=== PATIENT | female | born 1980 | race Caucasian/White ===

== ENCOUNTER 2016-07-20 14:32 | Emergency (ER) | payer MEDICAID ==
--- NOTE | 2016-07-20 14:44 | ER Document Report ---
ED Medical Screen (RME) - General Stated Complaint: TOE NAIL PAIN Notes: 35 yo female c/o right great toe pain, redness and swelling x 3 days. Pt was seen by PCM yesterday, given IM Rocephin and started on Keflex. Has pending referral for podiatry but toe is too painful to weight. TRAVEL OUTSIDE OF THE [place] IN LAST 30 DAYS: No - Related Data Allergies/Adverse Reactions: promethazine HCl [From Phenergan] Adverse Reaction (Unknown, Verified 04/27/16 08:04) Past Medical History - Past Medical History Cardiac Medical History: Reports: Hx Hypertension GI Medical History: Reports: Hx Gastroesophageal Reflux Disease Skin Medical History: Reports Hx MRSA Psychiatric Medical History: Reports: Hx Anxiety, Hx Depression - anxiety Past Surgical History: Reports: Hx Gynecologic Surgery - - Immunizations Hx Diphtheria, Pertussis, Tetanus Vaccination: Yes Physical Exam - Vital signs Vitals: Temp Pulse Resp BP Pulse Ox 97.4 F 88 14 114/74 98 07/20/16 14:36 07/20/16 14:36 07/20/16 14:36 07/20/16 14:36 07/20/16 14:36 Course - Vital Signs Vital signs: Temp Pulse Resp BP Pulse Ox 97.4 F 88 14 114/74 98 07/20/16 14:36 07/20/16 14:36 07/20/16 14:36 07/20/16 14:36 07/20/16 14:36
--- NOTE | 2016-07-20 16:03 | ER Document Report ---
HPI - HPI Patient complains to provider of: toe pain Pain Level: 5 Context: Patient is a 35-year-old female who has a history of ingrown toenails who presents with left ingrown toenail today. States she has had pain and swelling for the past 2 days and followed up with her PCP yesterday who gave her Rocephin IM and sent her home on Keflex. Patient is taking Motrin without much relief in her pain. Minimal drainage but nothing that looks cloudy. Patient has previously had paronychias drained here previously - REPRODUCTIVE Reproductive: DENIES: : - DERM Skin Color: [place] Past Medical History - Social History Smoking Status: Former Smoker Chew tobacco use (# tins/day): No Frequency of alcohol use: None Drug Abuse: None Family History: DM, Malignancy Patient has suicidal ideation: No Patient has homicidal ideation: No - Past Medical History Cardiac Medical History: Reports: Hx Hypertension Renal/ Medical History: Denies: Hx Peritoneal Dialysis GI Medical History: Reports: Hx Gastroesophageal Reflux Disease Skin Medical History: Reports Hx MRSA Psychiatric Medical History: Reports: Hx Anxiety, Hx Depression - anxiety Past Surgical History: Reports: Hx Gynecologic Surgery - - Immunizations Hx Diphtheria, Pertussis, Tetanus Vaccination: Yes Vertical Provider Document - CONSTITUTIONAL Agree With Documented VS: Yes Exam Limitations: No Limitations General Appearance: WD/WN, Mild Distress - INFECTION CONTROL TRAVEL OUTSIDE OF THE [place] IN LAST 30 DAYS: No - RESPIRATORY O2 Sat by Pulse Oximetry: 98 - CARDIOVASCULAR Pulses: Normal: Dorsalis pedis - MUSCULOSKELETAL/EXTREMETIES Musculoskeletal/Extremeties: MAEW, FROM, Tender - right big toe with mild swelling - NEURO Level of Consciousness: Awake, Alert, Appropriate Motor/Sensory: No Motor Deficit, No Sensory Deficit - DERM Integumentary: Warm, Dry, No Rash Notes: right toe with evidence of inflammation around right big toe nail but without evidence of paronychia. no evident ingrown toe nail to remove at bedside today Course - Re-evaluation Re-evalutation: 07/20/16 16:10 patient is a 35 year female presents with right big toe pain from ingrown toenail. No evidence of joint effusion or gallop. Patient currently taking antibiotics but pain is not well managed with [id number] medications. Will discharge patient home with by mouth medications and can follow-up with podiatry this week. - Vital Signs Vital signs: Temp Pulse Resp BP Pulse Ox 97.4 F 88 14 114/74 98 07/20/16 14:36 07/20/16 14:36 07/20/16 14:36 07/20/16 14:36 07/20/16 14:36 Discharge - Discharge Clinical Impression: Ingrowing nail Condition: Good Disposition: HOME, SELF-CARE Instructions: Ingrown Nail ([facility]), Epsom Salt Soaks ([facility]) Additional Instructions: Please continue to take your antibiotics as prescribed. Follow-up with podiatry later this week. Prescriptions: Oxycodone HCl/Acetaminophen [Percocet 5-325 mg Tablet] 1 - 2 tab PO Q6HP PRN # 15 tablet PRN Reason: Referrals: PODIATRY [Provider Group] - Follow up as needed
[2016-07-20] MEDS ORDERED: KETOROLAC TROMETHAMINE 60 MG/2 ML SDV IM ONE (16:13)
[2016-07-20 16:54] VITALS: BP 117/75
== END 2016-07-20 16:56 | disposition home or self-care (01) ==
LOC: ER 14:32
DX: L60.0 Ingrowing nail (principal); M79.675 Pain in left toe(s); Z87.891 Personal history of nicotine dependence
CPT/HCPCS: 96372; 99283; J1885

== ENCOUNTER 2016-09-13 07:28 | Day surgery (SDC) | payer MEDICAID ==
[~2016-09-13 07:28] MED LIST: BUPIVACAINE HCL 0.5 % INJ/PF 30 ML SDV ONE; CEFAZOLIN 1 GM/D5W RTU 1 GM/50 ML RTUPB IV PRN; FENTANYL CITRATE INJ/PF 100 MCG/2 ML AMPUL ONE; LIDOCAINE 0.5% INJ-PF (5 MG/ML) 50 ML SDV ONE; LIDOCAINE 1% INJ-PF (10 MG/ML) 30 ML SDV ONE; MIDAZOLAM 2 MG/2 ML INJ ONE; PROPOFOL INJ 200 MG/20 ML VIAL IV ONE; RINGERS SOLUTION,LACTATED 1,000 ML IV PRN
[2016-09-13] MEDS ORDERED: POVIDONE-IODINE 10% OINTMENT 28.4 GM ONE (08:27)
[2016-09-13] MEDS ORDERED: MIDAZOLAM 2 MG/2 ML INJ ONE (09:07)
[2016-09-13] MEDS ORDERED: LIDOCAINE 2% INJ (20 MG/ML) 20 ML MDV ONE (09:14)
--- NOTE | 2016-09-13 13:14 | [facility] OPERATIVE REPORT E ---
[facility] Operative Report NAME: MELCHOR CHERRY AGE: 36Y DATE OF SURGERY: 09/13/2016 ROOM: PREOPERATIVE DIAGNOSIS: ONYCHOINCURVATUS HALLUX BILATERAL. POSTOPERATIVE DIAGNOSIS: ONYCHOINCURVATUS HALLUX BILATERAL. OPERATION: Partial nail avulsion medial and lateral borders, hallux bilateral. Partial matrixectomy medial and lateral matrix corners, hallux bilateral. SURGEON: JESE CORNELIUS D.P.M. INTRAOPERATIVE FINDINGS: Intraoperative findings indicated deeply incurvated medial and lateral nail borders into the nail grooves which has been causing tremendous friction into the nail grooves and a great deal of pain, especially when the patient is in closed in shoes. This condition also has led to infections in the past, but today on the day of surgery, there were no signs of infection. PROCEDURE: With the patient lying in the dorsal recumbent position, both feet were prepped and draped in the usual standard sterile orthopedic manner after the local anesthesia was administered which was a 50/50 mixture of 2% Xylocaine and 0.5% Marcaine. The type of anesthesia utilized, was a regional block around the surgical field. After the anesthetic effect was accomplished, attention was directed first to the right hallux. Medial and lateral borders were removed in total. The nail grooves were cleaned from any debris. After that, a digital tourniquet was applied at the base of the right hallux to control hemostasis. Next, a 1 cm in length oblique incision was placed at the junction of the medial and lateral corners of the eponychium over the proximal medial and lateral corners of the nail grooves. The incision was taken all the way down to bone. The skin flaps were created and the corners of the matrix were visualized. At this point, the corners of the matrix were sharply excised. After that, the bone was curetted to remove any remnants of matrix that might have been left behind and finally, electrodesiccation was performed to assure total destruction of any cells of matrix which may give regeneration of nail tissue. At this point, the areas were evaluated. The correction was extremely satisfactory. The surgical sites were irrigated with copious amounts of sterile saline solution. The spaces created after the excision of the corners of the matrix were packed with Gelfoam. The skin flaps were repositioned and anchored down with 4-0 nylon using continuous interlocked stitch. At this point, Betadine compression dressing was applied around the right hallux. The digital tourniquet was removed. The circulation to the right hallux returned to normal immediately as the normal digital color and temperature became apparent. Next, attention was directed to the left hallux and exactly the same procedures were performed. This patient tolerated the procedures well and left the operating room with stable vital signs and in good condition. The patient was taken to the recovery room alert, conscious and oriented. There are no permanent disabilities anticipated at this time. DICTATING PHYSICIAN: JESE CORNELIUS D.P.M. [id number] PHY#: [id number] ID: [id number] JOB#: [id number] ACCT: [id number] cc:JESE CORNELIUS D.P.M. >
== END 2016-09-13 11:05 | disposition home or self-care (01) ==
LOC: SC 07:28
PROVIDERS: ATTEND Podiatrist Foot & Ankle Surgery
PROC: 0HTRXZZ Resection of Toe Nail, External Approach (ICD-10-PCS; principal; 2016-09-13 08:45)
DX: L60.3 Nail dystrophy (principal); J30.2 Other seasonal allergic rhinitis; Z88.8 Allergy status to other drugs, medicaments and biological substances; Z79.899 Other long term (current) drug therapy
CPT/HCPCS: 11750 ×2; 88304 ×2; J2250; J3490 ×2; J0690; J3010; J2704; 400

== ENCOUNTER 2016-10-04 13:34 | Emergency (ER) | payer MEDICAID ==
[2016-10-04 14:17] VITALS: BP 131/92
--- NOTE | 2016-10-04 14:50 | ER Document Report ---
ED Extremity Problem, Lower - General Chief Complaint: Foot Pain Stated Complaint: TOE PAIN Time Seen by Provider: 10/04/16 14:35 Mode of Arrival: Ambulatory Information source: Patient Notes: 36-year-old female presents to ED for pain in her left great toe. She states she had a" removed on 09/13/2016 sutures removed on Friday and today when she washed her toes the pain increased. She states the pain is throbbing and sharp. TRAVEL OUTSIDE OF THE [place] IN LAST 30 DAYS: No - HPI Patient complains to provider of: Pain, Other - Left great toe Location: Great Toe - ( Occurred: Other - 09/13/2016 she had a ingrown toenail removed sutures removed on Friday she took a shower today and the pain started worse Where: Home Onset/Duration: Intermittent Quality of pain: Sharp, Throbbing Severity: Moderate Pain Level: 4 Context: Other - Surgery Recent injury: No Associated symptoms: Painful ambulation Exacerbated by: Movement, Walking Relieved by: Nothing - Related Data Allergies/Adverse Reactions: promethazine HCl [From Phenergan] Adverse Reaction (Unknown, Verified 07/20/16 14:43) Past Medical History - General Information source: Patient - Social History Smoking Status: Current Every Day Smoker Cigarette use (# per day): Yes - vapor cigarettes Chew tobacco use (# tins/day): No Frequency of alcohol use: None Drug Abuse: None 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 Family History: DM, Malignancy Patient has suicidal ideation: No Patient has homicidal ideation: No - Past Medical History Cardiac Medical History: Reports: None Pulmonary Medical History: Reports: None EENT Medical History: Reports: None Neurological Medical History: Reports: None Endocrine Medical History: Reports: None Renal/ Medical History: Reports: None Malignancy Medical History: Reports: None GI Medical History: Reports: Hx Gastroesophageal Reflux Disease Musculoskeltal Medical History: Reports None Skin Medical History: Reports Hx MRSA Psychiatric Medical History: Reports: Hx Anxiety, Hx Depression - anxiety Traumatic Medical History: Reports: None Infectious Medical History: Reports: None Past Surgical History: Reports: Hx Gynecologic Surgery - , Other - Ingrown toenail surgery on 09/13/2016 - Immunizations Hx Diphtheria, Pertussis, Tetanus Vaccination: Yes Review of Systems - Review of Systems Constitutional: No symptoms reported EENT: No symptoms reported Cardiovascular: No symptoms reported Respiratory: No symptoms reported Gastrointestinal: No symptoms reported Genitourinary: No symptoms reported Female Genitourinary: No symptoms reported Musculoskeletal: No symptoms reported Skin: Other - Healing incisions to left great toe no redness or swelling Hematologic/Lymphatic: No symptoms reported Neurological/Psychological: No symptoms reported Physical Exam - Vital signs Vitals: Pulse Resp BP Pulse Ox 109 H 18 131/92 H 99 10/04/16 14:16 10/04/16 14:16 10/04/16 14:16 10/04/16 14:16 Interpretation: Normal - General General appearance: Appears well, Alert - HEENT Head: Normocephalic, Atraumatic Eyes: Normal Pupils: PERRL - Respiratory Respiratory status: No respiratory distress Chest status: Nontender Breath sounds: Normal Chest palpation: Normal - Cardiovascular Rhythm: Regular Heart sounds: Normal auscultation Murmur: No - Abdominal Inspection: Normal Distension: No distension Bowel sounds: Normal Tenderness: Nontender Organomegaly: No organomegaly - Back Back: Normal, Nontender - Extremities General upper extremity: Normal inspection, Nontender, Normal color, Normal ROM , Normal temperature General lower extremity: Normal inspection, Nontender, Normal color, Normal ROM , Normal temperature, Normal weight bearing. No: Antoine's sign - Neurological Neuro grossly intact: Yes Cognition: Normal Orientation: AAOx4 John Coma Scale Eye Opening: Spontaneous John Coma Scale Verbal: Oriented [place] Coma Scale Motor: Obeys Commands John Coma Scale Total: 15 Speech: Normal Motor strength normal: LUE, RUE, LLE, RLE Sensory: Normal - Psychological Associated symptoms: Normal affect, Normal mood - Skin Skin Temperature: Warm Skin Moisture: Dry Skin Color: Normal Location of irregularity: Extremities - Healing incisions to the left great toe no redness or swelling no signs of infection Course - Re-evaluation Re-evalutation: 10/04/16 14:55 Dressing removed and Band-Aid applied there is no redness swelling or edema to the toe. Dr. Keila Cornelius was consult and patient discharged home. Patient to follow-up with Dr. Cornelius on Friday. - Vital Signs Vital signs: Temp Pulse Resp BP Pulse Ox 98.3 F 109 H 18 131/92 H 99 10/04/16 14:17 10/04/16 14:16 10/04/16 14:16 10/04/16 14:16 10/04/16 14:16 Discharge - Discharge Clinical Impression: painful left great toe Condition: Stable Disposition: HOME, SELF-CARE Additional Instructions: He was seen today for pain in your left great toe were you had a toe nail removed on 09/13/2016. He states stitches were removed on Friday. There is no signs of infection no swelling no redness. Continue to soak your foot and the vinegar water as instructed by Dr. Keila Cornelius's nurse. Continue to take your ibuprofen 800s as Dr. Cornelius prescribed I spoke with Dr. Cornelius she states this is appropriate care. If you would feel more comfortable she said she could also soak your foot in Epsom salt and warm water Epsom Salt Soaks Soak the wound area in a container of warm epsom salt water. If you can't get the wound area into a bucket or boucher, use a folded towel soaked in the epsom salt solution and apply to the area. Use clean hot tap water (about the temperature of a very warm bath), mixing in about one (1) teaspoon for every pint of water. Two gallon --> 16 teaspoons Epsom Salts One gallon --> 8 teaspoons Epsom Salts Two quarts --> 4 teaspoons Epsom Salts One quart --> 2 teaspoons Epsom Salts Soak the wound for about 20 minutes while gently moving it around in the water. Repeat this four (4) times a day. FOLLOW-UP CARE: If you have been referred to a physician for follow-up care, call the physician s office for an appointment as you were instructed or within the next two days. If you experience worsening or a significant change in your symptoms, notify the physician immediately or return to the Emergency Department at any time for re-evaluation. Forms: Elevated Blood Pressure, Smoking Cessation Education, Return to Work Referrals: KEILA CORNELIUS DPM [ACTIVE STAFF] - Follow up as needed
== END 2016-10-04 14:50 | disposition home or self-care (01) ==
LOC: ER 13:34
DX: M79.675 Pain in left toe(s) (principal); Z98.890 Other specified postprocedural states; Z86.14 Personal history of Methicillin resistant Staphylococcus aureus infection
CPT/HCPCS: 99283

== ENCOUNTER 2016-10-24 16:06 | Emergency (ER) | payer MEDICAID ==
--- NOTE | 2016-10-24 17:49 | ER Document Report ---
HPI - HPI Pain Level: 3 Context: Patient is a 36-year-old female who presents today for right lower jaw/tooth pain that began today. States that she has a history of dental abscesses and has had all of her right lower molars removed. Pt states that she has contacted several Dental offices in the area and they are unable to get her in until early November. Patient is just concerned as she does not want to have another dental abscess. Patient states that she has been taking Keflex 250 mg 4 times a day for an infection to her toe that is being treated by another provider. She also has an anti-inflammatory medication as prescribed to her for discomfort. Denies any fever, ear pain, nasal congestion, nasal discharge, sore throat, sinus pain, cough, shortness breath, chest pain, palpitations, abdominal pain, N/V/D/C, dysuria, or rash. - ROS Notes: REVIEW OF SYSTEMS: CONSTITUTIONAL : Denies fever, chills, or sweats. Denies recent illness. EENT: as above. CARDIOVASCULAR: Denies chest pain. Denies palpitations or racing or irregular heart beat. Denies ankle edema. RESPIRATORY: Denies cough, cold, or chest congestion. Denies shortness of breath, difficulty breathing, or wheezing. GASTROINTESTINAL: Denies abdominal pain or distention. Denies nausea, vomiting , or diarrhea. Denies blood in vomitus, stools, or per rectum. Denies black, tarry stools. Denies constipation. GENITOURINARY: Denies difficulty urinating, painful urination, burning, frequency, blood in urine, or discharge. MUSCULOSKELETAL: Denies back or neck pain or stiffness. Denies joint pain or swelling. SKIN: Denies rash, lesions or sores. LYMPHATIC: Denies swollen, enlarged glands. ALL OTHER SYSTEMS REVIEWED AND NEGATIVE. Dictation was performed using [employer] voice recognition software - CARDIOVASCULAR Cardiovascular: DENIES: Chest pain - REPRODUCTIVE Reproductive: DENIES: : - DERM Skin Color: Normal Past Medical History - Social History Smoking Status: Current Every Day Smoker Smoking Education Provided: Yes - 2mins Family History: DM, Malignancy Patient has suicidal ideation: No Patient has homicidal ideation: No - Past Medical History Cardiac Medical History: Denies: Hx Heart Attack, Hx Hypertension - HIGH ANXIETY ISSUES Pulmonary Medical History: Denies: Hx Asthma Neurological Medical History: Denies: Hx Cerebrovascular Accident, Hx Seizures Renal/ Medical History: Denies: Hx Peritoneal Dialysis GI Medical History: Reports: Hx Gastroesophageal Reflux Disease. Denies: Hx Hepatitis, Hx Hiatal Hernia, Hx Ulcer Skin Medical History: Reports Hx MRSA Psychiatric Medical History: Reports: Hx Anxiety, Hx Depression - anxiety Infectious Medical History: Denies: Hx Hepatitis Past Surgical History: Reports: Hx Gynecologic Surgery - , Other - Ingrown toenail surgery on 09/13/2016. Denies: Hx Mastectomy, Hx Open Heart Surgery, Hx Pacemaker - Immunizations Hx Diphtheria, Pertussis, Tetanus Vaccination: Yes Vertical Provider Document - CONSTITUTIONAL Notes: PHYSICAL EXAMINATION: GENERAL: Well-appearing, well-nourished and in no acute distress. HEAD: Atraumatic, normocephalic. EYES: Pupils equal round and reactive to light, extraocular movements intact, sclera anicteric, conjunctiva are normal. Mouth: + 0.2-0.25cm ulceration with surrounding erythema to the rt inside cheek next to where the #32 tooth would be. + tenderness to palpation of the ulceration (tenderness elicited corresponds to the pain described). She has no molars to the rt lower jaw. ENT: EAC clear b/l. TM's intact b/l without erythema, fluid, or perforation. Nares patent and without discharge. oropharynx clear without exudates. No tonsilar hypertrophy or erythema. Moist mucous membranes. No sinus tenderness. NECK: Normal range of motion, supple without lymphadenopathy LUNGS: Breath sounds clear to auscultation bilaterally and equal. No wheezes rales or rhonchi. HEART: Regular rate and rhythm without murmurs, rubs, gallops. PSYCH: Normal mood, normal affect. SKIN: Warm, Dry, normal turgor, no rashes or lesions noted. - INFECTION CONTROL TRAVEL OUTSIDE OF THE [place] IN LAST 30 DAYS: No - RESPIRATORY O2 Sat by Pulse Oximetry: 96 Course - Re-evaluation Re-evalutation: 10/24/16 17:56 36-year-old female who presents with a suspected single aphthous ulceration to the inside right cheek based on H&P. Vitals are stable, PE otherwise unremarkable. No other signs of bacterial infection or abscess at this time. The development of fever worsening symptoms she is to return to the ED. Otherwise establish with a PCM for follow-up in 2-3 days. Patient in agreement with plan. 10/24/16 18:03 Patient is also taking Keflex 4 times a day that helps reassure that we are not dealing with a bacterial infection at this time. Continue medication as prescribed by other provider. - Vital Signs Vital signs: Temp Pulse Resp BP Pulse Ox 98.3 F 69 16 113/73 96 10/24/16 16:37 10/24/16 16:37 10/24/16 16:37 10/24/16 16:37 10/24/16 16:37 Discharge - Discharge Clinical Impression: Aphthae, oral Condition: Stable Disposition: HOME, SELF-CARE Additional Instructions: Apthous ulcer: Saltwater gargles Peroxide rinse Anbesol or Orajel as needed [place] & floss twice daily Monitor for any worsening pain, swelling, purulent discharge, or development of fever. If noticing any worsening symptoms go to the ED for follow-up. Otherwise establish with a PCM for recheck in 2-3 days.
[2016-10-24 18:10] VITALS: BP 110/78
== END 2016-10-24 18:14 | disposition home or self-care (01) ==
LOC: ER 16:06
DX: K12.0 Recurrent oral aphthae (principal); R68.84 Jaw pain; K08.9 Disorder of teeth and supporting structures, unspecified; F17.200 Nicotine dependence, unspecified, uncomplicated; Z86.14 Personal history of Methicillin resistant Staphylococcus aureus infection
CPT/HCPCS: 99282

== ENCOUNTER 2017-02-28 13:00 | Emergency (ER) | payer MEDICAID ==
[2017-02-28 13:15] VITALS: BP 124/77
[2017-02-28] MEDS ORDERED: OXYCODONE-ACETAMINOPHEN 5-325 MG TABLET PO ONE (13:36)
--- NOTE | 2017-02-28 13:37 | ER Document Report ---
HPI - HPI Patient complains to provider of: Right foot injury Onset: This afternoon Onset/Duration: Sudden Quality of pain: Sharp Pain Level: 4 Context: Patient states she was stepping down and rolled her foot today. Patient was wearing a slide flip-flop type shoe. Patient complains of pain with any weightbearing. Associated Symptoms: Other - Right foot injury Exacerbated by: Standing, Movement, Walking Relieved by: Denies Similar symptoms previously: No Recently seen / treated by doctor: No - ROS ROS below otherwise negative: Yes Systems Reviewed and Negative: Yes All other systems reviewed and negative - NEURO Neurology: DENIES: Weakness - GASTROINTESTINAL Gastrointestinal: DENIES: Nausea - REPRODUCTIVE Reproductive: DENIES: : - MUSCULOSKELETAL Musculoskeletal: REPORTS: Extremity pain, Swelling - DERM Skin Color: Ecchymosis Skin Problems: None Past Medical History - General Information source: Patient - Social History Smoking Status: Current Every Day Smoker - Vapor smoking 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 Denies: Hx Hepatitis, Hx Hiatal Hernia, Hx Ulcer Skin Medical History: Reports Hx MRSA Psychiatric Medical History: Reports: Hx Anxiety, Hx Depression - anxiety Infectious Medical History: Denies: Hx Hepatitis Surgical Hx: Negative Past Surgical History: Reports: Hx Gynecologic Surgery - , Other - Ingrown toenail surgery on 09/13/2016. Denies: Hx Mastectomy, Hx Open Heart Surgery, Hx Pacemaker - Immunizations Hx Diphtheria, Pertussis, Tetanus Vaccination: Yes Vertical Provider Document - CONSTITUTIONAL Agree With Documented VS: Yes Exam Limitations: No Limitations General Appearance: WD/WN, No Apparent Distress - INFECTION CONTROL TRAVEL OUTSIDE OF THE [place] IN LAST 30 DAYS: No - HEENT HEENT: Atraumatic, Normocephalic - NECK Neck: Normal Inspection - RESPIRATORY Respiratory: No Respiratory Distress O2 Sat by Pulse Oximetry: 100 - CARDIOVASCULAR Pulses: Normal: Dorsalis pedis - MUSCULOSKELETAL/EXTREMETIES Musculoskeletal/Extremeties: MAEW, Tender - Left foot tenderness to left great toe, left first and second metatarsal with overlying ecchymosis and swelling., Edema, Eccymosis - NEURO Level of Consciousness: Awake, Alert, Appropriate Motor/Sensory: No Motor Deficit - DERM Integumentary: Warm, Dry, No Rash Course - Re-evaluation Re-evalutation: 02/28/17 14:17 Patient refused postop shoe - Vital Signs Vital signs: Temp Pulse Resp BP Pulse Ox 98.5 F 92 20 124/77 100 02/28/17 13:13 02/28/17 13:13 02/28/17 13:13 02/28/17 13:13 02/28/17 13:13 - Diagnostic Test Radiology reviewed: Pending, Image reviewed Discharge - Discharge Clinical Impression: Sprain of foot Qualifiers: Encounter type: initial encounter Laterality: right Qualified Code(s): S93.601A - Unspecified sprain of right foot, initial encounter Condition: Stable Disposition: HOME, SELF-CARE Instructions: Use of Crutches ([facility]), Ice Packs ([facility]), Oral Narcotic Medication ([facility]), Post-Op Shoe ([facility]), Sprain ([facility]) Additional Instructions: Return immediately for any new or worsening symptoms Followup with your primary care provider, call tomorrow to make a followup appointment Weightbearing as tolerated Follow-up with orthopedic doctor for any continued pain or problems Prescriptions: Oxycodone HCl/Acetaminophen [Percocet 5-325 mg Tablet] 1 tab PO ASDIR PRN #10 tablet PRN Reason: Forms: Return to Work Referrals: [facility] ([facility]) [Provider Group] - Follow up as needed
--- NOTE | 2017-02-28 14:26 | RADIOLOGY REPORT (SQ) ---
EXAM DESCRIPTION: FOOT RIGHT COMPLETE COMPLETED DATE/TIME: 02/28/2017 1:54 pm REASON FOR STUDY: fall, r 1st MT pain COMPARISON: None. NUMBER OF VIEWS: Three views. TECHNIQUE: AP, lateral and oblique radiographic images acquired of the right foot. LIMITATIONS: None. FINDINGS: MINERALIZATION: Normal. BONES: No acute fracture or dislocation. No worrisome bone lesions. JOINTS: No effusions. SOFT TISSUES: No soft tissue swelling. No foreign body. OTHER: No other significant finding. IMPRESSION: NEGATIVE STUDY OF THE RIGHT FOOT. NO RADIOGRAPHIC EVIDENCE OF ACUTE INJURY. TECHNICAL DOCUMENTATION: JOB ID: [id number] [employer]- All Rights Reserved
== END 2017-02-28 14:25 | disposition home or self-care (01) ==
LOC: ER 13:00
DX: S93.601A Unspecified sprain of right foot, initial encounter (principal); M79.671 Pain in right foot; X50.1XXA Overexertion from prolonged static or awkward postures, initial encounter; F17.200 Nicotine dependence, unspecified, uncomplicated
CPT/HCPCS: 99283

== ENCOUNTER 2017-05-11 22:08 | Emergency (ER) | payer MEDICAID ==
[2017-05-11] MEDS ORDERED: KETOROLAC TROMETHAMINE 60 MG/2 ML SDV IM ONE (22:56)
--- NOTE | 2017-05-11 23:16 | ER Document Report ---
ED General - General Chief Complaint: Pelvic Pain Stated Complaint: ABDOMINAL PAIN Time Seen by Provider: 05/11/17 22:50 Notes: Patient is a 36-year-old female presents with complaint of severe pain over left lower quadrant abdomen. Says it comes and goes. She denies any dysuria. No history of kidney stones. No blood in her urine. No abnormal vaginal discharge. She has had some irregular periods since coming off control 3 months ago. Her and her are trying to get . She says she is currently on her period. She denies any fevers. No vomiting. No diarrhea. She does have history of ovarian cysts and says she has had the same pain once before and it feels similar. TRAVEL OUTSIDE OF THE [place] IN LAST 30 DAYS: No - Related Data Allergies/Adverse Reactions: promethazine HCl [From Phenergan] Adverse Reaction (Unknown, Verified 05/11/17 22:24) Past Medical History - Social History Smoking Status: Unknown if Ever Smoked Frequency of alcohol use: None Drug Abuse: None Family History: DM, Malignancy - Past Medical History Cardiac Medical History: Denies: Hx Heart Attack, Hx Hypertension - HIGH ANXIETY ISSUES Pulmonary Medical History: Denies: Hx Asthma Neurological Medical History: Denies: Hx Cerebrovascular Accident, Hx Seizures Renal/ Medical History: Denies: Hx Peritoneal Dialysis GI Medical History: Reports: Hx Gastroesophageal Reflux Disease. Denies: Hx Hepatitis, Hx Hiatal Hernia, Hx Ulcer Skin Medical History: Reports Hx MRSA Psychiatric Medical History: Reports: Hx Anxiety, Hx Depression - anxiety Infectious Medical History: Denies: Hx Hepatitis Past Surgical History: Reports: Hx Gynecologic Surgery - , Other - Ingrown toenail surgery on 09/13/2016. Denies: Hx Mastectomy, Hx Open Heart Surgery, Hx Pacemaker - Immunizations Hx Diphtheria, Pertussis, Tetanus Vaccination: Yes Review of Systems - Review of Systems Notes: My Normal Review Basic REVIEW OF SYSTEMS: CONSTITUTIONAL : Denies fever, chills, or sweats. Denies recent illness. RESPIRATORY: Denies cough, cold, or chest congestion. Denies shortness of breath, difficulty breathing, or wheezing. GASTROINTESTINAL: Left lower quadrant abdominal pain. Denies nausea, vomiting, or diarrhea. GENITOURINARY: Denies difficulty urinating, painful urination, burning, frequency, or blood in urine. FEMALE GENITOURINARY: Currently on menstrual period. MUSCULOSKELETAL: Denies neck or back pain or joint pain or swelling. SKIN: Denies rash or skin lesions. NEUROLOGICAL: Denies altered mental status or loss of consciousness. Denies headache. Denies weakness or paralysis or loss of use of either side. Denies problems with gait or speech. Denies sensory or motor loss. ALL OTHER SYSTEMS REVIEWED AND NEGATIVE. Physical Exam - Vital signs Vitals: Temp Pulse Resp BP Pulse Ox 98.8 F 90 20 100/85 99 05/11/17 22:23 05/11/17 22:23 05/11/17 22:23 05/11/17 22:23 05/11/17 22:23 - Notes Notes: General Appearance: Well nourished, alert, cooperative, no acute distress, mild obvious discomfort. Vitals: reviewed, See vital signs table. Eyes: PERRL, EOMI, Conjuctiva clear Mouth: No decreasd moisture Lungs: No wheezing, No rales, No rhonci, No accessory muscle use, good air exchange bilaterally. Heart: Normal rate, Regular rythm, No murmur, no rub Abdomen: Normal BS, soft, No rigidity, no reproducible abdominal tenderness palpation, No guarding, no rebound, Pelvic: Normal external genitalia. No red blood in vaginal vault. Small amount of graded darker blood in the fold. No abnormal discharge. Extremities: strength 5/5 in all extremities, good pulses in all extremities, no swelling or tenderness in the extremities, no edema. Skin: warm, dry, appropriate color, no rash Neuro: speech clear, oriented x 3, normal affect, responds appropriately to questions. Course - Re-evaluation Re-evalutation: 05/12/17 04:25 Patient's ultrasound shows no evidence of cyst or torsion. Pelvic exam is non- concerning. This was mild discharge. The wet prep is suggestive of bacterial vaginosis. She will be placed on Flagyl. Encouraged her follow-up closely with her park guide. I will place on Toradol for pain. Encouraged her return to ER immediately if she has fevers, vomiting, worsening pain, or she feels unwell. She agrees with plan and will be discharged home. Dictation of this chart was performed using voice recognition software; therefore, there may be some unintended grammatical errors. 05/12/17 04:26 - Vital Signs Vital signs: Temp Pulse Resp BP Pulse Ox 98.0 F 68 16 115/70 98 05/12/17 02:51 05/12/17 02:51 05/12/17 02:51 05/12/17 02:51 05/12/17 02:51 - Laboratory Laboratory results interpreted by me: 05/11/17 23:25 Urine Blood MODERATE H Urine Urobilinogen 2.0 H Discharge - Discharge Clinical Impression: Pelvic pain, Bacterial vaginosis Condition: Good Disposition: HOME, SELF-CARE Additional Instructions: Vaginitis Your exam shows that you have vaginitis, a vaginal infection. The infection can be caused by a many different organisms, including Gardnerella. The usual symptoms are vaginal irritation and discharge. The treatment is usually antibiotics such as Flagyl. Laboratory tests can determine which germ is responsible. Use the medication as prescribed. Because this infection can be transmitted sexually, your sexual partner may need to be checked and treated also. If your physician has not discussed this with you, please check before resuming sexual relations. If a culture shows gonorrhea or chlamydia, the infection must be reported to the health department. Call the doctor if you develop pelvic pain, fever, or problems with urination, or if you don't improve as expected. Your ultrasound did not show any ovarian cyst. I suspect your pain is a combination of bacterial vaginosis as well as the irregular menstrual periods in relation to coming off the control. Please follow-up with her park guide this week for reevaluation. Please return to the ER immediately if you have worsening pain, fevers, vomiting, heavy bleeding, or feel unwell. Prescriptions: Ketorolac Tromethamine [Toradol 10 mg Tablet] 10 mg PO Q6HP PRN #12 tablet PRN Reason: Metronidazole [Flagyl 500 mg Tablet] 500 mg PO BID #14 tablet Forms: Return to Work
[2017-05-11 23:43] LABS: APPEARANCE,URINE CLEAR; BILIRUBIN,URINE NEGATIVE (NEGATIVE); GLUCOSE, URINE NEGATIVE (NEGATIVE); KETONES,URINE NEGATIVE (NEGATIVE); LEUKOCYTE ESTERASE,URINE NEGATIVE (NEGATIVE); NITRITE,URINE NEGATIVE (NEGATIVE); PROTEIN,URINE NEGATIVE (NEGATIVE)
--- NOTE | 2017-05-12 01:02 | RADIOLOGY REPORT (SQ) ---
EXAM DESCRIPTION: U/S NON OB PEL TV W/DOPPLER CLINICAL HISTORY: 36 years, Female, left sided pelvic pain COMPARISON: 01/05/2016 TECHNIQUE: Real-time sonographic images of the pelvis obtained with transvaginal imaging. LIMITATIONS: None. FINDINGS: The uterus measures 7.8 x 2.8 x 5.1 cm. Endometrial thickness of 0.9 cm. No myometrial abnormalities. No free pelvic fluid. The cervix measures 3.8 cm in length. The right ovary measures 3.0 x 3.2 x 2.2 cm. The left ovary measures 2.3 x 1.7 x 1.9 cm. No abnormalities identified. Limited color and spectral Doppler imaging demonstrates flow within the ovaries bilaterally. IMPRESSION: 1. No sonographic abnormality of the pelvis identified. 2011 [employer]- All Rights Reserved
[2017-05-12 02:52] VITALS: BP 115/70
== END 2017-05-12 02:53 | disposition home or self-care (01) ==
LOC: ER 22:08
DX: N76.0 Acute vaginitis (principal); B96.89 Other specified bacterial agents as the cause of diseases classified elsewhere; R10.2 Pelvic and perineal pain; R10.32 Left lower quadrant pain
CPT/HCPCS: 99284; 96372; 87210; 81025; 81001; 87491; 87591; 76830; 93976; J1885

== ENCOUNTER 2017-12-09 08:44 | Emergency (ER) | payer MEDICAID ==
--- NOTE | 2017-12-09 09:41 | ER Document Report ---
ED GI/ <BECKA GREY - Last Filed: 12/09/17 13:34> - General Mode of Arrival: Ambulatory Information source: Patient TRAVEL OUTSIDE OF THE [place] IN LAST 30 DAYS: No <WILY CRUZ - Last Filed: 12/09/17 14:09> - General Chief Complaint: Nausea/Vomiting Stated Complaint: FEVER Time Seen by Provider: 12/09/17 09:25 Notes: 37-year-old female who presents to the emergency department today with complaints of nausea, vomiting, diarrhea, and associated body aches since yesterday morning. Patient states she went to bed two nights ago and felt fine without any symptoms. (WILY CRUZ) - Related Data Allergies/Adverse Reactions: promethazine HCl [From Phenergan] Adverse Reaction (Unknown, Verified 12/09/17 08:46) Past Medical History - General Information source: Patient - Social History Smoking Status: Current Every Day Smoker Cigarette use (# per day): Yes - e-cig Occupation: [employer] Family History: DM, Malignancy GI Medical History: Reports: Hx Gastroesophageal Reflux Disease Skin Medical History: Reports Hx MRSA Psychiatric Medical History: Reports: Hx Anxiety, Hx Depression Past Surgical History: Reports: Hx Gynecologic Surgery - , Other - Ingrown toenail surgery on 09/13/2016 - Immunizations Hx Diphtheria, Pertussis, Tetanus Vaccination: Yes <WILY CRUZ - Last Filed: 12/09/17 14:09> Review of Systems - Review of Systems Constitutional: No symptoms reported EENT: No symptoms reported Cardiovascular: No symptoms reported Respiratory: No symptoms reported Gastrointestinal: See HPI, Diarrhea, Nausea, Vomiting Genitourinary: No symptoms reported Female Genitourinary: No symptoms reported Musculoskeletal: See HPI, Muscle pain Skin: No symptoms reported Hematologic/Lymphatic: No symptoms reported Neurological/Psychological: No symptoms reported -: Yes All other systems reviewed and negative <WILY CRUZ - Last Filed: 12/09/17 14:09> Physical Exam <BECKA GREY - Last Filed: 12/09/17 13:34> <WILY CRUZ - Last Filed: 12/09/17 14:09> - Vital signs Vitals: Temp Pulse Resp BP Pulse Ox 97.6 F 79 14 102/66 98 12/09/17 08:47 12/09/17 08:47 12/09/17 08:47 12/09/17 08:47 12/09/17 08:47 - Notes Notes: Physical Exam: General: Alert, appears well. HEENT: Normocephalic. Atraumatic. PERRL. Extraocular movements intact. Oropharynx clear. Dry mucous membranes. Neck: Supple. Non-tender. Respiratory: No respiratory distress. Clear and equal breath sounds bilaterally. Cardiovascular: Regular rate and rhythm. Abdominal: Normal Inspection. Non-tender. No distension. Normal Bowel Sounds. Back: Non-tender. No deformity or step off. Extremities: Moves all four extremities. Upper extremities: Normal inspection. Normal ROM. Lower extremities: Normal inspection. No edema. Normal ROM. Neurological: Normal cognition. AAOx4. Normal speech. Psychological: Normal affect. Normal Mood. Skin: Warm. Dry. Normal color. (WILY CRUZ) Course - Laboratory Result Diagrams: 12/09/17 09:36 12/09/17 09:36 <BECKA GREY - Last Filed: 12/09/17 13:34> - Laboratory Result Diagrams: 12/09/17 09:36 12/09/17 09:36 <WILY CRUZ - Last Filed: 12/09/17 14:09> - Re-evaluation Re-evalutation: 12/09/17 13:35 Patient is feeling better. The urine was not concentrated. White blood cell count was quite low consistent with a viral illness. She is tolerating p.o. fluids at this time. (BECKA GREY) - Vital Signs Vital signs: Temp Pulse Resp BP Pulse Ox 97.8 F 74 14 92/53 L 99 12/09/17 13:47 12/09/17 13:47 12/09/17 08:47 12/09/17 13:47 12/09/17 13:47 - Laboratory Laboratory results interpreted by tn: 12/09/17 12/09/17 09:36 09:36 WBC 2.8 L Plt Count 102 L Potassium 3.5 L Calcium 7.9 L Total Protein 6.0 L Discharge <BECKA GREY - Last Filed: 12/09/17 13:34> <WILY CRUZ - Last Filed: 12/09/17 14:09> - Discharge Clinical Impression: Nausea, vomiting and diarrhea, Generalized body aches, Viral syndrome Condition: Stable Disposition: HOME, SELF-CARE Additional Instructions: Gastroenteritis You most likely have gastroenteritis. This is an irritation of the stomach and intestinal tract. It's usually caused by a virus, but can also be caused by bacteria, toxins that cause food poisoning, or excessive alcohol intake. Symptoms may include fever, painful abdominal cramps, nausea, vomiting , and diarrhea. Start with small amounts (two to six ounces) of clear liquids (soft drinks , herb teas, broth, etc). Try to take fluids frequently even if you are vomiting, to prevent dehydration. When liquids are being consumed successfully , advance to small amounts of bland food (mashed potato, toast) for 6 - 12 hours. Gastroenteritis rarely requires medication. It goes away by itself. Use good handwashing so you don't spread germs. Wash underwear in very hot water. If symptoms are severe, talk to the doctor. Call your physician if blood appears in your vomitus or stool, if vomiting lasts longer than 24 hours, if the abdominal pain worsens or becomes localized to one area, or if you develop high fever. Take the Zofran 1-2 tablets under the tongue every 4-6 hours as needed for nausea. Drink plenty of cool clear liquids. Take Tylenol and ibuprofen for any fever or aches and pains. Rest. Follow-up with a local medical doctor if not improving. RETURN TO THE EMERGENCY ROOM IF ANY NEW OR WORSENING SYMPTOMS. Forms: Return to Work Referrals: DIVYA ELIZALDE MD [Primary Care Provider] - Follow up as needed Scribe Attestation: 12/09/17 11:18 I personally performed the services described in the documentation, reviewed and edited the documentation which was dictated to the scribe in my presence, and it accurately records my words and actions. (BECKA GREY) Scribe Documentation - Scribe Written by Scribe:: Tripp Davidson, 12/09/2017 1409 acting as scribe for :: Namrata <WILY CRUZ - Last Filed: 12/09/17 14:09>
[2017-12-09] MEDS ORDERED: NORMAL SALINE 1000 ML 1,000 ML IV ONE (09:42)
[2017-12-09] MEDS ORDERED: KETOROLAC TROMETHAMINE INJ/PF 30 MG/1 ML SDV IV ONE (09:42)
[2017-12-09] MEDS ORDERED: METOCLOPRAMIDE HCL INJ/PF 10 MG/2 ML SDV IV ONE (09:42)
[2017-12-09 10:12] LABS: ABSOLUTE LYMPHOCYTES (AUTO) 0.7 10^3/uL (0.5-4.7); ABSOLUTE MONOCYTES (AUTO) 0.3 10^3/uL (0.1-1.4); ABSOLUTE NEUT (AUTO) 1.8 10^3/uL (1.7-8.2); BASOPHILS % (AUTO) 0.3 % (0-2); EOSINOPHILS % (AUTO) 1.4 % (0-6); HEMATOCRIT 39.9 % (36.0-47.0); HEMOGLOBIN 13.5 g/dL (12.0-15.5); MEAN CORPUSCULAR HEMOGLOBIN 28.8 pg (27.0-33.4); MEAN CORPUSCULAR HGB CONC 33.9 g/dL (32.0-36.0); MEAN CORPUSCULAR VOLUME 85 fl (80-97); MONOCYTES % (AUTO) 9.6 % (3-13); PLATELET COUNT 102 10^3/uL (150-450); RED CELL DISTRIBUTION WIDTH 13.7 % (11.5-14.0); SEGMENTED NEUTROPHILS % (AUTO) 64.7 % (42-78); TOTAL CELLS COUNTED % (AUTO) 100 %; WHITE BLOOD COUNT 2.8 10^3/uL (4.0-10.5)
[2017-12-09 10:47] LABS: ALANINE AMINOTRANSFERASE 20 U/L (9-52); ALBUMIN 3.5 g/dL (3.5-5.0); ALKALINE PHOSPHATASE 42 U/L (38-126); ANION GAP 10 (5-19); ASPARTATE AMINO TRANSFERASE 17 U/L (14-36); BILIRUBIN,DIRECT 0.2 mg/dL (0.0-0.4); BILIRUBIN,TOTAL 0.7 mg/dL (0.2-1.3); BLOOD UREA NITROGEN 13 mg/dL (7-20); CALCIUM 7.9 mg/dL (8.4-10.2); CARBON DIOXIDE 24 mmol/L (22-30); CHLORIDE 105 mmol/L (98-107); GLUCOSE 100 mg/dL (75-110); POTASSIUM 3.5 mmol/L (3.6-5.0); SODIUM 138.5 mmol/L (137-145)
[2017-12-09] MEDS ORDERED: DEXTROSE 5%-LACTATED RINGERS 1,000 ML IV ONE (10:52)
[2017-12-09 11:28] LABS: APPEARANCE,URINE CLEAR; BILIRUBIN,URINE NEGATIVE (NEGATIVE); COLOR,URINE STRAW; GLUCOSE, URINE NEGATIVE (NEGATIVE); KETONES,URINE NEGATIVE (NEGATIVE); LEUKOCYTE ESTERASE,URINE NEGATIVE (NEGATIVE); NITRITE,URINE NEGATIVE (NEGATIVE); PROTEIN,URINE NEGATIVE (NEGATIVE); URINE SPECIFIC GRAVITY 1.009; UROBILINOGEN,URINE NEGATIVE mg/dL (<2.0)
[2017-12-09] MEDS ORDERED: ONDANSETRON ODT 4 MG TAB (6 TAB/ER DISP) PO PRN (13:33)
[2017-12-09 13:52] VITALS: BP 92/53
== END 2017-12-09 13:52 | disposition home or self-care (01) ==
LOC: ER 08:44
DX: R11.2 Nausea with vomiting, unspecified (principal); R19.7 Diarrhea, unspecified; B34.9 Viral infection, unspecified; M79.1 Myalgia; F17.200 Nicotine dependence, unspecified, uncomplicated; Z86.14 Personal history of Methicillin resistant Staphylococcus aureus infection
CPT/HCPCS: 99283; 96361; 96374; 36415; 85025; 81025; 80053; 81001; J1885; J2765; J7030

== ENCOUNTER 2018-02-25 11:09 | Emergency (ER) | payer MEDICAID ==
--- NOTE | 2018-02-25 11:54 | ER Document Report ---
ED Medical Screen (RME) - General TRAVEL OUTSIDE OF THE [place] 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 Presents today since this morning coughing up blood, chest wall pain. Requesting detox program. ( GADIEL CARTER) - Related Data Allergies/Adverse Reactions: promethazine HCl [From Phenergan] Adverse Reaction (Unknown, Verified 02/25/18 11:09) Past Medical History - Social History Chew tobacco use (# tins/day): No Frequency of alcohol use: None Drug Abuse: Prescription drugs - Past Medical History Cardiac Medical History: Denies: Hx Heart Attack, Hx Hypertension - HIGH ANXIETY ISSUES Pulmonary Medical History: Denies: Hx Asthma Neurological Medical History: Denies: Hx Cerebrovascular Accident, Hx Seizures Renal/ Medical History: Denies: Hx Peritoneal Dialysis GI Medical History: Reports: Hx Gastroesophageal Reflux Disease. Denies: Hx Hepatitis, Hx Hiatal Hernia, Hx Ulcer Skin Medical History: Reports Hx MRSA Psychiatric Medical History: Reports: Hx Anxiety, Hx Depression Infectious Medical History: Denies: Hx Hepatitis Past Surgical History: Reports: Hx Gynecologic Surgery - , Other - Ingrown toenail surgery on 09/13/2016. Denies: Hx Mastectomy, Hx Open Heart Surgery, Hx Pacemaker - Immunizations Hx Diphtheria, Pertussis, Tetanus Vaccination: Yes <GADIEL CARTER - Last Filed: 02/25/18 11:48> - Vital signs Vitals: Temp Pulse Resp BP Pulse Ox 98.7 F 87 16 113/74 99 02/25/18 11:13 02/25/18 11:13 02/25/18 11:13 02/25/18 11:13 02/25/18 11:13 Course - Laboratory Result Diagrams: 02/25/18 12:05 02/25/18 12:05 <SHERMAN MORTON - Last Filed: 02/25/18 12:53> - Vital Signs Vital signs: Temp Pulse Resp BP Pulse Ox 98.7 F 87 16 113/74 99 02/25/18 11:13 02/25/18 11:13 02/25/18 11:13 02/25/18 11:13 02/25/18 11:13 - Laboratory Laboratory results interpreted by me: 02/25/18 02/25/18 02/25/18 12:05 12:05 12:05 WBC 3.9 L Plt Count 142 L Glucose 116 H Urine Ascorbic Acid 40 H Doctor's Discharge <GADIEL CARTER - Last Filed: 02/25/18 11:48> <SHERMAN MORTON - Last Filed: 02/25/18 12:53> - Discharge Referrals: DIVYA ELIZALDE MD [ACTIVE STAFF] - Follow up as needed
[2018-02-25 12:26] LABS: ABSOLUTE EOSINOPHILS # (AUTO) 0.1 10^3/uL (0.0-0.6); ABSOLUTE LYMPHOCYTES (AUTO) 1.1 10^3/uL (0.5-4.7); ABSOLUTE MONOCYTES (AUTO) 0.5 10^3/uL (0.1-1.4); ABSOLUTE NEUT (AUTO) 2.3 10^3/uL (1.7-8.2); BASOPHILS % (AUTO) 0.6 % (0-2); EOSINOPHILS % (AUTO) 1.5 % (0-6); HEMOGLOBIN 14.1 g/dL (12.0-15.5); LYMPHOCYTES % (AUTO) 28.2 % (13-45); MEAN CORPUSCULAR HGB CONC 34.3 g/dL (32.0-36.0); MEAN CORPUSCULAR VOLUME 85 fl (80-97); MONOCYTES % (AUTO) 11.6 % (3-13); PLATELET COUNT 142 10^3/uL (150-450); RED BLOOD COUNT 4.84 10^6/uL (3.72-5.28); RED CELL DISTRIBUTION WIDTH 13.5 % (11.5-14.0); SEGMENTED NEUTROPHILS % (AUTO) 58.1 % (42-78); TOTAL CELLS COUNTED % (AUTO) 100 %; WHITE BLOOD COUNT 3.9 10^3/uL (4.0-10.5)
[2018-02-25 12:27] LABS: APPEARANCE,URINE SLIGHTLY-CLOUDY; BILIRUBIN,URINE NEGATIVE (NEGATIVE); COLOR,URINE YELLOW; GLUCOSE, URINE NEGATIVE (NEGATIVE); KETONES,URINE NEGATIVE (NEGATIVE); LEUKOCYTE ESTERASE,URINE NEGATIVE (NEGATIVE); NITRITE,URINE NEGATIVE (NEGATIVE); PROTEIN,URINE NEGATIVE (NEGATIVE); URINE SPECIFIC GRAVITY 1.013; UROBILINOGEN,URINE NEGATIVE mg/dL (<2.0)
[2018-02-25 12:28] LABS: INTERNATIONAL RATION (INR) 0.94
--- NOTE | 2018-02-25 12:30 | RADIOLOGY REPORT (SQ) ---
EXAM DESCRIPTION: CHEST 2 VIEWS COMPLETED DATE/TIME: 02/25/2018 12:21 pm REASON FOR STUDY: Hemoptysis COMPARISON: Two-view chest 04/21/2015 EXAM PARAMETERS: NUMBER OF VIEWS: two views TECHNIQUE: Digital Frontal and Lateral radiographic views of the chest acquired. RADIATION DOSE: NA LIMITATIONS: none FINDINGS: LUNGS AND PLEURA: Patchy minimal right upper lobe airspace disease over the lung apex. Th is could represent pneumonia or pulmonary hemorrhage. Remainder of the lungs are well inflated and clear. No pleural effusions. No pneumothorax. MEDIASTINUM AND HILAR STRUCTURES: No masses or contour abnormalities. HEART AND VASCULAR STRUCTURES: Heart normal size. No evidence for failure. BONES: No acute findings. HARDWARE: None in the chest. OTHER: No other significant finding. IMPRESSION: Patchy minimal airspace disease right lung apex, could represent pneumonia or pulmonary hemorrhage TECHNICAL DOCUMENTATION: JOB ID: [id number] [employer]- All Rights Reserved Reading location - IP/workstation name: [email or web address]
[2018-02-25 12:38] LABS: ALANINE AMINOTRANSFERASE 29 U/L (9-52); ALBUMIN 4.1 g/dL (3.5-5.0); ALKALINE PHOSPHATASE 50 U/L (38-126); ANION GAP 8 (5-19); ASPARTATE AMINO TRANSFERASE 27 U/L (14-36); BILIRUBIN,DIRECT 0.4 mg/dL (0.0-0.4); BILIRUBIN,TOTAL 1.1 mg/dL (0.2-1.3); BLOOD UREA NITROGEN 10 mg/dL (7-20); CALCIUM 8.9 mg/dL (8.4-10.2); CARBON DIOXIDE 28 mmol/L (22-30); CHLORIDE 102 mmol/L (98-107); GLUCOSE 116 mg/dL (75-110); SODIUM 137.6 mmol/L (137-145); TOTAL PROTEIN 6.6 g/dL (6.3-8.2)
--- NOTE | 2018-02-25 13:16 | ER Document Report ---
ED General - General Chief Complaint: Chest Wall Pain Stated Complaint: CHEST PAIN Time Seen by Provider: 02/25/18 11:46 Mode of Arrival: Ambulatory Information source: Patient Notes: Patient is a 37-year-old female who presents to the emergency department chief complaint of chest pain and coughing up blood. Patient reports that yesterday she took a tablet of morphine to help her to take when she reportedly passed out , struck her head and landed on the ground. Patient reports that her perform CPR on her and revived her. Patient states that she then decided to stay home as she was awake and did not seek treatment. Patient woke up this morning with chest pain and reports that she was coughing up dark red blood. Patient also reports after she woke up from the syncopal episode she had multiple episodes of vomiting. TRAVEL OUTSIDE OF THE [place] IN LAST 30 DAYS: No - Related Data Allergies/Adverse Reactions: promethazine HCl [From Phenergan] Adverse Reaction (Unknown, Verified 02/25/18 11:09) Past Medical History - General Information source: Patient - Social History Smoking Status: Never Smoker Chew tobacco use (# tins/day): No Frequency of alcohol use: None Drug Abuse: Prescription drugs Family History: DM, Malignancy Patient has suicidal ideation: No Patient has homicidal ideation: No - Past Medical History Cardiac Medical History: Denies: Hx Heart Attack, Hx Hypertension - HIGH ANXIETY ISSUES Pulmonary Medical History: Denies: Hx Asthma Neurological Medical History: Denies: Hx Cerebrovascular Accident, Hx Seizures Renal/ Medical History: Denies: Hx Peritoneal Dialysis GI Medical History: Reports: Hx Gastroesophageal Reflux Disease. Denies: Hx Hepatitis, Hx Hiatal Hernia, Hx Ulcer Skin Medical History: Reports Hx MRSA Psychiatric Medical History: Reports: Hx Anxiety, Hx Depression Infectious Medical History: Denies: Hx Hepatitis Past Surgical History: Reports: Hx Gynecologic Surgery - , Other - Ingrown toenail surgery on 09/13/2016. Denies: Hx Mastectomy, Hx Open Heart Surgery, Hx Pacemaker - Immunizations Hx Diphtheria, Pertussis, Tetanus Vaccination: Yes Review of Systems - Review of Systems Cardiovascular: Chest pain, Other - Hemoptysis -: Yes All other systems reviewed and negative Physical Exam - Vital signs Vitals: Temp Pulse Resp BP Pulse Ox 98.7 F 87 16 113/74 99 02/25/18 11:13 02/25/18 11:13 02/25/18 11:13 02/25/18 11:13 02/25/18 11:13 - Notes Notes: PHYSICAL EXAMINATION: GENERAL: Well-appearing, well-nourished and in no acute distress. HEAD: Atraumatic, normocephalic. EYES: Pupils equal round and reactive to light, extraocular movements intact, conjunctiva are normal. ENT: Nares patent, oropharynx clear without exudates. Moist mucous membranes. NECK: Normal range of motion, supple without lymphadenopathy LUNGS: Breath sounds clear to auscultation bilaterally and equal. No wheezes rales or rhonchi. HEART: Regular rate and rhythm without murmurs ABDOMEN: Soft, nontender, nondistended abdomen. No guarding, no rebound. No masses appreciated. Female : No CVA tenderness Musculoskeletal: Normal range of motion, no pitting or edema. No cyanosis. NEUROLOGICAL: Cranial nerves grossly intact. Normal speech, normal gait. Normal sensory, motor exams PSYCH: Normal mood, normal affect. SKIN: Warm, Dry, normal turgor, no rashes or lesions noted. Course - Re-evaluation Re-evalutation: CBC is within normal limits. Head CT is negative for any acute findings. Chest x-ray was done and showed abnormalities therefore a CTA was ordered. The CTA reveals "patchy groundglass opacity from airspace disease at both lung apices and in the superior segments of the right and left lower lobes. This could represent multifocal pneumonia, aspiration should be considered. Pulmonary hemorrhage is possible. This appearance would be unusual for pulmonary edema. No pleural effusions or pneumothorax. Airways are widely patent." I discussed these findings with Dr. Rdz. Recommendation is to have repeat chest x-ray done in 48 hours unless patient becomes symptomatic prior to that. Patient's vital signs are stable, she is without hypoxia or tachypnea. Blood pressure is normal. Patient does not have fever. Patient is breathing well, lung sounds are clear and equal bilaterally and she has no respiratory distress noted. She has had no episodes of hemoptysis during her stay in the emergency department. Patient will be discharged home with information about rehab/ detox. Patient verbalizes understanding of plan of care and agrees to return to the emergency department should her symptoms worsen. Will return in 48 hours for a repeat chest x-ray. - Vital Signs Vital signs: Temp Pulse Resp BP Pulse Ox 98.4 F 72 18 101/66 98 02/25/18 15:04 02/25/18 15:04 02/25/18 15:04 02/25/18 15:04 02/25/18 15:04 - Laboratory Result Diagrams: 02/25/18 12:05 02/25/18 12:05 Laboratory results interpreted by me: 02/25/18 02/25/18 02/25/18 12:05 12:05 12:05 WBC 3.9 L Plt Count 142 L Glucose 116 H Urine Ascorbic Acid 40 H Discharge - Discharge Clinical Impression: Cough with hemoptysis Chest pain Qualifiers: Chest pain type: unspecified Qualified Code(s): R07.9 - Chest pain, unspecified Condition: Stable Disposition: HOME, SELF-CARE Additional Instructions: There are some abnormal findings on both your chest x-ray and CAT scan. This is likely due to the minor trauma you experienced while having chest compressions performed on you. This could also be from possibly aspirating when you passed out. Given that you do not have shortness of breath, your vital signs are normal and your laboratory studies are okay. I will be sending you home at this time. Please return to the emergency department immediately if you develop worsening symptoms such as persistent cough with blood, shortness of breath, fever or any other symptom that is concerning to you. I would like you to have a repeat chest x-ray done in approximately 48 hours. This will allow us to differentiate between if the findings on your imaging today are resolving or progressing. Prescriptions: Naloxone HCl [Narcan] 4 mg NS PRN PRN #1 spray PRN Reason: For Overdose Symptoms Forms: Return to Work Referrals: DIVYA ELIZALDE MD [ACTIVE STAFF] - Follow up as needed
[2018-02-25 13:58] LABS: URINE AMPHETAMINES SCREEN NEGATIVE; URINE BARBITURATES SCREEN NEGATIVE; URINE BENZODIAZEPINES SCREEN NEGATIVE; URINE COCAINE SCREEN NEGATIVE; URINE MARIJUANA (THC) SCREEN NEGATIVE; URINE METHADONE SCREEN NEGATIVE; URINE PHENCYCLIDINE SCREEN NEGATIVE
--- NOTE | 2018-02-25 14:23 | RADIOLOGY REPORT (SQ) ---
EXAM DESCRIPTION: CTA CHEST COMPLETED DATE/TIME: 02/25/2018 2:05 pm REASON FOR STUDY: eval for pulmonary hemorhage, cpr yesterday COMPARISON: Chest film 02/25/2018 TECHNIQUE: CT scan of the chest performed using helical scanning technique with dynamic intravenous contrast injection. Images reviewed with lung, soft tissue and bone windows. Reconstructed coronal and sagittal MPR images reviewed. Additional 3 dimensional post-processing performed to develop Maximal Intensity Projection images (AR P). All images stored on PACS. All CT scanners at this facility use dose modulation, iterative reconstruction, and/or weight based d osing when appropriate to reduce radiation dose to as low as reasonably achievable (ALARA). [facility]: Dose Right [facility]: CareDose [facility]: Dose Right [facility]: Teradose 4D [facility]: Playlore CONTRAST TYPE AND DOSE: contrast/concentration: Isovue 350.00 mg/ml; Total Contrast Delivered: 63.0 ml; Total Saline Delivered: 90.0 ml Contrast bolus optimized for the pulmonary arteries. Not diagnostic for the aorta. RENAL FUNCTION: GFR > 60. RADIATION DOSE: CT Rad equipment meets quality standard of care and radiation dose reduction techniq ues were employed. CTDIvol: 19.8 - 29.8 mGy. DLP: 1092 mGy-cm. . LIMITATIONS: None. FINDINGS: LUNGS AND PLEURA: There is patchy ground-glass opacity from airspace disease at both lung apices and in the superior segments of the right and left lower lobes. This could represent multifoc al pneumonia, aspiration should be considered. Pulmonary hemorrhage is possible. This appearance wo uld be unusual for pulmonary edema. No pleural effusions or pneumothorax. Airways are widely patent. AORTA AND GREAT VESSELS: No aneurysm. Contrast bolus not optimized for the aorta. HEART: No pericardial effusion. No significant coronary artery calcifications. PULMONARY ARTERIES: No emboli visualized in the main pulmonary arteries or the segmental branches. HILAR AND MEDIASTINAL STRUCTURES: No identified masses or abnormal nodes. HARDWARE: None in the chest. UPPER ABDOMEN: Splenomegaly THYROID AND OTHER SOFT TISSUES: No masses. No adenopathy. BONES: No acute or significant finding. 3D MIPS: Confirm above findings. OTHER: No other significant finding. IMPRESSION: Patchy airspace disease in the bilateral lung apices and superior segments lower lobes. This could represent aspiration pneumonia. Pulmonary hemorrhage is possible. This would be unusual for pulmonary edema. No rib or sternal fractures. COMMENT: Quality ID # [id number]: Final reports with documentation of one or more dose reduction techniques (e.g., Automated exposure control, adjustment of the mA and/or kV according to patient size, use of iterative reconstruction technique) TECHNICAL DOCUMENTATION: JOB ID: [id number] [employer]- All Rights Reserved Reading location - IP/workstation name: [email or web address] [id number]
--- NOTE | 2018-02-25 14:24 | RADIOLOGY REPORT (SQ) ---
EXAM DESCRIPTION: CT HEAD WITHOUT COMPLETED DATE/TIME: 02/25/2018 2:05 pm REASON FOR STUDY: fall, vomiting COMPARISON: None. TECHNIQUE: Axial images acquired through the brain without intravenous contrast. Images reviewed wi th bone, brain and subdural windows. Additional sagittal and coronal reconstructions were generated. Images stored on PACS. All CT scanners at this facility use dose modulation, iterative reconstruction, and/or weight based d osing when appropriate to reduce radiation dose to as low as reasonably achievable (ALARA). [facility]: Dose Right [facility]: CareDose [facility]: Dose Right [facility]: Teradose 4D [facility]: Xcovery RADIATION DOSE: CT Rad equipment meets quality standard of care and radiation dose reduction techniq ues were employed. CTDIvol: 53.2 mGy. DLP: 991 mGy-cm. mGy. LIMITATIONS: None. FINDINGS: VENTRICLES: Normal size and contour. CEREBRUM: No masses. No hemorrhage. No midline shift. No evidence for acute infarction. Normal gra y/white matter differentiation. No areas of low density in the white matter. CEREBELLUM: No masses. No hemorrhage. No alteration of density. No evidence for acute infarction. EXTRAAXIAL SPACES: No fluid collections. No masses. ORBITS AND GLOBE: No intra- or extraconal masses. Normal contour of globe without masses. CALVARIUM: No fracture. PARANASAL SINUSES: No fluid or mucosal thickening. SOFT TISSUES: No mass or hematoma. OTHER: No other significant finding. IMPRESSION: NORMAL BRAIN CT WITHOUT CONTRAST. EVIDENCE OF ACUTE STROKE: NO. COMMENT: Quality ID # [id number]: Final reports with documentation of one or more dose reduction techniques (e.g., Automated exposure control, adjustment of the mA and/or kV according to patient size, use of iterative reconstruction technique) TECHNICAL DOCUMENTATION: JOB ID: [id number] [employer]- All Rights Reserved Reading location - IP/workstation name: [email or web address]
[2018-02-25 15:06] VITALS: BP 101/66
--- NOTE | 2018-02-26 08:50 | EKG REPORT ---
SEVERITY:- NORMAL ECG - SINUS RHYTHM : Confirmed by: Brittnee Renae 26-Feb-2018 08:50:00
== END 2018-02-25 15:06 | disposition home or self-care (01) ==
LOC: ER 11:09
DX: R07.89 Other chest pain (principal); R04.2 Hemoptysis; F19.10 Other psychoactive substance abuse, uncomplicated
CPT/HCPCS: 36415; 70450; 71046; 71275; 80053; 80307; 81001; 81025; 85025; 85610; 93005; 93010; 99285

== ENCOUNTER 2018-02-27 12:16 | Emergency (ER) | payer MEDICAID ==
[2018-02-27 12:35] VITALS: BP 110/66
--- NOTE | 2018-02-27 13:51 | ER Document Report ---
HPI - HPI Patient complains to provider of: cough return visit Onset: Other - 2 days Onset/Duration: Intermittent Quality of pain: Achy Severity: Mild Pain Level: 2 Associated Symptoms: Productive cough, Rhinnorhea, Sinus pain/drainage, Shortness of breath. denies: Fever Exacerbated by: Coughing Relieved by: Denies Similar symptoms previously: Yes Recently seen / treated by doctor: Yes - ROS ROS below otherwise negative: Yes - CONSTITUTIONAL Constitutional: DENIES: Fever, Chills - EENT EENT: REPORTS: Nasal Drainage-Purulent, Congestion - NEURO Neurology: DENIES: Headache, Weakness, Vision blurred, Dizzinesss / Vertigo - CARDIOVASCULAR Cardiovascular: DENIES: Chest pain - RESPIRATORY Respiratory: REPORTS: Trouble Breathing, Coughing - GASTROINTESTINAL Gastrointestinal: DENIES: Abdominal Pain, Nausea, Patient vomiting, Diarrhea, Constipation, Black / Bloody Stools - URINARY Urinary: DENIES: Dysuria, Urgency, Frequency - REPRODUCTIVE Reproductive: DENIES: :, Postmenopausal, Abnormal bleeding / discharge - MUSCULOSKELETAL Musculoskeletal: DENIES: Extremity pain, Back Pain, Neck Pain, Swelling - DERM Skin Color: Normal Skin Problems: None Past Medical History - General Information source: Patient - Social History Smoking Status: Never Smoker Cigarette use (# per day): No Chew tobacco use (# tins/day): No Smoking Education Provided: No Frequency of alcohol use: None Drug Abuse: None Lives with: Family Family History: DM, Malignancy Patient has suicidal ideation: No Patient has homicidal ideation: No - Past Medical History Cardiac Medical History: Reports: None Pulmonary Medical History: Reports: Hx Pneumonia EENT Medical History: Reports: None Neurological Medical History: Reports: None Endocrine Medical History: Reports: None Renal/ Medical History: Reports: None Malignancy Medical History: Reports: None GI Medical History: Reports: Hx Gastroesophageal Reflux Disease Musculoskeletal Medical History: Reports None Skin Medical History: Reports Hx MRSA Psychiatric Medical History: Reports: Hx Anxiety, Hx Depression Traumatic Medical History: Reports: None Past Surgical History: Reports: Hx Gynecologic Surgery - , Other - Ingrown toenail surgery on 09/13/2016 - Immunizations Immunizations up to date: Yes Hx Diphtheria, Pertussis, Tetanus Vaccination: Yes Vertical Provider Document - CONSTITUTIONAL Agree With Documented VS: Yes Exam Limitations: No Limitations General Appearance: WD/WN, No Apparent Distress - INFECTION CONTROL TRAVEL OUTSIDE OF THE [place] IN LAST 30 DAYS: No - HEENT HEENT: Atraumatic, Normocephalic, PERRLA Notes: Clear nasal drainage with swelling nasal mucosa - NECK Neck: Normal Inspection - RESPIRATORY Respiratory: Breath Sounds Normal, No Respiratory Distress, Chest Non-Tender - CARDIOVASCULAR Cardiovascular: Regular Rate, Regular Rhythm - GI/ABDOMEN Gastrointestinal: Abdomen Soft, Abdominal Guarding, No Organomegaly, Normal Bowel Sounds - BACK Back: Normal Inspection - MUSCULOSKELETAL/EXTREMETIES Musculoskeletal/Extremeties: MAEW, FROM, Non-Tender - NEURO Level of Consciousness: Awake, Alert, Appropriate Motor/Sensory: No Motor Deficit, No Sensory Deficit, No Pronator Drift - DERM Integumentary: Warm, Dry, No Rash Course - Re-evaluation Re-evalutation: 02/27/18 17:31 X-ray was discussed with patient before discharge. The x-ray did show continued upper right lobe airway disease. Patient was started on azithromycin and instructed to follow-up with her primary doctor. Patient was in no acute distress during her visit. Patient was given her first dose of azithromycin in the emergency room. - Vital Signs Vital signs: Temp Pulse Resp BP Pulse Ox 97.7 F 77 18 110/66 99 02/27/18 12:33 02/27/18 12:33 02/27/18 12:33 02/27/18 12:33 02/27/18 12:33 - Diagnostic Test Radiology reviewed: Image reviewed, Reports reviewed Discharge - Discharge Clinical Impression: Right upper lobe pneumonia Qualifiers: Pneumonia type: due to unspecified organism Qualified Code(s): J18.1 - Lobar pneumonia, unspecified organism Condition: Stable Disposition: HOME, SELF-CARE Additional Instructions: PNEUMONIA: Your examination indicates that you have pneumonia. This is an infection of the lung tissue, usually caused by bacteria or a virus. Symptoms include cough, fever, shaking chills, chest pain, shortness of breath, and coughing up bloody sputum. Treatment for bacterial pneumonia includes rest, antibiotics for 10 to 14 days, increasing your clear liquid intake, a cool mist humidifier at your bedside, and fever medication. Often, a repeat chest X-ray is performed in a few weeks--even if you feel better--to ascertain whether the infection has completely resolved and no underlying lung problem is present. You should call the physician if you develop persistent vomiting, high fever that does not respond to fever medication, increasing shortness of breath , confusion, or lethargy. Also, failure to improve within two to three days is an indication for re-examination. AZITHROMYCIN: Azithromycin (Zithromax) is a broad spectrum antibiotic in the same class as erythromycin. It can treat a variety of bacterial infections, but is most frequently used for respiratory infections. Azithromycin is extremely long-lasting. It accumulates in body tissues and continues to kill bacteria for many days. In order to improve absorption, Azithromycin should be taken at least one hour before or two hours after a meal. It does not have the same strong tendency to upset the stomach as erythromycin and is usually very well tolerated. Patients who have had a rash or other true allergic reactions to erythromycin should not take this medication. Call if you develop gastrointestinal distress, severe diarrhea, rash, hives, itching, or shortness of breath. USE OF ACETAMINOPHEN (Tylenol): Acetaminophen may be taken for pain relief or fever control. It's much safer than aspirin, offering a wider range of "safe" dosages. It is safe during . Some brand names are Tylenol, Panadol, Datril, Anacin 3, Tempra, and Liquiprin. Acetaminophen can be repeated every four hours. The following are maximum recommended dosages: WEIGHT Dose Drops Elixir Chewable( 80mg) (LBS.) drprs=droppers tsp=teaspoon 6 40 mg 0.4 ml (1/2) 6-11 80 mg 0.8 ml (full) tsp 1 tab 12-16 120 mg 1 1/2 drprs 3/4 tsp 1 1/2 tabs 17-23 160 mg 2 drprs 1 tsp 2 tabs 24-30 240 mg 3 drprs 1 1/2 tsp 3 tabs 30-35 320 mg 2 tsp 4 tabs 36-41 360 mg 2 1/4 tsp 4 1/2 tabs 42-47 400 mg 2 1/2 tsp 5 tabs 48-53 480 mg 3 tsp 6 tabs 54-59 520 mg 3 1/4 tsp 6 1/2 tabs 60-64 560 mg 3 1/2 tsp 7 tabs 65-70 600 mg 3 3/4 tsp 7 1/2 tabs 71-76 640 mg 4 tsp 8 tabs 77-82 720 mg 4 1/2 tsp 9 tabs 83-88 800 mg 5 tsp 10 tabs >89 pounds or adults 650 mg to 900 mg Acetaminophen can be repeated every four hours. Maximum dose not to exceed 4000 mg a day. These maximum recommended dosages are slightly higher than the dosages written on the product container, but these dosages are very safe and below the toxic dosage for acetaminophen. FOLLOW-UP CARE: If you have been referred to a physician for follow-up care, call the physician s office for an appointment as you were instructed or within the next two days. If you experience worsening or a significant change in your symptoms, notify the physician immediately or return to the Emergency Department at any time for re-evaluation. Prescriptions: Azithromycin 250 mg PO DAILY #4 tablet Forms: Return to Work Referrals: CIERA CASILLAS DO [Primary Care Provider] - Follow up in 3-5 days
--- NOTE | 2018-02-27 14:22 | RADIOLOGY REPORT (SQ) ---
EXAM DESCRIPTION: CHEST 2 VIEWS COMPLETED DATE/TIME: 02/27/2018 2:13 pm REASON FOR STUDY: repeat due to uncertain last chest xray COMPARISON: Two-view chest 02/25/2018 EXAM PARAMETERS: NUMBER OF VIEWS: two views TECHNIQUE: Digital Frontal and Lateral radiographic views of the chest acquired. RADIATION DOSE: NA LIMITATIONS: none FINDINGS: LUNGS AND PLEURA: Persistent minimal infiltrate right upper lobe, less prominent than on 1 . Lungs are otherwise well inflated and clear. No pleural effusion. No pneumothorax. MEDIASTINUM AND HILAR STRUCTURES: No masses or contour abnormalities. HEART AND VASCULAR STRUCTURES: Heart normal size. No evidence for failure. BONES: No acute findings. HARDWARE: None in the chest. OTHER: No other significant finding. IMPRESSION: Persistent minimal right upper lobe airspace disease TECHNICAL DOCUMENTATION: JOB ID: [id number] [employer]- All Rights Reserved Reading location - IP/workstation name: [email or web address]
[2018-02-27] MEDS ORDERED: AZITHROMYCIN 250 MG TABLET PO ONE (14:40)
== END 2018-02-27 14:56 | disposition home or self-care (01) ==
LOC: ER 12:16
DX: J18.1 Lobar pneumonia, unspecified organism (principal); R05 Cough; J34.89 Other specified disorders of nose and nasal sinuses; R06.02 Shortness of breath
CPT/HCPCS: 99284; 71046; Q0144

== ENCOUNTER 2018-04-20 13:55 | Emergency (ER) | payer OTHER, MEDICAID ==
[2018-04-20] MEDS ORDERED: NAPROXEN 250 MG TABLET PO ONE (15:13)
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
[2018-04-20] MEDS ORDERED: PSEUDOEPHEDRINE HCL 30 MG TABLET PO ONE (15:22)
[2018-04-20] MEDS ORDERED: GUAIFENESIN 600 MG TABLET.SA PO ONE (15:22)
[2018-04-20] MEDS ORDERED: LORATADINE 10 MG TABLET PO ONE (15:22)
--- NOTE | 2018-04-20 15:48 | RADIOLOGY REPORT (SQ) ---
EXAM DESCRIPTION: T SPINE AP/LAT COMPLETED DATE/TIME: 04/20/2018 3:38 pm REASON FOR STUDY: upper back pain COMPARISON: CT chest 02/25/2018 NUMBER OF VIEWS: Two views. TECHNIQUE: AP and lateral radiographic images acquired of the thoracic spine. LIMITATIONS: None. FINDINGS: MINERALIZATION: Normal. ALIGNMENT: Normal. No scoliosis. VERTEBRAE: No fracture or bone lesion. Maintained height, normal segmentation. DISCS: No significant loss of height or significant narrowing. No large osteophytes. HARDWARE: None in the spine. MEDIASTINUM AND SOFT TISSUES: Normal heart size and aortic contour. No soft tissue abnormality. VISUALIZED LUNG BAUM: Clear. OTHER: No other significant finding. IMPRESSION: NO SIGNIFICANT RADIOGRAPHIC FINDING IN THE THORACIC SPINE. TECHNICAL DOCUMENTATION: JOB ID: [id number] [employer]- All Rights Reserved Reading location - IP/workstation name: [email or web address]
[2018-04-20 16:38] VITALS: BP 106/80
== END 2018-04-20 16:38 | disposition home or self-care (01) ==
LOC: ER 13:55
DX: M54.89 Other dorsalgia (principal); M54.5 Low back pain; M54.2 Cervicalgia; M25.511 Pain in right shoulder; V40.6XXA Car passenger injured in collision with pedestrian or animal in traffic accident, initial encounter; J06.9 Acute upper respiratory infection, unspecified; R05 Cough; J34.89 Other specified disorders of nose and nasal sinuses; J02.9 Acute pharyngitis, unspecified; F17.290 Nicotine dependence, other tobacco product, uncomplicated
CPT/HCPCS: 72070; 99284

== ENCOUNTER 2018-05-29 04:02 | Emergency (ER) | payer MEDICAID, OTHER ==
[2018-05-29] MEDS ORDERED: LIDOCAINE 4% TRANSPARENT DRESSING 5 GM KIT TP ONE (04:33)
[2018-05-29] MEDS ORDERED: LIDOCAINE 2%/EPINEPHRINE INJ 20 ML VIAL INJ ONE (04:34)
[2018-05-29] MEDS ORDERED: KETOROLAC TROMETHAMINE 60 MG/2 ML SDV IM ONE (04:37)
[2018-05-29] MEDS ORDERED: ONDANSETRON 4 MG TAB.RAPDIS PO ONE (04:37)
--- NOTE | 2018-05-29 04:37 | ER Document Report ---
ED General <REYEZ,BRIAN - Last Filed: 05/29/18 06:55> - General TRAVEL OUTSIDE OF THE [place] IN LAST 30 DAYS: No <CRISTHIAN BURTON - Last Filed: 05/29/18 07:17> - General Chief Complaint: Abscess Stated Complaint: ABSCESS Time Seen by Provider: 05/29/18 04:20 Notes: Patient is a 37-year-old female who presents to the emergency department with a chief complaint of a swollen face, nausea, and pain to her face. She states that she woke up yesterday with her symptoms. She denies any dental pain or any pimple in the area. Yesterday afternoon she saw her primary care provider who drained the abscess on her face. She states that there was a large amount of drainage from the abscess. She has also placed warm compresses to the area, per her primary care's advice and had more drainage out of her abscess. She woke up this morning and her face swelling was worse. She was started on doxycycline by her primary care doctor. She is also complaining of an ingrown toenail of her right third toe. Her ingrown toenail hurts enough to where she is unable to wear shoes. She does not smoke cigarettes, but uses vapor. She is currently on Suboxone. (CRISTHIAN BURTON) - Related Data Allergies/Adverse Reactions: promethazine HCl [From Phenergan] Adverse Reaction (Unknown, Verified 02/25/18 11:09) Past Medical History - General Information source: Patient - Social History Smoking Status: Current Every Day Smoker Chew tobacco use (# tins/day): No Frequency of alcohol use: None Drug Abuse: None Family History: DM, Malignancy Patient has suicidal ideation: No Patient has homicidal ideation: No - Past Medical History Cardiac Medical History: Denies: Hx Heart Attack, Hx Hypertension - She has high anxiety Pulmonary Medical History: Reports: Hx Pneumonia Denies: Hx Asthma Neurological Medical History: Denies: Hx Cerebrovascular Accident, Hx Seizures Renal/ Medical History: Denies: Hx Peritoneal Dialysis GI Medical History: Reports: Hx Gastroesophageal Reflux Disease. Denies: Hx Hepatitis, Hx Hiatal Hernia, Hx Ulcer Musculoskeletal Medical History: Reports Hx Musculoskeletal Trauma Skin Medical History: Reports Hx MRSA Psychiatric Medical History: Reports: Hx Anxiety, Hx Depression Traumatic Medical History: Reports: Hx Fractures Infectious Medical History: Denies: Hx Hepatitis Past Surgical History: Reports: Hx Gynecologic Surgery - , Other - Ingrown toenail surgery on 09/13/2016. Denies: Hx Mastectomy, Hx Open Heart Surgery, Hx Pacemaker - Immunizations Immunizations up to date: Yes Hx Diphtheria, Pertussis, Tetanus Vaccination: Yes <CRISTHIAN BURTON - Last Filed: 05/29/18 07:17> Review of Systems <CRISTHIAN BURTON - Last Filed: 05/29/18 07:17> - Review of Systems Notes: REVIEW OF SYSTEMS: CONSTITUTIONAL : Denies recent illness. Denies recent unintentional weight loss. Denies fever, chills, or sweats. HEENT: See HPI CARDIOVASCULAR: Denies chest pain. RESPIRATORY: Denies shortness of breath, cough, congestion, difficulty breathing, or wheezing. GASTROINTESTINAL: Denies nausea, vomiting, and diarrhea. Denies abdominal pain. Denies constipation. GENITOURINARY: Denies difficulty urinating, burning, blood in urine, urgency or frequency. MUSCULOSKELETAL: Denies neck and back pain. Denies joint pain or swelling. SKIN: See HPI HEMATOLOGIC : Denies easy bruising or bleeding. LYMPHATIC: Denies swollen, painful, enlarged glands. NEUROLOGICAL: Denies no numbness or tingling denies weakness. Denies headache. Denies altered mental status. Denies alteration in speech. PSYCHIATRIC: Denies stress, anxiety, alteration in sleep patterns, or depression. All other systems reviewed and negative. (CRISTHIAN BURTON) Physical Exam <CRISTHIAN BURTON - Last Filed: 05/29/18 07:17> - Vital signs Vitals: Temp Pulse Resp BP Pulse Ox 98.4 F 94 26 H 120/75 100 05/29/18 04:06 05/29/18 04:06 05/29/18 04:06 05/29/18 04:06 05/29/18 04:06 - Notes Notes: PHYSICAL EXAMINATION: GENERAL: Appears well, healthy, well-nourished, no acute distress. HEAD: Normocephalic, atraumatic. EYES: PERRL, conjunctiva normal, all extraocular movements intact, sclera nonicteric ENT: Moist mucous membranes. NECK: Supple, no noticeable swelling, redness, rash. Normal range of motion. LUNGS: Equal breath sounds bilaterally and clear to auscultation. No wheezes rales or rhonchi. CARDIOVASCULAR: S1-S2, regular rate, regular rhythm. Radial pulses 2+, normal. ABDOMEN: Normoactive bowel sounds. Soft, nontender, no guarding, no rebound tenderness, and no masses palpated. EXTREMITIES: Normal strength and range of motion, no pitting or edema. No c yanosis. NEUROLOGICAL: Moves all extremities upon command. Strength 5/5 in all extremities. PSYCH: Normal mood, normal affect. SKIN: Warm, dry. Erythema, edema, and tenderness to left mandible area. Erythema, and edema to right third toe on the lateral aspects of her nail. (CRISTHIAN BURTON) Course <CARLI REYEZ - Last Filed: 05/29/18 06:55> <CRISTHIAN BURTON - Last Filed: 05/29/18 07:17> - Re-evaluation Re-evalutation: 05/29/18 05:47 I did evaluate the patient as well. Patient has obvious swelling to the left side of her face. She has approximately 3-4 cm area of induration. She has a small puncture wound from where her primary care doctor did a needle aspiration of the previous abscess. Currently patient has recurrence of the swelling. I did clean her face chlorhexidine and attempted needle another needle aspiration to the same area that she was aspirated before. We got back a small amount of purulent drainage. Patient does have some induration that goes just below the mandible. She denies any difficulty breathing or swallowing. I have ordered a CT scan which she is undergoing now. I did call and speak with Dr. Tran, ENT physician at [facility]. He request to call back with the results of the CT scan and then we will discuss follow-up. He request switching her to Augmentin. I will give her a dose of Unasyn here as well as a dose of Decadron. Dr. Tran does recommend Decadron followed by prednisone. Patient undergoing CT scan now. 05/29/18 06:55 I did review the results of CT scan with Dr. Tran. CT scan shows just appears to be facial cellulitis. She has some swelling and inflamed soft tissue but no residual abscess. He recommends changing the patient Augmentin. He recommends giving patient dose of Decadron and then placing her on prednisone 20 mg for 3 days. Says that the patient follow-up with counselor ENT on Friday. I explained the plan to the patient. She is agreeable to it. I informed her that if she has increasing swelling, fevers, any difficulty breathing or swallowing that she should return to ER immediately. Patient also had ingrown toenail on the middle toe of her right foot. I did removed lateral edge of the toenail which relieved the swelling and pain she had in her toe. Patient encouraged to return to ER if she has any redness or swelling to the toe. Patient agrees with plan and will be discharged home. Dictation of this chart was performed using voice recognition software; therefore, there may be some unintended grammatical errors. (CARLI REYEZ) 05/29/18 04:[address] Reyez evaluate the patient due to the abscess being on her face. He will perform an I&D of the abscess on her face. She will be given Zofran for nausea Toradol for pain control. 06:55 Dr. Reyez was in contact with Dr. Tran ENT from [facility]. He has taken the recommendations from Dr. Tran started patient on Augmentin and prednisone. Dr. Reyez also performed the nail fold on her right third toe. Dr. Reyez give the patient discharge information, the patient verbalized understanding, and she is stable for discharge. (CRISTHIAN BURTON) - Vital Signs Vital signs: Temp Pulse Resp BP Pulse Ox 97.8 F 70 18 101/61 100 05/29/18 07:02 05/29/18 07:02 05/29/18 07:02 05/29/18 07:02 05/29/18 07:02 Procedures - Nail Trephanation/Removal Left Foot 3rd digit Betadine prep applied: No - chlorohexidine Method of Drainage: Other - Lateral edge of toe nail was removed Sterile Dressing Applied: Yes <CARLI REYEZ - Last Filed: 05/29/18 06:55> Discharge <CARLI REYEZ - Last Filed: 05/29/18 06:55> <CRISTHIAN BURTON - Last Filed: 05/29/18 07:17> - Discharge Clinical Impression: Abscess of face, Ingrown nail of third toe of right foot Condition: Stable Disposition: HOME, SELF-CARE Additional Instructions: Please stop the doxycycline and start taking the Augmentin. Please start taking the Prednisone tomorrow. Please call Dr. Davis's office this morning and ask for a follow up appointment for Friday. Please change the dressing ee. Please return to the ER immediately if you develop fevers, difficulty breathing, difficulty swallowing, or significant increase in swelling. Please keep your toe covered for the next 5 days. Please return to the ER if you develop redness or swelling to the toe. Prescriptions: Amox Tr/Potassium Clavulanate [Augmentin 875-125 Tablet] 1 tab PO BID 7 Days #14 tablet Prednisone [Deltasone 20 mg Tablet] 1 tab PO DAILY 3 Days #3 tablet Referrals: MESERET DAVIS DO [ASSOCIATE] - 06/01/18
[2018-05-29] MEDS ORDERED: AMPICILLIN SOD/SULBACTAM 3 GM VIAL IV ONE (05:43)
[2018-05-29] MEDS ORDERED: NORMAL SALINE 500 ML IV ONE (05:44)
[2018-05-29] MEDS ORDERED: DEXAMETHASONE SOD PHOS INJ 10 MG/1 ML VIAL IM ONE (05:50)
--- NOTE | 2018-05-29 06:16 | RADIOLOGY REPORT (SQ) ---
CLINICAL HISTORY: facial swelling post I D of facial abscess COMPARISON: None. TECHNIQUE: CT MAXILLOFACIAL WITHOUT THEN WITH IV CONTRAST on 05/29/2018 5:43 AM [facility] This exam was performed according to our departmental dose-optimization program, which includes automated exposure control, adjustment of the mA and/or kV according to patient size and/or use of iterative reconstruction technique. FINDINGS: There is no acute fracture. The paranasal sinuses are clear. Orbits and globes are unremarkable. Mastoid air cells are clear. Temporomandibular joints are intact. There is extensive soft tissue swelling involving the left infraorbital soft tissues superficial to the mandible. There is no focal abscess. There is no subcutaneous air. IMPRESSION: Left facial cellulitis.
[2018-05-29] MEDS ORDERED: LIDOCAINE 2% INJ (20 MG/ML) 20 ML MDV INJ ONE (06:32)
[2018-05-29] MEDS ORDERED: LIDOCAINE 2% INJ (20 MG/ML) 20 ML MDV ONE (06:33)
[2018-05-29 07:03] VITALS: BP 101/61
== END 2018-05-29 07:42 | disposition home or self-care (01) ==
LOC: ER 04:02
DX: L02.01 Cutaneous abscess of face (principal); L60.0 Ingrowing nail; R11.0 Nausea; R51 Headache; F17.290 Nicotine dependence, other tobacco product, uncomplicated; Z98.890 Other specified postprocedural states; Z79.899 Other long term (current) drug therapy; Z86.14 Personal history of Methicillin resistant Staphylococcus aureus infection
CPT/HCPCS: 11750; 99283; 96372; 96375; 96365; 70488; J3490 ×3; J1885; S0119; J0295; J7040; J1100

== ENCOUNTER 2018-11-11 10:33 | Emergency (ER) | payer MEDICAID ==
[2018-11-11 10:41] VITALS: BP 148/95
[2018-11-11] MEDS ORDERED: IBUPROFEN 800 MG TABLET PO ONE (11:47)
--- NOTE | 2018-11-11 11:51 | ER Document Report ---
HPI - HPI Patient complains to provider of: Wrist pain Time Seen by Provider: 11/11/18 11:29 Onset/Duration: Persistent Quality of pain: Sharp Pain Level: 4 Context: Patient presents complaining of bilateral wrist pain, right worse than left for the past 3 months. Patient is in the process of being evaluated by the hand surgeon. Patient does report having nerve conduction tests performed although has not received the results. Patient complains of numbness and pain to the right wrist. Patient denies any new injury. Patient denies any fever. Patient has been wearing a splint to help with her pain symptoms. Associated Symptoms: Other - Right wrist pain. denies: Fever Exacerbated by: Movement Relieved by: Denies Similar symptoms previously: Yes Recently seen / treated by doctor: No - ROS ROS below otherwise negative: Yes Systems Reviewed and Negative: Yes All other systems reviewed and negative - CONSTITUTIONAL Constitutional: DENIES: Fever, Chills - NEURO Neurology: DENIES: Weakness - REPRODUCTIVE Reproductive: DENIES: : - MUSCULOSKELETAL Musculoskeletal: REPORTS: Extremity pain. 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 Family History: DM, Malignancy Pulmonary Medical History: Reports: Hx Pneumonia Denies: Hx Asthma Renal/ Medical History: Denies: Hx Peritoneal Dialysis GI Medical History: Reports: Hx Gastroesophageal Reflux Disease Musculoskeletal Medical History: Reports Hx Musculoskeletal Trauma Skin Medical History: Reports Hx MRSA Psychiatric Medical History: Reports: Hx Anxiety, Hx Depression Traumatic Medical History: Reports: Hx Fractures Infectious Medical History: Denies: Hx Hepatitis Past Surgical History: Reports: Hx Gynecologic Surgery - , Other - Ingrown toenail surgery on 09/13/2016 - Immunizations Immunizations up to date: Yes Hx Diphtheria, Pertussis, Tetanus Vaccination: Yes Vertical Provider Document - CONSTITUTIONAL Agree With Documented VS: Yes Exam Limitations: No Limitations General Appearance: WD/WN, No Apparent Distress - INFECTION CONTROL TRAVEL OUTSIDE OF THE [place] IN LAST 30 DAYS: No - HEENT HEENT: Atraumatic, Normocephalic - NECK Neck: Normal Inspection, Supple - RESPIRATORY Respiratory: Breath Sounds Normal, No Respiratory Distress - CARDIOVASCULAR Cardiovascular: Regular Rate, Regular Rhythm Pulses: Normal: Radial - BACK Back: Normal Inspection - MUSCULOSKELETAL/EXTREMETIES Musculoskeletal/Extremeties: MAEW, Tender - Patient with right wrist tenderness over distal radius, positive Phalen and Tinel sign. No erythema or edema, no calor to joint., No Edema. negative: Eccymosis - NEURO Level of Consciousness: Awake, Alert, Appropriate Motor/Sensory: No Motor Deficit - DERM Integumentary: Warm, Dry, No Rash Course - Re-evaluation Re-evalutation: 11/11/18 11:48 Patient with symptoms worrisome for tendinitis in the setting of carpal tunnel syndrome. Patient without any findings worrisome for septic arthritis at this time. Will place patient in a thumb spica splint and encourage outpatient follow-up with her hand surgeon as planned. Patient is taking Suboxone, anti- inflammatory medications will be added for pain relief at this time. - Vital Signs Vital signs: Temp Pulse Resp BP Pulse Ox 97.9 F 81 20 148/95 H 100 11/11/18 10:40 11/11/18 10:40 11/11/18 10:40 11/11/18 10:40 11/11/18 10:40 Procedures - Immobilization Right Wrist Pre-Proc Neuro Vasc Exam: Normal Immobilizer type: Thumb spica Performed by: PCT Post-Proc Neuro Vasc Exam: Normal Alignment checked and good: Yes Discharge - Discharge Clinical Impression: Tendonitis Carpal tunnel syndrome Qualifiers: Laterality: right Qualified Code(s): G56.01 - Carpal tunnel syndrome, right upper limb Condition: Stable Disposition: HOME, SELF-CARE Instructions: Anti-Inflammatory Medication ([facility]), Carpal Tunnel Syndrome ([facility]), Temporary Splint ([facility]), Tendonitis ([facility]) Additional Instructions: Return immediately for any new or worsening symptoms Followup with your primary care provider, call tomorrow to make a followup appointment Follow-up with orthopedics as planned Wear thumb spica splint for the next 4 to 5 days and then remove. Prescriptions: Naproxen [Naprosyn 250 Nmg Tablet] 1 tab PO BID #14 tablet Forms: Return to Work Referrals: [facility] [Provider Group] - Follow up in 3-5 days
== END 2018-11-11 12:15 | disposition home or self-care (01) ==
LOC: ER 10:33
PROC: 2W3CX1Z Immobilization of Right Lower Arm using Splint (ICD-10-PCS; principal; 2018-11-11)
DX: G56.01 Carpal tunnel syndrome, right upper limb (principal); M77.9 Enthesopathy, unspecified; M25.531 Pain in right wrist; M25.532 Pain in left wrist; R20.0 Anesthesia of skin; F17.200 Nicotine dependence, unspecified, uncomplicated
CPT/HCPCS: 99283; 29125; J3490

== ENCOUNTER 2019-09-13 22:06 | Outpatient (CLI) | payer MEDICAID ==
[2019-09-13 22:50] LABS: APPEARANCE,URINE CLEAR; BILIRUBIN,URINE NEGATIVE (NEGATIVE); COLOR,URINE YELLOW; GLUCOSE, URINE NEGATIVE (NEGATIVE); KETONES,URINE NEGATIVE (NEGATIVE); LEUKOCYTE ESTERASE,URINE NEGATIVE (NEGATIVE); NITRITE,URINE NEGATIVE (NEGATIVE); PROTEIN,URINE NEGATIVE (NEGATIVE); URINE SPECIFIC GRAVITY 1.009; UROBILINOGEN,URINE NEGATIVE mg/dL (<2.0)
[2019-09-13 23:12] LABS: URINE AMPHETAMINES SCREEN NEGATIVE; URINE BARBITURATES SCREEN NEGATIVE; URINE BENZODIAZEPINES SCREEN NEGATIVE; URINE COCAINE SCREEN NEGATIVE; URINE MARIJUANA (THC) SCREEN NEGATIVE; URINE METHADONE SCREEN NEGATIVE; URINE PHENCYCLIDINE SCREEN NEGATIVE
[2019-09-13] MEDS ORDERED: HYDROXYZINE PAMOATE 50 MG CAPSULE ONE (23:20)
--- NOTE | 2019-09-13 23:50 | Non Stress Test Report ---
Non Stress Test Datetime Report Generated by CPN: 09/13/2019 23:50 DEMOGRAPHIC EGA NST: 40.0 INDICATION Indication for Study (NST) Other: labor check VITAL SIGNS Temperature - NST: 98.7 Pulse - NST: 83 RESP - NST: 17 NBPSYS NST: 128 NBPDIA NST: 79 MONITORING Monitor Explained: Monitor Explained; Test Explained; Patient Verbalized Understanding Time on Monitor: 09/13/2019 22:50 Time off Monitor: 09/13/2019 23:16 NST Duration: 26 NST INTERVENTIONS NST Interventions: PO Hydration; Reposition Patient Physician Notified NST: Dr Zachery BABY A: [id number] BABY A Movement : Present Contraction Frequency : irreg FHR Baseline : 120 Accelerations : 15X15 Decelerations : None Variability : Moderate 6-25bpm NST Review: Meets Criteria for Reactive NST NST Review and Verified By : Maldonado Wilburn RN NST Results: Reactive NST REPORT Report Trigger: Send Report
[2019-09-13] MEDS ORDERED: HYDROXYZINE PAMOATE 50 MG CAPSULE PO ONE (23:59)
== END 2019-09-13 23:42 | disposition home or self-care (01) ==
LOC: LC 22:06
PROVIDERS: ATTEND Obstetrics & Gynecology
DX: O47.1 False labor at or after 37 completed weeks of gestation (principal); Z3A.40 40 weeks gestation of pregnancy
CPT/HCPCS: 81005; 80307; 59025; J3490

== ENCOUNTER 2019-09-16 10:46 | Inpatient (IN) | payer MEDICAID ==
[2019-09-16] MEDS ORDERED: OXYTOCIN/NORMAL SALINE 20 UNIT/1,000 ML RTUINJ ONE (11:34)
[2019-09-16] MEDS ORDERED: MISOPROSTOL 0.2 MG TABLET ONE ×2 (11:34→19:15)
[2019-09-16] MEDS ORDERED: LIDOCAINE 1% INJ-PF (10 MG/ML) 30 ML SDV ONE (11:34)
[2019-09-16] MEDS ORDERED: OXYTOCIN 10 UNIT/ML VIAL ONE ×2 (11:34→19:15)
[2019-09-16] MEDS ORDERED: RINGERS SOLUTION,LACTATED 1,000 ML IV PRN (12:24)
[2019-09-16] MEDS ORDERED: OXYTOCIN/NORMAL SALINE 20 UNIT/1,000 ML RTUINJ IV PRN (12:25)
[2019-09-16 12:53] LABS: URINE AMPHETAMINES SCREEN NEGATIVE; URINE BARBITURATES SCREEN NEGATIVE; URINE BENZODIAZEPINES SCREEN NEGATIVE; URINE COCAINE SCREEN NEGATIVE; URINE MARIJUANA (THC) SCREEN NEGATIVE; URINE METHADONE SCREEN NEGATIVE; URINE PHENCYCLIDINE SCREEN NEGATIVE
[2019-09-16 13:13] LABS: HEMOGLOBIN 12.6 g/dL (12.0-15.5); MEAN CORPUSCULAR HEMOGLOBIN 29.4 pg (27.0-33.4); MEAN CORPUSCULAR HGB CONC 35.1 g/dL (32.0-36.0); MEAN CORPUSCULAR VOLUME 84 fl (80-97); PLATELET COUNT 134 10^3/uL (150-450); RED BLOOD COUNT 4.29 10^6/uL (3.72-5.28); RED CELL DISTRIBUTION WIDTH 14.7 % (11.5-14.0); WHITE BLOOD COUNT 5.2 10^3/uL (4.0-10.5)
[2019-09-16] MEDS ORDERED: ONDANSETRON HCL INJ/PF 4 MG/2 ML SDV IV ONE (13:34)
[2019-09-16] MEDS ORDERED: ONDANSETRON HCL INJ/PF 4 MG/2 ML SDV ONE (13:35)
--- NOTE | 2019-09-16 14:23 | Admission Physical ---
Datetime Report Generated by CPN: 09/16/2019 14:23 CURRENT ADMISSION Hx Assessment: The History has been Reviewed and is Current Chief Complaint: Scheduled Induction of Labor Indication for Induction: Post Dates; Other Indication for Induction- Other: advanced maternal age Admit Impression : Term, Intrauterine ; Induction of Labor Admit Plan: Admit to Unit; Initiate Labor Induction Protocol ALLERGIES Medication Allergies: Yes Medication Allergies: promethazine HCl (11/11/2018) Latex: No Latex Allergies OBSTETRICAL HISTORY EDC: 09/13/2019 00:00 : 4 Para: 2 IAB: 1 Livin Gestational Diabetes: No Rh Sensitization: No Incompetent Cervix: No JOSE: No Infertility: Yes ART Treatment: No Uterine Anomaly: No IUGR: No Hx Previous C/S: No Macrosomia: No Hx Loss/Stillborn: No PIH: No Hx : No Placenta Previa/Abruption: No Depression/PP Depression: No PTL/PROM: No Post Hemorrhage: No Current Procedures: Ultrasound; NST SEE RECORDS Alcohol: No Marijuana : Yes Cocaine: No Other Illicit Drugs: No Cigarettes: Never Smoker. 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 Heart Disease: No Hosp/Surgery: Yes Autoimmune Disorder: No Anesthetic Complications: No Kidney Disease: No Abnormal Pap Smear: Yes Neuro/Epilepsy: No Psychiatric Disorders: No Other Medical Diseases: No Hepatitis/Liver Disease: No Significant Family History: No Varicosities/Phlebitis: No Trauma/Violence : No Thyroid Dysfunction: No Medical History Comments: cryo surgery on cervix INFECTIOUS HISTORY Gonorrhea: No Genital Herpes: No Chlamydia: Yes Tuberculosis: No Syphilis: No Hepatitis: No HIV/AIDS Exposure: No Rash or Viral Illness: No HPV: No PHYSICAL EXAM General: Normal Heart: Normal Lungs: Normal Extremities: Normal Physical Exam Comments: pelvis proven to 7lbs 9oz Vital Signs: Reviewed VAGINAL EXAM Contraction Comments: 2-4 MEMBRANES Membranes: Intact FETUS A EGA: 40.3 Monitoring: External US Decelerations: None FHR Category: Category I Presentation: Vertex Admit Comment: 39yo at 40w3d into L_D this am for IOL secondary to AMA. Pt is O pos, GBS neg, RI. complicated by suboxone use. Plan was to start pitocin on admission which was started and now at 6mu/min. Continue pitocin at this time, plan on AROM and epidural prn. Dr. Lr is the OB quality control checker and aware of admission and pt. status. PLANS FOR LABOR AND DELIVERY Labor and Delivery: None Pain Management: Epidural Feeding Preference: Breast Benefit of Breast Feed Discussed: Yes Circumcision: Yes INFORMED CONSENT Assignment: Suhas Lr MD Signature: with User ID: [email or web address] : with User ID: [email or web address]
[2019-09-16] MEDS ORDERED: MORPHINE SULFATE 10 MG/ML INJ ONE (17:42)
[2019-09-16] MEDS ORDERED: PROMETHAZINE HCL INJ 25 MG/1 ML VIAL ONE (17:42)
[2019-09-16] MEDS ORDERED: MORPHINE SULFATE 10 MG/ML INJ IV ONE (18:15)
[2019-09-16] MEDS ORDERED: EPHEDRINE SULFATE INJ 50 MG/1 ML AMPULE ONE (19:13)
[2019-09-16] MEDS ORDERED: FENTANYL/BUPIVACAINE/NS/PF 300 MCG/150 ML RTUINJ EPI ONE (19:14)
[2019-09-16] MEDS ORDERED: BUPIVACAINE HCL 0.25 % INJ/PF (2.5 MG/1 ML) 30 ML VIAL ONE (19:14)
[2019-09-17] MEDS ORDERED: OXYTOCIN/NORMAL SALINE 20 UNIT/1,000 ML RTUINJ IV PRN (00:36)
[2019-09-17] MEDS ORDERED: GLYCERIN/WITCH HAZEL LEAF 1 EACH MED..WIPE TP PRN (00:36)
[2019-09-17] MEDS ORDERED: BENZOCAINE/MENTHOL AEROSOL SPRAY 56 ML TOP PRN (00:36)
[2019-09-17] MEDS ORDERED: ZOLPIDEM TARTRATE 5 MG TABLET PO PRN (00:36)
[2019-09-17] MEDS ORDERED: MAGNESIUM HYDROXIDE SUSP 30 ML UDCUP PO PRN (00:36)
[2019-09-17] MEDS ORDERED: NA PHOS,M-B/NA PHOS,DI-BA (ADULT) 133 ML ENEMA PR PRN (00:36)
[2019-09-17] MEDS ORDERED: DIBUCAINE 1% OINTMENT 28 GM TP PRN (00:36)
[2019-09-17] MEDS ORDERED: ACETAMINOPHEN 650 MG SUPP.RECT PR PRN (00:36)
[2019-09-17] MEDS ORDERED: PSEUDOEPHEDRINE HCL 30 MG TABLET PO PRN (00:36)
[2019-09-17] MEDS ORDERED: DIPHENHYDRAMINE HCL 25 MG CAPSULE PO PRN (00:36)
[2019-09-17] MEDS ORDERED: PROMETHAZINE HCL 25 MG SUPP.RECT PR PRN (00:36)
[2019-09-17] MEDS ORDERED: PROMETHAZINE HCL INJ 25 MG/1 ML VIAL IV PRN (00:36)
[2019-09-17] MEDS ORDERED: MEASLES,MUMPS&RUBELLA VACC/PF 0.5 ML VIAL SUBCUT PRN (00:36)
[2019-09-17] MEDS ORDERED: DIPH/PERTUSS(ACELL)/TETANUS VAC/PF 0.5 ML SYR (>=10YO) IM PRN (00:36)
[2019-09-17] MEDS ORDERED: PROMETHAZINE HCL 25 MG TABLET PO PRN (00:36)
--- NOTE | 2019-09-17 00:49 | Warning Signs in Babies ---
VOD Warning Signs Datetime Report Generated by [facility]: 09/17/2019 00:49 VOD#608 -Warning Signs in Babies: Needs to be viewed. (09/13/2019 22:09:Pinky Lott RN)
[2019-09-17] MEDS ORDERED: ACETAMINOPHEN 325 MG TABLET ONE (01:23)
[2019-09-17] MEDS ORDERED: ACETAMINOPHEN WITH CODEINE #3 TABLET ONE (01:23)
[2019-09-17] MEDS: ACETAMINOPHEN WITH CODEINE #3 TABLET PO PRN ×4 (01:25→21:11)
--- NOTE | 2019-09-17 01:45 | Delivery Summary ---
Del Sum A-C Datetime Report Generated by CPN: 09/17/2019 01:45 DELIVERY PERSONNEL DELIVERY PERSONNEL: [id number] Delivery Doctor:: Suhas Lr MD Labor and Delivery Nurse:: Pinky Lott RNtrial management associate Nurse:: Melba Lion RN Nursery Nurse:: Chhaya Fuentes RN [facility] Teacher/VENUE MANAGER: Barbara Maryam, LICENSED SALES ASSISTANT [facility] Teacher/VENUE MANAGER: Becki Gilliland, ST MATERNAL INFORMATION Delivery Anesthesia: Epidural Medications After Delivery: Pitocin Bolus-Please Comment Meds After Delivery Comment: Pitocin 20 units/1000 ml NSS Delivery QBL: 50 Maternal Complications: None LABOR SUMMARY EDC: 09/13/2019 00:00 No. Babies in Womb: 1 Attempted: No Labor Anesthesia: Epidural LABOR INFORMATION Reason for Induction: Other Reason for Induction- Other: AMA subutex Onset of Labor: 09/16/2019 19:44 Complete Dilatation: 09/17/2019 12:18 Oxytocin: Induction Group B Beta Strep: neg Antibiotics # of Doses: 0 Steroids Given: None Reason Steroids Not Administered: Not Applicable MEMBRANES Membranes Rupture Method: Spontaneous Rupture of Membranes: 09/16/2019 23:51 Length of Rupture (hr): 0.58 Amniotic Fluid Color: Clear Amniotic Fluid Amount: Moderate Amniotic Fluid Odor: Normal STAGES OF LABOR Stage 1 hr: 16 Stage 1 min: 34 Stage 2 hr: -11 Stage 2 min: -52 Stage 3 hr: 0 Stage 3 min: 3 Total Time in Labor hr: 4 Total Time in Labor min: 45 VAGINAL DELIVERY Episiotomy: None Laceration #1: None Laceration Extension #1: N/A Laceration Repair: Not Applicable Sponge Count Correct: N/A CSECTION DELIVERY Primary Indication: N/A Secondary Indication: N/A CSection Incidence: N/A Labor: N/A Elective: N/A CSection Incision: N/A BABY A INFORMATION Infant Delivery Date/Time: 09/17/2019 00:26 Method of Delivery: Vaginal Nurse Controlled Delivery: No Born in Route : No : N/A Forceps: N/A Vacuum Extraction: N/A Shoulder Dystocia : No PRESENTATION/POSITION BABY A Presentation: Cephalic Cephalic Presentation: Vertex Vertex Position: Right Occipital Anterior Breech Presentation: N/A PLACENTA INFORMATION BABY A Placenta Delivery Time : 09/17/2019 00:29 Placenta Method of Delivery: Spontaneous Placenta Status: Delivered SCORES BABY A Heart Rate 1 min: >100 bpm Resp Effort 1 min: Slow, Irregular Reflex Irritability 1 min: Cough or Sneeze or Pulls Away Muscle Tone 1 min: Active Motion Color 1 min: Body [place], Extremities Blue SCORE 1 MIN: 8 Heart Rate 5 min: >100 bpm Resp Effort 5 min: Good Cry Reflex Irritability 5 min: Cough or Sneeze or Pulls Away Muscle Tone 5 min: Active Motion Color 5 min: Body [place], Extremities Blue SCORE 5 MIN: 9 INFANT INFORMATION BABY A Gestational Age at Delivery: 40.4 Gestational Status: Full Term- 39- 40.6 Weeks Infant Outcome : Liveborn Infant Condition : Stable Infant Sex: Male IDENTIFICATION BABY A Infant Verification Date/Time: 09/17/2019 00:47 ID Band Number: [id number] Mother's Name Verified: Yes Infant RN Verifying Infant: Vinicio Lott RN Additional Verifying Personnel: Gloria Del Cid RN WEIGHT/LENGTH BABY A Infant Birthweight (gm): 3125 Infant Weight (lb): 6 Infant Weight (oz): 14 Infant Length (in): 20.00 Length (cm): 50.80 CORD INFORMATION BABY A No. Cord Vessels: 3 Nuchal Cord : Around Neck x1, Loose Cord Blood Taken: Yes-For Eval (Mom's Blood Type - or O+) Infant Suction: None ASSESSMENT BABY A Complications: None Physical Findings at Delivery: Within Normal Limits Skin to Skin: Yes Skin to Skin Time (min): 60 Transferred To: Remains with Mother BABY B INFORMATION : N/A SIGNATURES Signature: with User ID: [email or web address]
[2019-09-17] MEDS: IBUPROFEN 800 MG TABLET PO SCH ×3 (05:34→21:11)
[2019-09-17] MEDS: FAMOTIDINE 20 MG TABLET PO SCH ×2 (10:37→21:12)
[2019-09-17] MEDS: FERROUS SULFATE 325 MG TABLET PO SCH ×2 (10:37→17:49)
[2019-09-17] MEDS: PRENATAL VITAMIN W DHA CAPSULE PO SCH (10:37)
[2019-09-17] MEDS: SENNOSIDES/DOCUSATE 8.6-50 MG 1 EACH TABLET PO SCH (10:37)
[2019-09-17] MEDS: DOCUSATE SODIUM 100 MG CAPSULE PO SCH ×2 (10:37→17:49)
[2019-09-17] MEDS ORDERED: BUPRENORPHINE HCL 2 MG SUBLINGUAL TABLET SL SCH (11:00)
[2019-09-17] MEDS: PANTOPRAZOLE SODIUM 20 MG TABLET.DR PO SCH (11:27)
[2019-09-17] MEDS ORDERED: FLUTICASONE NASAL SPRAY 50 MCG/SPRY 120 SPRAY/16 GM NASL SCH ×2 (14:00→22:00)
[2019-09-17] MEDS: FLUTICASONE NASAL SPRAY 50 MCG/SPRY 120 SPRAY/16 GM NASL SCH (21:13)
[2019-09-18] MEDS: ACETAMINOPHEN WITH CODEINE #3 TABLET PO PRN ×4 (05:08→19:07)
[2019-09-18] MEDS: PANTOPRAZOLE SODIUM 20 MG TABLET.DR PO SCH (05:08)
[2019-09-18] MEDS: IBUPROFEN 800 MG TABLET PO SCH ×3 (05:08→21:55)
[2019-09-18 06:21] LABS: HEMATOCRIT 36.1 % (36.0-47.0); HEMOGLOBIN 12.8 g/dL (12.0-15.5); MEAN CORPUSCULAR HEMOGLOBIN 29.7 pg (27.0-33.4); MEAN CORPUSCULAR HGB CONC 35.3 g/dL (32.0-36.0); MEAN CORPUSCULAR VOLUME 84 fl (80-97); PLATELET COUNT 119 10^3/uL (150-450); RED BLOOD COUNT 4.29 10^6/uL (3.72-5.28); RED CELL DISTRIBUTION WIDTH 14.5 % (11.5-14.0); WHITE BLOOD COUNT 7.4 10^3/uL (4.0-10.5)
[2019-09-18] MEDS: DOCUSATE SODIUM 100 MG CAPSULE PO SCH ×2 (09:10→18:51)
[2019-09-18] MEDS: SENNOSIDES/DOCUSATE 8.6-50 MG 1 EACH TABLET PO SCH (09:10)
[2019-09-18] MEDS: FERROUS SULFATE 325 MG TABLET PO SCH ×2 (09:10→18:51)
[2019-09-18] MEDS: PRENATAL VITAMIN W DHA CAPSULE PO SCH (09:10)
[2019-09-18] MEDS: FAMOTIDINE 20 MG TABLET PO SCH ×2 (09:16→21:55)
--- NOTE | 2019-09-18 11:23 | PDOC PROGRESS REPORT ---
Subjective-OB Progress Note for:: 09/18/19 Subjective: reports moderate blood flow. complaining of pain on sides of lower abdomen consistent with 3rd baby and subutex use. denies needs Physical Exam (OB) Vital Signs: Temp Pulse Resp BP Pulse Ox 97.7 F 72 16 110/69 99 09/18/19 08:00 09/18/19 08:00 09/18/19 08:00 09/18/19 08:00 09/18/19 08:00 Intake & Output 09/17/19 09/18/19 09/19/19 06:59 06:59 06:59 Weight 79.3 kg - Lochia Lochia Amount: Moderate 25-50 ml Lochia Color: Rubra/Red - Abdomen Description: Soft Hernia Present: No Fundal Description: Firm, Midline Fundal Height: 1/u - 2/u - Abdominal Distension: No distension Tenderness: Nontender - Extremities Lower extremities: Antoine's sign - neg Calf: Normal, Nontender Objective-Diagnostic Laboratory: 09/18/19 06:13 09/18/19 06:13 WBC 7.4 RBC 4.29 Hgb 12.8 Hct 36.1 MCV 84 MCH 29.7 MCHC 35.3 RDW 14.5 H Plt Count 119 L Assessment and Plan(PN) - Assessment and Plan (1) Advanced maternal age (AMA) in Is this a current diagnosis for this admission?: Yes (2) Normal vaginal delivery Is this a current diagnosis for this admission?: Yes (3) Substance abuse/dependence Is this a current diagnosis for this admission?: Yes - Time Spent with Patient Time with patient: Less than 15 minutes Medications reviewed and adjusted accordingly: Yes - Disposition Anticipated Discharge: Home Within: within 24 hours
[2019-09-18] MEDS: FLUTICASONE NASAL SPRAY 50 MCG/SPRY 120 SPRAY/16 GM NASL SCH (21:55)
[2019-09-19] MEDS: ACETAMINOPHEN WITH CODEINE #3 TABLET PO PRN ×3 (01:44→12:13)
[2019-09-19] MEDS: IBUPROFEN 800 MG TABLET PO SCH ×2 (05:12→13:15)
[2019-09-19] MEDS: PANTOPRAZOLE SODIUM 20 MG TABLET.DR PO SCH (05:12)
[2019-09-19 07:57] VITALS: BP 120/72
[2019-09-19] MEDS: SENNOSIDES/DOCUSATE 8.6-50 MG 1 EACH TABLET PO SCH (10:14)
[2019-09-19] MEDS: DOCUSATE SODIUM 100 MG CAPSULE PO SCH (10:14)
[2019-09-19] MEDS: PRENATAL VITAMIN W DHA CAPSULE PO SCH (10:14)
[2019-09-19] MEDS: FERROUS SULFATE 325 MG TABLET PO SCH (10:14)
[2019-09-19] MEDS: FAMOTIDINE 20 MG TABLET PO SCH (10:15)
--- NOTE | 2019-09-19 10:38 | PDOC DISCHARGE SUMMARY ---
Impression - Admit/DC Date/PCP Admission Date/Primary Care Provider: 09/16/19 10:46 SYBIL ARREOLA MD Discharge Date: 09/19/19 - Discharge Diagnosis (1) Advanced maternal age (AMA) in Is this a current diagnosis for this admission?: Yes (2) Normal vaginal delivery Is this a current diagnosis for this admission?: Yes (3) Substance abuse/dependence Is this a current diagnosis for this admission?: Yes - Additional Information Discharge Diet: Regular Discharge Activity: Balance Activity w/Rest, Pelvic Rest Referrals: SYBIL ARREOLA MD [Primary Care Provider] - Prescriptions: Fluticasone Propionate [Flonase Nasal Harris 50 Mcg/Harris 16 gm] 1 spray NASL QHS #1 spray.pump Ibuprofen [Motrin 800 mg Tablet] 800 mg PO Q8HP PRN #60 tablet PRN Reason: Acetaminophen with Codeine [Tylenol #3 Tablet] 1 each PO Q4HP PRN #10 tablet PRN Reason: Home Medications: Buprenorphine HCl [Subutex 2 mg Sl Tablet] 4 tab PO DAILY 09/13/19 Esomeprazole Magnesium [Nexium] 1 packet PO DAILY 09/16/19 Pnv No.95/Ferrous Fum/Folic AC [ Caplet] 1 cap PO DAILY 09/16/19 Acetaminophen with Codeine [Tylenol #3 Tablet] 1 each PO Q4HP PRN #10 tablet 09/19/19 Fluticasone Propionate [Flonase Nasal Harris 50 Mcg/Harris 16 gm] 1 spray NASL QHS #1 spray.pump 09/19/19 Ibuprofen [Motrin 800 mg Tablet] 800 mg PO Q8HP PRN #60 tablet 09/19/19 Results Laboratory Results: WBC 7.4 10^3/uL (4.0-10.5) 09/18/19 06:13 RBC 4.29 10^6/uL (3.72-5.28) 09/18/19 06:13 Hgb 12.8 g/dL (12.0-15.5) 09/18/19 06:13 Hct 36.1 % (36.0-47.0) 09/18/19 06:13 MCV 84 fl (80-97) 09/18/19 06:13 MCH 29.7 pg (27.0-33.4) 09/18/19 06:13 MCHC 35.3 g/dL (32.0-36.0) 09/18/19 06:13 RDW 14.5 % (11.5-14.0) H 09/18/19 06:13 Plt Count 119 10^3/uL (150-450) L 09/18/19 06:13 Urine Opiates Screen NEGATIVE 09/16/19 11:42 Urine Methadone Screen NEGATIVE 09/16/19 11:42 Ur Barbiturates Screen NEGATIVE 09/16/19 11:42 Ur Phencyclidine Scrn NEGATIVE 09/16/19 11:42 Ur Amphetamines Screen NEGATIVE 09/16/19 11:42 U Benzodiazepines Scrn NEGATIVE 09/16/19 11:42 Urine Cocaine Screen NEGATIVE 09/16/19 11:42 U Marijuana (THC) Screen NEGATIVE 09/16/19 11:42 RPR NONREACTIVE (NONREACTIVE) 09/16/19 12:59 Blood Type O POSITIVE 09/16/19 12:59 Antibody Screen NEGATIVE 09/16/19 12:59 Plan Plan of Treatment: follow up in 4 weeks at [facility] for post check
== END 2019-09-19 17:30 | disposition home or self-care (01) | DRG 806 ==
LOC: LR 10:46 → 2N 09-17 02:38
PROVIDERS: ADMIT Obstetrics & Gynecology Gynecology; ATTEND Obstetrics & Gynecology Gynecology
PROC: 10E0XZZ Delivery of Products of Conception, External Approach (ICD-10-PCS; principal; 2019-09-17)
DX: O48.0 Post-term pregnancy (principal); O99.324 Drug use complicating childbirth; Z37.0 Single live birth; O69.81X0 Labor and delivery complicated by cord around neck, without compression, not applicable or unspecified; F19.90 Other psychoactive substance use, unspecified, uncomplicated; Z3A.40 40 weeks gestation of pregnancy
CPT/HCPCS: 1967; 36415; 80307; 85027; 86592; 86850; 86900; 86901; 94760; J2270; J2405; J2550; J2590; J3010; J3490

== ENCOUNTER 2019-09-21 13:26 | Emergency (ER) | payer MEDICAID ==
--- NOTE | 2019-09-21 13:39 | ER Document Report ---
ED Medical Screen (RME) - General Chief Complaint: Abdominal Cramping Stated Complaint: ABDOMINAL PAIN/CRAMPING Time Seen by Provider: 09/21/19 13:29 Primary Care Provider: SYBIL ARREOLA MD [Primary Care Provider] - Follow up as needed Mode of Arrival: Wheelchair Information source: Patient Notes: 39-year-old female 5 days was post with vaginal . . Presents today with complaints of severe abdominal and low back pain. Patient reports she has not felt well since she delivered. Reports increased pain started yesterday. She also reports some yellow vaginal discharge. Denies fever. Reports she vomited 1 time from the pain. Patient is tearful. Patient reports she is on Subutex. Will be discharged tonight. I have greeted and performed a rapid initial assessment of this patient. A comprehensive ED assessment and evaluation of the patient, analysis of test results and completion of the medical decision making process will be conducted by additional ED providers. TRAVEL OUTSIDE OF THE [place] IN LAST 30 DAYS: No - Related Data Allergies/Adverse Reactions: promethazine HCl [From Phenergan] Adverse Reaction (Unknown, Verified 09/21/19 13:39) Past Medical History - Past Medical History Cardiac Medical History: Denies: Hx Heart Attack, Hx Hypertension - She has high anxiety Pulmonary Medical History: Reports: Hx Pneumonia Denies: Hx Asthma Neurological Medical History: Denies: Hx Cerebrovascular Accident, Hx Seizures Renal/ Medical History: Denies: Hx Peritoneal Dialysis GI Medical History: Reports: Hx Gastroesophageal Reflux Disease. Denies: Hx Hepatitis, Hx Hiatal Hernia, Hx Ulcer Musculoskeltal Medical History: Reports Hx Musculoskeletal Trauma Skin Medical History: Reports Hx MRSA Psychiatric Medical History: Reports: Hx Anxiety, Hx Depression Traumatic Medical History: Reports: Hx Fractures Infectious Medical History: Denies: Hx Hepatitis Past Surgical History: Reports: Hx Gynecologic Surgery - , Other - Ingrown toenail surgery on 09/13/2016. Denies: Hx Mastectomy, Hx Open Heart Surgery, Hx Pacemaker - Immunizations Immunizations up to date: Yes Hx Diphtheria, Pertussis, Tetanus Vaccination: Yes Doctor's Discharge - Discharge Referrals: SYBIL ARREOLA MD [Primary Care Provider] - Follow up as needed
[2019-09-21 14:27] LABS: HEMATOCRIT 37.1 % (36.0-47.0); HEMOGLOBIN 12.8 g/dL (12.0-15.5); MEAN CORPUSCULAR HEMOGLOBIN 29.5 pg (27.0-33.4); MEAN CORPUSCULAR HGB CONC 34.4 g/dL (32.0-36.0); MEAN CORPUSCULAR VOLUME 86 fl (80-97); PLATELET COUNT 122 10^3/uL (150-450); RED BLOOD COUNT 4.32 10^6/uL (3.72-5.28); RED CELL DISTRIBUTION WIDTH 15.1 % (11.5-14.0); WHITE BLOOD COUNT 8.8 10^3/uL (4.0-10.5)
[2019-09-21] MEDS ORDERED: NORMAL SALINE 1000 ML 1,000 ML IV ONE ×2 (14:37→17:22)
[2019-09-21 14:52] LABS: ABSOLUTE LYMPHOCYTES# (MANUAL) 0.3 10^3/uL (0.5-4.7); ABSOLUTE MONOCYTES # (MANUAL) 0.3 10^3/uL (0.1-1.4); BASOPHILS % (MANUAL) 0 % (0-2); EOSINOPHILS % (MANUAL) 0 % (0-6); LYMPHOCYTES % (MANUAL) 3 % (13-45); METAMYELOCYTES % (MANUAL) 1 % (0-1); MONOCYTES % (MANUAL) 3 % (3-13); SEGMENTED NEUTROPHILS % (MAN) 79 % (42-78); TOTAL CELLS COUNTED 100
[2019-09-21 14:54] LABS: ANISOCYTOSIS SLIGHT; BAND NEUTROPHILS % (MANUAL) 14 % (3-5); PLATELET COMMENT DECREASED; TOXIC GRANULATION 1+; TOXIC VACUOLATION PRESENT
[2019-09-21] MEDS ORDERED: ONDANSETRON HCL INJ/PF 4 MG/2 ML SDV IV ONE (14:58)
[2019-09-21 15:03] LABS: AMORPHOUS SEDIMENT,URINE TRACE /HPF; APPEARANCE,URINE CLOUDY; BILIRUBIN,URINE SMALL (NEGATIVE); GLUCOSE, URINE NEGATIVE (NEGATIVE); KETONES,URINE NEGATIVE (NEGATIVE); PROTEIN,URINE 100 mg/dL (NEGATIVE); URINE SPECIFIC GRAVITY 1.032
[2019-09-21 15:04] LABS: COLOR,URINE DARK YELLOW
[2019-09-21 15:06] LABS: ALBUMIN 2.6 g/dL (3.5-5.0); ALKALINE PHOSPHATASE 107 U/L (38-126); ANION GAP 12 (5-19); ASPARTATE AMINO TRANSFERASE 45 U/L (14-36); BILIRUBIN,DIRECT 0.1 mg/dL (0.0-0.4); BILIRUBIN,TOTAL 0.6 mg/dL (0.2-1.3); BLOOD UREA NITROGEN 26 mg/dL (7-20); CALCIUM 7.8 mg/dL (8.4-10.2); CARBON DIOXIDE 18 mmol/L (22-30); CHLORIDE 102 mmol/L (98-107); GLUCOSE 99 mg/dL (75-110); POTASSIUM 3.4 mmol/L (3.6-5.0); TOTAL PROTEIN 5.2 g/dL (6.3-8.2)
--- NOTE | 2019-09-21 15:08 | ER Document Report ---
ED General - General Chief Complaint: Post Problem Stated Complaint: ABDOMINAL PAIN/CRAMPING Time Seen by Provider: 09/21/19 13:29 Primary Care Provider: SYBIL ARREOLA MD [ACTIVE STAFF] - Follow up as needed Mode of Arrival: Wheelchair TRAVEL OUTSIDE OF THE [place] IN LAST 30 DAYS: No - HPI Notes: Chief complaint: Pelvic pain HPI: 39-year-old female 5 days was post with vaginal . . Presents today with complaints of severe abdominal and low back pain. Patient reports she has not felt well since she delivered. Reports increased pain started yesterday. She also reports some yellow vaginal discharge. Denies fever. Reports she vomited 1 time from the pain. Patient is tearful. Patient reports she is on Subutex. She spoke with [facility] and was advised to come to the emergency department. Past medical history is remarkable for substance abuse and past history of treatment for cervical dysplasia. - Related Data Allergies/Adverse Reactions: promethazine HCl [From Phenergan] Adverse Reaction (Unknown, Verified 09/21/19 13:39) Home Medications: subutex Past Medical History - General Information source: Patient - Social History Smoking Status: Former Smoker Family History: DM, Malignancy Patient has suicidal ideation: No Patient has homicidal ideation: No - Past Medical History Cardiac Medical History: Denies: Hx Heart Attack, Hx Hypertension - She has high anxiety Pulmonary Medical History: Reports: Hx Pneumonia Denies: Hx Asthma Neurological Medical History: Denies: Hx Cerebrovascular Accident, Hx Seizures Renal/ Medical History: Denies: Hx Peritoneal Dialysis GI Medical History: Reports: Hx Gastroesophageal Reflux Disease. Denies: Hx Hepatitis, Hx Hiatal Hernia, Hx Ulcer Musculoskeletal Medical History: Reports Hx Musculoskeletal Trauma Skin Medical History: Reports Hx MRSA Psychiatric Medical History: Reports: Hx Anxiety, Hx Depression Traumatic Medical History: Reports: Hx Fractures Infectious Medical History: Denies: Hx Hepatitis Past Surgical History: Reports: Hx Gynecologic Surgery - , Other - Ingrown toenail surgery on 09/13/2016. Denies: Hx Mastectomy, Hx Open Heart Surgery, Hx Pacemaker - Immunizations Immunizations up to date: Yes Hx Diphtheria, Pertussis, Tetanus Vaccination: Yes Review of Systems - Review of Systems Notes: Constitutional: Negative for fever. HENT: Negative for sore throat. Eyes: Negative for visual changes. Cardiovascular: Negative for chest pain. Respiratory: Negative for shortness of breath. Gastrointestinal: As per HPI. Genitourinary: Negative for dysuria. Musculoskeletal: Negative for back pain. Skin: Negative for rash. Neurological: Negative for headaches, weakness or numbness. 10 point ROS negative except as marked above and in HPI. Physical Exam - Vital signs Vitals: Temp 98.4 F 09/21/19 13:31 - Notes Notes: GENERAL: Middle-aged female appearing moderately uncomfortable and tearful. Does not appear toxic. SKIN: Good turgor no rashes. HEAD: Normocephalic atraumatic. EYES: Bilateral lid ptosis. PERRLA. EOMI. Conjunctivae and sclerae clear. EARS: CANALS AND TMS CLEAR. NOSE: CLEAR. MOUTH: Moist mucosa. Good dentition. No stridor or edema. No drooling. NECK: Supple. No masses or thyromegaly. No adenopathy. Carotids 2+ without bruits. No JVD. BACK: Symmetrical without tenderness. CHEST: Respirations unlabored. Breath sounds clear and symmetrical. HEART: Regular rhythm. No murmur gallop or rub. ABDOMEN: Tender bilateral lower abdomen. Soft without masses, organomegaly or rebound. Bowel sounds normally active. No bruits. PELVIC: Normal external genitalia and hair distribution. Normal lochia. Diffu se tenderness over uterus. No masses. EXTREMITIES: No edema. No calf tenderness. Cap refill less than 1.5 seconds. Dorsalis pedis and posterior tibial pulses 3+ and symmetrical. NEUROLOGICAL: GCS 15. Alert and oriented x3. Mildly slurred speech. Cranial nerves II through XII intact. Sensorimotor and cerebellar normal. Normal tone. PSYCHIATRIC: Anxious and tearful. Course - Re-evaluation Re-evalutation: 09/21/19 17:33 We did a pelvic ultrasound for this lady and she has no evidence of retained products of conception. She has some tenderness over the uterus suggestive of possible early endometritis although she is afebrile here and does not have any significant elevation of her white count or any significant discharge on pelvic exam. She does have a slight left shift. She is also tachycardic and blood pressure is low but she is not been eating and drinking since she was discharged and she is breast-feeding. Urine drug screen is positive for opiates and we note this lady is taking Suboxone. Findings are discussed with on-call [facility], Dr. Bingham. We agree that we will hydrate this lady with 2 L of saline and give her some Toradol. Plan will be to send her home on some oral Toradol and some oral doxycycline for outpatient follow-up with [facility]. 09/21/19 18:34 Pulse rate is now 100 and blood pressure is 110/60. Patient feels much better after Toradol and wants to go home. - Vital Signs Vital signs: Temp Pulse Resp BP Pulse Ox 98.4 F 26 H 107/78 96 09/21/19 13:31 09/21/19 18:01 09/21/19 18:00 09/21/19 18:01 - Laboratory Result Diagrams: 09/21/19 14:13 09/21/19 14:13 Laboratory results interpreted by me: 09/21/19 09/21/19 09/21/19 14:13 14:13 14:35 RDW 15.1 H Plt Count 122 L Seg Neuts % (Manual) 79 H Band Neutrophils % 14 H Lymphocytes % (Manual) 3 L Abs Neuts (Manual) 8.3 H Abs Lymphs (Manual) 0.3 L Sodium 131.5 L Potassium 3.4 L Carbon Dioxide 18 L BUN 26 H Est GFR (MDRD) Non-Af 57 L Calcium 7.8 L AST 45 H ALT 37 H Total Protein 5.2 L Albumin 2.6 L Urine Protein 100 H Urine Blood SMALL H Urine Bilirubin SMALL H Urine Urobilinogen 4.0 H Leukocyte Esterase Rfl SMALL H Urine Ascorbic Acid 20 H Discharge - Discharge Clinical Impression: pelvic pain, Dehydration Condition: Stable Disposition: HOME, SELF-CARE Additional Instructions: Increase oral fluids. Take prescribed medications. Return here as needed for new or worsening symptoms. Follow-up with [facility] as previously scheduled. Prescriptions: Ketorolac Tromethamine [Toradol 10 mg Tablet] 10 mg PO Q6HP PRN 10 Days #20 tablet PRN Reason: Doxycycline Monohydrate 100 mg PO BID #20 capsule Referrals: SYBIL ARREOLA MD [ACTIVE STAFF] - Follow up as needed
[2019-09-21 15:28] LABS: RBCS (WET MOUNT) FEW RBCS SEEN; T.VAGINALIS (WET MOUNT) NO TRICHOMONAS SEEN; WBCS (WET MOUNT) 1+ WBCS SEEN; YEAST (WET MOUNT) NO YEAST SEEN
[2019-09-21 15:46] LABS: URINE AMPHETAMINES SCREEN NEGATIVE; URINE BARBITURATES SCREEN NEGATIVE; URINE BENZODIAZEPINES SCREEN NEGATIVE; URINE COCAINE SCREEN NEGATIVE; URINE MARIJUANA (THC) SCREEN NEGATIVE; URINE METHADONE SCREEN NEGATIVE; URINE PHENCYCLIDINE SCREEN NEGATIVE
[2019-09-21 16:54] LABS: CHLAM PCR NOT DETECTED (NOT DETECT)
--- NOTE | 2019-09-21 17:21 | RADIOLOGY REPORT (SQ) ---
EXAM DESCRIPTION: U/S NON-OB PELVIS W/O DOP IMAGES COMPLETED DATE/TIME: 09/21/2019 5:12 pm REASON FOR STUDY: Post- pelvic pain vaginal delivery 5 days ago, pelvic pain COMPARISON: 05/12/2017 pelvic ultrasound TECHNIQUE: Dynamic and static grayscale images acquired of the pelvis via transabdominal approach an d recorded on PACS. Additional selected color Doppler and spectral images recorded. LIMITATIONS: None. FINDINGS: UTERUS: Contour normal. No mass. Uterus is 17 x 12 x 10 cm size ENDOMETRIAL STRIPE: No focal or generalized thickening. No masses. No findings worrisome for retaine d products of conception. CERVIX: Closed, 3 cm in length. No nabothian cysts. RIGHT OVARY AND DOPPLER: Normal size, 4.4 x 3.4 x 3.9 cm. No worrisome masses. Normal arterial vascul ar flow without evidence for torsion. LEFT OVARY AND DOPPLER: Normal size, 4.2 x 4 x 4.5 cm. No worrisome masses. Normal arterial vascular flow without evidence for torsion. FREE FLUID: None noted. OTHER: No other significant finding. IMPRESSION: APPROPRIATE SIZE UTERUS. NO GROSS ULTRASOUND EVIDENCE OF RETAINED PRODUCTS O F CONCEPTION. NO FREE PELVIC FLUID. NO ULTRASOUND EVIDENCE OF OVARIAN TORSION TECHNICAL DOCUMENTATION: JOB ID: [id number] 2010 [employer]- All Rights Reserved Rev-10/10 Reading location - IP/workstation name: [id number]
[2019-09-21] MEDS ORDERED: KETOROLAC TROMETHAMINE INJ/PF 30 MG/1 ML SDV IV ONE (17:33)
[2019-09-21 18:48] VITALS: BP 103/75
[2019-09-22 10:59] LABS: PATH REVIEW PATHOLOGIST REVIEWED
== END 2019-09-21 18:49 | disposition home or self-care (01) ==
LOC: ER 13:26
DX: O90.89 Other complications of the puerperium, not elsewhere classified (principal); R10.2 Pelvic and perineal pain; N89.8 Other specified noninflammatory disorders of vagina; M54.5 Low back pain; R11.10 Vomiting, unspecified; H02.403 Unspecified ptosis of bilateral eyelids; R47.81 Slurred speech; R00.0 Tachycardia, unspecified; O99.285 Endocrine, nutritional and metabolic diseases complicating the puerperium; E86.0 Dehydration; Z79.891 Long term (current) use of opiate analgesic; Z79.899 Other long term (current) drug therapy; Z87.891 Personal history of nicotine dependence
CPT/HCPCS: 99284; 96361; 96374; 96375; 36415; 87040; 87070; 87205; 87210; 85025; 87077; 80053; 81001; 80307; 87491; 87591; 76856; J1885; J2405; J7030

== ENCOUNTER 2019-09-27 13:06 | Inpatient (IN) | payer MEDICAID ==
[2019-09-27] MEDS ORDERED: ACETAMINOPHEN 325 MG TABLET PO ONE (13:31)
[2019-09-27] MEDS ORDERED: NORMAL SALINE IV ONE (13:31)
[2019-09-27] MEDS ORDERED: PIPERACILLIN/TAZOBACTAM 4.5 GM VIAL IV ONE (13:31)
--- NOTE | 2019-09-27 13:33 | ER Document Report ---
ED Medical Screen (RME) - General Chief Complaint: Flank Pain Stated Complaint: FLANK PAIN Time Seen by Provider: 09/27/19 13:26 Primary Care Provider: CIERA CASILLAS DO [Primary Care Provider] - Follow up as needed Mode of Arrival: Wheelchair Information source: Patient Notes: 39-year-old female presented to ED for complaint of abdominal pain flank pain and back pain since September 16 when she delivered her child. She states she was in the hospital until September 23 she did insist that the doctor come and see her again before going home because of the pain. She states she has been on doxycycline since the child's and the pain has not getting any better. She states the pain is severe at this time. She does have an elevated temperature and elevated pulse of a low O2 sat and is in a lot of pain to her abdomen back and flanks. I have ordered a sepsis work-up. I have greeted and performed a rapid initial assessment of this patient. A comprehensive ED assessment and evaluation of the patient, analysis of test results and completion of medical decision making process will be conducted by an additional ED providers. TRAVEL OUTSIDE OF THE [place] IN LAST 30 DAYS: No - Related Data Allergies/Adverse Reactions: promethazine HCl [From Phenergan] Adverse Reaction (Unknown, Verified 09/21/19 13:39) Past Medical History - Past Medical History Cardiac Medical History: Denies: Hx Heart Attack, Hx Hypertension - She has high anxiety Pulmonary Medical History: Reports: Hx Pneumonia Denies: Hx Asthma Neurological Medical History: Denies: Hx Cerebrovascular Accident, Hx Seizures Renal/ Medical History: Denies: Hx Peritoneal Dialysis GI Medical History: Reports: Hx Gastroesophageal Reflux Disease. Denies: Hx Hepatitis, Hx Hiatal Hernia, Hx Ulcer Musculoskeltal Medical History: Reports Hx Musculoskeletal Trauma Skin Medical History: Reports Hx MRSA Psychiatric Medical History: Reports: Hx Anxiety, Hx Depression Traumatic Medical History: Reports: Hx Fractures Infectious Medical History: Denies: Hx Hepatitis Past Surgical History: Reports: Hx Gynecologic Surgery - , Other - Ingrown toenail surgery on 09/13/2016. Denies: Hx Mastectomy, Hx Open Heart Surgery, Hx Pacemaker - Immunizations Immunizations up to date: Yes Hx Diphtheria, Pertussis, Tetanus Vaccination: Yes Physical Exam - Vital signs Vitals: Temp Pulse Resp BP Pulse Ox 100.4 F 132 H 22 H 150/73 H 90 L 09/27/19 13:12 09/27/19 13:12 09/27/19 13:12 09/27/19 13:12 09/27/19 13:12 Course - Vital Signs Vital signs: Temp Pulse Resp BP Pulse Ox 100.4 F 132 H 22 H 150/73 H 90 L 09/27/19 13:12 09/27/19 13:12 09/27/19 13:12 09/27/19 13:12 09/27/19 13:12 Doctor's Discharge - Discharge Referrals: CIERA CASILLAS DO [Primary Care Provider] - Follow up as needed
[2019-09-27 14:11] LABS: VENOUS BLOOD BASE EXCESS -0.2 mmol/L; VENOUS BLOOD HCO3 23.7 mmol/L (20-32); VENOUS BLOOD PH 7.43 (7.30-7.42)
--- NOTE | 2019-09-27 14:13 | RADIOLOGY REPORT (SQ) ---
EXAM DESCRIPTION: CHEST 2 VIEWS IMAGES COMPLETED DATE/TIME: 09/27/2019 2:05 pm REASON FOR STUDY: Sepsis protocol COMPARISON: None. EXAM PARAMETERS: NUMBER OF VIEWS: Two views. TECHNIQUE: PA and lateral views of the chest were obtained. RADIATION DOSE: NA LIMITATIONS: None. FINDINGS: LUNGS AND PLEURA: Opacities in the left lower lobe that blunt the left costophrenic sulcus . MEDIASTINUM AND HILAR STRUCTURES: No mediastinal or hilar contour abnormality. HEART AND VASCULAR STRUCTURES: The cardiac silhouette and pulmonary vasculature are within normal contreras its. BONES: No acute findings. HARDWARE: None in the chest. OTHER: No other finding. IMPRESSION: Asymmetric opacities in the left lower lobe that blunt the left costophrenic sulcus. Cl inical correlation to exclude a left lower lobe pneumonia is recommended. TECHNICAL DOCUMENTATION: JOB ID: [id number] 2010 [employer]- All Rights Reserved Reading location - IP/workstation name: [email or web address]
[2019-09-27 14:17] LABS: INTERNATIONAL RATION (INR) 3.99; PROTHROMBIN TIME 39.9 SEC (11.4-15.4)
[2019-09-27 14:18] LABS: HEMATOCRIT 39.6 % (36.0-47.0); HEMOGLOBIN 13.4 g/dL (12.0-15.5); MEAN CORPUSCULAR HEMOGLOBIN 28.3 pg (27.0-33.4); MEAN CORPUSCULAR HGB CONC 33.9 g/dL (32.0-36.0); MEAN CORPUSCULAR VOLUME 84 fl (80-97); RED BLOOD COUNT 4.74 10^6/uL (3.72-5.28); RED CELL DISTRIBUTION WIDTH 15.6 % (11.5-14.0); WHITE BLOOD COUNT 18.4 10^3/uL (4.0-10.5)
[2019-09-27 14:33] LABS: ALBUMIN 2.2 g/dL (3.5-5.0); ALKALINE PHOSPHATASE 239 U/L (38-126); ANION GAP 11 (5-19); ASPARTATE AMINO TRANSFERASE 37 U/L (14-36); BILIRUBIN,DIRECT 0.7 mg/dL (0.0-0.4); BILIRUBIN,TOTAL 0.9 mg/dL (0.2-1.3); BLOOD UREA NITROGEN 42 mg/dL (7-20); CALCIUM 7.8 mg/dL (8.4-10.2); CARBON DIOXIDE 24 mmol/L (22-30); CHLORIDE 98 mmol/L (98-107); GLUCOSE 131 mg/dL (75-110); POTASSIUM 3.1 mmol/L (3.6-5.0); TOTAL PROTEIN 4.9 g/dL (6.3-8.2)
[2019-09-27] MEDS ORDERED: RINGERS SOLUTION,LACTATED 1,000 ML IV ONE (14:37)
[2019-09-27 14:43] LABS: ABSOLUTE LYMPHOCYTES# (MANUAL) 0.9 10^3/uL (0.5-4.7); ABSOLUTE MONOCYTES # (MANUAL) 1.1 10^3/uL (0.1-1.4); BASOPHILS % (MANUAL) 0 % (0-2); EOSINOPHILS % (MANUAL) 0 % (0-6); LYMPHOCYTES % (MANUAL) 4 % (13-45); MONOCYTES % (MANUAL) 6 % (3-13); SEGMENTED NEUTROPHILS % (MAN) 89 % (42-78); TOTAL CELLS COUNTED 100
[2019-09-27 14:45] LABS: ANISOCYTOSIS SLIGHT; POIKILOCYTOSIS SLIGHT; TOXIC GRANULATION 1+
[2019-09-27] MEDS ORDERED: NORMAL SALINE 250 ML IV PRN (14:45)
[2019-09-27 14:46] LABS: OVALOCYTES SLIGHT; PLATELET CLUMPS PRESENT; PLATELET COMMENT ADEQUATE; PLATELET COUNT 249 10^3/uL (150-450)
[2019-09-27] MEDS ORDERED: MORPHINE SULFATE 10 MG/ML INJ IV ONE (14:46)
--- NOTE | 2019-09-27 14:54 | ER Document Report ---
Entered by WILY CRUZ SCRIBE 09/27/19 1436 Acting as scribe for:BECKA GREY MD ED GI/ - General Chief Complaint: Flank Pain Stated Complaint: FLANK PAIN Time Seen by Provider: 09/27/19 13:26 Mode of Arrival: Wheelchair Information source: Patient Notes: This 39 year old female patient presents to the emergency department today with complaints of low back pain. Patient was induced on 09/16, having a vaginal delivery at 12:26 AM, she was discharged on 09/18. Patient was seen here in this emergency department on 09/20 for back pain and she was diagnosed with pelvic pain and dehydration. She was discharged home on Toradol and doxycycline. Patient describes the location of her back pain today as "in the middle, lower, sides, shooting up the front, shooting up the back". Patient reports that the swelling of her legs and ankles has been going on for about 1 week and she has told her providers about this. The patient is on Subutex for opioid dependency. She reports that her opioid problem started with pain medication she received for dental surgery and foot surgery. She states that low back pain has never been part of her problem and this back pain is new. TRAVEL OUTSIDE OF THE [place] IN LAST 30 DAYS: No - Related Data Allergies/Adverse Reactions: promethazine HCl [From Phenergan] Adverse Reaction (Unknown, Verified 09/21/19 13:39) Home Medications: subutex, tylenol, claritin Past Medical History - General Information source: Patient - Social History Smoking Status: Former Smoker Cigarette use (# per day): No Chew tobacco use (# tins/day): No Frequency of alcohol use: None Drug Abuse: None Lives with: Family Family History: Reviewed & Not Pertinent, DM, Malignancy Patient has homicidal ideation: No Pulmonary Medical History: Reports: Hx Pneumonia GI Medical History: Reports: Hx Gastroesophageal Reflux Disease Musculoskeletal Medical History: Reports Hx Musculoskeletal Trauma Skin Medical History: Reports Hx MRSA Psychiatric Medical History: Reports: Hx Anxiety, Hx Depression Traumatic Medical History: Reports: Hx Fractures Past Surgical History: Reports: Hx Gynecologic Surgery - , Other - Ingrown toenail surgery on 09/13/2016 - Immunizations Immunizations up to date: Yes Hx Diphtheria, Pertussis, Tetanus Vaccination: Yes Review of Systems - Review of Systems Constitutional: See HPI, Fever EENT: No symptoms reported Cardiovascular: No symptoms reported Respiratory: No symptoms reported Gastrointestinal: See HPI, Vomiting - x1 Genitourinary: No symptoms reported Female Genitourinary: See HPI, Other - Delivered via induction on 09/16 Musculoskeletal: See HPI, Back pain Skin: No symptoms reported Hematologic/Lymphatic: No symptoms reported Neurological/Psychological: No symptoms reported -: Yes All other systems reviewed and negative Physical Exam - Vital signs Vitals: Temp Pulse Resp BP Pulse Ox 100.4 F 132 H 22 H 150/73 H 90 L 09/27/19 13:12 09/27/19 13:12 09/27/19 13:12 09/27/19 13:12 09/27/19 13:12 - Notes Notes: Physical Exam: General: Alert, appears very uncomfortable. HEENT: Normocephalic. Atraumatic. PERRL. Extraocular movements intact. Oropharynx clear. Neck: Supple. Non-tender. Respiratory: No respiratory distress. Clear and equal breath sounds bilaterally. Pulse ox is 98% on 2 L nasal cannula. Cardiovascular: Regular tachycardia. No murmurs heard. Abdominal: Abdomen is distended to a size consistent with a full-term . There is some bulging at the umbilicus. There is a fluid wave consistent with ascites. The abdomen is most tender over the uterus. Bowel sounds decreased. Back: Exquisitely tender to palpate the lumbar sacral back region in the muscles and over the spinous processes. Extremities: Moves all four extremities. Upper extremities: Normal inspection. Normal ROM. Lower extremities: There is 1-2+ pitting edema to the lower extremities. Normal ROM. No palpation tenderness. Neurological: Normal cognition. AAOx4. Normal speech. Psychological: Normal affect. Normal Mood. Skin: Warm. Dry. Normal color. Course - Re-evaluation Re-evalutation: 09/27/19 16:13 The patient's INR was 3.99, this was difficult to explain so 1 hour later I repeated it and it had gone up to 4.77 I have been discussing the patient with Dr. Madrigal from the OB department, he is going to call Dr. Vargas you ever heard anybody filling her coags out like that faith to further discuss the clotting abnormality. - Vital Signs Vital signs: Temp Pulse Resp BP Pulse Ox 98.0 F 86 16 119/73 94 09/27/19 17:49 09/27/19 18:20 09/27/19 19:01 09/27/19 19:00 09/27/19 19:01 - Laboratory Result Diagrams: 09/27/19 13:40 09/27/19 13:40 Laboratory results interpreted by me: 09/27/19 09/27/19 09/27/19 13:40 13:40 13:40 WBC 18.4 H RDW 15.6 H Seg Neuts % (Manual) 89 H Lymphocytes % (Manual) 4 L Abs Neuts (Manual) 16.4 H PT 39.9 H APTT Fibrinogen VBG pH Sodium 132.5 L Potassium 3.1 L BUN 42 H Glucose 131 H Calcium 7.8 L Direct Bilirubin 0.7 H AST 37 H Alkaline Phosphatase 239 H Total Protein 4.9 L Albumin 2.2 L Urine Protein Urine Urobilinogen Urine Ascorbic Acid 09/27/19 09/27/19 09/27/19 13:40 13:40 14:53 WBC RDW Seg Neuts % (Manual) Lymphocytes % (Manual) Abs Neuts (Manual) PT 46.1 H APTT Fibrinogen 576 H VBG pH 7.43 H Sodium Potassium BUN Glucose Calcium Direct Bilirubin AST Alkaline Phosphatase Total Protein Albumin Urine Protein Urine Urobilinogen Urine Ascorbic Acid 09/27/19 09/27/19 14:53 15:52 WBC RDW Seg Neuts % (Manual) Lymphocytes % (Manual) Abs Neuts (Manual) PT APTT 89.3 H Fibrinogen VBG pH Sodium Potassium BUN Glucose Calcium Direct Bilirubin AST Alkaline Phosphatase Total Protein Albumin Urine Protein 30 H Urine Urobilinogen 2.0 H Urine Ascorbic Acid 40 H - Diagnostic Test Radiology reviewed: Image reviewed, Reports reviewed - CT scan chest abdomen pelvis shows atelectasis in the bases of both lungs. There is moderate ascites and probable small bowel ileus. There is splenic enlargement that was seen on a chest CT about 2 years ago. Critical Care Note - Critical Care Note Total time excluding time spent on procedures (mins): 55 Discharge - Discharge Clinical Impression: septic endometritis, Leukocytosis, Ascites, Clotting disorder, Splenomegaly, Low back pain, Dehydration Condition: Good Disposition: ADMITTED INPATIENT Admitting Provider: [facility] Unit Admitted: Telemetry I personally performed the services described in the documentation, reviewed and edited the documentation which was dictated to the scribe in my presence, and it accurately records my words and actions.
[2019-09-27 15:48] LABS: INTERNATIONAL RATION (INR) 4.77; PROTHROMBIN TIME 46.1 SEC (11.4-15.4)
[2019-09-27 16:11] LABS: APPEARANCE,URINE CLEAR; BILIRUBIN,URINE NEGATIVE (NEGATIVE); GLUCOSE, URINE NEGATIVE (NEGATIVE); KETONES,URINE NEGATIVE (NEGATIVE); PROTEIN,URINE 30 mg/dL (NEGATIVE); URINE SPECIFIC GRAVITY 1.026
[2019-09-27 16:12] LABS: COLOR,URINE YELLOW
--- NOTE | 2019-09-27 17:00 | RADIOLOGY REPORT (SQ) ---
EXAM DESCRIPTION: CTA CHEST IMAGES COMPLETED DATE/TIME: 09/27/2019 4:46 pm REASON FOR STUDY: sepsis, abdominal swelling, hypoxia COMPARISON: 02/25/2018. TECHNIQUE: CT scan of the chest performed using helical scanning technique with dynamic intravenous contrast injection. Images reviewed with lung, soft tissue and bone windows. Reconstructed coronal and sagittal MPR images reviewed. Additional 3 dimensional post-processing performed to develop Maximal Intensity Projection images (OR P). All images stored on PACS. All CT scanners at this facility use dose modulation, iterative reconstruction, and/or weight based d osing when appropriate to reduce radiation dose to as low as reasonably achievable (ALARA). [facility]: Dose Right [facility]: CareDose [facility]: Dose Right [facility]: Teradose 4D [facility]: FreeAgent CONTRAST TYPE AND DOSE: 83 mL Omnipaque 350- low osmolar. Contrast bolus adequate for pulmonary arteries and aorta. RENAL FUNCTION: BUN 42 creatinine 1.01. RADIATION DOSE: CT Rad equipment meets quality standard of care and radiation dose reduction techniq ues were employed. CTDIvol: 13.2 - 23.5 mGy. DLP: 3049 mGy-cm. . LIMITATIONS: Motion artifact. FINDINGS: LUNGS AND PLEURA: Low lung volumes. Scattered linear parenchymal densities in the lower l obes. Mild interstitial prominence. No pleural effusion. AORTA AND GREAT VESSELS: No aneurysm. No dissection. HEART: No pericardial effusion. No significant coronary artery calcifications. PULMONARY ARTERIES: No emboli visualized in the main pulmonary arteries or the segmental branches. HILAR AND MEDIASTINAL STRUCTURES: No identified masses or abnormal nodes. HARDWARE: None in the chest. UPPER ABDOMEN: See separate report of the CT of the abdomen. THYROID AND OTHER SOFT TISSUES: No masses. No adenopathy. BONES: No acute or significant finding. 3D MIPS: Confirm above findings. OTHER: No other significant finding. IMPRESSION: 1. NORMAL CTA OF THE CHEST. NO PULMONARY EMBOLI. 2. LOW LUNG VOLUMES. PROBABLE BASILAR ATELECTASIS. CANNOT EXCLUDE EARLY PNEUMONIA. COMMENT: Quality ID # [id number]: Final reports with documentation of one or more dose reduction techniques (e.g., Automated exposure control, adjustment of the mA and/or kV according to patient size, use of iterative reconstruction technique) TECHNICAL DOCUMENTATION: JOB ID: [id number] 2010 [employer]- All Rights Reserved Reading location - IP/workstation name: [email or web address]
--- NOTE | 2019-09-27 17:13 | RADIOLOGY REPORT (SQ) ---
EXAM DESCRIPTION: CT ABD/PELVIS WITH IV ONLY IMAGES COMPLETED DATE/TIME: 09/27/2019 4:46 pm REASON FOR STUDY: abd swelling, sepsis COMPARISON: None. TECHNIQUE: CT scan of the abdomen and pelvis performed using helical scanning technique with dynamic intravenous contrast injection. No oral contrast. Images reviewed with lung, soft tissue, and bone windows. Reconstructed coronal and sagittal MPR images reviewed. Delayed images for evaluation of the urinary system also acquired. All images stored on PACS. All CT scanners at this facility use dose modulation, iterative reconstruction, and/or weight based d osing when appropriate to reduce radiation dose to as low as reasonably achievable (ALARA). [facility]: Dose Right [facility]: CareDose [facility]: Dose Right [facility]: Teradose 4D [facility]: [employer] CONTRAST TYPE AND DOSE: contrast/concentration: Isovue 350.00 mg/ml; Total Contrast Delivered: 83.0 ml; Total Saline Delivered: 51.7 ml RENAL FUNCTION: GFR > 60. RADIATION DOSE: . LIMITATIONS: None. FINDINGS: LOWER CHEST: See separate report of the CT of the chest. LIVER: Normal size. No masses. No dilated ducts. SPLEEN: 15.5 cm. No focal lesions. PANCREAS: No masses. No significant calcifications. No adjacent inflammation or peripancreatic fluid collections. Pancreatic duct not dilated. GALLBLADDER: No identified stones by CT criteria. No inflammatory changes to suggest cholecystitis. ADRENAL GLANDS: No significant masses or asymmetry. RIGHT KIDNEY AND URETER: No solid masses. No significant calcifications. No hydronephrosis or hyd roureter. LEFT KIDNEY AND URETER: No solid masses. No significant calcifications. No hydronephrosis or hydr oureter. AORTA AND VESSELS: No aneurysm. No dissection. Renal arteries, SMA, celiac without stenosis. RETROPERITONEUM: No retroperitoneal adenopathy, hemorrhage or masses. BOWEL AND PERITONEAL CAVITY: Moderate ascites. Gas fluid levels within loops of small bowel diameter upper limits of normal. Abundant gas and fecal material in nondilated colon. APPENDIX: Not visualized. PELVIS: No mass. No free fluid. Bateman catheter in the urinary bladder. ABDOMINAL WALL: No masses. No hernias. BONES: Nothing acute. OTHER: No other significant finding. IMPRESSION: 1. Splenomegaly. Moderate ascites. 2. Ileus versus partial small bowel obstruction. TECHNICAL DOCUMENTATION: JOB ID: [id number] Quality ID # [id number]: Final reports with documentation of one or more dose reduction techniques (e.g., Au tomated exposure control, adjustment of the mA and/or kV according to patient size, use of iterative reconstruction technique) 2010 [employer]- All Rights Reserved Reading location - IP/workstation name: [email or web address]
[2019-09-27 17:25] LABS: URINE AMPHETAMINES SCREEN NEGATIVE; URINE BARBITURATES SCREEN NEGATIVE; URINE BENZODIAZEPINES SCREEN NEGATIVE; URINE COCAINE SCREEN NEGATIVE; URINE MARIJUANA (THC) SCREEN NEGATIVE; URINE METHADONE SCREEN NEGATIVE; URINE PHENCYCLIDINE SCREEN NEGATIVE
[2019-09-27] MEDS ORDERED: VANCOMYCIN HCL INJ 1000 MG VIAL IV ONE (17:58)
--- NOTE | 2019-09-27 18:27 | PDOC H&P ---
History of Present Illness Admission Date/PCP: ESTER MARRERO PA-C Patient complains of: Back Pain. History of Present Illness: MELCHOR PARTIDA is a 39 year old female She presents about a week out from delivery and is febrile with elevated WBC. A culture last week showed pos GroupA strep. She was given doxy orally. Today findings include splenomegally, sepsis, ileus and elevated INR. Past Medical History Obstetrical History: none - She is postpatum about a week from a vaginal deliveruy Cardiac Medical History: Denies: Myocardial Infarction, Hypertension - She has high anxiety Pulmonary Medical History: Reports: Pneumonia Denies: Asthma Neurological Medical History: Denies: Seizures GI Medical History: Reports: Gastroesophageal Reflux Disease Denies: Hepatitis, Hiatal Hernia Psychiatric Medical History: Reports: Depression Past Surgical History Past Surgical History: Reports: Other - Ingrown toenail surgery on 09/13/2016 Denies: Amputation, Mastectomy, Pacemaker Social History Lives with: Family Smoking Status: Former Smoker Electronic Cigarette use?: No Family History Family History: Reviewed & Not Pertinent, DM, Malignancy Parental Family History Reviewed: Yes Children Family History Reviewed: Yes Sibling(s) Family History Reviewed.: Yes Medication/Allergy Home Medications: Buprenorphine HCl [Subutex 2 mg Sl Tablet] 4 tab PO DAILY 09/13/19 Esomeprazole Magnesium [Nexium] 1 packet PO DAILY 09/16/19 Pnv No.95/Ferrous Fum/Folic AC [ Caplet] 1 cap PO DAILY 09/16/19 Acetaminophen with Codeine [Tylenol #3 Tablet] 1 each PO Q4HP PRN #10 tablet 09/19/19 Fluticasone Propionate [Flonase Nasal [place] 50 Mcg/[place] 16 gm] 1 spray NASL QHS #1 spray.pump 09/19/19 Ibuprofen [Motrin 800 mg Tablet] 800 mg PO Q8HP PRN #60 tablet 09/19/19 Doxycycline Monohydrate 100 mg PO BID #20 capsule 09/21/19 Ketorolac Tromethamine [Toradol 10 mg Tablet] 10 mg PO Q6HP PRN 10 Days #20 tablet 09/21/19 Allergies/Adverse Reactions: promethazine HCl [From Phenergan] Adverse Reaction (Unknown, Verified 09/21/19 13:39) Physical Exam - Physical Exam Vital Signs: Temp Pulse Resp BP Pulse Ox 98.0 F 87 20 122/80 95 09/27/19 17:49 09/27/19 17:50 09/27/19 18:01 09/27/19 18:00 09/27/19 18:01 Intake & Output 09/26/19 09/27/19 09/28/19 06:59 06:59 06:59 Intake Total 3411 Balance 3411 Weight 73.5 kg General appearance: PRESENT: mild distress Head exam: PRESENT: atraumatic, normocephalic Eye exam: PRESENT: conjunctiva pink, EOMI, PERRLA. ABSENT: scleral icterus Ear exam: PRESENT: normal external ear exam Mouth exam: PRESENT: dry mucosa Neck exam: PRESENT: full ROM. ABSENT: carotid bruit, JVD, lymphadenopathy, thyromegaly Respiratory exam: PRESENT: unlabored Cardiovascular exam: PRESENT: RRR. ABSENT: diastolic murmur, rubs, systolic murmur Pulses: PRESENT: normal dorsalis pedis pul, +2 pedal pulses bilateral Vascular exam: PRESENT: normal capillary refill GI/Abdominal exam: PRESENT: ascites, hypoactive bowel sounds Rectal exam: PRESENT: deferred Gentrourinary exam: PRESENT: indwelling catheter Extremities exam: PRESENT: full ROM. ABSENT: calf tenderness, clubbing, pedal edema Musculoskeletal exam: PRESENT: other - back pain Neurological exam: PRESENT: alert, awake, oriented to person, oriented to place, oriented to time, oriented to situation, CN II-XII grossly intact. ABSENT: motor sensory deficit Skin exam: PRESENT: dry, intact, warm. ABSENT: cyanosis, rash Result Laboratory Results: 09/27/19 13:40 09/27/19 13:40 09/27/19 09/27/19 09/27/19 13:40 13:40 13:40 WBC 18.4 H RBC 4.74 Hgb 13.4 Hct 39.6 MCV 84 MCH 28.3 MCHC 33.9 RDW 15.6 H Plt Count 249 Seg Neutrophils % Not Reportable VBG pH 7.43 H VBG pCO2 37.0 VBG HCO3 23.7 VBG Base Excess -0.2 Sodium 132.5 L Potassium 3.1 L Chloride 98 Carbon Dioxide 24 Anion Gap 11 BUN 42 H Creatinine 1.01 Est GFR ( Amer) > 60 Glucose 131 H Lactic Acid Calcium 7.8 L Total Bilirubin 0.9 AST 37 H Alkaline Phosphatase 239 H Total Protein 4.9 L Albumin 2.2 L Urine Color Urine Appearance Urine pH Ur Specific [place] Urine Protein Urine Glucose (UA) Urine Ketones Urine Blood Urine RBC (Auto) Blood Type Antibody Screen 09/27/19 09/27/19 09/27/19 13:40 14:53 15:52 WBC RBC Hgb Hct MCV MCH MCHC RDW Plt Count Seg Neutrophils % VBG pH VBG pCO2 VBG HCO3 VBG Base Excess Sodium Potassium Chloride Carbon Dioxide Anion Gap BUN Creatinine Est GFR ( Amer) Glucose Lactic Acid 1.4 Calcium Total Bilirubin AST Alkaline Phosphatase Total Protein Albumin Urine Color YELLOW Urine Appearance CLEAR Urine pH 6.0 Ur Specific [place] 1.026 Urine Protein 30 H Urine Glucose (UA) NEGATIVE Urine Ketones NEGATIVE Urine Blood NEGATIVE Urine RBC (Auto) 18 Blood Type O POSITIVE Antibody Screen NEGATIVE 09/27/19 09/27/19 16:48 17:41 WBC RBC Hgb Hct MCV MCH MCHC RDW Plt Count Seg Neutrophils % VBG pH VBG pCO2 VBG HCO3 VBG Base Excess Sodium Potassium Chloride Carbon Dioxide Anion Gap BUN Creatinine Est GFR ( Amer) Glucose Lactic Acid Cancelled 0.8 Calcium Total Bilirubin AST Alkaline Phosphatase Total Protein Albumin Urine Color Urine Appearance Urine pH Ur Specific [place] Urine Protein Urine Glucose (UA) Urine Ketones Urine Blood Urine RBC (Auto) Blood Type Antibody Screen Impressions: Chest X-Ray 09/27/19 13:31 IMPRESSION: Asymmetric opacities in the left lower lobe that blunt the left costophrenic sulcus. Clinical correlation to exclude a left lower lobe pneumonia is recommended. Chest/Abdomen CTA 09/27/19 16:11 IMPRESSION: 1. NORMAL CTA OF THE CHEST. NO PULMONARY EMBOLI. 2. LOW LUNG VOLUMES. PROBABLE BASILAR ATELECTASIS. CANNOT EXCLUDE EARLY PNEUMONIA. Abdomen/Pelvis CT 09/27/19 16:16 IMPRESSION: 1. Splenomegaly. Moderate ascites. 2. Ileus versus partial small bowel obstruction. Assessment & Plan - Diagnosis (1) Sepsis after obstetrical procedure Is this a current diagnosis for this admission?: Yes Plan: Plan is admission for IV fluids and antibiotics. - Plan Summary Plan Summary: Plan Iv fluids, and antibiotics. Daily INR. Will consult Dr Gamble as well. Consider transfer if not improving.
[2019-09-27] MEDS ORDERED: ACETAMINOPHEN 325 MG TABLET PO PRN (18:28)
[2019-09-27] MEDS ORDERED: PIPERACILLIN/TAZOBACTAM 3.375 GM VIAL IV SCH (18:45)
[2019-09-27] MEDS: RINGERS SOLUTION,LACTATED 1,000 ML IV PRN (18:50)
--- NOTE | 2019-09-27 19:09 | EKG REPORT ---
SEVERITY:- ABNORMAL ECG - SINUS TACHYCARDIA PROBABLE LEFT ATRIAL ABNORMALITY BORDERLINE LEFT AXIS DEVIATION BORDERLINE T ABNORMALITIES, INFERIOR LEADS POOR R WAVE PROGRESSION V1-4, CONSIDER POOR LEAD PLACEMENT. : Confirmed by: Pilo Kohli MD 27-Sep-2019 19:08:53
[2019-09-27] MEDS: MORPHINE SULFATE 10 MG/ML INJ IV PRN (21:07)
[2019-09-27] MEDS: PIPERACILLIN SODIUM/TAZOBACTAM 3.375 GM in NORMAL SALINE 100 ML IV SCH (21:09)
[2019-09-27] MEDS ORDERED: VANCOMYCIN HCL INJ 500 MG VIAL IV SCH (22:00)
[2019-09-28] MEDS: MORPHINE SULFATE 10 MG/ML INJ IV PRN ×4 (03:13→22:05)
[2019-09-28] MEDS: PIPERACILLIN SODIUM/TAZOBACTAM 3.375 GM in NORMAL SALINE 100 ML IV SCH ×4 (03:15→20:18)
[2019-09-28] MEDS: VANCOMYCIN HCL 1,000 MG in DEXTROSE 5%-WATER 250 ML IV SCH ×2 (05:15→17:43)
[2019-09-28 07:42] LABS: INTERNATIONAL RATION (INR) 3.26
[2019-09-28 08:13] LABS: HEMATOCRIT 33.2 % (36.0-47.0); MEAN CORPUSCULAR HEMOGLOBIN 28.3 pg (27.0-33.4); MEAN CORPUSCULAR HGB CONC 33.9 g/dL (32.0-36.0); MEAN CORPUSCULAR VOLUME 84 fl (80-97); PLATELET COUNT 273 10^3/uL (150-450); RED BLOOD COUNT 3.98 10^6/uL (3.72-5.28); RED CELL DISTRIBUTION WIDTH 15.7 % (11.5-14.0); WHITE BLOOD COUNT 13.5 10^3/uL (4.0-10.5)
[2019-09-28 08:21] LABS: HEMOGLOBIN 11.3 g/dL (12.0-15.5)
[2019-09-28 08:41] LABS: ABSOLUTE LYMPHOCYTES# (MANUAL) 0.7 10^3/uL (0.5-4.7); ABSOLUTE MONOCYTES # (MANUAL) 0.4 10^3/uL (0.1-1.4); BAND NEUTROPHILS % (MANUAL) 2 % (3-5); BASOPHILS % (MANUAL) 0 % (0-2); EOSINOPHILS % (MANUAL) 0 % (0-6); LYMPHOCYTES % (MANUAL) 5 % (13-45); MONOCYTES % (MANUAL) 3 % (3-13); SEGMENTED NEUTROPHILS % (MAN) 90 % (42-78); TOTAL CELLS COUNTED 100
[2019-09-28 08:45] LABS: TOXIC GRANULATION SLIGHT
[2019-09-28 08:49] LABS: ANISOCYTOSIS SLIGHT
[2019-09-28 08:50] LABS: OVALOCYTES SLIGHT; PLATELET COMMENT ADEQUATE
[2019-09-28] MEDS: BUPRENORPHINE HCL 2 MG SUBLINGUAL TABLET SL SCH (09:05)
[2019-09-28] MEDS: RINGERS SOLUTION,LACTATED 1,000 ML IV PRN ×2 (09:13→20:20)
--- NOTE | 2019-09-28 10:48 | PDOC CONSULTATION ---
Consultation Consult Date: 09/27/19 Attending physician:: NIEVES BANSAL Provider Consulted: RAMSEY PADILLA Consult reason:: Elevated INR, concern coagulapathy History of Present Illness Admission Date/PCP: 09/27/19 18:35 ESTER MARRERO PA-C Patient complains of: Abd pain, distention History of Present Illness: MELCHOR PARTIDA is a 39 year old female w/ h/o of recent uncomplicated vaginal delivery now w/ abd pain starting a few days after and worsening, upon presentation to ED, wt ct elev, INR around 4, plt nml, other LFT abnormalties noted. Pt started on broad spec atbx w/ concern of sepsis, bcx/ucx pending. Give 1 unit FFP w/ INR dec to 3 range, no active bleeding but per notes is distended and no bm x several days. Also h/o IVDA, lost to ob f/u during w/ presentation only at time of delivery. Past Medical History Cardiac Medical History: Denies: Myocardial Infarction, Hypertension - She has high anxiety Pulmonary Medical History: Reports: Pneumonia Denies: Asthma Neurological Medical History: Denies: Seizures GI Medical History: Reports: Gastroesophageal Reflux Disease Denies: Hepatitis, Hiatal Hernia Psychiatric Medical History: Reports: Depression Hematology: Denies: Anemia, Sickle Cell Disease Past Surgical History Past Surgical History: Reports: Other - Ingrown toenail surgery on 09/13/2016 Denies: Amputation, Mastectomy, Pacemaker Social History Lives with: Family Smoking Status: Former Smoker Electronic Cigarette use?: Yes Hx Recreational Drug Use: Yes Drugs: Marijuana Hx Prescription Drug Abuse: Yes - Advance Directive Resuscitation Status: Full Code Family History Family History: Reviewed & Not Pertinent, DM, Malignancy Parental Family History Reviewed: Yes Children Family History Reviewed: Yes Sibling(s) Family History Reviewed.: Yes Medication/Allergy Home Medications: Fluticasone Propionate [Flonase Nasal [place] 50 Mcg/[place] 16 gm] 1 spray NASL QHS #1 spray.pump 09/19/19 Doxycycline Monohydrate 100 mg PO BID #20 capsule 09/21/19 Acetaminophen [Tylenol] 325 mg PO DAILYP PRN 09/27/19 Buprenorphine HCl 12 mg SL DAILY 09/27/19 Esomeprazole Magnesium 40 mg PO DAILY 09/27/19 Allergies/Adverse Reactions: promethazine HCl [From Phenergan] Adverse Reaction (Unknown, Verified 09/21/19 13:39) Physical Exam Vital Signs: Temp Pulse Resp BP Pulse Ox 99.4 F 93 16 126/66 H 96 09/28/19 07:32 09/28/19 07:32 09/28/19 07:32 09/28/19 07:32 09/28/19 07:32 Intake & Output 09/27/19 09/28/19 09/29/19 06:59 06:59 06:59 Intake Total 4203 1000 Output Total 2000 Balance 2203 1000 Weight 73.5 kg Results Laboratory Results: 09/28/19 07:20 09/27/19 13:40 09/27/19 09/27/19 09/27/19 13:40 13:40 13:40 WBC 18.4 H RBC 4.74 Hgb 13.4 Hct 39.6 MCV 84 MCH 28.3 MCHC 33.9 RDW 15.6 H Plt Count 249 Seg Neutrophils % Not Reportable VBG pH 7.43 H VBG pCO2 37.0 VBG HCO3 23.7 VBG Base Excess -0.2 Sodium 132.5 L Potassium 3.1 L Chloride 98 Carbon Dioxide 24 Anion Gap 11 BUN 42 H Creatinine 1.01 Est GFR ( Amer) > 60 Glucose 131 H Lactic Acid Calcium 7.8 L Total Bilirubin 0.9 AST 37 H Alkaline Phosphatase 239 H Total Protein 4.9 L Albumin 2.2 L Urine Color Urine Appearance Urine pH Ur Specific [place] Urine Protein Urine Glucose (UA) Urine Ketones Urine Blood Urine RBC (Auto) Blood Type Antibody Screen 09/27/19 09/27/19 09/27/19 13:40 14:53 15:52 WBC RBC Hgb Hct MCV MCH MCHC RDW Plt Count Seg Neutrophils % VBG pH VBG pCO2 VBG HCO3 VBG Base Excess Sodium Potassium Chloride Carbon Dioxide Anion Gap BUN Creatinine Est GFR ( Amer) Glucose Lactic Acid 1.4 Calcium Total Bilirubin AST Alkaline Phosphatase Total Protein Albumin Urine Color YELLOW Urine Appearance CLEAR Urine pH 6.0 Ur Specific [place] 1.026 Urine Protein 30 H Urine Glucose (UA) NEGATIVE Urine Ketones NEGATIVE Urine Blood NEGATIVE Urine RBC (Auto) 18 Blood Type O POSITIVE Antibody Screen NEGATIVE 09/27/19 09/27/19 09/27/19 16:48 17:41 21:14 WBC RBC Hgb Hct MCV MCH MCHC RDW Plt Count Seg Neutrophils % VBG pH VBG pCO2 VBG HCO3 VBG Base Excess Sodium Potassium Chloride Carbon Dioxide Anion Gap BUN Creatinine Est GFR ( Amer) Glucose Lactic Acid Cancelled 0.8 0.8 Calcium Total Bilirubin AST Alkaline Phosphatase Total Protein Albumin Urine Color Urine Appearance Urine pH Ur Specific [place] Urine Protein Urine Glucose (UA) Urine Ketones Urine Blood Urine RBC (Auto) Blood Type Antibody Screen 09/28/19 07:20 WBC 13.5 H RBC 3.98 Hgb 11.3 L D Hct 33.2 L MCV 84 MCH 28.3 MCHC 33.9 RDW 15.7 H Plt Count 273 Seg Neutrophils % Not Reportable VBG pH VBG pCO2 VBG HCO3 VBG Base Excess Sodium Potassium Chloride Carbon Dioxide Anion Gap BUN Creatinine Est GFR ( Amer) Glucose Lactic Acid Calcium Total Bilirubin AST Alkaline Phosphatase Total Protein Albumin Urine Color Urine Appearance Urine pH Ur Specific [place] Urine Protein Urine Glucose (UA) Urine Ketones Urine Blood Urine RBC (Auto) Blood Type Antibody Screen Impressions: Chest X-Ray 09/27/19 13:31 IMPRESSION: Asymmetric opacities in the left lower lobe that blunt the left costophrenic sulcus. Clinical correlation to exclude a left lower lobe pneumonia is recommended. Chest/Abdomen CTA 09/27/19 16:11 IMPRESSION: 1. NORMAL CTA OF THE CHEST. NO PULMONARY EMBOLI. 2. LOW LUNG VOLUMES. PROBABLE BASILAR ATELECTASIS. CANNOT EXCLUDE EARLY PNEUMONIA. Abdomen/Pelvis CT 09/27/19 16:16 IMPRESSION: 1. Splenomegaly. Moderate ascites. 2. Ileus versus partial small bowel obstruction. Status: Image reviewed by me Assessment & Plan - Diagnosis (1) Coagulation defect during period Is this a current diagnosis for this admission?: Yes Plan: INR elev most likely DIC vs liver dysfxn related. 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 IF pt needs surgical intervention will need FFP, likely may need up to 4 units to correct INR to <1.5 needed for most surgeries. Doubt that INR elevation due to inherited clotting defect at INR was normal in 2018. Will follow by chart. - Time Time Spent: 30 to 50 Minutes
[2019-09-28 11:05] LABS: ALBUMIN 1.8 g/dL (3.5-5.0); ALKALINE PHOSPHATASE 167 U/L (38-126); ANION GAP 5 (5-19); ASPARTATE AMINO TRANSFERASE 30 U/L (14-36); BILIRUBIN,DIRECT 0.5 mg/dL (0.0-0.4); BILIRUBIN,TOTAL 0.8 mg/dL (0.2-1.3); BLOOD UREA NITROGEN 24 mg/dL (7-20); CALCIUM 7.5 mg/dL (8.4-10.2); CARBON DIOXIDE 29 mmol/L (22-30); CHLORIDE 101 mmol/L (98-107); GLUCOSE 103 mg/dL (75-110); POTASSIUM 3.2 mmol/L (3.6-5.0); TOTAL PROTEIN 4.3 g/dL (6.3-8.2)
[2019-09-28] MEDS ORDERED: PHYTONADIONE 5 MG TABLET PO SCH (11:45)
--- NOTE | 2019-09-28 12:09 | PDOC PROGRESS REPORT ---
Subjective Progress Note for:: 09/28/19 Subjective:: patient continuing to c/o abdominal pain. states she has not had a BM since prior to her vaginal delivery on 09/17/19. Not passing gas. no vomiting, but nausea Reason For Visit: SEPSIS Physical Exam - Physical Exam Vital Signs: Temp Pulse Resp BP Pulse Ox 99.4 F 93 16 126/66 H 96 09/28/19 07:32 09/28/19 07:32 09/28/19 07:32 09/28/19 07:32 09/28/19 07:32 Intake & Output 09/27/19 09/28/19 09/29/19 06:59 06:59 06:59 Intake Total 4203 1100 Output Total 2000 Balance 2203 1100 Weight 73.5 kg General appearance: PRESENT: mild distress Head exam: PRESENT: atraumatic GI/Abdominal exam: PRESENT: distended, hypoactive bowel sounds, rigid, tenderness Extremities exam: PRESENT: pedal edema, +1 edema Result Laboratory Results: 09/28/19 07:20 09/28/19 07:20 09/27/19 09/27/19 09/27/19 13:40 13:40 13:40 WBC 18.4 H RBC 4.74 Hgb 13.4 Hct 39.6 MCV 84 MCH 28.3 MCHC 33.9 RDW 15.6 H Plt Count 249 Seg Neutrophils % Not Reportable VBG pH 7.43 H VBG pCO2 37.0 VBG HCO3 23.7 VBG Base Excess -0.2 Sodium 132.5 L Potassium 3.1 L Chloride 98 Carbon Dioxide 24 Anion Gap 11 BUN 42 H Creatinine 1.01 Est GFR ( Amer) > 60 Glucose 131 H Lactic Acid Calcium 7.8 L Total Bilirubin 0.9 AST 37 H Alkaline Phosphatase 239 H Total Protein 4.9 L Albumin 2.2 L Urine Color Urine Appearance Urine pH Ur Specific [place] Urine Protein Urine Glucose (UA) Urine Ketones Urine Blood Urine RBC (Auto) Blood Type Antibody Screen 09/27/19 09/27/19 09/27/19 13:40 14:53 15:52 WBC RBC Hgb Hct MCV MCH MCHC RDW Plt Count Seg Neutrophils % VBG pH VBG pCO2 VBG HCO3 VBG Base Excess Sodium Potassium Chloride Carbon Dioxide Anion Gap BUN Creatinine Est GFR ( Amer) Glucose Lactic Acid 1.4 Calcium Total Bilirubin AST Alkaline Phosphatase Total Protein Albumin Urine Color YELLOW Urine Appearance CLEAR Urine pH 6.0 Ur Specific [place] 1.026 Urine Protein 30 H Urine Glucose (UA) NEGATIVE Urine Ketones NEGATIVE Urine Blood NEGATIVE Urine RBC (Auto) 18 Blood Type O POSITIVE Antibody Screen NEGATIVE 09/27/19 09/27/19 09/27/19 16:48 17:41 21:14 WBC RBC Hgb Hct MCV MCH MCHC RDW Plt Count Seg Neutrophils % VBG pH VBG pCO2 VBG HCO3 VBG Base Excess Sodium Potassium Chloride Carbon Dioxide Anion Gap BUN Creatinine Est GFR ( Amer) Glucose Lactic Acid Cancelled 0.8 0.8 Calcium Total Bilirubin AST Alkaline Phosphatase Total Protein Albumin Urine Color Urine Appearance Urine pH Ur Specific [place] Urine Protein Urine Glucose (UA) Urine Ketones Urine Blood Urine RBC (Auto) Blood Type Antibody Screen 09/28/19 09/28/19 07:20 07:20 WBC 13.5 H RBC 3.98 Hgb 11.3 L D Hct 33.2 L MCV 84 MCH 28.3 MCHC 33.9 RDW 15.7 H Plt Count 273 Seg Neutrophils % Not Reportable VBG pH VBG pCO2 VBG HCO3 VBG Base Excess Sodium 134.9 L Potassium 3.2 L Chloride 101 Carbon Dioxide 29 Anion Gap 5 BUN 24 H Creatinine 0.77 Est GFR ( Amer) > 60 Glucose 103 Lactic Acid Calcium 7.5 L Total Bilirubin 0.8 AST 30 Alkaline Phosphatase 167 H Total Protein 4.3 L Albumin 1.8 L Urine Color Urine Appearance Urine pH Ur Specific [place] Urine Protein Urine Glucose (UA) Urine Ketones Urine Blood Urine RBC (Auto) Blood Type Antibody Screen Impressions: Chest X-Ray 09/27/19 13:31 IMPRESSION: Asymmetric opacities in the left lower lobe that blunt the left costophrenic sulcus. Clinical correlation to exclude a left lower lobe pn eumonia is recommended. Chest/Abdomen CTA 09/27/19 16:11 IMPRESSION: 1. NORMAL CTA OF THE CHEST. NO PULMONARY EMBOLI. 2. LOW LUNG VOLUMES. PROBABLE BASILAR ATELECTASIS. CANNOT EXCLUDE EARLY PNEUMONIA. Abdomen/Pelvis CT 09/27/19 16:16 IMPRESSION: 1. Splenomegaly. Moderate ascites. 2. Ileus versus partial small bowel obstruction. Assessment & Plan - Diagnosis (1) Constipation Qualifiers: Constipation type: unspecified constipation type Qualified Code(s): K59.00 - Constipation, unspecified Is this a current diagnosis for this admission?: Yes (2) Coagulation defect during period Is this a current diagnosis for this admission?: Yes (3) Sepsis after obstetrical procedure Is this a current diagnosis for this admission?: Yes (4) Substance abuse/dependence Is this a current diagnosis for this admission?: Yes - Time Time Spent with patient: 15-24 minutes Medications reviewed and adjusted accordingly: Yes Anticipated discharge: Home Within: within 72 hours - Inpatient Certification Based on my medical assessment, after consideration of the patient's comorbidities, presenting symptoms, or acuity I expect that the services needed warrant INPATIENT care.: Yes I certify that my determination is in accordance with my understanding of Medicare's requirements for reasonable and necessary INPATIENT services [42 CFR 412.3e].: Yes Medical Necessity: Need Close Monitoring Due to Risk of Patient Decompensation, Need for Pain Control, Need for IV Antibiotics - Plan Summary Plan Summary: concern for possible SBO vs Ileus based on exam and CT results, I discussed and consulted with Dr. De Jesus of General Surgery. Discussed also with Dr. Gamble due to the patients INR remaining elevated although it has improved. (Thank you for your help with management). recommends enemas to decompress the bowel and then is planning a paracentesis to for further diagnositic advantages. Have ordered a Hepatisis Panel and a repeat CMP. Will continue ABX for her sepsis and monitor her CBC in the AM with a repeat INR. Dr. De Jesus is ordering FFP to further optimize her for the procedure planned. Feel that this patient most likely has a liver condition that has presented itself coincidentally in her period. Will continue managment and monitor closely
[2019-09-28] MEDS ORDERED: MINERAL OIL ENEMA 133 ML PR ONE (12:30)
[2019-09-28] MEDS ORDERED: GLYCERIN 99.5% (ANHYDROUS) 177 ML PO ONE (12:30)
--- NOTE | 2019-09-28 18:03 | PDOC CONSULTATION ---
Consultation Consult Date: 09/28/19 Provider Consulted: SURGICAL SURGICALIST MD Consult reason:: Abdominal distention and pain History of Present Illness Admission Date/PCP: 09/27/19 18:35 ESTER MARRERO PA-C History of Present Illness: MELCHOR PARTIDA is a 39 year old female who is seen in consultation at the request of Dr. Bingham. The patient is status post vaginal delivery approximately 10 days ago. The patient reports that immediately after delivery her abdomen became swollen and painful. Upon arrival to the emergency department she was found to have leukocytosis, elevated INR, dehydration, and tachycardia. The patient reports that she has not had a bowel movement since before her delivery. She has a remote history of intravenous drug abuse, but has been clean for many months now. Currently she takes Suboxone, as directed. Currently she denies chest pain, shortness of breath, headache, dizziness, melena, hematemesis, hematochezia. She does report fatigue, malaise, abdominal pain, abdominal distention, constipation, nausea, occasional vomiting, fevers, chills. She reports that her pain is worse in her epigastrium and right upper quadrant. The pain radiates throughout her abdomen. She reports it is 10 out of 10. She denies any history of liver dysfunction or other bleeding disorder. Past Medical History Cardiac Medical History: Denies: Myocardial Infarction, Hypertension - She has high anxiety Pulmonary Medical History: Reports: Pneumonia Denies: Asthma Neurological Medical History: Denies: Seizures GI Medical History: Reports: Gastroesophageal Reflux Disease Denies: Hepatitis, Hiatal Hernia Psychiatric Medical History: Reports: Depression Hematology: Denies: Anemia, Sickle Cell Disease Past Surgical History Past Surgical History: Reports: Other - Ingrown toenail surgery on 09/13/2016 Denies: Amputation, Mastectomy, Pacemaker Social History Lives with: Family Smoking Status: Former Smoker Electronic Cigarette use?: Yes Hx Recreational Drug Use: Yes Drugs: Marijuana Hx Prescription Drug Abuse: Yes - Advance Directive Resuscitation Status: Full Code Family History Family History: Reviewed & Not Pertinent, DM, Malignancy Parental Family History Reviewed: Yes Children Family History Reviewed: Yes Sibling(s) Family History Reviewed.: Yes Medication/Allergy Home Medications: Fluticasone Propionate [Flonase Nasal [place] 50 Mcg/[place] 16 gm] 1 spray NASL QHS #1 spray.pump 09/19/19 Doxycycline Monohydrate 100 mg PO BID #20 capsule 09/21/19 Acetaminophen [Tylenol] 325 mg PO DAILYP PRN 09/27/19 Buprenorphine HCl 12 mg SL DAILY 09/27/19 Esomeprazole Magnesium 40 mg PO DAILY 09/27/19 Allergies/Adverse Reactions: promethazine HCl [From Phenergan] Adverse Reaction (Unknown, Verified 09/21/19 13:39) Review of Systems Constitutional: PRESENT: chills, fatigue, fever(s), weakness Eyes: ABSENT: visual disturbances Ears: ABSENT: hearing changes Nose, Mouth, and Throat: ABSENT: sore throat Cardiovascular: ABSENT: chest pain Respiratory: ABSENT: cough Gastrointestinal: PRESENT: abdominal pain, bloating, constipation Musculoskeletal: ABSENT: back pain Integumentary: ABSENT: pruritus, rash Neurological: ABSENT: confusion, convulsions, dizziness Psychiatric: ABSENT: anxiety, depression Endocrine: ABSENT: cold intolerance, heat intolerance Hematologic/Lymphatic: ABSENT: easy bleeding, easy bruising Physical Exam Vital Signs: Temp Pulse Resp BP Pulse Ox 101.5 F H 97 16 128/72 H 94 09/28/19 11:10 09/28/19 11:10 09/28/19 11:10 09/28/19 11:10 09/28/19 11:10 Intake & Output 09/27/19 09/28/19 09/29/19 06:59 06:59 06:59 Intake Total 4203 1100 Output Total 2000 Balance 2203 1100 Weight 73.5 kg General appearance: PRESENT: no acute distress Head exam: PRESENT: atraumatic, normocephalic Eye exam: PRESENT: EOMI, PERRLA. ABSENT: scleral icterus Mouth exam: PRESENT: moist, neck supple Neck exam: ABSENT: meningismus, tenderness, thyromegaly, tracheal deviation, tracheostomy Respiratory exam: PRESENT: unlabored. ABSENT: tachypnea, wheezes Cardiovascular exam: ABSENT: tachycardia GI/Abdominal exam: PRESENT: distended, soft, tenderness - moderate, other - fluid wave present. ABSENT: rebound, rigid Rectal exam: PRESENT: deferred Extremities exam: ABSENT: clubbing Musculoskeletal exam: ABSENT: deformity Neurological exam: PRESENT: alert, awake, oriented to person, oriented to place, oriented to time, oriented to situation Psychiatric exam: ABSENT: agitated, anxious, depressed Focused psych exam: ABSENT: delusional Skin exam: ABSENT: cyanosis, erythema, jaundice Results Laboratory Results: 09/28/19 07:20 09/28/19 07:20 09/27/19 09/27/19 09/27/19 14:53 15:52 16:48 WBC RBC Hgb Hct MCV MCH MCHC RDW Plt Count Seg Neutrophils % Sodium Potassium Chloride Carbon Dioxide Anion Gap BUN Creatinine Est GFR ( Amer) Glucose Lactic Acid Cancelled Calcium Total Bilirubin AST Alkaline Phosphatase Total Protein Albumin Urine Color YELLOW Urine Appearance CLEAR Urine pH 6.0 Ur Specific [place] 1.026 Urine Protein 30 H Urine Glucose (UA) NEGATIVE Urine Ketones NEGATIVE Urine Blood NEGATIVE Urine RBC (Auto) 18 Blood Type O POSITIVE Antibody Screen NEGATIVE 09/27/19 09/27/19 09/28/19 17:41 21:14 07:20 WBC 13.5 H RBC 3.98 Hgb 11.3 L D Hct 33.2 L MCV 84 MCH 28.3 MCHC 33.9 RDW 15.7 H Plt Count 273 Seg Neutrophils % Not Reportable Sodium Potassium Chloride Carbon Dioxide Anion Gap BUN Creatinine Est GFR ( Amer) Glucose Lactic Acid 0.8 0.8 Calcium Total Bilirubin AST Alkaline Phosphatase Total Protein Albumin Urine Color Urine Appearance Urine pH Ur Specific [place] Urine Protein Urine Glucose (UA) Urine Ketones Urine Blood Urine RBC (Auto) Blood Type Antibody Screen 09/28/19 07:20 WBC RBC Hgb Hct MCV MCH MCHC RDW Plt Count Seg Neutrophils % Sodium 134.9 L Potassium 3.2 L Chloride 101 Carbon Dioxide 29 Anion Gap 5 BUN 24 H Creatinine 0.77 Est GFR ( Amer) > 60 Glucose 103 Lactic Acid Calcium 7.5 L Total Bilirubin 0.8 AST 30 Alkaline Phosphatase 167 H Total Protein 4.3 L Albumin 1.8 L Urine Color Urine Appearance Urine pH Ur Specific [place] Urine Protein Urine Glucose (UA) Urine Ketones Urine Blood Urine RBC (Auto) Blood Type Antibody Screen Impressions: Chest X-Ray 09/27/19 13:31 IMPRESSION: Asymmetric opacities in the left lower lobe that blunt the left costophrenic sulcus. Clinical correlation to exclude a left lower lobe pneumonia is recommended. Chest/Abdomen CTA 09/27/19 16:11 IMPRESSION: 1. NORMAL CTA OF THE CHEST. NO PULMONARY EMBOLI. 2. LOW LUNG VOLUMES. PROBABLE BASILAR ATELECTASIS. CANNOT EXCLUDE EARLY PNEUMONIA. Abdomen/Pelvis CT 09/27/19 16:16 IMPRESSION: 1. Splenomegaly. Moderate ascites. 2. Ileus versus partial small bowel obstruction. Assessment & Plan - Diagnosis (1) Abdominal pain Is this a current diagnosis for this admission?: Yes (2) Ascites Is this a current diagnosis for this admission?: Yes (3) Coagulation defect during period Is this a current diagnosis for this admission?: Yes (4) Constipation Qualifiers: Constipation type: unspecified constipation type Qualified Code(s): K59.00 - Constipation, unspecified Is this a current diagnosis for this admission?: Yes - Plan Summary Plan Summary: This is a 39-year-old female with new onset abdominal pain, abdominal distention, new ascites, and constipation. The patient has a coagulopathy, with an INR greater than 4. The patient has no history of known liver disease/dysfunction. She has no history of coagulopathy or clotting disorder. I have reviewed the patient's CT scan (images and report). I see no evidence for mesenteric thrombosis, portal venous thrombosis, hepatic vein thrombosis, IVC thrombosis. She does have free fluid intra-abdominally, without free air. She has no evidence of bowel wall thickening or CT evidence of ischemia. She has no physical exam findings consistent with an acute abdomen. Her elevated INR certainly is suspicious for liver dysfunction. Check hepatitis panel. Plan for FFP transfusion, with subsequent diagnostic paracentesis. The patient also has a large amount of constipation. This may be contributing to her abdominal distention and pain. Will order an enema today, as well as oral cathartics. Will reassess tomorrow with x-rays. Surgery will follow this patient with you. I have personally discussed the case with both Dr. Bingham and Dr. Castillo.
[2019-09-29] MEDS: PIPERACILLIN SODIUM/TAZOBACTAM 3.375 GM in NORMAL SALINE 100 ML IV SCH ×4 (03:01→17:33)
[2019-09-29] MEDS ORDERED: NORMAL SALINE 250 ML IV PRN (05:00)
[2019-09-29] MEDS: VANCOMYCIN HCL 1,000 MG in DEXTROSE 5%-WATER 250 ML IV SCH ×2 (05:31→14:21)
[2019-09-29 06:01] LABS: INTERNATIONAL RATION (INR) 2.16; PROTHROMBIN TIME 24.4 SEC (11.4-15.4)
[2019-09-29 06:02] LABS: HEMATOCRIT 27.7 % (36.0-47.0); HEMOGLOBIN 9.8 g/dL (12.0-15.5); MEAN CORPUSCULAR HEMOGLOBIN 29.2 pg (27.0-33.4); MEAN CORPUSCULAR HGB CONC 35.3 g/dL (32.0-36.0); MEAN CORPUSCULAR VOLUME 83 fl (80-97); PLATELET COUNT 353 10^3/uL (150-450); RED BLOOD COUNT 3.34 10^6/uL (3.72-5.28); RED CELL DISTRIBUTION WIDTH 15.3 % (11.5-14.0); WHITE BLOOD COUNT 11.4 10^3/uL (4.0-10.5)
[2019-09-29 06:19] LABS: VANCOMYCIN,TROUGH 5.5 ug/mL (5.0-20.0)
[2019-09-29 06:28] LABS: ABSOLUTE LYMPHOCYTES# (MANUAL) 0.7 10^3/uL (0.5-4.7); ABSOLUTE MONOCYTES # (MANUAL) 0.7 10^3/uL (0.1-1.4); BAND NEUTROPHILS % (MANUAL) 2 % (3-5); BASOPHILS % (MANUAL) 0 % (0-2); EOSINOPHILS % (MANUAL) 1 % (0-6); LYMPHOCYTES % (MANUAL) 6 % (13-45); MONOCYTES % (MANUAL) 6 % (3-13); SEGMENTED NEUTROPHILS % (MAN) 85 % (42-78); TOTAL CELLS COUNTED 100
[2019-09-29 06:29] LABS: ANISOCYTOSIS SLIGHT; OVALOCYTES SLIGHT; PLATELET COMMENT ADEQUATE; POIKILOCYTOSIS SLIGHT; SCHISTOCYTES SLIGHT; TOXIC GRANULATION 1+; TOXIC VACUOLATION PRESENT
[2019-09-29] MEDS: MORPHINE SULFATE 10 MG/ML INJ IV PRN ×3 (07:26→21:47)
--- NOTE | 2019-09-29 07:37 | PDOC PROGRESS REPORT ---
Subjective Progress Note for:: 09/29/19 Subjective:: 39-year-old female patient with new onset ascites and markedly elevated INR. Today, she reports that her abdominal pain is somewhat improved. She had multiple bowel movements yesterday after enema administration. She continues to request narcotics for pain control. She denies chest pain, shortness of breath, headache, nausea, vomiting. She is requesting food, because she is hungry. She continues to report malaise, abdominal pain, fatigue. Reason For Visit: SEPSIS Physical Exam Vital Signs: Temp Pulse Resp BP Pulse Ox 99.7 F 92 18 123/66 93 09/29/19 05:35 09/29/19 05:35 09/29/19 05:35 09/29/19 05:35 09/29/19 05:23 Intake & Output 09/28/19 09/29/19 09/30/19 06:59 06:59 06:59 Intake Total 4203 3259 Output Total 2000 510 Balance 2203 2749 Weight 73.5 kg 85.1 kg General appearance: PRESENT: cooperative, disheveled Head exam: PRESENT: atraumatic, normocephalic Eye exam: PRESENT: EOMI, PERRLA. ABSENT: scleral icterus Mouth exam: PRESENT: moist, neck supple Neck exam: ABSENT: meningismus, tenderness, thyromegaly, tracheal deviation Respiratory exam: PRESENT: unlabored. ABSENT: tachypnea Cardiovascular exam: ABSENT: tachycardia GI/Abdominal exam: PRESENT: ascites, distended, soft, tenderness - Moderate, other - No sign of peritonitis. ABSENT: rebound, rigid Extremities exam: PRESENT: +1 edema - Bilateral lower extremities. ABSENT: clubbing Musculoskeletal exam: ABSENT: deformity Neurological exam: PRESENT: alert, awake, oriented to person, oriented to place, oriented to time, oriented to situation Psychiatric exam: ABSENT: agitated, anxious Skin exam: ABSENT: cyanosis, erythema, jaundice Results Laboratory Results: 09/29/19 05:16 09/28/19 07:20 09/27/19 09/28/19 09/28/19 14:53 07: 07:20 WBC 13.5 H RBC 3.98 Hgb 11.3 L D Hct 33.2 L MCV 84 MCH 28.3 MCHC 33.9 RDW 15.7 H Plt Count 273 Seg Neutrophils % Not Reportable Sodium 134.9 L Potassium 3.2 L Chloride 101 Carbon Dioxide 29 Anion Gap 5 BUN 24 H Creatinine 0.77 Est GFR ( Amer) > 60 Glucose 103 Calcium 7.5 L Total Bilirubin 0.8 AST 30 Alkaline Phosphatase 167 H Total Protein 4.3 L Albumin 1.8 L Blood Type O POSITIVE Antibody Screen NEGATIVE 09/29/19 05:16 WBC 11.4 H RBC 3.34 L Hgb 9.8 L Hct 27.7 L MCV 83 MCH 29.2 MCHC 35.3 RDW 15.3 H Plt Count 353 Seg Neutrophils % Not Reportable Sodium Potassium Chloride Carbon Dioxide Anion Gap BUN Creatinine Est GFR ( Amer) Glucose Calcium Total Bilirubin AST Alkaline Phosphatase Total Protein Albumin Blood Type Antibody Screen Impressions: Chest X-Ray 09/27/19 13:31 IMPRESSION: Asymmetric opacities in the left lower lobe that blunt the left costophrenic sulcus. Clinical correlation to exclude a left lower lobe pneum onia is recommended. Chest/Abdomen CTA 09/27/19 16:11 IMPRESSION: 1. NORMAL CTA OF THE CHEST. NO PULMONARY EMBOLI. 2. LOW LUNG VOLUMES. PROBABLE BASILAR ATELECTASIS. CANNOT EXCLUDE EARLY PNEUMONIA. Abdomen/Pelvis CT 09/27/19 16:16 IMPRESSION: 1. Splenomegaly. Moderate ascites. 2. Ileus versus partial small bowel obstruction. Assessment & Plan - Diagnosis (1) Abdominal pain Is this a current diagnosis for this admission?: Yes (2) Ascites Is this a current diagnosis for this admission?: Yes (3) Coagulation defect during period Is this a current diagnosis for this admission?: Yes (4) Constipation Qualifiers: Constipation type: unspecified constipation type Qualified Code(s): K59.00 - Constipation, unspecified Is this a current diagnosis for this admission?: Yes - Plan Summary Plan Summary: This is a 39-year-old female with new onset ascites, of unknown etiology. Her hepatitis panel is pending. Plan for paracentesis today after FFP administration. I will send the ascites for culture, cytology, LDH, glucose, protein, and cell count. Hopefully this will provide insight into her symptomatology. The patient does not have signs of an acute abdomen at this time. No surgical intervention is recommended at this time. Surgery will continue to follow.
[2019-09-29 07:38] LABS: HEPATITS B SURFACE ANTIGEN Negative (Negative)
--- NOTE | 2019-09-29 07:41 | Operative Report ---
Nonrecallable Operative Report DATE OF SURGERY: 09/29/19 PREOPERATIVE DIAGNOSIS: New onset ascites POSTOPERATIVE DIAGNOSIS: 1. New onset ascites. 2. Turbid, yellow fluid returned on paracentesis. 900 cc in total OPERATION: Ultrasound-guided paracentesis SURGEON: CHRISTINA BRISENO ANESTHESIA: Local TISSUE REMOVED OR ALTERED: 900 cc of turbid ascites COMPLICATIONS: None apparent ESTIMATED BLOOD LOSS: Minimal PROCEDURE: Drains/implants: None. Procedure in detail: After informed consent was obtained from the patient, she was sat in the semi-upright position in the hospital room. The ultrasound was then used to identify the largest collection of intra-abdominal fluid. This was in the left lower quadrant. The abdomen was prepped and draped in a normal sterile fashion. 1% lidocaine was used to anesthetize the skin. An 11 blade scalpel was used to make a small incision. The paracentesis catheter was then inserted into the abdominal cavity, under the guidance of direct ultrasonic visualization. Turbid ascites was returned in the syringe, and the catheter was slid into the peritoneal cavity. Approximately 900 cc of turbid, yellow-colored fluid was returned in the collection container. It did not have the overt appearance of blood. After all of the ascites could be removed, the catheter was removed under suction. A dressing was placed. The procedure was at this time concluded. All sponge, instrument, and needle counts were correct. Condition: Fair.
[2019-09-29 08:40] LABS: FLUID COLOR AMBER; FLUID SOURCE ASCITES; FLUID TYPE PERITONEAL
[2019-09-29 08:41] LABS: FLUID APPEARANCE HAZY; FLUID VISCOSITY LIQUID
--- NOTE | 2019-09-29 08:51 | RADIOLOGY REPORT (SQ) ---
EXAM DESCRIPTION: KUB/ABDOMEN (SINGLE VIEW) IMAGES COMPLETED DATE/TIME: 09/29/2019 8:32 am REASON FOR STUDY: abdominal pain COMPARISON: 09/27/2019 NUMBER OF VIEWS: One view. TECHNIQUE: Supine radiographic image of the abdomen acquired. LIMITATIONS: None. FINDINGS: BOWEL GAS PATTERN: Nonspecific bowel gas pattern with moderate stool throughout the colon. CALCIFICATIONS: No radiopaque stones overlie kidneys or ureters. SOFT TISSUES: Soft tissue density overlies right lower quadrant midline pelvis, likely haider jorge luis and ascites. HARDWARE: Catheter tubing overlies pelvis. BONES: No acute bony abnormality. OTHER: No other significant finding. IMPRESSION: Nonspecific bowel gas pattern with moderate formed stool throughout the colon. Ill-defined soft tissue density overlies pelvis and right lower quadrant, likely combination of ascit es and uterus. TECHNICAL DOCUMENTATION: JOB ID: [id number] 2010 [employer]- All Rights Reserved Reading location - IP/workstation name: [email or web address]
[2019-09-29 09:11] LABS: HEPATITIS C VIRUS ANTIBODY <0.1 s/co ratio (0.0-0.9)
[2019-09-29] MEDS: BUPRENORPHINE HCL 2 MG SUBLINGUAL TABLET SL SCH ×2 (10:09→10:11)
[2019-09-29] MEDS: DOCUSATE SODIUM 100 MG CAPSULE PO SCH ×2 (10:09→18:00)
--- NOTE | 2019-09-29 10:11 | PDOC PROGRESS REPORT ---
Subjective Progress Note for:: 09/29/19 Subjective:: Paracentesis went well, awaiting study results from that. INR is improved post FFP. Reason For Visit: SEPSIS Physical Exam Vital Signs: Temp Pulse Resp BP Pulse Ox 99.7 F 92 18 123/66 93 09/29/19 05:35 09/29/19 05:35 09/29/19 05:35 09/29/19 05:35 09/29/19 05:23 Intake & Output 09/28/19 09/29/19 09/30/19 06:59 06:59 06:59 Intake Total 4203 3259 250 Output Total 1999 510 Balance 2203 2749 250 Weight 73.5 kg 85.1 kg Results Laboratory Results: 09/29/19 05:16 09/28/19 07:20 09/27/19 09/28/19 09/29/19 14:53 07:20 05:16 WBC 11.4 H RBC 3.34 L Hgb 9.8 L Hct 27.7 L MCV 83 MCH 29.2 MCHC 35.3 RDW 15.3 H Plt Count 353 Seg Neutrophils % Not Reportable Sodium 134.9 L Potassium 3.2 L Chloride 101 Carbon Dioxide 29 Anion Gap 5 BUN 24 H Creatinine 0.77 Est GFR ( Amer) > 60 Glucose 103 Calcium 7.5 L Total Bilirubin 0.8 AST 30 Alkaline Phosphatase 167 H Total Protein 4.3 L Albumin 1.8 L Fluid Type Fluid Source Fluid Color Fluid Appearance Fluid Viscosity Fluid WBC Fluid RBC Blood Type O POSITIVE Antibody Screen NEGATIVE 09/29/19 06:45 WBC RBC Hgb Hct MCV MCH MCHC RDW Plt Count Seg Neutrophils % Sodium Potassium Chloride Carbon Dioxide Anion Gap BUN Creatinine Est GFR ( Amer) Glucose Calcium Total Bilirubin AST Alkaline Phosphatase Total Protein Albumin Fluid Type PERITONEAL Fluid Source ASCITES Fluid Color KENNY Fluid Appearance HAZY Fluid Viscosity LIQUID Fluid WBC 2800 Fluid RBC 5644 Blood Type Antibody Screen Impressions: Chest X-Ray 09/27/19 13:31 IMPRESSION: Asymmetric opacities in the left lower lobe that blunt the left costophrenic sulcus. Clinical correlation to exclude a left lower lobe pneumonia is recommended. Chest/Abdomen CTA 09/27/19 16:11 IMPRESSION: 1. NORMAL CTA OF THE CHEST. NO PULMONARY EMBOLI. 2. LOW LUNG VOLUMES. PROBABLE BASILAR ATELECTASIS. CANNOT EXCLUDE EARLY PNEUMONIA. Abdomen/Pelvis CT 09/27/19 16:16 IMPRESSION: 1. Splenomegaly. Moderate ascites. 2. Ileus versus partial small bowel obstruction. KUB X-Ray 09/29/19 00:00 IMPRESSION: Nonspecific bowel gas pattern with moderate formed stool throughout the colon. Ill-defined soft tissue density overlies pelvis and right lower quadrant, likely combination of ascites and uterus. Assessment & Plan - Diagnosis (1) Coagulation defect during period Is this a current diagnosis for this admission?: Yes Plan: Likely liver dx related vs DIC. Will follow. No further FFP needed unless surgical intervention planned. - Time Time Spent with patient: Less than 15 minutes
--- NOTE | 2019-09-29 13:05 | PDOC PROGRESS REPORT ---
Subjective Progress Note for:: 09/29/19 Subjective:: s/p paracentesis today, pt reports that she is still feeling constipated, states she is SOB due to pain. pain meds are working. Reason For Visit: SEPSIS Physical Exam - Physical Exam Vital Signs: Temp Pulse Resp BP Pulse Ox 99.2 F 82 18 116/65 95 09/29/19 10:53 09/29/19 10:53 09/29/19 10:53 09/29/19 10:53 09/29/19 10:53 Intake & Output 09/28/19 09/29/19 09/30/19 06:59 06:59 06:59 Intake Total 4203 3259 350 Output Total 1999 510 Balance 2203 2749 350 Weight 73.5 kg 85.1 kg General appearance: PRESENT: cooperative, mild distress Head exam: PRESENT: atraumatic, normocephalic Respiratory exam: PRESENT: symmetrical, other - getting an ECHO at this time. unable to asucultate Cardiovascular exam: PRESENT: other - getting an ECHO - unable to auscultate at this time GI/Abdominal exam: PRESENT: ascites, distended, tenderness - throughout Rectal exam: PRESENT: deferred Extremities exam: PRESENT: full ROM. ABSENT: calf tenderness, clubbing, pedal edema Neurological exam: PRESENT: alert - but just got pain meds so falling asleep, awake, oriented to person, oriented to place, oriented to time, oriented to situation, CN II-XII grossly intact. ABSENT: motor sensory deficit Skin exam: PRESENT: dry, intact, warm. ABSENT: cyanosis, rash Result Laboratory Results: 09/29/19 05:16 09/28/19 07:20 09/27/19 09/29/19 09/29/19 14:53 05:16 06:45 WBC 11.4 H RBC 3.34 L Hgb 9.8 L Hct 27.7 L MCV 83 MCH 29.2 MCHC 35.3 RDW 15.3 H Plt Count 353 Seg Neutrophils % Not Reportable Fluid Type PERITONEAL Fluid Source ASCITES Fluid Color KENNY Fluid Appearance HAZY Fluid Viscosity LIQUID Fluid WBC 2800 Fluid RBC 5644 Blood Type O POSITIVE Antibody Screen NEGATIVE 09/27/19 15:52 Catheterized Urine Urine Culture - Final NO GROWTH 2 DAYS Impressions: Chest X-Ray 09/27/19 13:31 IMPRESSION: Asymmetric opacities in the left lower lobe that blunt the left costophrenic sulcus. Clinical correlation to exclude a left lower lobe pneumonia is recommended. Chest/Abdomen CTA 09/27/19 16:11 IMPRESSION: 1. NORMAL CTA OF THE CHEST. NO PULMONARY EMBOLI. 2. LOW LUNG VOLUMES. PROBABLE BASILAR ATELECTASIS. CANNOT EXCLUDE EARLY PNEUMONIA. Abdomen/Pelvis CT 09/27/19 16:16 IMPRESSION: 1. Splenomegaly. Moderate ascites. 2. Ileus versus partial small bowel obstruction. KUB X-Ray 09/29/19 00:00 IMPRESSION: Nonspecific bowel gas pattern with moderate formed stool throughout the colon. Ill-defined soft tissue density overlies pelvis and right lower quadrant, likely combination of ascites and uterus. Status: Imported from PACS Assessment & Plan - Diagnosis (1) Ascites Qualifiers: Ascites type: other type Qualified Code(s): R18.8 - Other ascites Is this a current diagnosis for this admission?: Yes Plan: New onset ascitis on uknown etiology. Hepatitis panel is negative. Asked Internal Medicine to see patient and given opinion - asked to have PPD and repeat HIV (last was done at 28wks ). May also need Infectious disease consult due no readily apparent cause for reported sepsis. Will follow. EBV/mon test negative (2) Coagulation defect during period Is this a current diagnosis for this admission?: Yes Plan: Likely liver dx related vs DIC - however LFTs do not appear to have significant derrangement. No further FFP needed unless surgical intervention planned. (3) Constipation Qualifiers: Constipation type: unspecified constipation type Qualified Code(s): K59.00 - Constipation, unspecified Is this a current diagnosis for this admission?: Yes Plan: improved with enema. Pt still reports that she feels that she needs to have a BM. She has not passed flatus since enema yesterday. (4) Sepsis after obstetrical procedure Is this a current diagnosis for this admission?: Yes Plan: uncomplicated on 09/16 no perineal laceration. Normal appearing placenta. No e/o respiratory complications at this time - no cough and denies sick exposure. Was discussing paitent with Hospitalist after I saw her and noted to hospitalist that since no respiratory sx that covid was not entertained initially - however per Hospitalist that lungs on CXR now may respresent penumonia or atelectasis. Covid in and has on occasion been noted to present a typically however and now with new CXR hospitalist will obtain testing. - Time Time Spent with patient: 15-24 minutes Level of Care: MEDICAL Smoking Cessation Education: 3 to 10 minutes Medications reviewed and adjusted accordingly: Yes Anticipated discharge: Home Within: Other - Inpatient Certification Based on my medical assessment, after consideration of the patient's comorbidities, presenting symptoms, or acuity I expect that the services needed warrant INPATIENT care.: Yes I certify that my determination is in accordance with my understanding of Medicare's requirements for reasonable and necessary INPATIENT services [42 CFR 412.3e].: Yes Medical Necessity: Need Close Monitoring Due to Risk of Patient Decompensation, Need For IV Fluids, Need for Pain Control, Need for IV Antibiotics, Risk of Complication if Not Cared For in Hospital Post Hospital Care: D/C Inside Phone Sales Documentation
--- NOTE | 2019-09-29 13:56 | RADIOLOGY REPORT (SQ) ---
EXAM DESCRIPTION: CHEST SINGLE VIEW IMAGES COMPLETED DATE/TIME: 09/29/2019 1:23 pm REASON FOR STUDY: dyspnea, hypoxia, fever COMPARISON: 09/27/2019 EXAM PARAMETERS: NUMBER OF VIEWS: One view. TECHNIQUE: Single frontal radiographic view of the chest acquired. RADIATION DOSE: NA LIMITATIONS: None. FINDINGS: LUNGS AND PLEURA: Patchy bibasilar opacities with air bronchograms in the left lower lobe. There is obscuration of the left hemidiaphragm. Likely small left pleural effusion. MEDIASTINUM AND HILAR STRUCTURES: No masses. Contour normal. HEART AND VASCULAR STRUCTURES: Heart normal in size. Normal vasculature. BONES: No acute findings. HARDWARE: None in the chest. OTHER: No other significant finding. IMPRESSION: Bilateral lower lobe consolidation compatible with pneumonia. Small left effusion. TECHNICAL DOCUMENTATION: JOB ID: [id number] 2010 [employer] All Rights Reserved Reading location - IP/workstation name: [email or web address]
[2019-09-29] MEDS ORDERED: TUBERCULIN,PURIF.PROT.DERIV. 5 TU/0.1 ML TEST 1 ML VIAL ID ONE (14:00)
[2019-09-29] MEDS ORDERED: ALBUTEROL SULFATE 0.083% NEB 2.5 MG/3 ML AMPUL NEB PRN (14:07)
--- NOTE | 2019-09-29 14:34 | RADIOLOGY REPORT (SQ) ---
EXAM DESCRIPTION: U/S NON-OB PELVIS W/O DOP IMAGES COMPLETED DATE/TIME: 09/29/2019 1:32 pm REASON FOR STUDY: fever, leukocytosis, ?retained products of concept COMPARISON: None. TECHNIQUE: Dynamic and static grayscale images acquired of the pelvis via transabdominal approach an d recorded on PACS. Additional selected color Doppler and spectral images recorded. LIMITATIONS: None. FINDINGS: UTERUS: Enlarged heterogeneous uterus measuring 15.2 x 9.6 x 6.7 cm. ENDOMETRIAL STRIPE: Endometrial stripe is visualized measuring 1.9 cm, previously 1.1 cm. No hyperem ia. No focal thickening. CERVIX: No nabothian cysts. RIGHT OVARY AND DOPPLER: Normal size measuring 4.4 x 3.4 x 3.9 cm. No worrisome masses. Normal arteri al vascular flow without evidence for torsion. LEFT OVARY AND DOPPLER: Normal size measuring 4.2 x 4.0 x 4.5 cm. No worrisome masses. Normal arteria l vascular flow without evidence for torsion. FREE FLUID: Significant complex ascites within the pelvis, similar to prior CT. OTHER: No other significant finding. IMPRESSION: 1. Significant complex ascites within the pelvis, similar to prior CT. 2. Generalized thickening of the endometrial stripe measuring 1.9 cm, previously 1.1 cm. Differenti al includes hemorrhage, endometritis or retained products of conception. No focal thickening or hype remia. Findings conveyed to Amanda Griffin at 1427 hours on 09/29/2019. TECHNICAL DOCUMENTATION: JOB ID: [id number] [employer]- All Rights Reserved Rev-10/10 Reading location - IP/workstation name: [email or web address]
[2019-09-29 15:52] LABS: APPEARANCE,URINE TURBID; BILIRUBIN,URINE NEGATIVE (NEGATIVE); COLOR,URINE AMBER; GLUCOSE, URINE NEGATIVE (NEGATIVE); KETONES,URINE NEGATIVE (NEGATIVE); PROTEIN,URINE 30 mg/dL (NEGATIVE); URINE SPECIFIC GRAVITY 1.032; UROBILINOGEN,URINE NEGATIVE mg/dL (<2.0)
[2019-09-29] MEDS ORDERED: MAG HYDROX/AL HYDROX/SIMETH SUSP 30 ML UDCUP PO ONE (16:02)
[2019-09-29] MEDS ORDERED: LIDOCAINE 2% VISCOUS SOLN 15 ML UDCUP PO ONE (16:02)
[2019-09-29] MEDS ORDERED: MAG HYDROX/AL HYDROX/SIMETH SUSP 30 ML UDCUP PO PRN (16:03)
[2019-09-29] MEDS ORDERED: BISACODYL 10 MG SUPP.RECT PR ONE (16:03)
[2019-09-29] MEDS ORDERED: BISACODYL 10 MG SUPP.RECT PR PRN (16:03)
[2019-09-29] MEDS ORDERED: FUROSEMIDE INJ/PF 20 MG/2 ML SDV IV ONE (16:09)
[2019-09-29] MEDS ORDERED: NORMAL SALINE 1000 ML 1,000 ML IV PRN (16:09)
[2019-09-29] MEDS ORDERED: NICOTINE 14 MG/24 HR PATCH.TD24 TD PRN (17:25)
[2019-09-29] MEDS ORDERED: METOCLOPRAMIDE HCL ORAL SOLN 10 MG/10 ML UDCUP PO ONE (17:30)
--- NOTE | 2019-09-29 17:47 | PDOC CONSULTATION ---
Consultation Consult Date: 09/29/19 Attending physician:: SALVADOR PETERSEN Provider Consulted: AMANDA RIVERA History of Present Illness Admission Date/PCP: 09/27/19 18:35 ESTER MARRERO PA-C Patient complains of: fever, malaise, abdominal pain History of Present Illness: MELCHOR PARTIDA is a 39 year old female who is 12 days full-term vaginal delivery without complications with a past medical history of opiate dependent chronic pain, managed by Dr. Pedraza on Subutex, history of IV drug use (patient admits to 3 occurrences of IVDU greater than a year ago), and GERD who was admitted by the HEAD SAMPLER service on 09/27/2019 after patient presented to the emergency department for the second time with complaint of intractable abdominal, bilateral flank, and back pain. Patient was found to have Sepsis, without identified source, evidenced by leukocytosis (WBCs 18.4), coagulopathy (PT 39.9, INR 3.99), mildly elevated liver enzymes (direct bili 0.7, AST 37, ALT 17, alk phos 239), low-grade temp (100.4), tachycardia (HR 132), tachypnea (RR 30), and hypoxia on room air (90%). CXR showed opacities to the left lower lobe; atelectasis versus pneumonia. Follow-up chest CTA was negative for PE, demonstrated low lung volumes with probable bilateral atelectasis. Abdominal/pelvic CT was notable for splenomegaly with moderate ascites and ileus versus partial small bowel obstruction. The patient was admitted to the floor and empirically placed on IV vancomycin an d Zosyn; since that time WBCs have trended down, however, she continues to have cyclic fevers (T-max 102.7 last 48 hours, 100.3 last 24). Patient did receive vitamin K and 4 units FFP for correction of her PT/INR so that she could undergo paracentesis. Following treatment this morning her INR is 2.16. Surgery was consulted for paracentesis; 900 mL's turbid fluid removed. Ileus/partial bowel obstruction related to constipation managed by bowel regiment and enemas. Patient reports that she did pass stool and gas yesterday following enemas but has had no further flatus. No active emesis. Hematology consulted for review of the patient's elevated INR; likely DIC versus liver dysfunction. However, CT of the abdomen did not reveal clear evidence of liver disease and her LFTs have minimal derangements. Hospitalist service was consulted today to assist with further evaluation of complex/septated ascites in patient with sepsis and unclear source of infection. Past Medical History Cardiac Medical History: Denies: Congestive Heart Failure, Myocardial Infarction, Hyperlipidema, Hypertension Pulmonary Medical History: Reports: Pneumonia Denies: Asthma EENT Medical History: Reports: None Neurological Medical History: Denies: Ischemic CVA, Seizures Endocrine Medical History: Reports: None Renal/ Medical History: Reports: None Malignancy Medical History: Reports: None GI Medical History: Reports: Gastroesophageal Reflux Disease Denies: Hepatitis, Hiatal Hernia Musculoskeltal Medical History: Reports: Arthritis Psychiatric Medical History: Reports: Depression, Substance Abuse Hematology: Denies: Anemia, Sickle Cell Disease Past Surgical History Past Surgical History: Reports: Other - bilateral ankles, multiple oral Denies: Amputation, Mastectomy, Pacemaker Social History Information Source: Patient, [facility] Lives with: Family Smoking Status: Former Smoker Electronic Cigarette use?: Yes Frequency of Alcohol Use: Rare Hx Recreational Drug Use: Yes Drugs: Marijuana Hx Prescription Drug Abuse: Yes - Now on Subtex - Advance Directive Resuscitation Status: Full Code Family History Family History: Reviewed & Not Pertinent, DM, Malignancy - Maternal grandmother w/ Ovarian CA Parental Family History Reviewed: Yes Children Family History Reviewed: Yes Sibling(s) Family History Reviewed.: Yes Medication/Allergy Home Medications: Fluticasone Propionate [Flonase Nasal [place] 50 Mcg/[place] 16 gm] 1 spray NASL QHS #1 spray.pump 09/19/19 Doxycycline Monohydrate 100 mg PO BID #20 capsule 09/21/19 Acetaminophen [Tylenol] 325 mg PO DAILYP PRN 09/27/19 Buprenorphine HCl 12 mg SL DAILY 09/27/19 Esomeprazole Magnesium 40 mg PO DAILY 09/27/19 Allergies/Adverse Reactions: promethazine HCl [From Phenergan] Adverse Reaction (Unknown, Verified 09/21/19 13:39) Review of Systems Constitutional: PRESENT: chills, fatigue, fever(s), headache(s), night sweats, weakness. ABSENT: weight gain, weight loss Eyes: ABSENT: visual disturbances Ears: ABSENT: hearing changes Cardiovascular: PRESENT: chest pain - chest wall pain w/ inspiration/cough, dyspnea on exertion, edema. ABSENT: orthropnea, palpitations Respiratory: PRESENT: cough, dyspnea. ABSENT: hemoptysis, sputum Gastrointestinal: PRESENT: abdominal pain, bloating, constipation, nausea. ABSENT: diarrhea, hematemesis, hematochezia, vomiting Genitourinary: ABSENT: dysuria, hematuria Musculoskeletal: PRESENT: back pain. ABSENT: joint swelling Integumentary: ABSENT: rash, wounds Neurological: ABSENT: abnormal gait, abnormal speech, confusion, dizziness, focal weakness, syncope Psychiatric: ABSENT: anxiety, depression, homidical ideation, suicidal ideation Endocrine: ABSENT: cold intolerance, heat intolerance, polydipsia, polyuria Hematologic/Lymphatic: ABSENT: easy bleeding, easy bruising Physical Exam Vital Signs: Temp Pulse Resp BP Pulse Ox 99.2 F 82 18 116/65 95 09/29/19 10:53 09/29/19 10:53 09/29/19 10:53 09/29/19 10:53 09/29/19 10:53 Intake & Output 09/28/19 09/29/19 09/30/19 06:59 06:59 06:59 Intake Total 4203 3259 600 Output Total 2000 510 Balance 2203 2749 600 Weight 73.5 kg 85.1 kg General appearance: PRESENT: cooperative, mild distress, well-developed, other - Acutely ill appearing Head exam: PRESENT: atraumatic, normocephalic Eye exam: PRESENT: conjunctiva pink, EOMI, PERRLA. ABSENT: scleral icterus Ear exam: PRESENT: normal external ear exam Mouth exam: PRESENT: moist, tongue midline Neck exam: ABSENT: carotid bruit, JVD, lymphadenopathy, thyromegaly Respiratory exam: PRESENT: decreased breath sounds - poor inspiratory effort r/t chest wall and abdominal pain, symmetrical, tachypnea, unlabored, other - supplemental O2 via NC. ABSENT: rales, rhonchi, wheezes Cardiovascular exam: PRESENT: RRR, +S1, +S2. ABSENT: diastolic murmur, rubs, systolic murmur Pulses: PRESENT: normal dorsalis pedis pul Vascular exam: PRESENT: normal capillary refill Breast: PRESENT: Normal GI/Abdominal exam: PRESENT: ascites, distended, soft, tenderness - generalized. ABSENT: guarding, mass, organolmegaly, rebound Rectal exam: PRESENT: deferred Extremities exam: PRESENT: full ROM, +2 edema - pitting edema BLE. ABSENT: calf tenderness, clubbing, pedal edema Neurological exam: PRESENT: alert, awake, oriented to person, oriented to place, oriented to time, oriented to situation, CN II-XII grossly intact, other - Fatigued. ABSENT: motor sensory deficit Psychiatric exam: PRESENT: appropriate affect - appropriately frustrated/tearful, normal mood. ABSENT: homicidal ideation, suicidal ideation Skin exam: PRESENT: dry, intact, warm. ABSENT: cyanosis, rash Results Laboratory Results: 09/29/19 05:16 09/28/19 07:20 09/27/19 09/29/19 09/29/19 14:53 05:16 06:45 WBC 11.4 H RBC 3.34 L Hgb 9.8 L Hct 27.7 L MCV 83 MCH 29.2 MCHC 35.3 RDW 15.3 H Plt Count 353 Seg Neutrophils % Not Reportable Prealbumin Urine Color Urine Appearance Urine pH Ur Specific Staples Urine Protein Urine Glucose (UA) Urine Ketones Urine Blood Urine RBC (Auto) Fluid Type PERITONEAL Fluid Source ASCITES Fluid Color KENNY Fluid Appearance HAZY Fluid Viscosity LIQUID Fluid WBC 2800 Fluid RBC 5644 Blood Type O POSITIVE Antibody Screen NEGATIVE 09/29/19 09/29/19 14:22 15:25 WBC RBC Hgb Hct MCV MCH MCHC RDW Plt Count Seg Neutrophils % Prealbumin 6.2 L Urine Color KENNY Urine Appearance TURBID Urine pH 5.0 Ur Specific Staples 1.032 Urine Protein 30 H Urine Glucose (UA) NEGATIVE Urine Ketones NEGATIVE Urine Blood LARGE H Urine RBC (Auto) >182 Fluid Type Fluid Source Fluid Color Fluid Appearance Fluid Viscosity Fluid WBC Fluid RBC Blood Type Antibody Screen 09/27/19 15:52 Catheterized Urine Urine Culture - Final NO GROWTH 2 DAYS 09/29/19 14:22 NT-Pro-B Natriuret Pep 2330 H Impressions: Chest/Abdomen CTA 09/27/19 16:11 IMPRESSION: 1. NORMAL CTA OF THE CHEST. NO PULMONARY EMBOLI. 2. LOW LUNG VOLUMES. PROBABLE BASILAR ATELECTASIS. CANNOT EXCLUDE EARLY PNEUMONIA. Abdomen/Pelvis CT 09/27/19 16:16 IMPRESSION: 1. Splenomegaly. Moderate ascites. 2. Ileus versus partial small bowel obstruction. Chest X-Ray 09/29/19 00:00 IMPRESSION: Bilateral lower lobe consolidation compatible with pneumonia. Small left effusion. KUB X-Ray 09/29/19 00:00 IMPRESSION: Nonspecific bowel gas pattern with moderate formed stool throughout the colon. Ill-defined soft tissue density overlies pelvis and right lower quadrant, likely combination of ascites and uterus. Pelvis Ultrasound 09/29/19 00:00 IMPRESSION: 1. Significant complex ascites within the pelvis, similar to prior CT. 2. Generalized thickening of the endometrial stripe measuring 1.9 cm, previously 1.1 cm. Differential includes hemorrhage, endometritis or retained products of conception. No focal thickening or hyperemia. Findings conveyed to Amanda Rivera at 1427 hours on 09/29/2019. Assessment and Plan - Diagnosis (1) Sepsis Qualifiers: Sepsis type: sepsis due to unspecified organism Sepsis acute organ dysfunction status: with acute organ dysfunction Severe sepsis acute organ dysfunction type: disseminated intravascular coagulopathy Severe sepsis shock status: without septic shock Qualified Code(s): A41.9 - Sepsis, unspecified organism; R65.20 - Severe sepsis without septic shock; D65 - Disseminated intravascular coagulation [defibrination syndrome] Is this a current diagnosis for this admission?: Yes Plan: Sepsis, without identified source, present on admission and evidenced by leuk ocytosis (WBCs 18.4), coagulopathy (PT 39.9, INR 3.99), mildly elevated liver enzymes (direct bili 0.7, AST 37, ALT 17, alk phos 239), low-grade temp (100.4), tachycardia (HR 132), tachypnea (RR 30), and hypoxia on room air (90%). Blood cultures are negative at 48 hours. Urine cultures negative at 2 days. Urinalysis negative x2 CXR on admission suggestive bibasilar atelectasis; has worsened since that time. However, she denied all respiratory symptoms on presentation and has minimal respiratory symptoms currently. I do not feel entirely confident that pneumonia is the primary source of her sepsis. Pelvic ultrasound showed a 19 mm endometrial strip. Per radiologist can be seen in endometritis versus retained products of conception. Discussed with Dr. Petersen who stated that this was a normal finding at this stage of the period. Peritoneal fluid culture pending HIV, RPR, hepatitis panel negative COVID-19 pending Influenza pending ESB, CMV pending Monospot negative No rashes or wounds on exam. No joint swelling/erythema identified. No nuchal rigidity. Patient was admitted to medical floor on continuous cardiac telemetry. She was empirically placed on IV vancomycin and Zosyn. WBC trending down and fever curve appears to be improving, therefore will not escalate antibiotics today. Consider Infectious Disease consultation. (2) Healthcare associated bacterial pneumonia Is this a current diagnosis for this admission?: Yes Plan: It is unclear if the pneumonia was present on admission but unable to be visualized due to dehydrated status. However, she was admitted to this facility 09/17/19 for delivery of a full-term . She did not receive antibiotics at that time. Therefore, I am concerned that the patient has developed a healthcare associated pneumonia given her recent admission. CXR on admission showed a left lower lobe opacity; likely atelectasis, although could not rule out early pneumonia. Chest CTA showed scattered parenchymal densities to the lower lobes; again atelectasis versus pneumonia. Chest x-ray today (09/29/2019) shows worsening bilateral opacities consistent with pneumonia. Blood cultures negative at 24 hours. Sputum cultures pending. Influenza and COVID-19 pending. Continue supplemental oxygen as needed maintain saturations greater than 89%. Continue antibiotics as above. Start scheduled and as needed nebulizer treatments. Mucinex twice daily. Incentive spirometer and flutter valve to bedside. Ambulate twice daily. (3) Ascites Qualifiers: Ascites type: other type Qualified Code(s): R18.8 - Other ascites Is this a current diagnosis for this admission?: Yes Plan: Unclear etiology at this time. Liver enzymes were mildly elevated on admission but have improved slightly. Abdominal CT is negative for clear evidence of liver disease. However, she is noted to have splenomegaly. Pelvic U/S shows complex, septated, ascites. No history of heart failure. However, proBNP is elevated to 2330. Echocardiogram pending. Albumin low at 1.8. Pre-albumin 6.2. Now s/p paracentesis; 900 ml removed. Initial fluid evaluation unremarkable. LDH, Protein, Albumin, Glucose, Cytology and Cultures pending. Although lower on the differential, CMV is known to cause ascites. PCR is pending. Hepatitis panel negative. We will start normal saline at 75ml/hr. We will provide albumin 25 g followed by IV furosemide with goal of mobilizing fluid. Continue IV furosemide daily for diuresis. Monitor fluid volume status and blood pressures closely. She does have mild hypokalemia; consider addition of spironolactone. Registered dietitian is consulted. Should the patient remain in prolonged n.p.o. status or on clears, may need to consider PPN or TPN as an alternate means of nutrition given her severe hypoalbuminemia. Daily weights. Strict I&O's. (4) Coagulopathy Is this a current diagnosis for this admission?: Yes Plan: Unclear etiology; DIC versus liver dysfunction. PT/INR improved following vitamin K and 4 units FFP. Hematology is consulted. We will continue to monitor daily PT/INR. (5) Hypokalemia Is this a current diagnosis for this admission?: Yes Plan: Secondary to n.p.o. status and IV fluids. She has been advanced to clears but with continued abdominal discomfort and GERD. We will provide K riders today. Follow-up chemistry. (6) Leukocytosis Qualifiers: Leukocytosis type: lymphocytosis Qualified Code(s): D72.820 - Lymphocytosis (symptomatic) Is this a current diagnosis for this admission?: Yes Plan: Secondary to #1 and 2. Cultures and antibiotics as above. Follow-up CBC. (7) Splenomegaly Is this a current diagnosis for this admission?: Yes Plan: Noted on CT. Monospot negative. ESB and CMV pending. Hematology consulted. Evaluation of ascites as above. (8) Constipation Qualifiers: Constipation type: unspecified constipation type Qualified Code(s): K59.00 - Constipation, unspecified Is this a current diagnosis for this admission?: Yes Plan: Slightly improved. Multifactorial secondary to chronic opiate use and recent vaginal delivery. Continue Colace twice daily. Dulcolax daily as needed. Consider additional enemas. Surgery has been consulted secondary to CT imaging suggesting ileus versus partial small bowel; does not have acute abdomen or require surgical intervention at this time. She has been advanced to clear liquid diets. (9) Abdominal pain Qualifiers: Abdominal location: generalized Qualified Code(s): R10.84 - Generalized abdominal pain Is this a current diagnosis for this admission?: Yes Plan: Likely multifactorial secondary to ascites of unclear source, splenomegaly, constipation, ileus/partial small bowel, and recent vaginal delivery. Analgesics as needed. Avoid NSAIDs secondary to elevated PT/INR. (10) Elevated brain natriuretic peptide (BNP) level Is this a current diagnosis for this admission?: Yes Plan: Patient denies history of CHF, CA, CAD, hypertension. proBNP elevated 2330. Echocardiogram pending. On exam found to have profound ascites and +2 peripheral edema. IV fluids and Lasix as above. (11) Hypoalbuminemia Is this a current diagnosis for this admission?: Yes Plan: Albumin 1.8. Pre-albumin 6.2. We will provide IV albumin today while diuresing. Registered dietitian is consulted. If patient remains in prolonged n.p.o./clear liquid status, may need to consider alternate means of nutrition such as TPN or PPN. (12) Nicotine dependence Qualifiers: Nicotine product type: other Substance use status: uncomplicated Qualified Code(s): F17.290 - Nicotine dependence, other tobacco product, uncomplicated Is this a current diagnosis for this admission?: Yes Plan: Patient reports that she utilizes low-dose nicotine, preloaded, vaping devices. Cessation encouraged. NicoDerm patches available. (13) Opiate dependence, continuous Is this a current diagnosis for this admission?: Yes Plan: Continue home dose Subutex. Morphine as needed for breakthrough pain. - Time Time Spent with patient: 35 or more minutes Medications reviewed and adjusted accordingly: Yes Anticipated discharge: Home
[2019-09-29] MEDS: NORMAL SALINE 1000 ML 1,000 ML IV PRN (18:06)
[2019-09-29] MEDS: ALBUMIN HUMAN 12.5 GM/50 ML RTUINJ IV SCH ×3 (18:09→22:55)
[2019-09-29] MEDS: POTASSI CL 20 MEQ/50 ML RIDER 20 MEQ/50 ML RTUPB IV SCH ×2 (18:18→21:47)
[2019-09-29] MEDS: ALBUTEROL SULFATE 0.083% NEB 2.5 MG/3 ML AMPUL NEB SCH (20:05)
[2019-09-29] MEDS: PANTOPRAZOLE SODIUM 40 MG VIAL IV SCH (21:48)
[2019-09-29] MEDS: GUAIFENESIN 600 MG TABLET.SA PO SCH (21:48)
[2019-09-29] MEDS ORDERED: ALBUMIN HUMAN 12.5 GM/50 ML RTUINJ IV SCH (22:00)
--- NOTE | 2019-09-29 22:05 | XCELERA REPORT ---
[address] [address] Transthoracic Echocardiogram Report Name: MELCHOR PARTIDA Age: 39 yrs Gender: Female : 1980 Patient Status: Inpatient Patient Location: [facility]^A Study Date: 09/29/2019 02:33 PM Height: 64 in Weight: 187 lb BSA: 1.9 m2 BP: 4/187 mmHg Reason For Study: dyspnea, edema, 2 weeks , hx IVDI Ordering Physician: JIN RIVERA Performed By: Jose Marr Interpretation Summary LEFT VENTRICLE: LV Systolic function: LVEF is felt to be at low normal limits. Best estimate is approximately LVEF is 50-55%. LV Diastolic Function: Grade II diastolic dysfunction noted. Wall motion : No definite regional wall motion abnormalities are noted. Left ventricular chamber size : is within normal limit. Left ventricular wall thickness : is increased indicative of Mild LVH. RIGHT VENTRICLE: RV systolic function : is felt to be within normal limit. Right Ventricle Size : iMildly dilated. LEFT ATRIUM size : is mildly dilated. RIGHT ATRIUM size : mildly dilated. INTER ATRIAL SEPTUM : No definite atrial septal defect noted however a small PFO could be missed. AORTIC ROOT : seems to be within normal limits. Ascending aorta is not well visualized. INFERIOR VENA CAVA: Normal size with reduced respiratory variation. VALVES: MITRAL VALVE : Leaflets are mildly thickened. Mobility seems to be within normal limits. Mitral Regurgitation : Mild mitral regurgitation is noted. Mitral Stenosis: No mitral stenosis noted. Mitral valve prolapse : none noted. AORTIC VALVE: seems to be trileaflet with mild thickening but adequate excursion. Aortic stenosis : No aortic stenosis noted. Aortic regurgitation : No aortic incompetence noted. TRICUSPID VALVE : mobility and structures within normal limit. Tricuspid stenosis : no tricuspid stenosis noted. Tricuspid regurgitation : mild tricuspid regurgitation noted. Estimated RVSP : Approximately 35 mmHg consistent with mild pulmonary hypertension. PULMONARY VALVE : was not well visualized but no significant abnormalities suspected. Pulmonary stenosis : no pulmonary stenosis noted. Pulmonary regurgitation : mild pulmonary regurgitation noted. MASSES AND THROMBUS : No definite intracardiac thrombus or masses are noted. PERICARDIUM: No pericardial effusion was noted. PLEURA: Probable small left pleural effusion. IMPRESSION : 1. Normal LVEF. 2. Mild LVH noted 3. Grade II [mild] Diastolic Dysfunction noted. 4. Mild mitral, mild tricuspid and mild pulmonary regurgitation noted.. 5. LA is mildly dilated. RA and RV are mildly dilated. 6. Mild pulmonary hypertension noted. 7. Probable small left pleural effusion. MMode/2D Measurements & Calculations RVDd: 3.7 cm LVIDd: 5.0 cm FS: 38.0 % Ao root diam: 3.1 cm IVSd: 0.88 cm LVIDs: 3.1 cm EDV(Teich): 118.2 ml Ao root area: 7.3 cm2 LVPWd: 0.88 cm ESV(Teich): 38.0 ml LA dimension: 4.1 cm EF(Teich): 67.9 % Doppler Measurements & Calculations Ao V2 max: LV V1 max PG: PA V2 max: PI end-d bolivar: 137.4 cm/sec 5.7 mmHg 107.6 cm/sec 119.4 cm/sec Ao max P.5 mmHg LV V1 max: PA max P.4 cm/sec 4.6 mmHg LV dP/dt: 909.0 mmHg/s TR max bolivar: 267.4 cm/sec TR max P.6 mmHg : JIN RIVERA Shyamal
[2019-09-30] MEDS: PIPERACILLIN SODIUM/TAZOBACTAM 3.375 GM in NORMAL SALINE 100 ML IV SCH ×5 (01:41→20:43)
[2019-09-30] MEDS: VANCOMYCIN HCL 1,000 MG in DEXTROSE 5%-WATER 250 ML IV SCH ×3 (01:43→16:09)
[2019-09-30] MEDS: CEFTRIAXONE 2 GM/D5W RTU 2 GM/50 ML RTUPB IV SCH ×2 (01:54→09:20)
[2019-09-30] MEDS: ALBUMIN HUMAN 12.5 GM/50 ML RTUINJ IV SCH ×3 (02:01→12:15)
[2019-09-30] MEDS: ALBUTEROL SULFATE 0.083% NEB 2.5 MG/3 ML AMPUL NEB SCH ×4 (02:05→20:03)
[2019-09-30] MEDS ORDERED: ACETAMINOPHEN 325 MG TABLET PO PRN ×2 (03:00→08:54)
[2019-09-30 06:23] LABS: HEMATOCRIT 28.7 % (36.0-47.0); HEMOGLOBIN 9.9 g/dL (12.0-15.5); MEAN CORPUSCULAR HEMOGLOBIN 28.8 pg (27.0-33.4); MEAN CORPUSCULAR HGB CONC 34.5 g/dL (32.0-36.0); MEAN CORPUSCULAR VOLUME 84 fl (80-97); PLATELET COUNT 426 10^3/uL (150-450); RED BLOOD COUNT 3.43 10^6/uL (3.72-5.28); RED CELL DISTRIBUTION WIDTH 15.1 % (11.5-14.0); WHITE BLOOD COUNT 9.1 10^3/uL (4.0-10.5)
[2019-09-30 06:27] LABS: INTERNATIONAL RATION (INR) 3.44; PROTHROMBIN TIME 35.5 SEC (11.4-15.4)
[2019-09-30 06:53] LABS: ABSOLUTE LYMPHOCYTES# (MANUAL) 0.9 10^3/uL (0.5-4.7); ABSOLUTE MONOCYTES # (MANUAL) 0.9 10^3/uL (0.1-1.4); ANISOCYTOSIS SLIGHT; BAND NEUTROPHILS % (MANUAL) 3 % (3-5); BASOPHILS % (MANUAL) 0 % (0-2); EOSINOPHILS % (MANUAL) 0 % (0-6); LYMPHOCYTES % (MANUAL) 10 % (13-45); MONOCYTES % (MANUAL) 10 % (3-13); PLATELET COMMENT ADEQUATE; SEGMENTED NEUTROPHILS % (MAN) 77 % (42-78); TOTAL CELLS COUNTED 100; TOXIC GRANULATION SLIGHT
[2019-09-30 06:54] LABS: ALBUMIN 2.2 g/dL (3.5-5.0); ALKALINE PHOSPHATASE 119 U/L (38-126); ANION GAP 5 (5-19); ASPARTATE AMINO TRANSFERASE 35 U/L (14-36); BILIRUBIN,DIRECT 0.3 mg/dL (0.0-0.4); BILIRUBIN,TOTAL 0.8 mg/dL (0.2-1.3); BLOOD UREA NITROGEN 16 mg/dL (7-20); CALCIUM 7.3 mg/dL (8.4-10.2); CARBON DIOXIDE 30 mmol/L (22-30); CHLORIDE 100 mmol/L (98-107); GLUCOSE 111 mg/dL (75-110); PHOSPHORUS 4.1 mg/dL (2.5-4.5); POTASSIUM 3.5 mmol/L (3.6-5.0); TOTAL PROTEIN 5.1 g/dL (6.3-8.2)
[2019-09-30] MEDS: DOCUSATE SODIUM 100 MG CAPSULE PO SCH ×2 (09:11→17:25)
[2019-09-30] MEDS: GUAIFENESIN 600 MG TABLET.SA PO SCH ×2 (09:11→21:57)
[2019-09-30] MEDS: PANTOPRAZOLE SODIUM 40 MG VIAL IV SCH ×2 (09:11→21:57)
[2019-09-30] MEDS: LIDOCAINE 5% (700 MG) TRANSDERMAL ADH..PATCH TP SCH (09:20)
[2019-09-30] MEDS: BUPRENORPHINE HCL 2 MG SUBLINGUAL TABLET SL SCH (09:22)
[2019-09-30] MEDS: NORMAL SALINE 1000 ML 1,000 ML IV PRN (09:23)
[2019-09-30] MEDS ORDERED: LACTULOSE SYRUP 20 GM/30 ML UDCUP PO ONE (09:30)
[2019-09-30] MEDS: MORPHINE SULFATE 10 MG/ML INJ IV PRN ×3 (09:34→22:40)
[2019-09-30] MEDS ORDERED: FUROSEMIDE INJ/PF 20 MG/2 ML SDV IV SCH (10:00)
--- NOTE | 2019-09-30 10:23 | PDOC PROGRESS REPORT ---
Subjective Progress Note for:: 09/30/19 Reason For Visit: SEPSIS Physical Exam - Physical Exam Vital Signs: Temp Pulse Resp BP Pulse Ox 98.9 F 79 20 128/69 H 92 09/30/19 03:29 09/30/19 07:00 09/30/19 02:08 09/29/19 23:33 09/30/19 04:52 Intake & Output 09/29/19 09/30/19 10/01/19 06:59 06:59 06:59 Intake Total 3259 3100 1014 Output Total 510 2075 Balance 2749 1025 1014 Weight 85.1 kg 85.2 kg General appearance: PRESENT: no acute distress Result Laboratory Results: 09/30/19 05:21 09/30/19 05:21 09/29/19 09/29/19 09/30/19 14:22 15:25 05:21 WBC 9.1 RBC 3.43 L Hgb 9.9 L Hct 28.7 L MCV 84 MCH 28.8 MCHC 34.5 RDW 15.1 H Plt Count 426 Seg Neutrophils % Not Reportable Sodium Potassium Chloride Carbon Dioxide Anion Gap BUN Creatinine Est GFR ( Amer) Glucose Calcium Phosphorus Magnesium Total Bilirubin AST Alkaline Phosphatase Total Protein Albumin Prealbumin 6.2 L TSH Urine Color KENNY Urine Appearance TURBID Urine pH 5.0 Ur Specific [place] 1.032 Urine Protein 30 H Urine Glucose (UA) NEGATIVE Urine Ketones NEGATIVE Urine Blood LARGE H Urine RBC (Auto) >182 09/30/19 09/30/19 05:21 05:21 WBC RBC Hgb Hct MCV MCH MCHC RDW Plt Count Seg Neutrophils % Sodium 134.8 L Potassium 3.5 L Chloride 100 Carbon Dioxide 30 Anion Gap 5 BUN 16 Creatinine 0.70 Est GFR ( Amer) > 60 Glucose 111 H Calcium 7.3 L Phosphorus 4.1 Magnesium 1.8 Total Bilirubin 0.8 AST 35 Alkaline Phosphatase 119 Total Protein 5.1 L Albumin 2.2 L Prealbumin TSH 3.64 Urine Color Urine Appearance Urine pH Ur Specific [place] Urine Protein Urine Glucose (UA) Urine Ketones Urine Blood Urine RBC (Auto) 09/27/19 15:52 Catheterized Urine Urine Culture - Final NO GROWTH 2 DAYS 09/29/19 14:22 NT-Pro-B Natriuret Pep 2330 H Impressions: Chest/Abdomen CTA 09/27/19 16:11 IMPRESSION: 1. NORMAL CTA OF THE CHEST. NO PULMONARY EMBOLI. 2. LOW LUNG VOLUMES. PROBABLE BASILAR ATELECTASIS. CANNOT EXCLUDE EARLY PNEUMONIA. Abdomen/Pelvis CT 09/27/19 16:16 IMPRESSION: 1. Splenomegaly. Moderate ascites. 2. Ileus versus partial small bowel obstruction. Chest X-Ray 09/29/19 00:00 IMPRESSION: Bilateral lower lobe consolidation compatible with pneumonia. Small left effusion. KUB X-Ray 09/29/19 00:00 IMPRESSION: Nonspecific bowel gas pattern with moderate formed stool throughout the colon. Ill-defined soft tissue density overlies pelvis and right lower quadrant, likely combination of ascites and uterus. Pelvis Ultrasound 09/29/19 00:00 IMPRESSION: 1. Significant complex ascites within the pelvis, similar to prior CT. 2. Generalized thickening of the endometrial stripe measuring 1.9 cm, previously 1.1 cm. Differential includes hemorrhage, endometritis or retained products of conception. No focal thickening or hyperemia. Findings conveyed to Amanda Griffin at 1427 hours on 09/29/2019. Assessment & Plan - Diagnosis (1) Abdominal pain Qualifiers: Abdominal location: generalized Qualified Code(s): R10.84 - Generalized abdominal pain Is this a current diagnosis for this admission?: Yes (2) Ascites Qualifiers: Ascites type: other type Qualified Code(s): R18.8 - Other ascites Is this a current diagnosis for this admission?: Yes (3) Coagulation defect during period Is this a current diagnosis for this admission?: Yes (4) Coagulopathy Is this a current diagnosis for this admission?: Yes (5) Healthcare associated bacterial pneumonia Is this a current diagnosis for this admission?: Yes (6) Hypoalbuminemia Is this a current diagnosis for this admission?: Yes - Time Time Spent with patient: Less than 15 minutes Level of Care: MEDICAL Medications reviewed and adjusted accordingly: No Anticipated discharge: Other - Plan Summary Plan Summary: I have reviewed patients US and CT exams and with consultation with Drs. Acosta and Rohan, we are confident there is no retained products of conception and thickened endometrial stripe is normal and consistent with recent delivery. We also do not feel that there is any ovarian pathology to account for her present illness. We feel her care would best be served by transferring her to medicine service.
--- NOTE | 2019-09-30 10:55 | PDOC PROGRESS REPORT ---
Subjective Progress Note for:: 09/30/19 Subjective:: Patient notes that she was healthy until her period when she developed severe generalized weakness with shortness of breath and abdominal distention. Although she has some abdominal discomfort she does not have excruciating abdominal pain. Her predominant complaint appears to be generalized weakness to the point where she has been unable to ambulate. She has no history of liver disease in the past. No significant alcohol abuse history in the past. No blood transfusions in the past other than her recent FFP transfusions during this admission. She has no cardiac history in the past. No significant past family history. Reason For Visit: SEPSIS Physical Exam Vital Signs: Temp Pulse Resp BP Pulse Ox 98.9 F 79 20 128/69 H 92 09/30/19 03:29 09/30/19 07:00 09/30/19 02:08 09/29/19 23:33 09/30/19 04:52 Intake & Output 09/29/19 09/30/19 10/01/19 06:59 06:59 06:59 Intake Total 3259 3100 1014 Output Total 510 2075 Balance 2749 1025 1014 Weight 85.1 kg 85.2 kg General appearance: PRESENT: cooperative Eye exam: PRESENT: conjunctiva pink Respiratory exam: PRESENT: clear to auscultation [place] Cardiovascular exam: PRESENT: gallop, RRR GI/Abdominal exam: PRESENT: other - Distended but soft with a mild diffuse abdominal tenderness without peritoneal signs. Neurological exam: PRESENT: alert, awake Results Laboratory Results: 09/30/19 05:21 09/30/19 05:21 09/29/19 09/29/19 09/30/19 14:22 15:25 05:21 WBC 9.1 RBC 3.43 L Hgb 9.9 L Hct 28.7 L MCV 84 MCH 28.8 MCHC 34.5 RDW 15.1 H Plt Count 426 Seg Neutrophils % Not Reportable Sodium Potassium Chloride Carbon Dioxide Anion Gap BUN Creatinine Est GFR ( Amer) Glucose Calcium Phosphorus Magnesium Total Bilirubin AST Alkaline Phosphatase Total Protein Albumin Prealbumin 6.2 L TSH Urine Color KENNY Urine Appearance TURBID Urine pH 5.0 Ur Specific [place] 1.032 Urine Protein 30 H Urine Glucose (UA) NEGATIVE Urine Ketones NEGATIVE Urine Blood LARGE H Urine RBC (Auto) >182 09/30/19 09/30/19 05:21 05:21 WBC RBC Hgb Hct MCV MCH MCHC RDW Plt Count Seg Neutrophils % Sodium 134.8 L Potassium 3.5 L Chloride 100 Carbon Dioxide 30 Anion Gap 5 BUN 16 Creatinine 0.70 Est GFR ( Amer) > 60 Glucose 111 H Calcium 7.3 L Phosphorus 4.1 Magnesium 1.8 Total Bilirubin 0.8 AST 35 Alkaline Phosphatase 119 Total Protein 5.1 L Albumin 2.2 L Prealbumin TSH 3.64 Urine Color Urine Appearance Urine pH Ur Specific [place] Urine Protein Urine Glucose (UA) Urine Ketones Urine Blood Urine RBC (Auto) 09/27/19 15:52 Catheterized Urine Urine Culture - Final NO GROWTH 2 DAYS 09/29/19 14:22 NT-Pro-B Natriuret Pep 2330 H Impressions: Chest/Abdomen CTA 09/27/19 16:11 IMPRESSION: 1. NORMAL CTA OF THE CHEST. NO PULMONARY EMBOLI. 2. LOW LUNG VOLUMES. PROBABLE BASILAR ATELECTASIS. CANNOT EXCLUDE EARLY PNEUMONIA. Abdomen/Pelvis CT 09/27/19 16:16 IMPRESSION: 1. Splenomegaly. Moderate ascites. 2. Ileus versus partial small bowel obstruction. Chest X-Ray 09/29/19 00:00 IMPRESSION: Bilateral lower lobe consolidation compatible with pneumonia. Small left effusion. KUB X-Ray 09/29/19 00:00 IMPRESSION: Nonspecific bowel gas pattern with moderate formed stool throughout the colon. Ill-defined soft tissue density overlies pelvis and right lower quadrant, likely combination of ascites and uterus. Pelvis Ultrasound 09/29/19 00:00 IMPRESSION: 1. Significant complex ascites within the pelvis, similar to prior CT. 2. Generalized thickening of the endometrial stripe measuring 1.9 cm, previously 1.1 cm. Differential includes hemorrhage, endometritis or retained products of conception. No focal thickening or hyperemia. Findings conveyed to Amanda Griffin at 1427 hours on 09/29/2019. Assessment & Plan - Diagnosis (1) Ascites Qualifiers: Ascites type: other type Qualified Code(s): R18.8 - Other ascites Is this a current diagnosis for this admission?: Yes Plan: Ascites of unclear etiology. I believe that right heart failure secondary to cardiomyopathy is high on the differential. Highly recommend cardiology evaluation. Agree with further studies to rule out Budd-Chiari. I do not think she has abdominal sepsis.
[2019-09-30] MEDS: METOCLOPRAMIDE HCL INJ/PF 10 MG/2 ML SDV IV SCH ×2 (11:41→17:25)
[2019-09-30] MEDS: POLYETHYLENE GLYCOL 3350 POWDER 17 GM/1 PACKET PO SCH (11:41)
[2019-09-30] MEDS ORDERED: POTASSI CL 20 MEQ/50 ML RIDER 20 MEQ/50 ML RTUPB IV ONE (12:15)
[2019-09-30] MEDS ORDERED: FUROSEMIDE 20 MG TABLET PO SCH (12:15)
--- NOTE | 2019-09-30 12:15 | PDOC PROGRESS REPORT ---
Subjective Progress Note for:: 09/30/19 Subjective:: MELCHOR PARTIDA is a 39 year old female who is 12 days full-term vaginal delivery without complications with a past medical history of opiate dependent chronic pain, history of IV drug use (patient admits to 3 occurrences of IVDU greater than a year ago), on Subutex, and GERD who was admitted by the [facility] service on 09/27/2019 after patient presented to the emergency department for the second time with complaint of intractable abdominal, bilateral flank, and back pain. Hospitalist service was consulted to assist with further evaluation of complex /septated ascites in patient with sepsis and unclear source of infection. Patient was seen on morning rounds. She continues on supplemental oxygen at 2.5 L/min due to tachypnea, shortness of breath, desaturation events. Again had fever overnight; 101.9. At the time of my visit, patient is noted to be in mild distress, with exquisite abdominal discomfort. Patient is found to be writhing in pain, gasping, and gripping the bed rails due to abdominal discomfort, primarily to the bilateral upper quadrants, described as pressure/spasms. "Feel like there is no room left, my belly is so full and tight." She reports mild nausea, without emesis, and anorexia. Last bowel movement >48 hours ago and occurred immediately following enemas. She is uncertain, but does not feel that she has passed a gas. She endorses chest wall discomfort and abdominal discomfort with movement, inspiration, and cough. Otherwise, she denies cardiac typical symptoms, palpitations, orthopnea, and cough. Patient is understandably frustrated and frightened by her continued symptoms. Patient plan of care discussed in detail with nursing. Reason For Visit: SEPSIS Physical Exam Vital Signs: Temp Pulse Resp BP Pulse Ox 98.9 F 79 20 128/69 H 92 09/30/19 03:29 09/30/19 07:00 09/30/19 02:08 09/29/19 23:33 09/30/19 04:52 Intake & Output 09/29/19 09/30/19 10/01/19 06:59 06:59 06:59 Intake Total 3259 3100 1014 Output Total 510 2075 Balance 2749 1025 1014 Weight 85.1 kg 85.2 kg General appearance: PRESENT: cooperative, mild distress, well-developed, well- nourished, other - Acutely ill appearing Head exam: PRESENT: atraumatic, normocephalic Eye exam: PRESENT: conjunctiva pink, EOMI, PERRLA. ABSENT: scleral icterus Ear exam: PRESENT: normal external ear exam Mouth exam: PRESENT: moist, tongue midline Teeth exam: PRESENT: poor dentation Neck exam: ABSENT: carotid bruit, JVD, lymphadenopathy, thyromegaly Respiratory exam: PRESENT: clear to auscultation [place], decreased breath sounds - poor inspiratory effort r/t chest wall and abdominal pain, symmetrical, unl abored, other - supplemental O2 via NC. ABSENT: rales, rhonchi, wheezes Cardiovascular exam: PRESENT: RRR, +S1, +S2. ABSENT: diastolic murmur, rubs, systolic murmur Pulses: PRESENT: normal dorsalis pedis pul Vascular exam: PRESENT: normal capillary refill GI/Abdominal exam: PRESENT: ascites, distended, firm, guarding, hypoactive bowel sounds, tenderness - throughout; worsened to RUQ/LUQ. ABSENT: rebound Rectal exam: PRESENT: deferred Extremities exam: PRESENT: full ROM, +2 edema - pitting edema BLE. ABSENT: calf tenderness, clubbing, pedal edema Neurological exam: PRESENT: alert, awake, oriented to person, oriented to place, oriented to time, oriented to situation, CN II-XII grossly intact. ABSENT: motor sensory deficit Psychiatric exam: PRESENT: anxious, appropriate affect - appropriately frustrated, normal mood. ABSENT: homicidal ideation, suicidal ideation Skin exam: PRESENT: dry, intact, warm. ABSENT: cyanosis, rash Results Laboratory Results: 09/30/19 05:21 09/30/19 05:21 09/29/19 09/29/19 09/30/19 14:22 15:25 05:21 WBC 9.1 RBC 3.43 L Hgb 9.9 L Hct 28.7 L MCV 84 MCH 28.8 MCHC 34.5 RDW 15.1 H Plt Count 426 Seg Neutrophils % Not Reportable Sodium Potassium Chloride Carbon Dioxide Anion Gap BUN Creatinine Est GFR ( Amer) Glucose Calcium Phosphorus Magnesium Total Bilirubin AST Alkaline Phosphatase Total Protein Albumin Prealbumin 6.2 L TSH Urine Color KENNY Urine Appearance TURBID Urine pH 5.0 Ur Specific [place] 1.032 Urine Protein 30 H Urine Glucose (UA) NEGATIVE Urine Ketones NEGATIVE Urine Blood LARGE H Urine RBC (Auto) >182 09/30/19 09/30/19 05:21 05:21 WBC RBC Hgb Hct MCV MCH MCHC RDW Plt Count Seg Neutrophils % Sodium 134.8 L Potassium 3.5 L Chloride 100 Carbon Dioxide 30 Anion Gap 5 BUN 16 Creatinine 0.70 Est GFR ( Amer) > 60 Glucose 111 H Calcium 7.3 L Phosphorus 4.1 Magnesium 1.8 Total Bilirubin 0.8 AST 35 Alkaline Phosphatase 119 Total Protein 5.1 L Albumin 2.2 L Prealbumin TSH 3.64 Urine Color Urine Appearance Urine pH Ur Specific [place] Urine Protein Urine Glucose (UA) Urine Ketones Urine Blood Urine RBC (Auto) 09/27/19 15:52 Catheterized Urine Urine Culture - Final NO GROWTH 2 DAYS 09/29/19 14:22 NT-Pro-B Natriuret Pep 2330 H Impressions: Chest/Abdomen CTA 09/27/19 16:11 IMPRESSION: 1. NORMAL CTA OF THE CHEST. NO PULMONARY EMBOLI. 2. LOW LUNG VOLUMES. PROBABLE BASILAR ATELECTASIS. CANNOT EXCLUDE EARLY PNEUMONIA. Abdomen/Pelvis CT 09/27/19 16:16 IMPRESSION: 1. Splenomegaly. Moderate ascites. 2. Ileus versus partial small bowel obstruction. Chest X-Ray 09/29/19 00:00 IMPRESSION: Bilateral lower lobe consolidation compatible with pneumonia. Small left effusion. KUB X-Ray 09/29/19 00:00 IMPRESSION: Nonspecific bowel gas pattern with moderate formed stool throughout the colon. Ill-defined soft tissue density overlies pelvis and right lower quadrant, likely combination of ascites and uterus. Pelvis Ultrasound 09/29/19 00:00 IMPRESSION: 1. Significant complex ascites within the pelvis, similar to prior CT. 2. Generalized thickening of the endometrial stripe measuring 1.9 cm, previously 1.1 cm. Differential includes hemorrhage, endometritis or retained products of conception. No focal thickening or hyperemia. Findings conveyed to Amanda Griffin at 1427 hours on 09/29/2019. Assessment and Plan - Diagnosis (1) Sepsis Qualifiers: Sepsis type: sepsis due to unspecified organism Sepsis acute organ dysfunction status: with acute organ dysfunction Severe sepsis acute organ dysfunction type: disseminated intravascular coagulopathy Severe sepsis shock status: without septic shock Qualified Code(s): A41.9 - Sepsis, unspecified organism; R65.20 - Severe sepsis without septic shock; D65 - Disseminated intravascular coagulation [defibrination syndrome] Is this a current diagnosis for this admission?: Yes Plan: Sepsis, without identified source, present on admission and evidenced by leukocytosis (WBCs 18.4), coagulopathy (PT 39.9, INR 3.99), mildly elevated liver enzymes (direct bili 0.7, AST 37, ALT 17, alk phos 239), low-grade temp (100.4), tachycardia (HR 132), tachypnea (RR 30), and hypoxia on room air (90%). DDx: peritonitis, endometriosis, endocarditis (IVDU, poor dentation), healthcare associated pneumonia, CMV, Budd Chiari, ?? Blood cultures are negative at 48 hours. Urine cultures negative at 2 days. Urinalysis negative x2 CXR on admission suggestive bibasilar atelectasis; has worsened since that time. However, she denied all respiratory symptoms on presentation and has minimal respiratory symptoms currently. I do not feel entirely confident that pneumonia is the primary source of her sepsis. Pelvic ultrasound showed a 19 mm endometrial strip. Per radiologist can be seen in endometritis versus retained products of conception. Discussed with Dr. Acosta and Dr. Lr who stated that this was a normal finding at this stage of the period. Peritoneal fluid culture pending HIV, RPR, hepatitis panel negative COVID-19 negative Influenza pending ESB, CMV pending Monospot negative No rashes or wounds on exam. No joint swelling/erythema identified. No nuchal rigidity. Patient was admitted to medical floor on continuous cardiac telemetry. She was empirically placed on IV vancomycin and Zosyn at time of admission; Day #4 IV Rocephin added for peritonitis Infectious Disease consultation requested (2) Healthcare associated bacterial pneumonia Is this a current diagnosis for this admission?: Yes Plan: It is unclear if pneumonia was present on admission. She was admitted to this facility 09/17/19 for delivery of a full-term infant. She did not receive anti biotics at that time. There is possibility she subsequently developed a healthcare associated pneumonia given her recent admission; although I continue to have low suspicion at this time. Imaging findings are much more likely to be atelectasis. CXR on admission showed a left lower lobe opacity; likely atelectasis, although could not rule out early pneumonia. Chest CTA showed scattered parenchymal densities to the lower lobes; again atelectasis versus pneumonia. Chest x-ray (09/29/2019) shows worsening bilateral opacities consistent with pneumonia. Blood cultures negative at 48 hours. Sputum cultures pending. COVID19 negative Influenza pending. Continue supplemental oxygen as needed maintain saturations greater than 89%. Continue antibiotics as above. Continue scheduled and as needed nebulizer treatments. Mucinex twice daily. Incentive spirometer and flutter valve to bedside. Ambulate twice daily. (3) Ascites Qualifiers: Ascites type: other type Qualified Code(s): R18.8 - Other ascites Is this a current diagnosis for this admission?: Yes Plan: Unclear etiology at this time. Liver enzymes were mildly elevated on admission but have improved slightly. Abdominal CT is negative for clear evidence of liver disease. However, she is noted to have splenomegaly. Pelvic U/S shows complex, septated, ascites. No history of heart failure. However, proBNP is elevated to 2330. Echocardiogram shows mildly elevated RA, RV and mild pulmonary HTN. Albumin low at 1.8. Pre-albumin 6.2. Now s/p paracentesis; 900 ml removed. Initial fluid evaluation unremarkable. LDH, Protein, Albumin, Glucose, and Cultures pending. Cytology negative for malignancy. Although lower on the differential, CMV is known to cause ascites. PCR is pendi ng. [place] negative, EBV pending. Hepatitis panel negative. DDx: Infectious process, Budd Chiari, Rt side Heart failure Discussed with radiology today; will obtain liver ultrasound with Doppler to rul e out Budd Chiari syndrome and assess for large pockets of ascites amenable to drainage. Continue NS at 25 ml/hr. Repeat albumin and furosemide to mobilize fluid. Monitor fluid volume status and blood pressures closely. She does have mild hypokalemia; will add spironolactone. Registered dietitian is consulted. Should the patient remain in prolonged n.p.o. status or on clears, may need to consider PPN or TPN as an alternate means of nutrition given her severe hypoalbuminemia. Cardiology consultation for further cardiac evaluation. Daily weights. Strict I&O's. (4) Coagulopathy Is this a current diagnosis for this admission?: Yes Plan: Unclear etiology; DIC versus liver dysfunction. INR 4.77-> 3.26-> 2.16 (following vitamin K and 4 units FFP)-> 3.44 Hematology is consulted. We will continue to monitor daily PT/INR. (5) Hypokalemia Is this a current diagnosis for this admission?: Yes Plan: Secondary to n.p.o. status and IV fluids. She has been advanced to clears but with continued abdominal discomfort and GERD. Additional K riders today. Start spironolactone Follow-up chemistry. (6) Leukocytosis Qualifiers: Leukocytosis type: lymphocytosis Qualified Code(s): D72.820 - Lymphocytosis (symptomatic) Is this a current diagnosis for this admission?: Yes Plan: Secondary to #1 and 2. Cultures and antibiotics as above. Follow-up CBC. (7) Splenomegaly Is this a current diagnosis for this admission?: Yes Plan: Noted on CT. Monospot negative. ESB and CMV pending. Hematology consulted. Evaluation of ascites as above. (8) Constipation Qualifiers: Constipation type: unspecified constipation type Qualified Code(s): K59.00 - Constipation, unspecified Is this a current diagnosis for this admission?: Yes Plan: Slightly improved. Multifactorial secondary to chronic opiate use and recent vaginal delivery. Continue Colace twice daily, Dulcolax daily, MiraLAX daily, Fleet daily, and IV Reglan x4 doses. Nursing is advised to notify provider once patient has had multiple large volume BMs and/or loose stools to de-escalate bowel regiment. Surgery has been consulted secondary to CT imaging suggesting ileus versus partial small bowel; does not have acute abdomen or require surgical intervention at this time. She has been advanced to clear liquid diets. (9) Abdominal pain Qualifiers: Abdominal location: generalized Qualified Code(s): R10.84 - Generalized abdominal pain Is this a current diagnosis for this admission?: Yes Plan: Likely multifactorial secondary to ascites of unclear source, splenomegaly, constipation, ileus/partial small bowel, and recent vaginal delivery. Analgesics as needed. Avoid NSAIDs secondary to elevated PT/INR. (10) Elevated brain natriuretic peptide (BNP) level Is this a current diagnosis for this admission?: Yes Plan: Patient denies history of CHF, MA, CAD, hypertension. proBNP elevated 2330. Echocardiogram shows mildly elevated RA, RV and mild pulmonary HTN. On exam found to have profound ascites and +2 peripheral edema. IV fluids, Lasix, and spironolactone as above. Requested cardiology consultation today. Appreciate Dr. Martines's assistance. (11) Hypoalbuminemia Is this a current diagnosis for this admission?: Yes Plan: Albumin 1.8. Pre-albumin 6.2. Additional IV albumin today. Registered dietitian is consulted. If patient remains in prolonged n.p.o./clear liquid status, may need to consider alternate means of nutrition such as TPN or PPN. (12) Nicotine dependence Qualifiers: Nicotine product type: other Substance use status: uncomplicated Qualified Code(s): F17.290 - Nicotine dependence, other tobacco product, uncomplicated Is this a current diagnosis for this admission?: Yes Plan: Patient reports that she utilizes low-dose nicotine, preloaded, vaping devices. Cessation encouraged. NicoDerm patches available. (13) Opiate dependence, continuous Is this a current diagnosis for this admission?: Yes Plan: Continue home dose Subutex. Morphine as needed for breakthrough pain. (14) Stress Is this a current diagnosis for this admission?: Yes Plan: Patient with labile emotions today; clearly anxious and agitated. Understandably frustrated with her hospital admission, unclear diagnoses, and continued malaise/fevers. Notably in the immediate period and isolated from her . We will need to observe closely for worsening signs of anxiety or depression ( depression). Consider mental health consultation. - Time Time Spent with patient: 35 or more minutes Medications reviewed and adjusted accordingly: Yes
[2019-09-30 12:52] LABS: A TYPE INFLUENZA AG NEGATIVE (NEGATIVE); B INFLUENZA AG NEGATIVE (NEGATIVE)
[2019-09-30] MEDS: MINERAL OIL ENEMA 133 ML PR SCH (13:00)
--- NOTE | 2019-09-30 13:40 | PDOC CONSULTATION ---
Consultation Consult Date: 09/30/19 Provider Consulted: KAITLIN MCKEON Consult reason:: Suspected cardiomyopathy History of Present Illness Admission Date/PCP: 09/27/19 18:35 ESTER MARRERO PA-C Patient complains of: Abdominal pain History of Present Illness: MELCHOR PARTIDA is a 39 year old female 39-year-old lady who is after her fourth . Patient presented with abdominal pain which was rather pronounced and with abdominal distention. No prior cardiac illnesses are mentioned. It is documented in the chart that the patient has used intravenous drugs in the past. In my questioning she denied tobacco alcohol and drug use. Presently she is unemployed. Used to work for [email or web address]. No familial illnesses reported. Past Medical History Cardiac Medical History: Denies: Congestive Heart Failure, Myocardial Infarction, Hyperlipidema, Hypertension Pulmonary Medical History: Reports: Pneumonia Denies: Asthma EENT Medical History: Reports: None Neurological Medical History: Denies: Ischemic CVA, Seizures Endocrine Medical History: Reports: None Renal/ Medical History: Reports: None Malignancy Medical History: Reports: None GI Medical History: Reports: Gastroesophageal Reflux Disease Denies: Hepatitis, Hiatal Hernia Musculoskeltal Medical History: Reports: Arthritis Psychiatric Medical History: Reports: Depression, Substance Abuse Hematology: Denies: Anemia, Sickle Cell Disease Past Surgical History Past Surgical History: Reports: Other - bilateral ankles, multiple oral Denies: Amputation, Mastectomy, Pacemaker Social History Lives with: Family Smoking Status: Former Smoker Electronic Cigarette use?: Yes Frequency of Alcohol Use: Rare Hx Recreational Drug Use: Yes Drugs: Marijuana Hx Prescription Drug Abuse: Yes - Now on Subtex - Advance Directive Resuscitation Status: Full Code Family History Family History: Reviewed & Not Pertinent, DM, Malignancy - Maternal grandmother w/ Ovarian CA Parental Family History Reviewed: Yes - No familial illnesses reported Children Family History Reviewed: NA Sibling(s) Family History Reviewed.: NA Medication/Allergy Home Medications: Fluticasone Propionate [Flonase Nasal [place] 50 Mcg/[place] 16 gm] 1 spray NASL QHS #1 spray.pump 09/19/19 Doxycycline Monohydrate 100 mg PO BID #20 capsule 09/21/19 Acetaminophen [Tylenol] 325 mg PO DAILYP PRN 09/27/19 Buprenorphine HCl 12 mg SL DAILY 09/27/19 Esomeprazole Magnesium 40 mg PO DAILY 09/27/19 Allergies/Adverse Reactions: promethazine HCl [From Phenergan] Adverse Reaction (Unknown, Verified 09/21/19 13:39) Review of Systems Constitutional: PRESENT: as per HPI Eyes: PRESENT: as per HPI Ears: PRESENT: as per HPI Nose, Mouth, and Throat: PRESENT: as per HPI Cardiovascular: PRESENT: as per HPI Physical Exam Vital Signs: Temp Pulse Resp BP Pulse Ox 98.9 F 79 20 128/69 H 92 09/30/19 03:29 09/30/19 07:00 09/30/19 02:08 09/29/19 23:33 09/30/19 04:52 Intake & Output 09/29/19 09/30/19 10/01/19 06:59 06:59 06:59 Intake Total 3259 3100 1043 Output Total 510 2075 Balance 2749 1025 1043 Weight 85.1 kg 85.2 kg General appearance: PRESENT: mild distress, well-developed, well-nourished Head exam: PRESENT: atraumatic, normocephalic Eye exam: PRESENT: conjunctiva pale, EOMI Mouth exam: PRESENT: dry mucosa Neck exam: PRESENT: other - JVD is not elevated Respiratory exam: PRESENT: decreased breath sounds, rales - Present at bilateral lung bases, symmetrical, unlabored Cardiovascular exam: PRESENT: RRR, +S1, +S2 Pulses: PRESENT: normal radial pulses GI/Abdominal exam: PRESENT: ascites, tenderness Rectal exam: PRESENT: deferred Neurological exam: PRESENT: alert, awake, oriented to person, oriented to place, oriented to time, oriented to situation Psychiatric exam: PRESENT: anxious Skin exam: PRESENT: dry, intact, pallor Results Laboratory Results: 09/30/19 05:21 09/30/19 05:21 09/29/19 09/29/19 09/30/19 14:22 15:25 05:21 WBC 9.1 RBC 3.43 L Hgb 9.9 L Hct 28.7 L MCV 84 MCH 28.8 MCHC 34.5 RDW 15.1 H Plt Count 426 Seg Neutrophils % Not Reportable Sodium Potassium Chloride Carbon Dioxide Anion Gap BUN Creatinine Est GFR ( Amer) Glucose Calcium Phosphorus Magnesium Total Bilirubin AST Alkaline Phosphatase Total Protein Albumin Prealbumin 6.2 L TSH Urine Color KENNY Urine Appearance TURBID Urine pH 5.0 Ur Specific [place] 1.032 Urine Protein 30 H Urine Glucose (UA) NEGATIVE Urine Ketones NEGATIVE Urine Blood LARGE H Urine RBC (Auto) >182 09/30/19 09/30/19 05:21 05:21 WBC RBC Hgb Hct MCV MCH MCHC RDW Plt Count Seg Neutrophils % Sodium 134.8 L Potassium 3.5 L Chloride 100 Carbon Dioxide 30 Anion Gap 5 BUN 16 Creatinine 0.70 Est GFR ( Amer) > 60 Glucose 111 H Calcium 7.3 L Phosphorus 4.1 Magnesium 1.8 Total Bilirubin 0.8 AST 35 Alkaline Phosphatase 119 Total Protein 5.1 L Albumin 2.2 L Prealbumin TSH 3.64 Urine Color Urine Appearance Urine pH Ur Specific [place] Urine Protein Urine Glucose (UA) Urine Ketones Urine Blood Urine RBC (Auto) 09/27/19 15:52 Catheterized Urine Urine Culture - Final NO GROWTH 2 DAYS 09/29/19 14:22 NT-Pro-B Natriuret Pep 2330 H EKG Comments: Transthoracic echocardiogram on 09/29/2019 Images were reviewed by me independently. Left ventricular systolic function is normal with ejection fraction estimated at 55 to 60%. No significant wall motion abnormalities noted Right ventricle is normal in size and function No significant chamber dilatation is noted No significant valve lesion is noted. Physiologic regurgitation of the heart valves is noted. PA pressure is likely within normal limits. TR jet not well-defined There is no pericardial effusion Twelve-lead EKG 09/27/2019. Independently reviewed by me. Sinus tachycardia 114 bpm, QTC 397 ms Impressions: Chest/Abdomen CTA 09/27/19 16:11 IMPRESSION: 1. NORMAL CTA OF THE CHEST. NO PULMONARY EMBOLI. 2. LOW LUNG VOLUMES. PROBABLE BASILAR ATELECTASIS. CANNOT EXCLUDE EARLY PNEUMONIA. Abdomen/Pelvis CT 09/27/19 16:16 IMPRESSION: 1. Splenomegaly. Moderate ascites. 2. Ileus versus partial small bowel obstruction. Chest X-Ray 09/29/19 00:00 IMPRESSION: Bilateral lower lobe consolidation compatible with pneumonia. Small left effusion. KUB X-Ray 09/29/19 00:00 IMPRESSION: Nonspecific bowel gas pattern with moderate formed stool throughout the colon. Ill-defined soft tissue density overlies pelvis and right lower quadrant, likely combination of ascites and uterus. Pelvis Ultrasound 09/29/19 00:00 IMPRESSION: 1. Significant complex ascites within the pelvis, similar to prior CT. 2. Generalized thickening of the endometrial stripe measuring 1.9 cm, previously 1.1 cm. Differential includes hemorrhage, endometritis or retained products of conception. No focal thickening or hyperemia. Findings conveyed to Amanda Gaby at 1427 hours on 09/29/2019. Status: Imported from PACS - Chest x-ray. Independently viewed by me. 09/27/2019 Probable left lower lobe pneumonia Assessment & Plan - Diagnosis (1) Coagulopathy Is this a current diagnosis for this admission?: Yes Plan: Unclear etiology. Additional work-up is required and is being pursued. (2) Abdominal pain Qualifiers: Abdominal location: generalized Qualified Code(s): R10.84 - Generalized abdominal pain Is this a current diagnosis for this admission?: Yes Plan: Unclear etiology. Echocardiogram shows normal chamber dimensions and normal left ventricular and right ventricular function. (3) Ascites Qualifiers: Ascites type: other type Qualified Code(s): R18.8 - Other ascites Is this a current diagnosis for this admission?: Yes Plan: Unclear etiology. Likely noncardiac given preserved left ventricular systolic function and preserved right ventricular function There is no significant valve lesion. Tricuspid regurgitation is physiologic in its degree and there is no indication to suggest pulmonary hypertension. - Notes Notes: Available data especially from clinical exam and echocardiogram do not support a diagnosis of cardiomyopathy Echocardiogram which was reviewed independently by me shows preserved left ventricular systolic function with ejection fraction estimated 55 to 60% Right ventricle is normal in size and function There is no significant valve lesion PA pressure is likely normal. There is no pericardial effusion. EKG shows sinus rhythm and sinus tachycardia which is appropriate for her curr ent presentation.
[2019-09-30 14:06] LABS: TOTAL PROTEIN BODY FLUID 2.5 g/dL (.)
[2019-09-30] MEDS: SPIRONOLACTONE 25 MG TABLET PO SCH (14:18)
[2019-09-30 14:36] LABS: VANCOMYCIN,TROUGH 9.9 ug/mL (5.0-20.0)
--- NOTE | 2019-09-30 15:59 | RADIOLOGY REPORT (SQ) ---
EXAM DESCRIPTION: U/S ABDOMEN LTD W/DOPPLER IMAGES COMPLETED DATE/TIME: 09/30/2019 3:46 pm REASON FOR STUDY: ? budd chiari; ascietes amenable for drainage COMPARISON: None. TECHNIQUE: Dynamic and static grayscale images acquired of the liver and recorded on PACS. Addition al selected color Doppler and spectral images recorded. Selected velocities recorded. Note: Study does not meet criteria for full duplex/doppler scan LIMITATIONS: None. FINDINGS: LIVER: 20.6 cm. Echotexture is coarse with increased echogenicity consistent with fatty i nfiltration. No focal lesions are seen. LIVER VASCULATURE: Normal directional flow of the main portal vein and hepatic veins. The IVC is pat ent. GALLBLADDER: Sludge. No stones. Normal wall thickness. No pericholecystic fluid. ULTRASOUND-DETECTED WHALEN'S SIGN: Negative. INTRAHEPATIC DUCTS AND COMMON DUCT: No dilated intrahepatic ducts. CBD diameter normal. ASCITES: Trace amount. OTHER: No other significant finding. IMPRESSION: No evidence of Budd-Chiari. Trace ascites. TECHNICAL DOCUMENTATION: JOB ID: [id number] [employer]- All Rights Reserved Reading location - IP/workstation name: [email or web address]
[2019-09-30 17:20] LABS: D-DIMER 2.95 ug/mL (0.00-0.50)
[2019-09-30] MEDS: VANCOMYCIN HCL 1,500 MG in DEXTROSE 5%-WATER 250 ML IV SCH ×2 (21:56→22:05)
[2019-09-30] MEDS: PHARMACY COMMUNICATION ORDER MC SCH (22:19)
--- NOTE | 2019-09-30 22:33 | RADIOLOGY REPORT (SQ) ---
EXAM DESCRIPTION: [facility]: US ABDOMEN DOPPLER LIMITED CLINICAL HISTORY: 39 years Female; splenic vein thrombosis; TECHNIQUE: Doppler evaluation of the splenic vein was performed. COMPARISON: Ultrasound of the abdomen 09/30/2019. FINDINGS: Pancreas is partially obscured by bowel gas. Visualized portions of the splenic vein are patent, with no evidence for splenic vein thrombosis. IMPRESSION: Visualized portions of the splenic vein are patent, with no evidence for splenic vein thrombosis.
[2019-10-01] MEDS: METOCLOPRAMIDE HCL INJ/PF 10 MG/2 ML SDV IV SCH ×2 (01:00→06:16)
[2019-10-01] MEDS: PHENYLEPHRINE HCL 1 EACH SUPP.RECT PR SCH ×3 (01:46→22:05)
[2019-10-01] MEDS: ALBUTEROL SULFATE 0.083% NEB 2.5 MG/3 ML AMPUL NEB SCH ×3 (02:24→13:45)
[2019-10-01] MEDS: PIPERACILLIN SODIUM/TAZOBACTAM 3.375 GM in NORMAL SALINE 100 ML IV SCH ×4 (03:21→21:57)
[2019-10-01] MEDS: MORPHINE SULFATE 10 MG/ML INJ IV PRN ×3 (06:15→23:45)
[2019-10-01] MEDS: VANCOMYCIN HCL 1,500 MG in DEXTROSE 5%-WATER 250 ML IV SCH (06:16)
[2019-10-01 06:17] LABS: ABSOLUTE EOSINOPHILS # (AUTO) 0.1 10^3/uL (0.0-0.6); ABSOLUTE LYMPHOCYTES (AUTO) 0.6 10^3/uL (0.5-4.7); ABSOLUTE MONOCYTES (AUTO) 0.6 10^3/uL (0.1-1.4); ABSOLUTE NEUT (AUTO) 9.6 10^3/uL (1.7-8.2); BASOPHILS % (AUTO) 0.3 % (0-2); EOSINOPHILS % (AUTO) 0.7 % (0-6); HEMOGLOBIN 10.7 g/dL (12.0-15.5); LYMPHOCYTES % (AUTO) 5.6 % (13-45); MEAN CORPUSCULAR HGB CONC 34.4 g/dL (32.0-36.0); MEAN CORPUSCULAR VOLUME 84 fl (80-97); MONOCYTES % (AUTO) 5.9 % (3-13); PLATELET COUNT 429 10^3/uL (150-450); RED BLOOD COUNT 3.68 10^6/uL (3.72-5.28); RED CELL DISTRIBUTION WIDTH 15.4 % (11.5-14.0); SEGMENTED NEUTROPHILS % (AUTO) 87.5 % (42-78); TOTAL CELLS COUNTED % (AUTO) 100 %
[2019-10-01 06:46] LABS: ALBUMIN 2.2 g/dL (3.5-5.0); ALKALINE PHOSPHATASE 110 U/L (38-126); ANION GAP 5 (5-19); ASPARTATE AMINO TRANSFERASE 30 U/L (14-36); BILIRUBIN,DIRECT 0.2 mg/dL (0.0-0.4); BILIRUBIN,TOTAL 0.7 mg/dL (0.2-1.3); BLOOD UREA NITROGEN 13 mg/dL (7-20); CALCIUM 7.5 mg/dL (8.4-10.2); CARBON DIOXIDE 29 mmol/L (22-30); CHLORIDE 100 mmol/L (98-107); GLUCOSE 105 mg/dL (75-110); POTASSIUM 3.9 mmol/L (3.6-5.0); TOTAL PROTEIN 5.2 g/dL (6.3-8.2)
[2019-10-01 08:26] LABS: INTERNATIONAL RATION (INR) 5.52; PARTIAL THROMBOPLASTIN TIME 155.3 SEC (23.5-35.8); PROTHROMBIN TIME 51.8 SEC (11.4-15.4)
[2019-10-01] MEDS ORDERED: NORMAL SALINE 250 ML IV PRN ×3 (08:51→10:53)
--- NOTE | 2019-10-01 08:58 | Progress Note ---
Provider Note Provider Note: [facility] ID Telephone Advice Consultation Chart reviewed. Patient is a 39-year-old woman with history of GERD and previ ous IVDU who 1 week prior to admission on 09/26 had an uneventful spontaneous vaginal delivery. Reviewing the cultures, she had a vaginal culture on 09/20 positive for GAS and GBS. She received doxycycline for this. Per notes, she started presenting fever, chills and abdominal pain. She had constipation as well. On admission she had low grade fever and leukocytosis of 18k. She was also coagulopathic with INR of 3.99. She was started on vancomycin and zosyn for sepsis. She has had extensive work up including CXR which demonstrated bilateral lower lobe opacities. CTA chest, abdomen and pelvis negative for PE. She does have splenomegaly and had ileus vs SBO but she was able to move her bowels after aggressive bowel regimen. She had an US of pelvis that showed ascites, thickening of endometrium. Patient has had extensive ID work up, SARS-CoV-2 negative, other viral work up negative. Blood cultures negative on 09/26. She is status post paracentesis where 900 mL of turbid fluid were drained. Ascites fluid negative 09/28. Her leukocytosis has resolved, last fever was on 09/28 107.9. Yesterday she had 100.0. ID consulted for recommendations. PMH: 2 weeks ago GERD IVDU Allergies: promethazine HCl [From Phenergan] Adverse Reaction (Unknown, Verified 09/21/19 13:39) Medications: Acetaminophen [Tylenol] 325 mg PO DAILYP PRN 09/27/19 Buprenorphine HCl 12 mg SL DAILY 09/27/19 Esomeprazole Magnesium 40 mg PO DAILY 09/27/19 Vital Signs: Temp Pulse Resp BP Pulse Ox 99.0 F 75 18 114/76 94 10/01/19 07:47 10/01/19 07:57 10/01/19 07:57 10/01/19 07:47 10/01/19 07:57 Intake & Output 09/30/19 10/01/19 10/02/19 06:59 06:59 06:59 Intake Total 3100 2964 Output Total 2075 1200 Balance 1025 1764 Weight 85.2 kg 85.2 kg Weight/Height Weight 85.2 kg Height 5 ft 4 in Laboratories: 10/01/19 05:09 10/01/19 05:09 MCV 84 fl (80-97) 10/01/19 05:09 MCH 29.0 pg (27.0-33.4) 10/01/19 05:09 MCHC 34.4 g/dL (32.0-36.0) 10/01/19 05:09 RDW 15.4 % (11.5-14.0) H 10/01/19 05:09 Seg Neutrophils % 87.5 % (42-78) H 10/01/19 05:09 VBG pH 7.43 (7.30-7.42) H 09/27/19 13:40 VBG pCO2 37.0 mmHg (35-63) 09/27/19 13:40 VBG HCO3 23.7 mmol/L (20-32) 09/27/19 13:40 VBG Base Excess -0.2 mmol/L 09/27/19 13:40 Chloride 100 mmol/L (98-107) 10/01/19 05:09 Carbon Dioxide 29 mmol/L (22-30) 10/01/19 05:09 Anion Gap 5 (5-19) 10/01/19 05:09 Est GFR ( Amer) > 60 (>60) 10/01/19 05:09 Glucose 105 mg/dL (75-110) 10/01/19 05:09 Lactic Acid 0.8 mmol/L (0.7-2.1) 09/27/19 21:14 Calcium 7.5 mg/dL (8.4-10.2) L 10/01/19 05:09 Phosphorus 4.1 mg/dL (2.5-4.5) 09/30/19 05:21 Magnesium 1.8 mg/dL (1.6-2.3) 09/30/19 05:21 Total Bilirubin 0.7 mg/dL (0.2-1.3) 10/01/19 05:09 AST 30 U/L (14-36) 10/01/19 05:09 Alkaline Phosphatase 110 U/L (38-126) 10/01/19 05:09 C-Reactive Protein 88.2 mg/L (<10.0) H 09/30/19 16:52 Total Protein 5.2 g/dL (6.3-8.2) L 10/01/19 05:09 Albumin 2.2 g/dL (3.5-5.0) L 10/01/19 05:09 Prealbumin 6.2 mg/dL (17.6-36.0) L 09/29/19 14:22 TSH 3.64 uIU/mL (0.47-4.68) 09/30/19 05:21 Urine Color KENNY 09/29/19 15:25 Urine Appearance TURBID 09/29/19 15:25 Urine pH 5.0 (5.0-9.0) 09/29/19 15:25 Ur Specific [place] 1.032 09/29/19 15:25 Urine Protein 30 mg/dL (NEGATIVE) H 09/29/19 15:25 Urine Glucose (UA) NEGATIVE mg/dL (NEGATIVE) 09/29/19 15:25 Urine Ketones NEGATIVE mg/dL (NEGATIVE) 09/29/19 15:25 Urine Blood LARGE (NEGATIVE) H 09/29/19 15:25 Urine RBC (Auto) >182 /HPF 09/29/19 15:25 Fluid Type PERITONEAL 09/29/19 06:45 Fluid Source ASCITES 09/29/19 06:45 Fluid Color KENNY 09/29/19 06:45 Fluid Appearance HAZY 09/29/19 06:45 Fluid Viscosity LIQUID 09/29/19 06:45 Fluid WBC 2800 /uL 09/29/19 06:45 Fluid RBC 5644 /uL 09/29/19 06:45 Fluid Glucose 59 mg/dL (.) 09/29/19 06:45 Fluid Total Protein 2.5 g/dL (.) 09/29/19 06:45 Fluid Albumin 1.1 g/dL (Not Estab.) 09/29/19 06:45 Fluid LDH 1737 IU/L (.) 09/29/19 06:45 Blood Type O POSITIVE 09/27/19 14:53 Antibody Screen NEGATIVE 09/27/19 14:53 09/29/19 14:22 NT-Pro-B Natriuret Pep 2330 H Microbiology: Vaginal culture 09/20 GAS, GBS Blood culture 09/26 NGTD Peritoneal fluid 09/28 NGTD Radiology: Chest/Abdomen CTA 09/27/19 16:11 IMPRESSION: 1. NORMAL CTA OF THE CHEST. NO PULMONARY EMBOLI. 2. LOW LUNG VOLUMES. PROBABLE BASILAR ATELECTASIS. CANNOT EXCLUDE EARLY PNEUMONIA. Abdomen/Pelvis CT 09/27/19 16:16 IMPRESSION: 1. Splenomegaly. Moderate ascites. 2. Ileus versus partial small bowel obstruction. Chest X-Ray 09/29/19 00:00 IMPRESSION: Bilateral lower lobe consolidation compatible with pneumonia. Small left effusion. KUB X-Ray 09/29/19 00:00 IMPRESSION: Nonspecific bowel gas pattern with moderate formed stool throughout the colon. Ill-defined soft tissue density overlies pelvis and right lower quadrant, likely combination of ascites and uterus. Pelvis Ultrasound 09/29/19 00:00 IMPRESSION: 1. Significant complex ascites within the pelvis, similar to prior CT. 2. Generalized thickening of the endometrial stripe measuring 1.9 cm, previo usly 1.1 cm. Differential includes hemorrhage, endometritis or retained products of conception. No focal thickening or hyperemia. Findings conveyed to Amanda Griffin at 1427 hours on 09/29/2019. Abdomen Ultrasound 09/30/19 00:00 IMPRESSION: Visualized portions of the splenic vein are patent, with no evidence for splenic vein thrombosis. Assessment and Recommendations: Patient evaluated for fever in the setting of recent vaginal delivery. She did had positive vaginal culture for GAS that has been associated with post sepsis and endometritis. She received doxycycline. Blood cultures have been negative and ascites cultures as well. She has been on broad spectrum antibiotics with adequate response in terms of fever (fever curve improving) and leukocytosis. US did show thickening of the endometrium which can be seen after post , but this can become infected especially if she had GAS and GBS before. Will recommend to continue zosyn, I don't see an indication for vancomycin. Zosyn will cover GAS and most common intra abdominal pathogens including anaerobes. A duration of therapy of 10 days is usually recommended for post sepsis based on clinical response. [id number] Syndrome is usually associated with PID, only few cases have been reported due to endometritis. No significant enhancement of the liver capsule on CT, but could keep on the ddx. Please call if questions. Hannah Castro MD [facility] ID [phone]
[2019-10-01] MEDS: PHYTONADIONE 5 MG TABLET PO SCH (11:26)
[2019-10-01] MEDS: CEFTRIAXONE 2 GM/D5W RTU 2 GM/50 ML RTUPB IV SCH (11:39)
[2019-10-01] MEDS: PANTOPRAZOLE SODIUM 40 MG VIAL IV SCH ×2 (11:39→21:58)
[2019-10-01] MEDS: FUROSEMIDE INJ/PF 20 MG/2 ML SDV IV SCH (11:40)
[2019-10-01] MEDS: MINERAL OIL ENEMA 133 ML PR SCH (11:41)
--- NOTE | 2019-10-01 11:56 | PDOC PROGRESS REPORT ---
Subjective Progress Note for:: 10/01/19 Subjective:: Had a bowel movement. Complain of diffuse abdominal pain and distention. Reason For Visit: SEPSIS Physical Exam Vital Signs: Temp Pulse Resp BP Pulse Ox 99.0 F 75 18 114/76 94 10/01/19 07:47 10/01/19 07:57 10/01/19 07:57 10/01/19 07:47 10/01/19 07:57 Intake & Output 09/30/19 10/01/19 10/02/19 06:59 06:59 06:59 Intake Total 3100 2964 Output Total 2075 1200 Balance 1025 1764 Weight 85.2 kg 85.2 kg General appearance: PRESENT: cooperative Eye exam: PRESENT: conjunctiva pink Respiratory exam: PRESENT: clear to auscultation [place] Cardiovascular exam: PRESENT: RRR GI/Abdominal exam: PRESENT: other - Distended soft but with tenderness diffusely without guarding but with positive percussion tenderness. Decreased bowel sounds. Results Laboratory Results: 10/01/19 05:09 10/01/19 05:09 09/29/19 09/29/19 09/30/19 06:45 06:45 14:00 WBC RBC Hgb Hct MCV MCH MCHC RDW Plt Count Seg Neutrophils % Sodium Potassium Chloride Carbon Dioxide Anion Gap BUN Creatinine 0.54 Est GFR ( Amer) > 60 Glucose Calcium Total Bilirubin AST Alkaline Phosphatase C-Reactive Protein Total Protein Albumin Fluid Glucose 59 Fluid Total Protein 2.5 Fluid Albumin 1.1 Fluid LDH 1737 09/30/19 10/01/19 10/01/19 16:52 05:09 05:09 WBC 11.0 H RBC 3.68 L Hgb 10.7 L Hct 31.0 L MCV 84 MCH 29.0 MCHC 34.4 RDW 15.4 H Plt Count 429 Seg Neutrophils % 87.5 H Sodium 134.1 L Potassium 3.9 Chloride 100 Carbon Dioxide 29 Anion Gap 5 BUN 13 Creatinine 0.65 Est GFR ( Amer) > 60 Glucose 105 Calcium 7.5 L Total Bilirubin 0.7 AST 30 Alkaline Phosphatase 110 C-Reactive Protein 88.2 H Total Protein 5.2 L Albumin 2.2 L Fluid Glucose Fluid Total Protein Fluid Albumin Fluid LDH 09/29/19 06:45 Abdominal Fluid Gram Stain - Final 09/29/19 14:22 NT-Pro-B Natriuret Pep 2330 H Impressions: Chest/Abdomen CTA 09/27/19 16:11 IMPRESSION: 1. NORMAL CTA OF THE CHEST. NO PULMONARY EMBOLI. 2. LOW LUNG VOLUMES. PROBABLE BASILAR ATELECTASIS. CANNOT EXCLUDE EARLY PNEUMONIA. Abdomen/Pelvis CT 09/27/19 16:16 IMPRESSION: 1. Splenomegaly. Moderate ascites. 2. Ileus versus partial small bowel obstruction. Chest X-Ray 09/29/19 00:00 IMPRESSION: Bilateral lower lobe consolidation compatible with pneumonia. Small left effusion. KUB X-Ray 09/29/19 00:00 IMPRESSION: Nonspecific bowel gas pattern with moderate formed stool throughout the colon. Ill-defined soft tissue density overlies pelvis and right lower quadrant, likely combination of ascites and uterus. Pelvis Ultrasound 09/29/19 00:00 IMPRESSION: 1. Significant complex ascites within the pelvis, similar to prior CT. 2. Generalized thickening of the endometrial stripe measuring 1.9 cm, previously 1.1 cm. Differential includes hemorrhage, endometritis or retained products of conception. No focal thickening or hyperemia. Findings conveyed to Amanda Griffin at 1427 hours on 09/29/2019. Abdomen Ultrasound 09/30/19 00:00 IMPRESSION: Visualized portions of the splenic vein are patent, with no evidence for splenic vein thrombosis. Assessment & Plan - Diagnosis (1) Ascites Qualifiers: Ascites type: other type Qualified Code(s): R18.8 - Other ascites Is this a current diagnosis for this admission?: Yes Plan: Patient is hemodynamically stable without tachycardia nor hypotension with good urine output; however, patient has abdominal pain and tenderness and now peritoneal signs. Still unclear of etiology but director of philanthropy is convinced that her ascites is noncardiogenic and gynecology feels that she does not have a gynecological infectious or toxic process. Although she has hepatosplenomegaly, there is no evident varicosities seen on CT. The diagnosis of portal hypertension and cirrhosis is uncertain. Even if she does have portal hypertension as the etiology of her ascites it does not fully explain her picture. Doppler ultrasound study is negative for Budd-Chiari. Peritoneal fluid analysis is suspicious for an inflammatory process. In light of all of the the above, I feel that a surgical exploration is indicated. We will start off with a exploratory laparoscopy and likely convert to an exploratory laparotomy to get a good exploration. Will attempt to at least partially froy ect her coagulopathy with FFP prior to surgery. While awaiting correction of her coags, will obtain a repeat abdominal pelvic CT scan to try to get a better handle on the etiology of her disease process. I have had a discussion with the patient about my concerns and plan and she agrees. I will talk more in detail with the patient about the surgery itself after the CT scan is completed.
[2019-10-01] MEDS: ALBUMIN HUMAN 12.5 GM/50 ML RTUINJ IV SCH ×2 (13:12→14:00)
[2019-10-01] MEDS: SPIRONOLACTONE 25 MG TABLET PO SCH (14:29)
[2019-10-01] MEDS: DOCUSATE SODIUM 100 MG CAPSULE PO SCH ×2 (14:31→18:00)
[2019-10-01] MEDS: BISACODYL 10 MG SUPP.RECT PR SCH (14:31)
[2019-10-01] MEDS: MAGNESIUM HYDROXIDE SUSP 30 ML UDCUP PO SCH (14:32)
[2019-10-01] MEDS: GUAIFENESIN 600 MG TABLET.SA PO SCH (14:36)
[2019-10-01] MEDS: POLYETHYLENE GLYCOL 3350 POWDER 17 GM/1 PACKET PO SCH (14:36)
[2019-10-01] MEDS: BUPRENORPHINE HCL 2 MG SUBLINGUAL TABLET SL SCH (14:37)
[2019-10-01] MEDS: HYDROCORTISONE ACETATE 25 MG SUPP.RECT PR SCH ×2 (14:37→18:59)
[2019-10-01] MEDS: LIDOCAINE 5% (700 MG) TRANSDERMAL ADH..PATCH TP SCH (15:34)
--- NOTE | 2019-10-01 16:01 | PDOC PROGRESS REPORT ---
Subjective Progress Note for:: 10/01/19 Subjective:: Pt reports slight improvement today . She reports two formed stools today, and passing lots of gas. She reports she has had difficulty moving bowels. Taking clear liquids without n/v. Denies fever or chills. Abdomen scouring machine tender/swollen and reports pain is worse "along sides". Pain also in rectum with BM's and states her hemorrhoids are "really bad" right now. Reports little to no vaginal discharge and it is "light red" . Voiding via mason. Good output noted at bedside. Reason For Visit: SEPSIS Physical Exam - Physical Exam Vital Signs: Temp Pulse Resp BP Pulse Ox 98 F 90 22 H 106/58 L 93 10/01/19 15:37 10/01/19 15:37 10/01/19 15:37 10/01/19 15:37 10/01/19 15:37 Intake & Output 09/30/19 10/01/19 10/02/19 06:59 06:59 06:59 Intake Total 3100 3014 1514 Output Total 2075 1200 1000 Balance 1025 1814 514 Weight 85.2 kg 85.2 kg General appearance: PRESENT: no acute distress, cooperative Respiratory exam: PRESENT: clear to auscultation [place] Cardiovascular exam: PRESENT: RRR, +S1, +S2 GI/Abdominal exam: PRESENT: distended, soft, tenderness - tender throughout distended abdomen. Bowel sounds audible Gentrourinary exam: PRESENT: other - Swelling of vulva that appears like edema/fluid but not cellulitis. Soft. Hemorrhoids very swollen as well and appears edematous Psychiatric exam: PRESENT: anxious, appropriate affect Skin exam: PRESENT: dry, warm Result Laboratory Results: 10/01/19 05:09 10/01/19 05:09 09/30/19 10/01/19 10/01/19 16:52 05:09 05:09 WBC 11.0 H RBC 3.68 L Hgb 10.7 L Hct 31.0 L MCV 84 MCH 29.0 MCHC 34.4 RDW 15.4 H Plt Count 429 Seg Neutrophils % 87.5 H Sodium 134.1 L Potassium 3.9 Chloride 100 Carbon Dioxide 29 Anion Gap 5 BUN 13 Creatinine 0.65 Est GFR ( Amer) > 60 Glucose 105 Lactic Acid Calcium 7.5 L Total Bilirubin 0.7 AST 30 Alkaline Phosphatase 110 C-Reactive Protein 88.2 H Total Protein 5.2 L Albumin 2.2 L Lipase Blood Type 10/01/19 10/01/19 10/01/19 05:09 11:40 11:40 WBC RBC Hgb Hct MCV MCH MCHC RDW Plt Count Seg Neutrophils % Sodium Potassium Chloride Carbon Dioxide Anion Gap BUN Creatinine Est GFR ( Amer) Glucose Lactic Acid 0.7 Calcium Total Bilirubin AST Alkaline Phosphatase C-Reactive Protein Total Protein Albumin Lipase 786.6 H Blood Type O POSITIVE 09/29/19 06:45 Abdominal Fluid Gram Stain - Final 09/29/19 14:22 NT-Pro-B Natriuret Pep 2330 H Impressions: Chest/Abdomen CTA 09/27/19 16:11 IMPRESSION: 1. NORMAL CTA OF THE CHEST. NO PULMONARY EMBOLI. 2. LOW LUNG VOLUMES. PROBABLE BASILAR ATELECTASIS. CANNOT EXCLUDE EARLY PN EUMONIA. Abdomen/Pelvis CT 09/27/19 16:16 IMPRESSION: 1. Splenomegaly. Moderate ascites. 2. Ileus versus partial small bowel obstruction. Chest X-Ray 09/29/19 00:00 IMPRESSION: Bilateral lower lobe consolidation compatible with pneumonia. Small left effusion. KUB X-Ray 09/29/19 00:00 IMPRESSION: Nonspecific bowel gas pattern with moderate formed stool throughout the colon. Ill-defined soft tissue density overlies pelvis and right lower quadrant, likely combination of ascites and uterus. Pelvis Ultrasound 09/29/19 00:00 IMPRESSION: 1. Significant complex ascites within the pelvis, similar to prior CT. 2. Generalized thickening of the endometrial stripe measuring 1.9 cm, previously 1.1 cm. Differential includes hemorrhage, endometritis or retained products of conception. No focal thickening or hyperemia. Findings conveyed to Amanda Griffin at 1427 hours on 09/29/2019. Abdomen Ultrasound 09/30/19 00:00 IMPRESSION: Visualized portions of the splenic vein are patent, with no evidence for splenic vein thrombosis. Assessment & Plan - Diagnosis (1) Abdominal pain Qualifiers: Abdominal location: generalized Qualified Code(s): R10.84 - Generalized abdominal pain Is this a current diagnosis for this admission?: Yes Plan: Unclear etiology. Constipation and large amount of bowel gas on imaging. On exam today: no cervical motion tenderness or abnormal vaginal discharge. (2) Ascites Qualifiers: Ascites type: other type Qualified Code(s): R18.8 - Other ascites Is this a current diagnosis for this admission?: Yes Plan: Unclear etiology. Liver enzymes normal, PT, PTT, INR elevated. Hepatitis studies negative. Lipase elevated. General surgery following (3) Coagulation defect during period Is this a current diagnosis for this admission?: Yes Plan: Likely liver dx related vs DIC - however LFTs do not appear to have significant derrangement. (4) Constipation Qualifiers: Constipation type: unspecified constipation type Qualified Code(s): K59.00 - Constipation, unspecified Is this a current diagnosis for this admission?: Yes Plan: improved with enema and today two formed stools. Pt still reports that she feels that she needs to have more BM. She has passed flatus multiple times today. (5) Healthcare associated bacterial pneumonia Is this a current diagnosis for this admission?: Yes Plan: COntinue antibiotics, IS Q 1 hr while awake. Lungs CTAB (6) Hypoalbuminemia Is this a current diagnosis for this admission?: Yes (7) Leukocytosis Qualifiers: Leukocytosis type: lymphocytosis Qualified Code(s): D72.820 - Lymphocytosis (symptomatic) Is this a current diagnosis for this admission?: Yes (8) Nicotine dependence Qualifiers: Nicotine product type: other Substance use status: uncomplicated Qualifie d Code(s): F17.290 - Nicotine dependence, other tobacco product, uncomplicated Is this a current diagnosis for this admission?: Yes (10) Sepsis after obstetrical procedure Is this a current diagnosis for this admission?: Yes Plan: uncomplicated on 09/16 no perineal laceration. Normal appearing placenta. No e/o respiratory complications at this time - no cough and denies sick exposur e- however per Hospitalist that lungs on CXR now may respresent penumonia or atelectasis. Covid in and has on occasion been noted to present atypically however and Covid testing from 09/29/2019 negative (11) Splenomegaly Is this a current diagnosis for this admission?: Yes - Time Time Spent with patient: 15-24 minutes - Plan Summary Plan Summary: As above. WIll discuss case with Dr. Toth in general surgery who called me about this patient. Her [employer] exam today is negative. Small amount of thin red vaginal discharge consistent with period. NO abnormalities of cervix, no cervical motion tenderness. Vulva swollen but does not look infected but looks like dependent edema. Recommend intermittent icepacks and OOB as tolerating. HEmorrhoids pronounced: winston SHELLEY
--- NOTE | 2019-10-01 16:46 | PDOC PROGRESS REPORT ---
Subjective Progress Note for:: 10/01/19 Subjective:: MELCHOR PARTIDA is a 39 year old female who is 12 days full-term vaginal delivery without complications with a past medical history of opiate dependent chronic pain, history of IV drug use (patient admits to 3 occurrences of IVDU greater than a year ago), on Subutex, and GERD who was admitted by the [facility] service on 09/27/2019 after patient presented to the emergency department for the second time with complaint of intractable abdominal, bilateral flank, and back pain. Hospitalist service was consulted to assist with further evaluation of complex /septated ascites in patient with sepsis and unclear source of infection. OBGYN has since transferred primary service to our care. Patient was seen on morning rounds with Dr. Aguilera. She continues on supplemental oxygen at 2./min due to tachypnea, shortness of breath, desaturation events. Fever curve trending down; 100.0/24 hrs, 101.9/48 hrs At the time of my visit, patient is noted to be in mild distress, with exquisite abdominal discomfort. Though somewhat more comfortable today. She is noted to be quite fatigued and falls asleep multiple times during my visit. She reports mild nausea, without emesis, and anorexia. She is uncertain, but does not feel that she has passed a gas. She endorses chest wall discomfort and abdominal discomfort with movement, inspiration, and cough. Otherwise, she denies cardiac typical symptoms, palpitations, orthopnea, and cough. Patient plan of care discussed in detail with nursing. Reason For Visit: SEPSIS Physical Exam Vital Signs: Temp Pulse Resp BP Pulse Ox 99 F 84 18 124/69 94 10/01/19 15:57 10/01/19 15:57 10/01/19 15:57 10/01/19 15:57 10/01/19 15:57 Intake & Output 09/30/19 10/01/19 10/02/19 06:59 06:59 06:59 Intake Total 3100 3014 1514 Output Total 2075 1200 1000 Balance 1025 1814 514 Weight 85.2 kg 85.2 kg General appearance: PRESENT: cooperative, mild distress, well-developed, well- nourished, other - Acutely ill appearing Head exam: PRESENT: atraumatic, normocephalic Eye exam: PRESENT: conjunctiva pink, EOMI, PERRLA. ABSENT: scleral icterus Mouth exam: PRESENT: moist, tongue midline Teeth exam: PRESENT: poor dentation Respiratory exam: PRESENT: clear to auscultation [place], decreased breath sounds - bibasilar, symmetrical, tachypnea - shallow, other - supplemental O2 via NC. ABSENT: rales, rhonchi, wheezes Cardiovascular exam: PRESENT: RRR, +S1, +S2. ABSENT: diastolic murmur, rubs, systolic murmur Pulses: PRESENT: normal dorsalis pedis pul Vascular exam: PRESENT: normal capillary refill GI/Abdominal exam: PRESENT: distended, firm, guarding, hypoactive bowel sounds, rebound, tenderness. ABSENT: mass Rectal exam: PRESENT: hemorrhoids Extremities exam: PRESENT: full ROM. ABSENT: calf tenderness, clubbing, pedal edema Neurological exam: PRESENT: alert, awake, oriented to person, oriented to place, oriented to time, oriented to situation, CN II-XII grossly intact. ABSENT: motor sensory deficit Psychiatric exam: PRESENT: anxious, appropriate affect, normal mood. ABSENT: homicidal ideation, suicidal ideation Skin exam: PRESENT: dry, intact, warm. ABSENT: cyanosis, rash Results Laboratory Results: 10/01/19 05:09 10/01/19 05:09 09/30/19 10/01/19 10/01/19 16:52 05:09 05:09 WBC 11.0 H RBC 3.68 L Hgb 10.7 L Hct 31.0 L MCV 84 MCH 29.0 MCHC 34.4 RDW 15.4 H Plt Count 429 Seg Neutrophils % 87.5 H Sodium 134.1 L Potassium 3.9 Chloride 100 Carbon Dioxide 29 Anion Gap 5 BUN 13 Creatinine 0.65 Est GFR ( Amer) > 60 Glucose 105 Lactic Acid Calcium 7.5 L Total Bilirubin 0.7 AST 30 Alkaline Phosphatase 110 C-Reactive Protein 88.2 H Total Protein 5.2 L Albumin 2.2 L Lipase Blood Type 10/01/19 10/01/19 10/01/19 05:09 11:40 11:40 WBC RBC Hgb Hct MCV MCH MCHC RDW Plt Count Seg Neutrophils % Sodium Potassium Chloride Carbon Dioxide Anion Gap BUN Creatinine Est GFR ( Amer) Glucose Lactic Acid 0.7 Calcium Total Bilirubin AST Alkaline Phosphatase C-Reactive Protein Total Protein Albumin Lipase 786.6 H Blood Type O POSITIVE 09/29/19 06:45 Abdominal Fluid Gram Stain - Final 09/29/19 14:22 NT-Pro-B Natriuret Pep 2330 H Impressions: Chest/Abdomen CTA 09/27/19 16:11 IMPRESSION: 1. NORMAL CTA OF THE CHEST. NO PULMONARY EMBOLI. 2. LOW LUNG VOLUMES. PROBABLE BASILAR ATELECTASIS. CANNOT EXCLUDE EARLY PNEUMONIA. Abdomen/Pelvis CT 09/27/19 16:16 IMPRESSION: 1. Splenomegaly. Moderate ascites. 2. Ileus versus partial small bowel obstruction. Chest X-Ray 09/29/19 00:00 IMPRESSION: Bilateral lower lobe consolidation compatible with pneumonia. Small left effusion. KUB X-Ray 09/29/19 00:00 IMPRESSION: Nonspecific bowel gas pattern with moderate formed stool throughout the colon. Ill-defined soft tissue density overlies pelvis and right lower quadrant, likely combination of ascites and uterus. Pelvis Ultrasound 09/29/19 00:00 IMPRESSION: 1. Significant complex ascites within the pelvis, similar to prior CT. 2. Generalized thickening of the endometrial stripe measuring 1.9 cm, previously 1.1 cm. Differential includes hemorrhage, endometritis or retained products of conception. No focal thickening or hyperemia. Findings conveyed to Amanda Griffin at 1427 hours on 09/29/2019. Abdomen Ultrasound 09/30/19 00:00 IMPRESSION: Visualized portions of the splenic vein are patent, with no evidence for splenic vein thrombosis. Assessment and Plan - Diagnosis (1) Sepsis Qualifiers: Sepsis type: sepsis due to unspecified organism Sepsis acute organ dysfunction status: with acute organ dysfunction Severe sepsis acute organ dysfunction type: disseminated intravascular coagulopathy Severe sepsis shock status: without septic shock Qualified Code(s): A41.9 - Sepsis, unspecified organism; R65.20 - Severe sepsis without septic shock; D65 - Disseminated intravascular coagulation [defibrination syndrome] Is this a current diagnosis for this admission?: Yes Plan: Sepsis, likely of intra-abdominal source, present on admission and evidenced by leukocytosis (WBCs 18.4), coagulopathy (PT 39.9, INR 3.99), mildly elevated liver enzymes (direct bili 0.7, AST 37, ALT 17, alk phos 239), low-grade temp (100.4), tachycardia (HR 132), tachypnea (RR 30), and hypoxia on room air (90%). DDx: peritonitis, endometriosis, healthcare associated pneumonia (unlikely), CMV Blood cultures are negative at 4 days Urine cultures negative at 2 days. Ascities AFB pending. Abdominal fluid culture has now growth at 2 days Urinalysis negative x2 CXR on admission suggestive bibasilar atelectasis; has worsened since that time. However, she denied all respiratory symptoms on presentation and has minimal respiratory symptoms currently. I do not feel entirely confident that pneumonia is the primary source of her sepsis. Pelvic ultrasound showed a 19 mm endometrial strip. Per radiologist can be seen in endometritis versus retained products of conception. Discussed with Dr. Acosta and Dr. Lr who stated that this was a normal finding at this stage of the period. HIV, RPR, hepatitis panel negative COVID-19 negative Influenza negative ESB, CMV pending Monospot negative No rashes or wounds on exam. No joint swelling/erythema identified. No nuchal rigidity. CT ABD/Pelvis with oral and IV contrast pending. Patient was admitted to medical floor on continuous cardiac telemetry. She was empirically placed on Zosyn at time of admission; Day #5 IV Rocephin added for peritonitis; Day #2 Received 4 days of IV Vancomycin Infectious Disease consultation requested; greatly appreciate Dr. Castro's assistance (2) Healthcare associated bacterial pneumonia Is this a current diagnosis for this admission?: Yes Plan: Unlikely to have pneumonia. She was admitted to this facility 09/17/19 for delivery of a full-term infant. She did not receive antibiotics at that time. There is possibility she subsequently developed a healthcare associated pneumonia given her recent admission; although I continue to have low suspicion at this time. Imaging findings are much more likely to be atelectasis. CXR on admission showed a left lower lobe opacity; likely atelectasis, although could not rule out early pneumonia. Chest CTA showed scattered parenchymal densities to the lower lobes; again atelectasis versus pneumonia. Chest x-ray (09/29/2019) shows worsening bilateral opacities consistent with pneumonia. Blood cultures negative at 48 hours. Sputum cultures pending. COVID19 negative Influenza pending. Continue supplemental oxygen as needed maintain saturations greater than 89%. Continue antibiotics as above. Continue as needed nebulizer treatments. Incentive spirometer and flutter valve to bedside. Ambulate twice daily. (3) Ascites Qualifiers: Ascites type: other type Qualified Code(s): R18.8 - Other ascites Is this a current diagnosis for this admission?: Yes Plan: Unclear etiology at this time; most likely secondary to infectious process. Liver enzymes were mildly elevated on admission but have improved slightly. Abdominal CT is negative for clear evidence of liver disease. However, she is noted to have splenomegaly. Pelvic U/S shows complex, septated, ascites. No history of heart failure. However, proBNP is elevated to 2330. Echocardiogram shows mildly elevated RA, RV and mild pulmonary HTN. Albumin low at 1.8. Pre-albumin 6.2. Now s/p paracentesis; 900 ml removed. Initial fluid evaluation unremarkable. LDH, Protein, Albumin, Glucose, and Cultures pending. Cytology negative for malignancy. Although lower on the differential, CMV is known to cause ascites. PCR is pending. [place] negative, EBV pending. Hepatitis panel negative. Budd Chiari and Splenic Vein thrombosis negative by ultrasound. Discussed with radiology today; will obtain liver ultrasound with Doppler to rule out Budd Chiari syndrome and assess for large pockets of ascites amenable to drainage. Continue NS at 25 ml/hr. Repeat albumin and furosemide to mobilize fluid. Monitor fluid volume status and blood pressures closely. Continue spironolactone. Registered dietitian is consulted. Should the patient remain in prolonged n.p.o. status or on clears, may need to consider PPN or TPN as an alternate means of nutrition given her severe hypoalbuminemia. Cardiology consultation for further cardiac evaluation. Ruled out right heart failure Daily weights. Strict I&O's. (4) Coagulopathy Is this a current diagnosis for this admission?: Yes Plan: Unclear etiology; DIC versus liver dysfunction. INR 4.77-> 3.26-> 2.16 (following vitamin K and 4 units FFP)-> 3.44-> 5.52 Hematology is consulted. Has added clotting factors, von Willebrand, and mixing times; all send out labs. Recommend starting daily oral vitamin K 5 mg. Will receive an additional 4 units FFP today prior to surgery. We will continue to monitor daily PT/INR. (5) Hypokalemia Is this a current diagnosis for this admission?: Yes Plan: Replete Secondary to n.p.o. status and IV fluids. She has been advanced to clears but with continued abdominal discomfort and GERD. Received K riders Start spironolactone Follow-up chemistry. (6) Leukocytosis Qualifiers: Leukocytosis type: lymphocytosis Qualified Code(s): D72.820 - Lymphocytosis (symptomatic) Is this a current diagnosis for this admission?: Yes Plan: Secondary to #1 and 2. Cultures and antibiotics as above. Follow-up CBC. (7) Splenomegaly Is this a current diagnosis for this admission?: Yes Plan: Noted on CT. Monospot negative. ESB and CMV pending. Hematology consulted. Evaluation of ascites as above. (8) Constipation Qualifiers: Constipation type: unspecified constipation type Qualified Code(s): K59.00 - Constipation, unspecified Is this a current diagnosis for this admission?: Yes Plan: Improved. Two moderately szided formed bm's today. Multifactorial secondary to chronic opiate use and recent vaginal delivery. Continue Colace twice daily, Dulcolax daily, MiraLAX daily, Fleet daily Received IV Reglan x4 doses yesterday. Nursing is advised to notify provider once patient has had multiple large volume BMs and/or loose stools to de-escalate bowel regiment. Surgery has been consulted secondary to CT imaging suggesting ileus versus partial small bowel; does not have acute abdomen or require surgical intervention at this time. She has been advanced to clear liquid diets. (9) Abdominal pain Qualifiers: Abdominal location: generalized Qualified Code(s): R10.84 - Generalized abdominal pain Is this a current diagnosis for this admission?: Yes Plan: Likely multifactorial secondary to ascites of unclear source, splenomegaly, constipation, ileus/partial small bowel, and recent vaginal delivery. Analgesics as needed. Avoid NSAIDs secondary to elevated PT/INR. Surgery is consulted; plan for exploratory laparotomy today once PT/INR corrected. Vitamin K and 4 units FFP preoperatively. Follow-up DIC panel. (10) Elevated brain natriuretic peptide (BNP) level Is this a current diagnosis for this admission?: Yes Plan: Patient denies history of CHF, NM, CAD, hypertension. proBNP elevated 2330. Echocardiogram shows mildly elevated RA, RV and mild pulmonary HTN. On exam found to have profound ascites and +2 peripheral edema. IV fluids, Lasix, and spironolactone as above. Requested cardiology consultation. Appreciate Dr. Martines's assistance. (11) Hypoalbuminemia Is this a current diagnosis for this admission?: Yes Plan: Albumin 1.8. Pre-albumin 6.2. Continue IV albumin. Registered dietitian is consulted. If patient remains in prolonged n.p.o./clear liquid status, may need to consider alternate means of nutrition such as TPN or PPN. (12) Nicotine dependence Qualifiers: Nicotine product type: other Substance use status: uncomplicated Qualified Code(s): F17.290 - Nicotine dependence, other tobacco product, uncom plicated Is this a current diagnosis for this admission?: Yes Plan: Patient reports that she utilizes low-dose nicotine, preloaded, vaping devices. Cessation encouraged. NicoDerm patches available. (13) Opiate dependence, continuous Is this a current diagnosis for this admission?: Yes Plan: Continue home dose Subutex. Morphine as needed for breakthrough pain. (14) Stress Is this a current diagnosis for this admission?: Yes Plan: Patient with labile emotions today; clearly anxious and agitated. Under standably frustrated with her hospital admission, unclear diagnoses, and continued malaise/fevers. Notably in the immediate period and isolated from her infant. We will need to observe closely for worsening signs of anxiety or depression ( depression). Consider mental health consultation. - Plan Summary Summary: Appreciate the numerous providers that have provided my assistance with this patient's work-up: numerous members from the Hospitalist team, OBGYN, Surgery, Hematology, Cardiology, Radiology, Infectious Disease, and Pathology services. - Time Time Spent with patient: 35 or more minutes Medications reviewed and adjusted accordingly: Yes
[2019-10-01 17:47] LABS: PARTIAL THROMBOPLASTIN TIME 66.8 SEC (23.5-35.8)
--- NOTE | 2019-10-01 17:58 | RADIOLOGY REPORT (SQ) ---
EXAM DESCRIPTION: CT ABD/PELVIS WITH IV ORAL IMAGES COMPLETED DATE/TIME: 10/01/2019 5:43 pm REASON FOR STUDY: abd distention/pain COMPARISON: 09/27/2019 TECHNIQUE: CT scan of the abdomen and pelvis performed using helical scanning technique with dynamic intravenous contrast injection. No oral contrast. Images reviewed with lung, soft tissue, and bone windows. Reconstructed coronal and sagittal MPR images reviewed. Delayed images for evaluation of the urinary system also acquired. All images stored on PACS. All CT scanners at this facility use dose modulation, iterative reconstruction, and/or weight based d osing when appropriate to reduce radiation dose to as low as reasonably achievable (ALARA). [facility]: Dose Right [facility]: CareDose [facility]: Dose Right [facility]: Teradose 4D [facility]: [employer] CONTRAST TYPE AND DOSE: contrast/concentration: Isovue 350.00 mg/ml; Total Contrast Delivered: 97.0 ml; Total Saline Delivered: 60.7 ml RENAL FUNCTION: None required. The patient is less than 50 years old. RADIATION DOSE: CT Rad equipment meets quality standard of care and radiation dose reduction techniq ues were employed. CTDIvol: 12.0 - 12.0 mGy. DLP: 1373 mGy-cm.. LIMITATIONS: None. FINDINGS: LOWER CHEST: Significant increase in the bilateral pleural effusions and bibasilar airspac e disease. LIVER: Normal size. No masses. No dilated ducts. SPLEEN: Normal size. No focal lesions. PANCREAS: No masses. No significant calcifications. No adjacent inflammation or peripancreatic fluid collections. Pancreatic duct not dilated. GALLBLADDER: No identified stones by CT criteria. No inflammatory changes to suggest cholecystitis. ADRENAL GLANDS: No significant masses or asymmetry. RIGHT KIDNEY AND URETER: No solid masses. No significant calcifications. Interval mild hydronephr osis and hydroureter. The Bateman tip appears to be just at the orifice of the right ureter. LEFT KIDNEY AND URETER: No solid masses. No significant calcifications. No hydronephrosis or hydr oureter. AORTA AND VESSELS: No aneurysm. No dissection. Renal arteries, SMA, celiac without stenosis. RETROPERITONEUM: No retroperitoneal adenopathy, hemorrhage or masses. BOWEL AND PERITONEAL CAVITY: Generalized ascites slightly increased over previous. There is also mil d adynamic ileus with fluid in the stomach and small bowel. Fluid in the right colon. Fecal materia l distal. APPENDIX: Not visualized. PELVIS: Free fluid. Bateman in the bladder. ABDOMINAL WALL: No masses. No hernias. BONES: No significant or acute findings. OTHER: No other significant finding. IMPRESSION: Significant increase in the bilateral pleural effusions and bibasilar airspace disease. Slight increase in the ascites. Adynamic ileus with fluid-filled small bowel and right colon. No evidence for obstruction. Mild hydronephrosis and hydroureter on the right. This appears to be secondary to a Bateman catheter t ip just at the orifice of the right ureter. TECHNICAL DOCUMENTATION: JOB ID: [id number] Quality ID # [id number]: Final reports with documentation of one or more dose reduction techniques (e.g., Au tomated exposure control, adjustment of the mA and/or kV according to patient size, use of iterative reconstruction technique) 2010 [employer]- All Rights Reserved Reading location - IP/workstation name: [email or web address]
[2019-10-01 18:05] LABS: INTERNATIONAL RATION (INR) 1.66
[2019-10-01 18:18] LABS: PROTHROMBIN TIME 19.8 SEC (11.4-15.4)
--- NOTE | 2019-10-01 19:13 | PDOC PROGRESS REPORT ---
Subjective Progress Note for:: 10/01/19 Subjective:: Still with diffuse abdominal pain. Reason For Visit: SEPSIS Physical Exam Vital Signs: Temp Pulse Resp BP Pulse Ox 100.2 F 74 20 124/76 95 10/01/19 16:20 10/01/19 16:20 10/01/19 16:20 10/01/19 16:20 10/01/19 16:28 Intake & Output 09/30/19 10/01/19 10/02/19 06:59 06:59 06:59 Intake Total 3100 3014 2014 Output Total 2075 1200 1000 Balance 1025 1814 1015 Weight 85.2 kg 85.2 kg General appearance: PRESENT: cooperative Respiratory exam: PRESENT: clear to auscultation [place] Cardiovascular exam: PRESENT: RRR GI/Abdominal exam: PRESENT: other - Soft but distended with diffuse abdominal tenderness with positive percussion tenderness Results Laboratory Results: 10/01/19 05:09 10/01/19 05:09 10/01/19 10/01/19 10/01/19 05:09 05:09 05:09 WBC 11.0 H RBC 3.68 L Hgb 10.7 L Hct 31.0 L MCV 84 MCH 29.0 MCHC 34.4 RDW 15.4 H Plt Count 429 Seg Neutrophils % 87.5 H Sodium 134.1 L Potassium 3.9 Chloride 100 Carbon Dioxide 29 Anion Gap 5 BUN 13 Creatinine 0.65 Est GFR ( Amer) > 60 Glucose 105 Lactic Acid Calcium 7.5 L Total Bilirubin 0.7 AST 30 Alkaline Phosphatase 110 Total Protein 5.2 L Albumin 2.2 L Lipase 786.6 H Blood Type 10/01/19 10/01/19 11:40 11:40 WBC RBC Hgb Hct MCV MCH MCHC RDW Plt Count Seg Neutrophils % Sodium Potassium Chloride Carbon Dioxide Anion Gap BUN Creatinine Est GFR ( Amer) Glucose Lactic Acid 0.7 Calcium Total Bilirubin AST Alkaline Phosphatase Total Protein Albumin Lipase Blood Type O POSITIVE 09/29/19 06:45 Abdominal Fluid Gram Stain - Final 09/29/19 14:22 NT-Pro-B Natriuret Pep 2330 H Impressions: Chest/Abdomen CTA 09/27/19 16:11 IMPRESSION: 1. NORMAL CTA OF THE CHEST. NO PULMONARY EMBOLI. 2. LOW LUNG VOLUMES. PROBABLE BASILAR ATELECTASIS. CANNOT EXCLUDE EARLY PNEUMONIA. Chest X-Ray 09/29/19 00:00 IMPRESSION: Bilateral lower lobe consolidation compatible with pneumonia. Small left effusion. KUB X-Ray 09/29/19 00:00 IMPRESSION: Nonspecific bowel gas pattern with moderate formed stool throughout the colon. Ill-defined soft tissue density overlies pelvis and right lower quadrant, likely combination of ascites and uterus. Pelvis Ultrasound 09/29/19 00:00 IMPRESSION: 1. Significant complex ascites within the pelvis, similar to prior CT. 2. Generalized thickening of the endometrial stripe measuring 1.9 cm, previously 1.1 cm. Differential includes hemorrhage, endometritis or retained products of conception. No focal thickening or hyperemia. Findings conveyed to Amanda Griffin at 1427 hours on 09/29/2019. Abdomen Ultrasound 09/30/19 00:00 IMPRESSION: Visualized portions of the splenic vein are patent, with no evidence for splenic vein thrombosis. Abdomen/Pelvis CT 10/01/19 00:00 IMPRESSION: Significant increase in the bilateral pleural effusions and bibasilar airspace disease. Slight increase in the ascites. Adynamic ileus with fluid-filled small bowel and right colon. No evidence for obstruction. Mild hydronephrosis and hydroureter on the right. This appears to be secondary to a Bateman catheter tip just at the orifice of the right ureter. Assessment & Plan - Diagnosis (1) Ascites Qualifiers: Ascites type: other type Qualified Code(s): R18.8 - Other ascites Is this a current diagnosis for this admission?: Yes Plan: Patient had underwent repeat CT scan which was remarkable for her ascites but no etiology identified. Her vasculature looks okay with no evidence of thrombosis. Her lipase is elevated however her pancreas looks completely normal on CT (I have reviewed the CT scan with radiology and that is one structure that radiologist feels confident appears normal) and I do not think she has clinically significant pancreatitis. With the degree of tenderness and pain, I strongly feel that a surgical exploration is indicated. I have had a long discussion with the patient concerning the risk and benefits of surgery including risk of mistaken diagnosis, bleeding, infection, adjacent structure injury. I have explained to the patient that fine will dictate what I need to do intraoperatively including possible bowel resection and the remote possibility of even an ostomy. If the exploration reveals a [employer] problem, I will obtain an intraoperative consultation. I will start off laparoscopically and may place a hand port to facilitate visualization. Patient understands the risk and benefits of surgery and the nature of the surgery but she wants to discuss with her prior to giving consent. We are unable to reach the at this time but as soon as he is available I will talk to him and we will proceed with surgery tonight if they are agreeable.
--- NOTE | 2019-10-01 20:43 | PDOC PROGRESS REPORT ---
Subjective Progress Note for:: 10/01/19 Subjective:: Patient states that she has had multiple bowel movements now and feels much much better with markedly decreased abdominal pain. She is hungry and wants to eat. Reason For Visit: SEPSIS Physical Exam Vital Signs: Temp Pulse Resp BP Pulse Ox 100.2 F 74 20 124/76 95 10/01/19 16:20 10/01/19 16:20 10/01/19 16:20 10/01/19 16:20 10/01/19 16:28 Intake & Output 09/30/19 10/01/19 10/02/19 06:59 06:59 06:59 Intake Total 3100 3014 2015 Output Total 2075 1200 2700 Balance 1025 1814 -685 Weight 85.2 kg 85.2 kg General appearance: PRESENT: no acute distress, cooperative GI/Abdominal exam: PRESENT: soft - Soft, less distended than earlier today with only mild diffuse abdominal tenderness with no peritoneal signs. Exam is much improved from just couple hours ago. Results Laboratory Results: 10/01/19 05:09 10/01/19 05:09 10/01/19 10/01/19 10/01/19 05:09 05:09 05:09 WBC 11.0 H RBC 3.68 L Hgb 10.7 L Hct 31.0 L MCV 84 MCH 29.0 MCHC 34.4 RDW 15.4 H Plt Count 429 Seg Neutrophils % 87.5 H Sodium 134.1 L Potassium 3.9 Chloride 100 Carbon Dioxide 29 Anion Gap 5 BUN 13 Creatinine 0.65 Est GFR ( Amer) > 60 Glucose 105 Lactic Acid Calcium 7.5 L Total Bilirubin 0.7 AST 30 Alkaline Phosphatase 110 Total Protein 5.2 L Albumin 2.2 L Lipase 786.6 H Blood Type 10/01/19 10/01/19 11:40 11:40 WBC RBC Hgb Hct MCV MCH MCHC RDW Plt Count Seg Neutrophils % Sodium Potassium Chloride Carbon Dioxide Anion Gap BUN Creatinine Est GFR ( Amer) Glucose Lactic Acid 0.7 Calcium Total Bilirubin AST Alkaline Phosphatase Total Protein Albumin Lipase Blood Type O POSITIVE 09/29/19 06:45 Abdominal Fluid Gram Stain - Final 09/29/19 14:22 NT-Pro-B Natriuret Pep 2330 H Impressions: Chest/Abdomen CTA 09/27/19 16:11 IMPRESSION: 1. NORMAL CTA OF THE CHEST. NO PULMONARY EMBOLI. 2. LOW LUNG VOLUMES. PROBABLE BASILAR ATELECTASIS. CANNOT EXCLUDE EARLY PNEUMONIA. Chest X-Ray 09/29/19 00:00 IMPRESSION: Bilateral lower lobe consolidation compatible with pneumonia. Small left effusion. KUB X-Ray 09/29/19 00:00 IMPRESSION: Nonspecific bowel gas pattern with moderate formed stool throughout the colon. Ill-defined soft tissue density overlies pelvis and right lower quadrant, likely combination of ascites and uterus. Pelvis Ultrasound 09/29/19 00:00 IMPRESSION: 1. Significant complex ascites within the pelvis, similar to prior CT. 2. Generalized thickening of the endometrial stripe measuring 1.9 cm, previously 1.1 cm. Differential includes hemorrhage, endometritis or retained products of conception. No focal thickening or hyperemia. Findings conveyed to Amanda Griffin at 1427 hours on 09/29/2019. Abdomen Ultrasound 09/30/19 00:00 IMPRESSION: Visualized portions of the splenic vein are patent, with no evidence for splenic vein thrombosis. Abdomen/Pelvis CT 10/01/19 00:00 IMPRESSION: Significant increase in the bilateral pleural effusions and bibasilar airspace disease. Slight increase in the ascites. Adynamic ileus with fluid-filled small bowel and right colon. No evidence for obstruction. Mild hydronephrosis and hydroureter on the right. This appears to be secondary to a Bateman catheter tip just at the orifice of the right ureter. Assessment & Plan - Diagnosis (1) Ascites Qualifiers: Ascites type: other type Qualified Code(s): R18.8 - Other ascites Is this a current diagnosis for this admission?: Yes Plan: Patient's pain has dramatically improved after bowel movements. Her abdominal exam has markedly improved. In light of her clinical improvement, will hold off surgery. However will keep the patient n.p.o. for tonight. Keep her on IV fluids.
[2019-10-01] MEDS: NORMAL SALINE 1000 ML 1,000 ML IV PRN (21:59)
[2019-10-01] MEDS ORDERED: NORMAL SALINE 500 ML IV ONE (22:00)
[2019-10-01] MEDS: PHARMACY COMMUNICATION ORDER MC SCH (22:07)
[2019-10-02] MEDS: PIPERACILLIN SODIUM/TAZOBACTAM 3.375 GM in NORMAL SALINE 100 ML IV SCH ×4 (03:00→21:29)
[2019-10-02 05:52] LABS: ABSOLUTE EOSINOPHILS # (AUTO) 0.1 10^3/uL (0.0-0.6); ABSOLUTE LYMPHOCYTES (AUTO) 0.8 10^3/uL (0.5-4.7); ABSOLUTE MONOCYTES (AUTO) 0.7 10^3/uL (0.1-1.4); ABSOLUTE NEUT (AUTO) 8.7 10^3/uL (1.7-8.2); BASOPHILS % (AUTO) 0.3 % (0-2); EOSINOPHILS % (AUTO) 1.1 % (0-6); HEMOGLOBIN 10.7 g/dL (12.0-15.5); LYMPHOCYTES % (AUTO) 7.6 % (13-45); MEAN CORPUSCULAR HEMOGLOBIN 29.1 pg (27.0-33.4); MEAN CORPUSCULAR HGB CONC 34.5 g/dL (32.0-36.0); MEAN CORPUSCULAR VOLUME 85 fl (80-97); MONOCYTES % (AUTO) 6.4 % (3-13); PLATELET COUNT 529 10^3/uL (150-450); RED BLOOD COUNT 3.67 10^6/uL (3.72-5.28); RED CELL DISTRIBUTION WIDTH 15.3 % (11.5-14.0); SEGMENTED NEUTROPHILS % (AUTO) 84.6 % (42-78); TOTAL CELLS COUNTED % (AUTO) 100 %; WHITE BLOOD COUNT 10.3 10^3/uL (4.0-10.5)
[2019-10-02 06:02] LABS: INTERNATIONAL RATION (INR) 1.31; PROTHROMBIN TIME 16.4 SEC (11.4-15.4)
[2019-10-02 06:04] LABS: PARTIAL THROMBOPLASTIN TIME 47.9 SEC (23.5-35.8)
[2019-10-02 06:18] LABS: ALBUMIN 2.6 g/dL (3.5-5.0); ALKALINE PHOSPHATASE 87 U/L (38-126); ANION GAP 8 (5-19); ASPARTATE AMINO TRANSFERASE 31 U/L (14-36); BILIRUBIN,DIRECT 0.1 mg/dL (0.0-0.4); BLOOD UREA NITROGEN 12 mg/dL (7-20); CALCIUM 7.9 mg/dL (8.4-10.2); CARBON DIOXIDE 26 mmol/L (22-30); CHLORIDE 101 mmol/L (98-107); GLUCOSE 95 mg/dL (75-110); POTASSIUM 3.7 mmol/L (3.6-5.0); TOTAL PROTEIN 5.8 g/dL (6.3-8.2)
[2019-10-02 06:22] LABS: VANCOMYCIN,TROUGH 5.6 ug/mL (5.0-20.0)
[2019-10-02] MEDS ORDERED: GLUCAGON,HUMAN RECOMB 1 MG INJ SUBCUT PRN (07:43)
[2019-10-02] MEDS ORDERED: DEXTROSE 40% GEL 15 GM TUBE PO PRN ×2 (07:43)
[2019-10-02] MEDS ORDERED: DEXTROSE 50%-WATER 25 GM/50 ML DISP.SYRIN IV PRN ×2 (07:43)
--- NOTE | 2019-10-02 08:35 | PDOC PROGRESS REPORT ---
Subjective Progress Note for:: 10/02/19 Subjective:: feels better after multiple bm's Reason For Visit: SEPSIS Physical Exam Vital Signs: Temp Pulse Resp BP Pulse Ox 99.6 F 72 12 133/70 H 94 10/02/19 01:18 10/02/19 02:00 10/02/19 01:18 10/02/19 01:18 10/02/19 01:18 Intake & Output 10/01/19 10/02/19 10/03/19 06:59 06:59 06:59 Intake Total 3014 2215 Output Total 1200 3375 Balance 1814 -1160 Weight 85.2 kg 85.2 kg General appearance: PRESENT: no acute distress Head exam: PRESENT: normocephalic Eye exam: PRESENT: EOMI Ear exam: PRESENT: normal external ear exam Mouth exam: PRESENT: moist Teeth exam: PRESENT: poor dentation Neck exam: PRESENT: full ROM Cardiovascular exam: PRESENT: RRR Pulses: PRESENT: +2 pedal pulses bilateral Breast: PRESENT: Normal GI/Abdominal exam: PRESENT: distended, soft Rectal exam: PRESENT: deferred Extremities exam: PRESENT: full ROM Musculoskeletal exam: PRESENT: full ROM Neurological exam: PRESENT: alert, awake, oriented to person, oriented to place Psychiatric exam: PRESENT: appropriate affect Skin exam: PRESENT: dry Results Laboratory Results: 10/02/19 05:36 10/02/19 05:36 10/01/19 10/01/19 10/01/19 05:09 11:40 11:40 WBC RBC Hgb Hct MCV MCH MCHC RDW Plt Count Seg Neutrophils % Sodium Potassium Chloride Carbon Dioxide Anion Gap BUN Creatinine Est GFR ( Amer) Glucose Lactic Acid 0.7 Calcium Total Bilirubin AST Alkaline Phosphatase Total Protein Albumin Lipase 786.6 H Blood Type O POSITIVE 10/02/19 10/02/19 05:36 05:36 WBC 10.3 RBC 3.67 L Hgb 10.7 L Hct 31.0 L MCV 85 MCH 29.1 MCHC 34.5 RDW 15.3 H Plt Count 529 H Seg Neutrophils % 84.6 H Sodium 134.7 L Potassium 3.7 Chloride 101 Carbon Dioxide 26 Anion Gap 8 BUN 12 Creatinine 0.61 Est GFR ( Amer) > 60 Glucose 95 Lactic Acid Calcium 7.9 L Total Bilirubin 1.0 AST 31 Alkaline Phosphatase 87 Total Protein 5.8 L Albumin 2.6 L Lipase Blood Type 09/29/19 06:45 Abdominal Fluid Gram Stain - Final 09/29/19 14:22 NT-Pro-B Natriuret Pep 2330 H Impressions: Chest/Abdomen CTA 09/27/19 16:11 IMPRESSION: 1. NORMAL CTA OF THE CHEST. NO PULMONARY EMBOLI. 2. LOW LUNG VOLUMES. PROBABLE BASILAR ATELECTASIS. CANNOT EXCLUDE EARLY PNEUMONIA. Chest X-Ray 09/29/19 00:00 IMPRESSION: Bilateral lower lobe consolidation compatible with pneumonia. Small left effusion. KUB X-Ray 09/29/19 00:00 IMPRESSION: Nonspecific bowel gas pattern with moderate formed stool throughout the colon. Ill-defined soft tissue density overlies pelvis and right lower quadrant, likely combination of ascites and uterus. Pelvis Ultrasound 09/29/19 00:00 IMPRESSION: 1. Significant complex ascites within the pelvis, similar to prior CT. 2. Generalized thickening of the endometrial stripe measuring 1.9 cm, previously 1.1 cm. Differential includes hemorrhage, endometritis or retained products of conception. No focal thickening or hyperemia. Findings conveyed to Amanda Griffin at 1427 hours on 09/29/2019. Abdomen Ultrasound 09/30/19 00:00 IMPRESSION: Visualized portions of the splenic vein are patent, with no evidence for splenic vein thrombosis. Abdomen/Pelvis CT 10/01/19 00:00 IMPRESSION: Significant increase in the bilateral pleural effusions and bibasilar airspace disease. Slight increase in the ascites. Adynamic ileus with fluid-filled small bowel and right colon. No evidence for obstruction. Mild hydronephrosis and hydroureter on the right. This appears to be secondary to a Bateman catheter tip just at the orifice of the right ureter. Assessment & Plan - Plan Summary Plan Summary: pt abd pain resolved after multiple bm last night deferred surgery last pm and again this moring wants to see if it resolves without operative intervention will start clear liquids tday.
[2019-10-02] MEDS: MORPHINE SULFATE 10 MG/ML INJ IV PRN ×4 (08:48→22:22)
[2019-10-02 09:09] LABS: CMV DNA PCR QUANT Negative (Negative)
[2019-10-02] MEDS: MAGNESIUM HYDROXIDE SUSP 30 ML UDCUP PO SCH (10:28)
[2019-10-02] MEDS: MINERAL OIL ENEMA 133 ML PR SCH (10:28)
[2019-10-02] MEDS: POLYETHYLENE GLYCOL 3350 POWDER 17 GM/1 PACKET PO SCH (10:28)
[2019-10-02] MEDS: BISACODYL 10 MG SUPP.RECT PR SCH (10:28)
[2019-10-02] MEDS: HYDROCORTISONE ACETATE 25 MG SUPP.RECT PR SCH ×2 (10:29→17:24)
[2019-10-02] MEDS: PHENYLEPHRINE HCL 1 EACH SUPP.RECT PR SCH ×2 (10:29→22:43)
[2019-10-02] MEDS: DOCUSATE SODIUM 100 MG CAPSULE PO SCH ×2 (10:36→17:24)
[2019-10-02] MEDS: FUROSEMIDE INJ/PF 20 MG/2 ML SDV IV SCH (10:36)
[2019-10-02] MEDS: CEFTRIAXONE 2 GM/D5W RTU 2 GM/50 ML RTUPB IV SCH (10:36)
[2019-10-02] MEDS: PANTOPRAZOLE SODIUM 40 MG VIAL IV SCH ×2 (10:36→21:29)
[2019-10-02] MEDS: SPIRONOLACTONE 25 MG TABLET PO SCH (10:37)
[2019-10-02] MEDS: BUPRENORPHINE HCL 2 MG SUBLINGUAL TABLET SL SCH (10:37)
[2019-10-02] MEDS: PHYTONADIONE 5 MG TABLET PO SCH (10:39)
[2019-10-02] MEDS: LIDOCAINE 5% (700 MG) TRANSDERMAL ADH..PATCH TP SCH (10:47)
[2019-10-02] MEDS: NORMAL SALINE 1000 ML 1,000 ML IV PRN (14:21)
--- NOTE | 2019-10-02 16:55 | PDOC PROGRESS REPORT ---
Subjective Progress Note for:: 10/02/19 Subjective:: Per admitting provider: "MELCHOR PARTIDA is a 39 year old female who is 12 days full-term vaginal delivery without complications with a past medical history of opiate dependent chronic pain, history of IV drug use (patient admits to 3 occurrences of IVDU greater than a year ago), on Subutex, and GERD who was admitted by the TELECOMMUNICATION TOWER TECHNICIAN service on 09/27/2019 after patient presented to the emergency department for the second time with complaint of intractable abdominal, bilateral flank, and back pain. Hospitalist service was consulted to assist with further evaluation of complex/septated ascites in patient with sepsis and unclear source of infection. OBGYN has since transferred primary service to our care." 10/02/2019 Patient seems to be doing clinically better compared to prior visit documentation. She has a very strange presentation and clinical course in spite discussing this with my colleagues over the past few days I do not feel that there is a perfect unifying diagnosis to explain all of her lab abnormalities, physical exam findings, and imaging findings. Her abdomen is still quite distended today and tympanic though reportedly this is improved from yesterday after she had multiple large bowel movements overnight. It is a bit hard to ascribe everything going on to simple ileus given the patient's lactate has been normal consistently. In particular, I am having a hard time reconciling the patient's coagulopathy and I am suspicious that she has a defect in the synthetic function of her liver and her ability to produce clotting factors. Clearly, her extrinsic and intrinsic clotting factors have been affected given she has a prolonged PTT and INR with a normal fibrinogen (ruling out DIC). I do not see any medications in her MAR or home medications that could have caused this. Hepatitis A, B, and C as well as HIV have been negative. There are no bacteria growing on her blood or ascites or urine cultures. I called the TELECOMMUNICATION TOWER TECHNICIAN who was nursing department chairperson today and discussed the case with her. She does not believe any of the patient's problems are results of the patient's delivery. Patient told me today that when she delivered her OB had to breakthrough some cervical scar tissue in the canal that was preventing descent of her baby. Per my discussion with OB today, they do not believe there is any indication for further gynecologic investigative procedures and they stated patient had a normal speculum exam yesterday. We will repeat coagulation studies tomorrow to see if she has lasting correction of her PTT and INR. I am concerned that today is showing a transient correction due to the vitamin K and FFP she was previously given. Obstetrics recommended patient be transferred to a tertiary facility with a pill machine operator who could evaluate the patient's liver dysfunction. If she does not improve, we will reach out to a neighboring tertiary hospital for transfer. Patient's only complaints today are distended tense abdomen which is intermittently uncomfortable, swollen right labia majora. ITZEL is pending Reason For Visit: SEPSIS Physical Exam Vital Signs: Temp Pulse Resp BP Pulse Ox 98.7 F 67 16 139/74 H 95 10/02/19 11:42 10/02/19 13:25 10/02/19 13:25 10/02/19 11:42 10/02/19 13:25 Intake & Output 10/01/19 10/02/19 10/03/19 06:59 06:59 06:59 Intake Total 3014 3215 270 Output Total 1200 3375 1200 Balance 1814 -160 -930 Weight 85.2 kg 85.2 kg General appearance: PRESENT: no acute distress, well-developed, well-nourished Head exam: PRESENT: atraumatic, normocephalic Eye exam: PRESENT: conjunctiva pink Mouth exam: PRESENT: moist Respiratory exam: PRESENT: clear to auscultation [place]. ABSENT: rales, rhonchi, wheezes Cardiovascular exam: PRESENT: RRR. ABSENT: diastolic murmur, rubs, systolic murmur GI/Abdominal exam: PRESENT: distended, normal bowel sounds, soft. ABSENT: guarding, mass, organolmegaly, rebound, tenderness Rectal exam: PRESENT: deferred Extremities exam: PRESENT: pedal edema - Mild Neurological exam: PRESENT: alert, awake, oriented to person, oriented to place, oriented to time, oriented to situation Psychiatric exam: PRESENT: appropriate affect, normal mood Skin exam: PRESENT: dry, intact, warm Results Laboratory Results: 10/02/19 05:36 10/02/19 05:36 10/01/19 10/02/19 10/02/19 11:40 05:36 05:36 WBC 10.3 RBC 3.67 L Hgb 10.7 L Hct 31.0 L MCV 85 MCH 29.1 MCHC 34.5 RDW 15.3 H Plt Count 529 H Seg Neutrophils % 84.6 H Sodium 134.7 L Potassium 3.7 Chloride 101 Carbon Dioxide 26 Anion Gap 8 BUN 12 Creatinine 0.61 Est GFR ( Amer) > 60 Glucose 95 Calcium 7.9 L Total Bilirubin 1.0 AST 31 Alkaline Phosphatase 87 Total Protein 5.8 L Albumin 2.6 L Blood Type O POSITIVE 09/27/19 13:45 Blood Blood Culture - Final NO GROWTH IN 5 DAYS 09/27/19 13:40 Blood Blood Culture - Final NO GROWTH IN 5 DAYS 09/30/19 10:00 Nasophary (Mrsa Only) MRSA Culture - Final NO MRSA RECOVERED 09/29/19 06:45 Abdominal Fluid Gram Stain - Final 09/29/19 14:22 NT-Pro-B Natriuret Pep 2330 H Impressions: Chest/Abdomen CTA 09/27/19 16:11 IMPRESSION: 1. NORMAL CTA OF THE CHEST. NO PULMONARY EMBOLI. 2. LOW LUNG VOLUMES. PROBABLE BASILAR ATELECTASIS. CANNOT EXCLUDE EARLY PNEUMONIA. Chest X-Ray 09/29/19 00:00 IMPRESSION: Bilateral lower lobe consolidation compatible with pneumonia. Small left effusion. KUB X-Ray 09/29/19 00:00 IMPRESSION: Nonspecific bowel gas pattern with moderate formed stool throughout the colon. Ill-defined soft tissue density overlies pelvis and right lower quadrant, likely combination of ascites and uterus. Pelvis Ultrasound 09/29/19 00:00 IMPRESSION: 1. Significant complex ascites within the pelvis, similar to prior CT. 2. Generalized thickening of the endometrial stripe measuring 1.9 cm, previously 1.1 cm. Differential includes hemorrhage, endometritis or retained products of conception. No focal thickening or hyperemia. Findings conveyed to Amanda Shelby at 1427 hours on 09/29/2019. Abdomen Ultrasound 09/30/19 00:00 IMPRESSION: Visualized portions of the splenic vein are patent, with no evidence for splenic vein thrombosis. Abdomen/Pelvis CT 10/01/19 00:00 IMPRESSION: Significant increase in the bilateral pleural effusions and bibasilar airspace disease. Slight increase in the ascites. Adynamic ileus with fluid-filled small bowel and right colon. No evidence for obstruction. Mild hydronephrosis and hydroureter on the right. This appears to be secondary to a Bateman catheter tip just at the orifice of the right ureter. Assessment and Plan - Diagnosis (1) Ascites Qualifiers: Ascites type: other type Qualified Code(s): R18.8 - Other ascites Is this a current diagnosis for this admission?: Yes Plan: Per previous provider: CallUnclear etiology at this time; most likely secondary to infectious process. Liver enzymes were mildly elevated on admission but have improved slightly. Abdominal CT is negative for clear evidence of liver disease. However, she is noted to have splenomegaly. Pelvic U/S shows complex, septated, ascites. No history of heart failure. However, proBNP is elevated to 2330. Echocardiogram shows mildly elevated RA, RV and mild pulmonary HTN. Albumin low at 1.8. Pre-albumin 6.2. Now s/p paracentesis; 900 ml removed. Initial fluid evaluation unremarkable. LDH, Protein, Albumin, Glucose, and Cultures pending. Cytology negative for malignancy. Although lower on the differential, CMV is known to cause ascites. PCR is pending. [place] negative, EBV pending. Hepatitis panel negative. Budd Chiari and Splenic Vein thrombosis negative by ultrasound. Discussed with radiology today; will obtain liver ultrasound with Doppler to rule out Budd Chiari syndrome and assess for large pockets of ascites amenable to drainage. Continue NS at 25 ml/hr. Repeat albumin and furosemide to mobilize fluid. Monitor fluid volume status and blood pressures closely. Continue spironolactone. Registered dietitian is consulted. Should the patient remain in prolonged n.p.o. status or on clears, may need to consider PPN or TPN as an alternate means of nutrition given her severe hypoalbuminemia. Cardiology consultation for further cardiac evaluation. Ruled out right heart failure Daily weights. Strict I&O's." 10/02/2019 I do not see a specific indication for spironolactone, discontinued this Get serum LDH though we cannot reliably compare this to ascites LDH that was done several days ago -get stool elastase, stool fecal fat, repeat lipase, iron def anemia labs, B12, folate Get celiac antibody serology Get antimitochondrial antibody for possible PBC given cholestatic labs el evated, coarse echotexture of liver on ultrasound, possible malabsorption, splenomegaly, appropriate age for this disease Possible protein-losing gastroenteropathy, multiple vitamin studies ordered as above Possible leaky gut syndrome due to inflammatory bowel disease, possibly microscopic colitis versus celiac disease High lipase along with the possible malabsorption disease may indicate pancr eatic insufficiency and patient may benefit from supplementation with Creon Would likely benefit from referral to GI for upper and lower endoscopy for biopsy and pathology review of gut histology (2) Coagulopathy Is this a current diagnosis for this admission?: Yes Plan: Per previous provider: "Unclear etiology; DIC versus liver dysfunction. INR 4.77-> 3.26-> 2.16 (following vitamin K and 4 units FFP)-> 3.44-> 5.52 Hematology is consulted. Has added clotting factors, von Willebrand, and mixing times; all send out labs. Recommend starting daily oral vitamin K 5 mg. Will receive an additional 4 units FFP today prior to surgery. We will continue to monitor daily PT/INR." 10/02/2019 Highly suspect patient is deficient in vitamin K and protein which is causing elevated INR and PTT without significant change in fibrinogen as might be expected in DIC Multiple vitamin studies ordered as above, evaluate for malabsorption disorder (3) Abdominal pain Qualifiers: Abdominal location: generalized Qualified Code(s): R10.84 - Generalized abdominal pain Is this a current diagnosis for this admission?: Yes Plan: Per previous provider: "Likely multifactorial secondary to ascites of unclear source, splenomegaly, constipation, ileus/partial small bowel, and recent vaginal delivery. Analgesics as needed. Avoid NSAIDs secondary to elevated PT/INR. Surgery is consulted; plan for exploratory laparotomy today once PT/INR corrected. Vitamin K and 4 units FFP preoperatively. Follow-up DIC panel." 10/02/2019 Ascites appears to be returning based on exam his abdomen is still rather large, bloated, and somewhat tense Work-up as above Placed on gluten-free diet (4) Constipation Qualifiers: Constipation type: unspecified constipation type Qualified Code(s): K59.00 - Constipation, unspecified Is this a current diagnosis for this admission?: Yes Plan: Per previous provider: "Multifactorial secondary to chronic opiate use and recent vaginal delivery. Continue Colace twice daily, Dulcolax daily, MiraLAX daily, Fleet daily Received IV Reglan x4 doses yesterday. Nursing is advised to notify provider once patient has had multiple large volume BMs and/or loose stools to de-escalate bowel regiment. Surgery has been consulted secondary to CT imaging suggesting ileus versus partial small bowel; does not have acute abdomen or require surgical intervention at this time. She has been advanced to clear liquid diets." 10/02/2019 Has had many large BMs since last night with a great deal of improvement patient's symptoms and labs Continue bowel regimen (5) Elevated brain natriuretic peptide (BNP) level Is this a current diagnosis for this admission?: Yes Plan: Per previous provider: "Patient denies history of CHF, MS, CAD, hypertension. proBNP elevated 2330. Echocardiogram shows mildly elevated RA, RV and mild pulmonary HTN. On exam found to have profound ascites and +2 peripheral edema. IV fluids, Lasix, and spironolactone as above. Requested cardiology consultation. Appreciate Dr. Martines's assistance." 10/02/2019 I do not believe the etiology of the patient's edema has anything to do with her cardiac function, volume overload is more likely due to hypoalbuminemia and malabsorption/deficiency of essential vitamins (6) Hypoalbuminemia Is this a current diagnosis for this admission?: Yes Plan: Per previous provider: "Albumin 1.8. Pre-albumin 6.2. Continue IV albumin. Registered dietitian is consulted. If patient remains in prolonged n.p.o./clear liquid status, may need to consider alternate means of nutrition such as TPN or PPN." 10/02/2019 Severely low albumin/protein in a patient who states she eats 3 meals a day plus snacks whenever she wants. She states access to food is not an issue and she has a good appetite. Very likely she is malabsorption or food. Possible she has developed a B12 deficiency that is slow the transit of her gut and caused constipation. (7) Hypokalemia Is this a current diagnosis for this admission?: Yes (8) Opiate dependence, continuous Is this a current diagnosis for this admission?: Yes Plan: Continue home dose Subutex. Morphine as needed for breakthrough pain only, use sparingly as a last resort (9) Sepsis Qualifiers: Sepsis type: sepsis due to unspecified organism Sepsis acute organ dys function status: with acute organ dysfunction Severe sepsis acute organ d ysfunction type: disseminated intravascular coagulopathy Severe sepsis shock status: without septic shock Qualified Code(s): A41.9 - Sepsis, unspecified organism; R65.20 - Severe sepsis without septic shock; D65 - Disseminated intravascular coagulation [defibrination syndrome] Is this a current diagnosis for this admission?: Yes Plan: Per previous provider: "Sepsis, likely of intra-abdominal source, present on admission and evidenced by leukocytosis (WBCs 18.4), coagulopathy (PT 39.9, INR 3.99), mildly elevated liver enzymes (direct bili 0.7, AST 37, ALT 17, alk phos 239), low-grade temp (100.4), tachycardia (HR 132), tachypnea (RR 30), and hypoxia on room air (90%). DDx: peritonitis, endometriosis, healthcare associated pneumonia (unlikely), CMV Blood cultures are negative at 4 days Urine cultures negative at 2 days. [employer]ities [employer] pending. Abdominal fluid culture has now growth at 2 days Urinalysis negative x2 CXR on admission suggestive bibasilar atelectasis; has worsened since that time. However, she denied all respiratory symptoms on presentation and has minimal respiratory symptoms currently. I do not feel entirely confident that pneumonia is the primary source of her sepsis. Pelvic ultrasound showed a 19 mm endometrial strip. Per radiologist can be seen in endometritis versus retained products of conception. Discussed with Dr. Acosta and Dr. Lr who stated that this was a normal finding at this stage of the period. HIV, RPR, hepatitis panel negative COVID-19 negative Influenza negative ESB, CMV pending Monospot negative No rashes or wounds on exam. No joint swelling/erythema identified. No nuchal rigidity. CT ABD/Pelvis with oral and IV contrast pending. Patient was admitted to medical floor on continuous cardiac telemetry. She was empirically placed on Zosyn at time of admission; Day #5 IV Rocephin added for peritonitis; Day #2 Received 4 days of IV Vancomycin Infectious Disease consultation requested; greatly appreciate Dr. Castro's assistance" 10/02/2019 Suspect source may be cirrhosis with SBP or leaky gut syndrome from severe malnourishment and malabsorption causing translocation of bacteria through bowel wall into abdomen causing peritonitis. Continue treatment with antibiotics and she will need supplementation of protein and vitamins to help resolve this problem. May need steroids if we determine this is an inflammatory disease causing malabsorption. Would benefit from GI consult (10) Splenomegaly Is this a current diagnosis for this admission?: Yes Plan: Per previous provider: "Noted on CT. Monospot negative. ESB and CMV pending. Hematology consulted. Evaluation of ascites as above." 10/02/2019 Doubt infectious cause of splenomegaly. Possible cirrhosis and liver failure causing this (11) Normal vaginal delivery Is this a current diagnosis for this admission?: Yes (12) Substance abuse/dependence Is this a current diagnosis for this admission?: Yes (13) History of cervical cancer in adulthood Is this a current diagnosis for this admission?: Yes - Plan Summary Summary: Appreciate the numerous providers that have provided my assistance with this patient's work-up: numerous members from the Hospitalist team, OBGYN, Surgery, Hematology, Cardiology, Radiology, Infectious Disease, and Pathology services. - Time Time Spent with patient: 35 or more minutes Medications reviewed and adjusted accordingly: Yes - Inpatient Certification Based on my medical assessment, after consideration of the patient's comorbidities, presenting symptoms, or acuity I expect that the services needed warrant INPATIENT care.: Yes I certify that my determination is in accordance with my understanding of Medicare's requirements for reasonable and necessary INPATIENT services [42 CFR 412.3e].: Yes Medical Necessity: Significant Comorbidiites Make Outpatient Treatment Too Risky, Need Close Monitoring Due to Risk of Patient Decompensation, Need for IV Antibiotics, Risk of Complication if Not Cared For in Hospital, Risk of Diagnosis Which Will Require Inpatient Eval/Care/Monitoring
[2019-10-02] MEDS: PHARMACY COMMUNICATION ORDER MC SCH (21:32)
[2019-10-02 23:18] LABS: UR PRO/CREAT RATIO RESULT 0.6 mg/mg (0.0-0.2); URINE PROTEIN 45.7 mg/dL (<12)
[2019-10-03] MEDS: PIPERACILLIN SODIUM/TAZOBACTAM 3.375 GM in NORMAL SALINE 100 ML IV SCH ×4 (02:50→21:13)
[2019-10-03] MEDS: NORMAL SALINE 1000 ML 1,000 ML IV PRN (02:51)
[2019-10-03] MEDS: MORPHINE SULFATE 10 MG/ML INJ IV PRN ×6 (03:12→23:49)
[2019-10-03 06:18] LABS: ABSOLUTE RETICS # 0.102 10^6/uL (0.028-0.122); RETICULOCYTE COUNT (AUTO) 2.91 % (0.66-2.85)
[2019-10-03 06:20] LABS: INTERNATIONAL RATION (INR) 1.29; PROTHROMBIN TIME 16.2 SEC (11.4-15.4)
[2019-10-03 06:21] LABS: PARTIAL THROMBOPLASTIN TIME 50.4 SEC (23.5-35.8)
[2019-10-03 07:00] LABS: IRON(TIBC) 14.8 ug/dL (37-170)
[2019-10-03 08:09] LABS: FOLATE > 20.00 ng/mL (>2.76)
[2019-10-03] MEDS: MINERAL OIL ENEMA 133 ML PR SCH (09:10)
[2019-10-03] MEDS: HYDROCORTISONE ACETATE 25 MG SUPP.RECT PR SCH ×3 (09:10→18:39)
[2019-10-03] MEDS: BISACODYL 10 MG SUPP.RECT PR SCH (09:10)
[2019-10-03] MEDS: PHENYLEPHRINE HCL 1 EACH SUPP.RECT PR SCH ×2 (09:10→21:15)
[2019-10-03] MEDS: MAGNESIUM HYDROXIDE SUSP 30 ML UDCUP PO SCH (09:11)
[2019-10-03] MEDS: POLYETHYLENE GLYCOL 3350 POWDER 17 GM/1 PACKET PO SCH (09:11)
[2019-10-03] MEDS: LIDOCAINE 5% (700 MG) TRANSDERMAL ADH..PATCH TP SCH (09:14)
[2019-10-03] MEDS: DOCUSATE SODIUM 100 MG CAPSULE PO SCH ×2 (09:15→17:19)
[2019-10-03] MEDS: FUROSEMIDE INJ/PF 20 MG/2 ML SDV IV SCH (09:15)
[2019-10-03] MEDS: PANTOPRAZOLE SODIUM 40 MG VIAL IV SCH ×2 (09:15→21:13)
[2019-10-03] MEDS: BUPRENORPHINE HCL 2 MG SUBLINGUAL TABLET SL SCH (09:15)
--- NOTE | 2019-10-03 10:05 | PDOC PROGRESS REPORT ---
Subjective Progress Note for:: 10/03/19 Subjective:: patient continuing to c/o abdominal pain. states she has not had a BM since prior to her vaginal delivery on 09/17/19. Not passing gas. no vomiting, but nausea Reason For Visit: SEPSIS Pt seen early this AM. Indicats that since she had return of bowel function that she is feeling much better with less abdominal pain. Indicates that she feels a little better with every BM. States that she is tolerating her diet well and is now passing flatus regularly. Admits that she has been exceptionally sedentary and is worried that this could be contributing to her labial edema. Physical Exam - Physical Exam Vital Signs: Temp Pulse Resp BP Pulse Ox 99.2 F 70 24 H 133/78 H 95 10/03/19 08:40 10/03/19 08:40 10/03/19 08:40 10/03/19 08:40 10/03/19 08:40 Intake & Output 10/02/19 10/03/19 10/04/19 06:59 06:59 06:59 Intake Total 3215 2920 Output Total 3375 2275 Balance -160 645 Weight 85.2 kg 84.5 kg General appearance: PRESENT: no acute distress, cooperative, well-developed, well-nourished Head exam: PRESENT: atraumatic GI/Abdominal exam: PRESENT: distended, rigid - patient's abdomen is still quite tense but it is siginficantly improved from her previous exam that I performed earlier this week myself. amount of distension is markedly improved., soft - Gynecological Exam Labia: other - both labia are swollen, the right is much more than the left. There is No evidence of hematoma however, and montalvo look like it is dependent edema likely from her sedentary behavior recently. Please - Obstetrical Exam Vagina: not examined - See Dr. Quisep's documentation from Friday Fundal Height: u/3 - u/4 Tender: No Result Laboratory Results: 10/02/19 05:36 10/02/19 05:36 10/03/19 10/03/19 10/03/19 05:23 05:23 05:23 Retic Count (auto) 2.91 H Iron 14.8 L TIBC 181 L % Saturation 8 Transferrin 101.02 L Ferritin 541.00 H Lipase 808.5 H Vitamin B12 > 1000.0 H Folate > 20.00 09/27/19 13:45 Blood Blood Culture - Final NO GROWTH IN 5 DAYS 09/27/19 13:40 Blood Blood Culture - Final NO GROWTH IN 5 DAYS 09/30/19 10:00 Nasophary (Mrsa Only) MRSA Culture - Final NO MRSA RECOVERED 09/29/19 06:45 Abdominal Fluid Gram Stain - Final 09/29/19 14:22 NT-Pro-B Natriuret Pep 2330 H Impressions: Chest/Abdomen CTA 09/27/19 16:11 IMPRESSION: 1. NORMAL CTA OF THE CHEST. NO PULMONARY EMBOLI. 2. LOW LUNG VOLUMES. PROBABLE BASILAR ATELECTASIS. CANNOT EXCLUDE EARLY PNEUMONIA. Chest X-Ray 09/29/19 00:00 IMPRESSION: Bilateral lower lobe consolidation compatible with pneumonia. Small left effusion. KUB X-Ray 09/29/19 00:00 IMPRESSION: Nonspecific bowel gas pattern with moderate formed stool throughout the colon. Ill-defined soft tissue density overlies pelvis and right lower quadrant, likely combination of ascites and uterus. Pelvis Ultrasound 09/29/19 00:00 IMPRESSION: 1. Significant complex ascites within the pelvis, similar to prior CT. 2. Generalized thickening of the endometrial stripe measuring 1.9 cm, previously 1.1 cm. Differential includes hemorrhage, endometritis or retained products of conception. No focal thickening or hyperemia. Findings conveyed to Amanda Griffin at 1427 hours on 09/29/2019. Abdomen Ultrasound 09/30/19 00:00 IMPRESSION: Visualized portions of the splenic vein are patent, with no evidence for splenic vein thrombosis. Abdomen/Pelvis CT 10/01/19 00:00 IMPRESSION: Significant increase in the bilateral pleural effusions and biba silar airspace disease. Slight increase in the ascites. Adynamic ileus with fluid-filled small bowel and right colon. No evidence for obstruction. Mild hydronephrosis and hydroureter on the right. This appears to be secondary to a Mason catheter tip just at the orifice of the right ureter. Assessment & Plan - Diagnosis (1) Constipation Qualifiers: Constipation type: unspecified constipation type Qualified Code(s): K59.00 - Constipation, unspecified Is this a current diagnosis for this admission?: Yes (2) Coagulation defect during period Is this a current diagnosis for this admission?: Yes (3) Sepsis after obstetrical procedure Is this a current diagnosis for this admission?: Yes (4) Substance abuse/dependence Is this a current diagnosis for this admission?: Yes - Time Time Spent with patient: 15-24 minutes - Plan Summary Plan Summary: Thank you to the Hospitalist service and surgical service for your help with taking the care of this complicated patient. As d/w Dr. Patton yesterday, do not feel that this is related to her delivery as she is several weeks out, she has been more than well treated for endometritis, her work up at her first ER visit displayed a normal post workup including an ultrasound that was not indicative of retained POC. Her recent increase in endometrial stripe on sono is c/w a state. Dr. Patton indicated that per the patient her delivery was very "traumatic" due to "scar tissue" on her cervix. I contacted the doctor who deliveried her and he indicated that her delivery was actually very easy which is c/w her delivery summary. At this point, parts clerk is happy to continue following the patient with the other services however, this illness does not seem to be of fiberglass boat finisher origin. I did talk with the patient at length today and encouraged her to ambulate at least every hour. She indicated that she and her oncoming CUPOLA LINER HELPER had a plan to get her up and walking. She could possibily benefit from some mild dieuretics to help with labial swelling. To that end, may be prudent to d/c the patient's mason to encourage ambulation but I defer to the managing services. Please do not hesitate to contact us if we can offer further assistance.
[2019-10-03 10:49] LABS: VON WILLEBRAND FACTOR ACTIVITY 275 % (50-200); VON WILLEBRAND FACTOR ANTIGEN 314 % (50-200)
[2019-10-03] MEDS: PHYTONADIONE 5 MG TABLET PO SCH (10:55)
--- NOTE | 2019-10-03 11:50 | Progress Note ---
Provider Note Provider Note: Patient seen and examined today 10/03/2019. Abdomen is less distended however still firm. Diagnosis is still unclear in this patient. After long discussion with Dr. Wilhelm when it is felt that this is not a surgical candidate. Patient is also refused any type of surgical intervention at this time. Suggest further consultation with center medical specialist or dispatch specialist at tertiary institution. Surgery will sign off for now please reconsult as necessary.
[2019-10-03 14:36] LABS: FACTOR IX ACTIVITY 7 % (60-177); FACTOR XI ACTIVITY 63 % (60-150); FACTOR XII ACTIVITY 32 % (50-150)
--- NOTE | 2019-10-03 16:09 | PDOC PROGRESS REPORT ---
Subjective Progress Note for:: 10/03/19 Subjective:: Per admitting provider: "MELCHOR PARTIDA is a 39 year old female who is 12 days full-term vaginal delivery without complications with a past medical history of opiate dependent chronic pain, history of IV drug use (patient admits to 3 occurrences of IVDU greater than a year ago), on Subutex, and GERD who was admitted by the [employer] service on 09/27/2019 after patient presented to the emergency department for the second time with complaint of intractable abdominal, bilateral flank, and back pain. Hospitalist service was consulted to assist with further evaluation of complex/septated ascites in patient with sepsis and unclear source of infection. OBGYN has since transferred primary service to our care." 10/02/2019 Patient seems to be doing clinically better compared to prior visit documentation. She has a very strange presentation and clinical course in spite discussing this with my colleagues over the past few days I do not feel that there is a perfect unifying diagnosis to explain all of her lab abnormalities, physical exam findings, and imaging findings. Her abdomen is still quite distended today and tympanic though reportedly this is improved from yesterday after she had multiple large bowel movements overnight. It is a bit hard to ascribe everything going on to simple ileus given the patient's lactate has been normal consistently. In particular, I am having a hard time reconciling the patient's coagulopathy and I am suspicious that she has a defect in the synthetic function of her liver and her ability to produce clotting factors. Clearly, her extrinsic and intrinsic clotting factors have been affected given she has a prolonged PTT and INR with a normal fibrinogen (ruling out DIC). I do not see any medications in her MAR or home medications that could have caused this. Hepatitis A, B, and C as well as HIV have been negative. There are no bacteria growing on her blood or ascites or urine cultures. I called the [employer] who was materials planner/production planner today and discussed the case with her. She does not believe any of the patient's problems are results of the patient's delivery. Patient told me today that when she delivered her OB had to breakthrough some cervical scar tissue in the canal that was preventing descent of her baby. Per my discussion with OB today, they do not believe there is any indication for further gynecologic investigative procedures and they stated patient had a normal speculum exam yesterday. We will repeat coagulation studies tomorrow to see if she has lasting correction of her PTT and INR. I am concerned that today is showing a transient correction due to the vitamin K and FFP she was previously given. Obstetrics recommended patient be transferred to a tertiary facility with a plan checker who could evaluate the patient's liver dysfunction. If she does not improve, we will reach out to a neighboring tertiary hospital for transfer. Patient's only complaints today are distended tense abdomen which is intermittently uncomfortable, swollen right labia majora. ITZEL is pending 10/03/2019 Anemia labs showed she has anemia of chronic disease with low iron but low TIBC and elevated ferritin. Her PTT has started to rise again and INR is approximately the same. Coagulation study that is come back that was pending is her von Willebrand activity and antigen being elevated. Serum LDH is 218 and lipase has risen to 808. B12 is markedly elevated and folate is high as well. Protein creatinine ratio was elevated but only mildly so. I have ordered MRCP to get a better look at the patient's pancreas and biliary system along with her liver. Given the notably elevated lipase without evidence of pancreatitis on previous imaging, it is unclear what the etiology of this may be. I have also ordered IgG4 to rule out autoimmune pancreatitis. Patient may benefit from adding Creon to her diet. Given her age and otherwise unexplained liver failure, possible she has PBC and I have ordered antimitochondrial antibodies which are pending. Given that the patient is already on Zosyn, ceftriaxone serves no purpose and I discontinued this. It is a bit unclear what we are treating with IV antibiotics although it can continue for now. Her ascites culture did not grow any bacteria. Patient needs a GI consult and I have ordered this, supposedly they will be here on Friday. I suspect the patient would benefit from a liver biopsy if this can be done here. Patient may need to be transferred to a tertiary facility to see a hepatology specialist. I discussed the case with general surgery today who agreed with this. Patient is still complaining of distended abdomen and states she feels like she has more bowel movements that she must have today. Reason For Visit: SEPSIS Physical Exam Vital Signs: Temp Pulse Resp BP Pulse Ox 98.8 F 69 16 136/72 H 95 10/03/19 10:49 10/03/19 10:49 10/03/19 10:49 10/03/19 10:49 10/03/19 10:49 Intake & Output 10/02/19 10/03/19 10/04/19 06:59 06:59 06:59 Intake Total 3215 2920 760 Output Total 3375 2275 1350 Balance -160 645 -590 Weight 85.2 kg 84.5 kg Results Laboratory Results: 10/02/19 05:36 10/02/19 05:36 10/03/19 10/03/19 10/03/19 05:23 05:23 05:23 Retic Count (auto) 2.91 H Iron 14.8 L TIBC 181 L % Saturation 8 Transferrin 101.02 L Ferritin 541.00 H Lipase 808.5 H Vitamin B12 > 1000.0 H Folate > 20.00 09/29/19 06:45 Abdominal Fluid Gram Stain - Final 09/29/19 06:45 Abdominal Fluid Body Fluid Culture - Final NO AEROBIC OR ANAEROBIC ORGANISMS RECOVERED 09/27/19 13:45 Blood Blood Culture - Final NO GROWTH IN 5 DAYS 09/27/19 13:40 Blood Blood Culture - Final NO GROWTH IN 5 DAYS 09/29/19 14:22 NT-Pro-B Natriuret Pep 2330 H Impressions: Chest/Abdomen CTA 09/27/19 16:11 IMPRESSION: 1. NORMAL CTA OF THE CHEST. NO PULMONARY EMBOLI. 2. LOW LUNG VOLUMES. PROBABLE BASILAR ATELECTASIS. CANNOT EXCLUDE EARLY PNEUMONIA. Chest X-Ray 09/29/19 00:00 IMPRESSION: Bilateral lower lobe consolidation compatible with pneumonia. Small left effusion. KUB X-Ray 09/29/19 00:00 IMPRESSION: Nonspecific bowel gas pattern with moderate formed stool throughout the colon. Ill-defined soft tissue density overlies pelvis and right lower quadrant, likely combination of ascites and uterus. Pelvis Ultrasound 09/29/19 00:00 IMPRESSION: 1. Significant complex ascites within the pelvis, similar to prior CT. 2. Generalized thickening of the endometrial stripe measuring 1.9 cm, previously 1.1 cm. Differential includes hemorrhage, endometritis or retained products of conception. No focal thickening or hyperemia. Findings conveyed to Amanda Griffin at 1427 hours on 09/29/2019. Abdomen Ultrasound 09/30/19 00:00 IMPRESSION: Visualized portions of the splenic vein are patent, with no evidence for splenic vein thrombosis. Abdomen/Pelvis CT 10/01/19 00:00 IMPRESSION: Significant increase in the bilateral pleural effusions and bibasilar airspace disease. Slight increase in the ascites. Adynamic ileus with fluid-filled small bowel and right colon. No evidence for obstruction. Mild hydronephrosis and hydroureter on the right. This appears to be secondary to a Bateman catheter tip just at the orifice of the right ureter. Assessment and Plan - Diagnosis (1) Ascites Qualifiers: Ascites type: other type Qualified Code(s): R18.8 - Other ascites Is this a current diagnosis for this admission?: Yes Plan: Per previous provider: CallUnclear etiology at this time; most likely secondary to infectious process. Liver enzymes were mildly elevated on admission but have improved slightly. Abdominal CT is negative for clear evidence of liver disease. However, she is noted to have splenomegaly. Pelvic U/S shows complex, septated, ascites. No history of heart failure. However, proBNP is elevated to 2330. Echocardiogram shows mildly elevated RA, RV and mild pulmonary HTN. Albumin low at 1.8. Pre-albumin 6.2. Now s/p paracentesis; 900 ml removed. Initial fluid evaluation unremarkable. LDH, Protein, Albumin, Glucose, and Cultures pending. Cytology negative for malignancy. Although lower on the differential, CMV is known to cause ascites. PCR is pending. [place] negative, EBV pending. Hepatitis panel negative. Budd Chiari and Splenic Vein thrombosis negative by ultrasound. Discussed with radiology today; will obtain liver ultrasound with Doppler to rule out Budd Chiari syndrome and assess for large pockets of ascites amenable to drainage. Continue NS at 25 ml/hr. Repeat albumin and furosemide to mobilize fluid. Monitor fluid volume status and blood pressures closely. Continue spironolactone. Registered dietitian is consulted. Should the patient remain in prolonged n.p. o. status or on clears, may need to consider PPN or TPN as an alternate means of nutrition given her severe hypoalbuminemia. Cardiology consultation for further cardiac evaluation. Ruled out right heart failure Daily weights. Strict I&O's." 10/02/2019 We will continue spironolactone and Lasix for apparent cirrhosis/liver failure to help with ascites Get serum LDH though we cannot reliably compare this to ascites LDH that was done several days ago -get stool elastase, stool fecal fat, repeat lipase, iron def anemia labs, B12, folate Get celiac antibody serology Get antimitochondrial antibody for possible PBC given cholestatic labs elevated, coarse echotexture of liver on ultrasound, possible malabsorption, splenomegaly, appropriate age for this disease Possible protein-losing gastroenteropathy, multiple vitamin studies ordered as above Possible leaky gut syndrome due to inflammatory bowel disease, possibly microscopic colitis versus celiac disease High lipase along with the possible malabsorption disease may indicate pancreatic insufficiency and patient may benefit from supplementation with Creon Would likely benefit from referral to GI for upper and lower endoscopy for biop sy and pathology review of gut histology 10/03/2019 Lipase higher than previous at 808, get MRCP to rule out pancreatic/biliary etiology of ascites Pancreatic insufficiency tests are pending, consider adding Creon with meals which will help with absorption IgG4 to rule out autoimmune pancreatitis Multiple test pending as above Continue Aldactone/Lasix (2) Coagulopathy Is this a current diagnosis for this admission?: Yes Plan: Per previous provider: "Unclear etiology; DIC versus liver dysfunction. INR 4.77-> 3.26-> 2.16 (following vitamin K and 4 units FFP)-> 3.44-> 5.52 Hematology is consulted. Has added clotting factors, von Willebrand, and mixing times; all send out labs. Recommend starting daily oral vitamin K 5 mg. Will receive an additional 4 units FFP today prior to surgery. We will continue to monitor daily PT/INR." 10/02/2019 Highly suspect patient is deficient in vitamin K and protein which is causing elevated INR and PTT without significant change in fibrinogen as might be expected in DIC Multiple vitamin studies ordered as above, evaluate for malabsorption disorder 10/02/2021 PTT is starting to rise again and INR is approximately the same today Continue trending coags (3) Abdominal pain Qualifiers: Abdominal location: generalized Qualified Code(s): R10.84 - Generalized abdominal pain Is this a current diagnosis for this admission?: Yes (4) Constipation Qualifiers: Constipation type: unspecified constipation type Qualified Code(s): K59.00 - Constipation, unspecified Is this a current diagnosis for this admission?: Yes (5) Elevated brain natriuretic peptide (BNP) level Is this a current diagnosis for this admission?: Yes (6) Hypoalbuminemia Is this a current diagnosis for this admission?: Yes (7) Hypokalemia Is this a current diagnosis for this admission?: Yes (8) Opiate dependence, continuous Is this a current diagnosis for this admission?: Yes (9) Sepsis Qualifiers: Sepsis type: sepsis due to unspecified organism Sepsis acute organ dysfunction status: with acute organ dysfunction Severe sepsis acute organ dysfunction type: disseminated intravascular coagulopathy Severe sepsis shock status: without septic shock Qualified Code(s): A41.9 - Sepsis, unspecified organism; R65.20 - Severe sepsis without septic shock; D65 - Disseminated intravascular coagulation [defibrination syndrome] Is this a current diagnosis for this admission?: Yes (10) Splenomegaly Is this a current diagnosis for this admission?: Yes (11) Normal vaginal delivery Is this a current diagnosis for this admission?: Yes Plan: I discussed the case with obstetrics. Probably nothing further they can add to this case (12) Substance abuse/dependence Is this a current diagnosis for this admission?: Yes (13) History of cervical cancer in adulthood Is this a current diagnosis for this admission?: Yes - Plan Summary Summary: Appreciate the numerous providers that have provided my assistance with this patient's work-up: numerous members from the Hospitalist team, OBGYN, Surgery, Hematology, Cardiology, Radiology, Infectious Disease, and Pathology services. - Time Time Spent with patient: 25-34 minutes Medications reviewed and adjusted accordingly: Yes Anticipated discharge: Home - Inpatient Certification Based on my medical assessment, after consideration of the patient's comorbidities, presenting symptoms, or acuity I expect that the services needed warrant INPATIENT care.: Yes I certify that my determination is in accordance with my understanding of Medicare's requirements for reasonable and necessary INPATIENT services [42 CFR 412.3e].: Yes Medical Necessity: Significant Comorbidiites Make Outpatient Treatment Too Ris [place], Need Close Monitoring Due to Risk of Patient Decompensation, Need for IV Antibiotics, Risk of Complication if Not Cared For in Hospital, Risk of Diagnosis Which Will Require Inpatient Eval/Care/Monitoring
[2019-10-03 18:02] LABS: FACTOR VII ACTIVITY 7 % (51-186)
[2019-10-03] MEDS: PHARMACY COMMUNICATION ORDER MC SCH (21:13)
[2019-10-04] MEDS: PIPERACILLIN SODIUM/TAZOBACTAM 3.375 GM in NORMAL SALINE 100 ML IV SCH ×4 (03:42→21:11)
[2019-10-04] MEDS: MORPHINE SULFATE 10 MG/ML INJ IV PRN ×5 (03:42→21:10)
[2019-10-04 07:51] LABS: ALBUMIN 2.3 g/dL (3.5-5.0); ALKALINE PHOSPHATASE 82 U/L (38-126); ANION GAP 6 (5-19); ASPARTATE AMINO TRANSFERASE 30 U/L (14-36); BILIRUBIN,TOTAL 0.7 mg/dL (0.2-1.3); BLOOD UREA NITROGEN 5 mg/dL (7-20); CALCIUM 7.7 mg/dL (8.4-10.2); CARBON DIOXIDE 28 mmol/L (22-30); CHLORIDE 99 mmol/L (98-107); GLUCOSE 103 mg/dL (75-110); POTASSIUM 3.4 mmol/L (3.6-5.0); TOTAL PROTEIN 5.6 g/dL (6.3-8.2)
[2019-10-04 08:10] LABS: HEMATOCRIT 30.2 % (36.0-47.0); HEMOGLOBIN 10.5 g/dL (12.0-15.5); MEAN CORPUSCULAR HGB CONC 34.7 g/dL (32.0-36.0); MEAN CORPUSCULAR VOLUME 84 fl (80-97); PLATELET COUNT 621 10^3/uL (150-450); RED BLOOD COUNT 3.61 10^6/uL (3.72-5.28); RED CELL DISTRIBUTION WIDTH 14.9 % (11.5-14.0)
[2019-10-04 08:25] LABS: INTERNATIONAL RATION (INR) 1.35; PROTHROMBIN TIME 16.8 SEC (11.4-15.4)
[2019-10-04] MEDS ORDERED: DEXTROSE 40% GEL 15 GM TUBE PO PRN ×2 (08:45)
[2019-10-04] MEDS ORDERED: DEXTROSE 50%-WATER 25 GM/50 ML DISP.SYRIN IV PRN ×2 (08:45)
[2019-10-04] MEDS ORDERED: GLUCAGON,HUMAN RECOMB 1 MG INJ SUBCUT PRN (08:45)
[2019-10-04] MEDS: BISACODYL 10 MG SUPP.RECT PR SCH (09:28)
[2019-10-04] MEDS: HYDROCORTISONE ACETATE 25 MG SUPP.RECT PR SCH ×2 (09:28→17:14)
[2019-10-04] MEDS: MINERAL OIL ENEMA 133 ML PR SCH (09:29)
[2019-10-04] MEDS: POLYETHYLENE GLYCOL 3350 POWDER 17 GM/1 PACKET PO SCH (09:29)
[2019-10-04] MEDS: MAGNESIUM HYDROXIDE SUSP 30 ML UDCUP PO SCH (09:29)
[2019-10-04] MEDS: BUPRENORPHINE HCL 2 MG SUBLINGUAL TABLET SL SCH (09:49)
[2019-10-04] MEDS: DOCUSATE SODIUM 100 MG CAPSULE PO SCH ×2 (09:49→17:14)
[2019-10-04] MEDS: SPIRONOLACTONE 25 MG TABLET PO SCH (09:49)
[2019-10-04] MEDS: PANTOPRAZOLE SODIUM 40 MG VIAL IV SCH ×2 (09:49→21:11)
[2019-10-04] MEDS: LIDOCAINE 5% (700 MG) TRANSDERMAL ADH..PATCH TP SCH (09:49)
[2019-10-04] MEDS: PHENYLEPHRINE HCL 1 EACH SUPP.RECT PR SCH ×2 (09:49→21:11)
[2019-10-04] MEDS: FUROSEMIDE INJ/PF 20 MG/2 ML SDV IV SCH (09:49)
[2019-10-04] MEDS: PHYTONADIONE 5 MG TABLET PO SCH (09:50)
--- NOTE | 2019-10-04 11:51 | PDOC PROGRESS REPORT ---
Subjective Progress Note for:: 10/04/19 Subjective:: s/p paracentesis 09/28, care turned over on 09/29 to Medicine Reason For Visit: SEPSIS , unknown etiology Physical Exam - Physical Exam Vital Signs: Temp Pulse Resp BP Pulse Ox 100.0 F 84 16 139/73 H 94 10/04/19 07:13 10/04/19 07:13 10/04/19 07:13 10/04/19 07:13 10/04/19 07:13 Intake & Output 10/03/19 10/04/19 10/05/19 06:59 06:59 06:59 Intake Total 2920 2720 100 Output Total 2275 3225 Balance 645 -505 100 Weight 84.5 kg 87.2 kg - Gynecological Exam Labia: other - both labia are swollen, the right is much more than the left. There is No evidence of hematoma however, and montalvo look like it is dependent edema likely from her sedentary behavior recently. Please - Obstetrical Exam Vagina: not examined - See Dr. Quispe's documentation from Friday Result Laboratory Results: 10/04/19 06:26 10/04/19 06:26 10/04/19 10/04/19 10/04/19 06:26 06:26 06:26 WBC 10.0 RBC 3.61 L Hgb 10.5 L Hct 30.2 L MCV 84 MCH 29.0 MCHC 34.7 RDW 14.9 H Plt Count 621 H Sodium 132.7 L Potassium 3.4 L Chloride 99 Carbon Dioxide 28 Anion Gap 6 BUN 5 L Creatinine 0.62 Est GFR ( Amer) > 60 Glucose 103 Calcium 7.7 L Total Bilirubin 0.7 AST 30 Alkaline Phosphatase 82 C-Reactive Protein 169.4 H Total Protein 5.6 L Albumin 2.3 L 09/29/19 06:45 Abdominal Fluid Gram Stain - Final 09/29/19 06:45 Abdominal Fluid Body Fluid Culture - Final NO AEROBIC OR ANAEROBIC ORGANISMS RECOVERED 09/29/19 14:22 NT-Pro-B Natriuret Pep 2330 H Impressions: Chest/Abdomen CTA 09/27/19 16:11 IMPRESSION: 1. NORMAL CTA OF THE CHEST. NO PULMONARY EMBOLI. 2. LOW LUNG VOLUMES. PROBABLE BASILAR ATELECTASIS. CANNOT EXCLUDE EARLY PNEUMONIA. Chest X-Ray 09/29/19 00:00 IMPRESSION: Bilateral lower lobe consolidation compatible with pneumonia. Small left effusion. KUB X-Ray 09/29/19 00:00 IMPRESSION: Nonspecific bowel gas pattern with moderate formed stool throughout the colon. Ill-defined soft tissue density overlies pelvis and right lower quadrant, likely combination of ascites and uterus. Pelvis Ultrasound 09/29/19 00:00 IMPRESSION: 1. Significant complex ascites within the pelvis, similar to prior CT. 2. Generalized thickening of the endometrial stripe measuring 1.9 cm, previously 1.1 cm. Differential includes hemorrhage, endometritis or retained products of conception. No focal thickening or hyperemia. Findings conveyed to Amanda Griffin at 1427 hours on 09/29/2019. Abdomen Ultrasound 09/30/19 00:00 IMPRESSION: Visualized portions of the splenic vein are patent, with no evidence for splenic vein thrombosis. Abdomen/Pelvis CT 10/01/19 00:00 IMPRESSION: Significant increase in the bilateral pleural effusions and bibasilar airspace disease. Slight increase in the ascites. Adynamic ileus with fluid-filled small bowel and right colon. No evidence for obstruction. Mild hydronephrosis and hydroureter on the right. This appears to be secondary to a Bateman catheter tip just at the orifice of the right ureter. Status: Imported from PACS Assessment & Plan - Diagnosis (1) Ascites Qualifiers: Ascites type: other type Qualified Code(s): R18.8 - Other ascites Is this a current diagnosis for this admission?: Yes (2) Coagulation defect during period Is this a current diagnosis for this admission?: Yes (3) Constipation Qualifiers: Constipation type: unspecified constipation type Qualified Code(s): K59.00 - Constipation, unspecified Is this a current diagnosis for this admission?: Yes (4) Sepsis after obstetrical procedure Is this a current diagnosis for this admission?: Yes Plan: agree infectious etiology of some cause. However, even though group A noted on prior vaginal swab. None of blood cultures have been positive. Would be concerned that this would not be the cause with no positive blood cultures and nothing on ascites fluid c/w GrouP A at this time. Spoke with Amanda Griffin at this time and do not have anything more to offer with this patient. Should further CONTRACT PROJECT MANAGER need arise please reconsult. Unable to find PPD results that was placed last week. Amadna will find out where those results are located. Infectious and Hematologic concerns at this time are being adressed. We appreciate the assistance and help in the care of this patient and please notify us if any further questions. - Time Time Spent with patient: Less than 15 minutes Medications reviewed and adjusted accordingly: Yes Anticipated discharge: Home - Inpatient Certification I certify that my determination is in accordance with my understanding of Medicare's requirements for reasonable and necessary INPATIENT services [42 CFR 412.3e].: Yes Medical Necessity: Need Close Monitoring Due to Risk of Patient Decompensation, Need for Pain Control
[2019-10-04 12:36] LABS: VON WILLEBRAND FACTOR ACTIVITY 211 % (50-200)
[2019-10-04 12:37] LABS: VON WILLEBRAND FACTOR ANTIGEN 330 % (50-200)
--- NOTE | 2019-10-04 12:59 | PDOC PROGRESS REPORT ---
Subjective Progress Note for:: 10/04/19 Subjective:: Per hospitalist team, pt seems to be doing better, abd less swollen and softer now, less peritoneal type signs. Has been receiving vit K daily and INR is improving. We went over all coagulation studies and factor 7, 9, 12 decreased, we discussed 7, 9 are Vit K dependent factors so it would go along w/ vit K deficiency 2nd either DIC vs liver dysfxn to be cause of coagulapathy. Reason For Visit: SEPSIS Physical Exam Vital Signs: Temp Pulse Resp BP Pulse Ox 98.9 F 74 16 124/75 95 10/04/19 11:15 10/04/19 11:15 10/04/19 11:15 10/04/19 11:15 10/04/19 11:15 Intake & Output 10/03/19 10/04/19 10/05/19 06:59 06:59 06:59 Intake Total 2920 2720 100 Output Total 2275 3225 Balance 645 -505 100 Weight 84.5 kg 87.2 kg Results Laboratory Results: 10/04/19 06:26 10/04/19 06:26 10/04/19 10/04/19 10/04/19 06:26 06:26 06:26 WBC 10.0 RBC 3.61 L Hgb 10.5 L Hct 30.2 L MCV 84 MCH 29.0 MCHC 34.7 RDW 14.9 H Plt Count 621 H Sodium 132.7 L Potassium 3.4 L Chloride 99 Carbon Dioxide 28 Anion Gap 6 BUN 5 L Creatinine 0.62 Est GFR ( Amer) > 60 Glucose 103 Calcium 7.7 L Total Bilirubin 0.7 AST 30 Alkaline Phosphatase 82 C-Reactive Protein 169.4 H Total Protein 5.6 L Albumin 2.3 L 09/30/19 06:45 Ascities Fluid AFB Smear Concentration - Final 09/30/19 06:45 Ascities Fluid Acid Fast Bacilli Smear - Final 09/29/19 06:45 Abdominal Fluid Gram Stain - Final 09/29/19 06:45 Abdominal Fluid Body Fluid Culture - Final NO AEROBIC OR ANAEROBIC ORGANISMS RECOVERED 09/29/19 14:22 NT-Pro-B Natriuret Pep 2330 H Impressions: Chest/Abdomen CTA 09/27/19 16:11 IMPRESSION: 1. NORMAL CTA OF THE CHEST. NO PULMONARY EMBOLI. 2. LOW LUNG VOLUMES. PROBABLE BASILAR ATELECTASIS. CANNOT EXCLUDE EARLY PNEUMONIA. Chest X-Ray 09/29/19 00:00 IMPRESSION: Bilateral lower lobe consolidation compatible with pneumonia. Small left effusion. KUB X-Ray 09/29/19 00:00 IMPRESSION: Nonspecific bowel gas pattern with moderate formed stool throughout the colon. Ill-defined soft tissue density overlies pelvis and right lower quadrant, likely combination of ascites and uterus. Pelvis Ultrasound 09/29/19 00:00 IMPRESSION: 1. Significant complex ascites within the pelvis, similar to prior CT. 2. Generalized thickening of the endometrial stripe measuring 1.9 cm, previously 1.1 cm. Differential includes hemorrhage, endometritis or retained products of conception. No focal thickening or hyperemia. Findings conveyed to Amanda Griffin at 1427 hours on 09/29/2019. Abdomen Ultrasound 09/30/19 00:00 IMPRESSION: Visualized portions of the splenic vein are patent, with no evidence for splenic vein thrombosis. Abdomen/Pelvis CT 10/01/19 00:00 IMPRESSION: Significant increase in the bilateral pleural effusions and bibasilar airspace disease. Slight increase in the ascites. Adynamic ileus with fluid-filled small bowel and right colon. No evidence for obstruction. Mild hydronephrosis and hydroureter on the right. This appears to be secondary to a Bateman catheter tip just at the orifice of the right ureter. Assessment & Plan - Diagnosis (1) Coagulation defect during period Is this a current diagnosis for this admission?: Yes Plan: Improving, recommended continuing VIT K for now and f/u in our office 2-3 weeks post d/c to recheck coag studies. She would benefit from a hepatology evaluation also. - Time Time Spent with patient: 15-24 minutes
--- NOTE | 2019-10-04 18:38 | PDOC PROGRESS REPORT ---
Subjective Progress Note for:: 10/04/19 Subjective:: MELCHOR PARTIDA is a 39 year old female who is 12 days full-term vaginal delivery without complications with a past medical history of opiate dependent chronic pain, history of IV drug use (patient admits to 3 occurrences of IVDU greater than a year ago), on Subutex, and GERD who was admitted by the [facility] service on 09/27/2019 after patient presented to the emergency department for the second time with complaint of intractable abdominal, bilateral flank, and back pain. Hospitalist service was consulted to assist with further evaluation of complex/ septated ascites in patient with sepsis and unclear source of infection. OBGYN has since transferred primary service to our care. OBGYN has signed off. Surgery consulted and signed off. Hematology is consulted. Cardiology is consulted and singed off. Infectious Disease is consulted. Gastroenterology is consulted; have not yet seen patient (should be available 10/04) Patient was seen on morning round. She was found resting in bed, comfortably, on supplemental oxygen at 2 L/min. She appears much improved from when I last saw her for 48 hours ago. She states that her abdominal discomfort has decreased significantly; now tolerating small amount of full liquid diet, and ambulatory short distances. She does continue to have generalized abdominal tenderness and fullness, although, again quite improved from previously. Fever curve trending down; 100.0/24 hrs, 100.2/48 hrs. Persistently ~99 Dyspnea is significantly improved, denies chest wall discomfort with breathing, denies cough. She specifically denies chills, chest pain, dyspnea, nausea, vomiting, and diarrhea. Some mild orthopnea, though this appears to be related to abdominal girth. Edema to BLE is resolved; continued edema to labia. Reviewed course in detail with patient; discussed her likely development of endometritis/peritonitis leading to sepsis and ultimately causing her elevated coags. Discussed continue work-up, recommendations for antibiotic therapy, and potential for discharge within the next 3 to 7 days pending stabilization of INR and completion of 10 course of abx as was recommended by ID. Reason For Visit: SEPSIS Physical Exam Vital Signs: Temp Pulse Resp BP Pulse Ox 99.7 F 81 16 133/72 H 91 L 10/04/19 15:47 10/04/19 15:47 10/04/19 15:47 10/04/19 15:47 10/04/19 15:47 Intake & Output 10/03/19 10/04/19 10/05/19 06:59 06:59 06:59 Intake Total 2920 2720 200 Output Total 8933 6584 1600 Balance 645 505 -1400 Weight 84.5 kg 87.2 kg General appearance: PRESENT: no acute distress, cooperative, well-developed, well-nourished Head exam: PRESENT: atraumatic, normocephalic Eye exam: PRESENT: conjunctiva pink, EOMI, PERRLA. ABSENT: scleral icterus Mouth exam: PRESENT: moist, tongue midline Respiratory exam: PRESENT: clear to auscultation [place], symmetrical, unlabored, other - supplemental oxygen. ABSENT: rales, rhonchi, wheezes Cardiovascular exam: PRESENT: RRR. ABSENT: diastolic murmur, rubs, systolic murmur Pulses: PRESENT: normal dorsalis pedis pul Vascular exam: PRESENT: normal capillary refill GI/Abdominal exam: PRESENT: ascites, diminished bowel sounds, distended - slight decrease, soft, tenderness - significantly improved. ABSENT: guarding, rebound Rectal exam: PRESENT: deferred Extremities exam: PRESENT: full ROM. ABSENT: calf tenderness, clubbing, pedal edema Musculoskeletal exam: PRESENT: ambulatory Neurological exam: PRESENT: alert, awake, oriented to person, oriented to place, oriented to time, oriented to situation, CN II-XII grossly intact. ABSENT: motor sensory deficit Psychiatric exam: PRESENT: appropriate affect - tearful, normal mood. ABSENT: homicidal ideation, suicidal ideation Skin exam: PRESENT: dry, intact, warm. ABSENT: cyanosis, rash Results Laboratory Results: 10/04/19 06:26 10/04/19 06:26 10/04/19 10/04/19 10/04/19 06:26 06:26 06:26 WBC 10.0 RBC 3.61 L Hgb 10.5 L Hct 30.2 L MCV 84 MCH 29.0 MCHC 34.7 RDW 14.9 H Plt Count 621 H Sodium 132.7 L Potassium 3.4 L Chloride 99 Carbon Dioxide 28 Anion Gap 6 BUN 5 L Creatinine 0.62 Est GFR ( Amer) > 60 Glucose 103 Calcium 7.7 L Total Bilirubin 0.7 AST 30 Alkaline Phosphatase 82 C-Reactive Protein 169.4 H Total Protein 5.6 L Albumin 2.3 L 05/07/20 06:45 Ascities Fluid AFB Smear Concentration - Final 09/30/19 06:45 Ascities Fluid Acid Fast Bacilli Smear - Final 09/29/19 14:22 NT-Pro-B Natriuret Pep 2330 H Impressions: Chest/Abdomen CTA 09/27/19 16:11 IMPRESSION: 1. NORMAL CTA OF THE CHEST. NO PULMONARY EMBOLI. 2. LOW LUNG VOLUMES. PROBABLE BASILAR ATELECTASIS. CANNOT EXCLUDE EARLY PNEUMONIA. Chest X-Ray 09/29/19 00:00 IMPRESSION: Bilateral lower lobe consolidation compatible with pneumonia. Small left effusion. KUB X-Ray 09/29/19 00:00 IMPRESSION: Nonspecific bowel gas pattern with moderate formed stool throughout the colon. Ill-defined soft tissue density overlies pelvis and right lower quadrant, likely combination of ascites and uterus. Pelvis Ultrasound 09/29/19 00:00 IMPRESSION: 1. Significant complex ascites within the pelvis, similar to prior CT. 2. Generalized thickening of the endometrial stripe measuring 1.9 cm, previously 1.1 cm. Differential includes hemorrhage, endometritis or retained products of conception. No focal thickening or hyperemia. Findings conveyed to Amanda Griffin at 1427 hours on 09/29/2019. Abdomen Ultrasound 09/30/19 00:00 IMPRESSION: Visualized portions of the splenic vein are patent, with no evidence for splenic vein thrombosis. Abdomen/Pelvis CT 10/01/19 00:00 IMPRESSION: Significant increase in the bilateral pleural effusions and bibasilar airspace disease. Slight increase in the ascites. Adynamic ileus with fluid-filled small bowel and right colon. No evidence for obstruction. Mild hydronephrosis and hydroureter on the right. This appears to be secondary to a Bateman catheter tip just at the orifice of the right ureter. Assessment and Plan - Diagnosis (1) Sepsis Qualifiers: Sepsis type: sepsis due to unspecified organism Sepsis acute organ dysfunction status: with acute organ dysfunction Severe sepsis acute organ dysfunction type: disseminated intravascular coagulopathy Severe sepsis shock status: without septic shock Qualified Code(s): A41.9 - Sepsis, unspecified organism; R65.20 - Severe sepsis without septic shock; D65 - Disseminated intravascular coagulation [defibrination syndrome] Is this a current diagnosis for this admission?: Yes Plan: Sepsis, likely of intra-abdominal/pelvic source, present on admission and ev idenced by leukocytosis (WBCs 18.4), coagulopathy (PT 39.9, INR 3.99), mildly elevated liver enzymes (direct bili 0.7, AST 37, ALT 17, alk phos 239), low- grade temp (100.4), tachycardia (HR 132), tachypnea (RR 30), and hypoxia on room air (90%). Blood cultures are negative Urine cultures negative at 2 days. Ascities AFB pending. Abdominal fluid culture has now growth at 2 days Urinalysis negative x2 CXR on admission suggestive bibasilar atelectasis; has worsened since that time. Low suspicion for pulmonary source. Pelvic ultrasound showed a 19 mm endometrial strip. Per radiologist can be seen in endometritis versus retained products of conception. HIV, RPR, hepatitis panel negative COVID-19 negative Influenza negative ESB pending CMV negative Monospot negative No rashes or wounds on exam. No joint swelling/erythema identified. No nuchal rigidity. Likely r/t endometritis (diagnosis of exclusion; can not be definitively diagnosed short of ex-lap) resulting in peritonitis. Complicated by small bowel obstruction, possibly resulting in leaky gut syndrome, causing translocation of bacteria through bowel wall into abdomen thereby worsening peritonitis. Patient was admitted to medical floor on continuous cardiac telemetry. She was empirically placed on Zosyn at time of admission; Day #7/10 Received 2 days of Rocephin Received 4 days of IV Vancomycin Infectious Disease consultation requested; greatly appreciate Dr. Castro's assistance. Recommends minimum 10 days of Zosyn. (2) Endometritis following delivery Is this a current diagnosis for this admission?: Yes Plan: Presumed. Pelvic ultrasound showed a 19 mm endometrial strip. Per radiologist can be seen in endometritis versus retained products of conception. Did discuss with Dr. Acosta and previously with Dr. Lr. Each has expressed that they are not convinced patient has endometritis in view of negative blood cultures and U/S imaging. Endometritis is a diagnosis of exclusion; can not be definitively diagnosed short of ex-lap. GC/Ch was negative at time of delivery. Patient did have Group A Beta Strep which has been documented in ascending infections resulting in PID/Peritonitis and Sepsis (multiple case studies identified by hospitalist team). Infectious Disease is consulted; recommends continuing Zosyn for 10 day course of therapy as definitive diagnosis is not likely to be identified. (3) Ascites Qualifiers: Ascites type: other type Qualified Code(s): R18.8 - Other ascites Is this a current diagnosis for this admission?: Yes Plan: Unclear etiology at this time; most likely secondary to infectious process. Liver enzymes were mildly elevated on admission but have improved slightly. Abdominal CT is negative for clear evidence of liver disease. However, she is noted to have splenomegaly. Pelvic U/S shows complex, septated, ascites. No history of heart failure. However, proBNP is elevated to 2330. Echocardiogram shows mildly elevated RA, RV and mild pulmonary HTN. Albumin low at 1.8. Pre-albumin 6.2. Now s/p paracentesis; 900 ml removed. Initial fluid evaluation unremarkable. LDH, Protein, Albumin, Glucose, and Cultures pending. Cytology negative for malignancy. CMV negative, [place] negative, EBV pending. Hepatitis panel negative. Budd Chiari and Splenic Vein thrombosis negative by ultrasound. Cardiology consultation Ruled out right heart failure GI is consulted; has not yet seen patient(first availability is 10/05/2019) Continue furosemide and spironolactone. Registered dietitian is consulted. Daily weights. Strict I&O's. Further evaluation pending: Stool elastase, stool fecal fat pending Celiac antibody serology pending Antimitochondrial antibody for possible Primary Biliary Cirrhosis given cholestatic labs elevated, coarse echotexture of liver on ultrasound, possible malabsorption, splenomegaly, appropriate age for this disease Possible protein-losing gastroenteropathy, multiple vitamin studies ordered as above Lipase 786-> 808. Attempted MRCP today; patient did not tolerate. Consider re- attempt Pancreatic insufficiency tests are pending, consider adding Creon with meals which will help with absorption IgG4 to rule out autoimmune pancreatitis (4) Peritonitis (acute) generalized Is this a current diagnosis for this admission?: Yes Plan: Gradual improvement. Likely secondary to Endometritis and SBO resulting in leaky gut syndrome, ca using translocation of bacteria through bowel wall into abdomen. Peritoneal fluid culture negative to day. Peritoneal AFB is pending. Interferon Gold pending. (Per OBGYN, has seen similar case in past to have splenic TB). Evaluation and management as described above. (5) Coagulopathy Is this a current diagnosis for this admission?: Yes Plan: Unclear etiology; DIC versus liver dysfunction. INR 4.77-> 3.26-> 2.16 (following vitamin K and 4 units FFP)-> 3.44-> 5.52-> 1.66 (following vitamin K and 4 units FFP)-> 1.31-> 1.29-> 1.35 Hematology is consulted; likely Vitamin K deficiency Continue daily oral vitamin K 5 mg. We will continue to monitor daily PT/INR Liver evaluation as commented on under 'Ascites' (6) Hypokalemia Is this a current diagnosis for this admission?: Yes Plan: Replete Secondary to n.p.o. status, IV fluids, and furosemide She has been advanced to full liquids. Oral K riders Continue spironolactone Follow-up chemistry. (7) Leukocytosis Qualifiers: Leukocytosis type: lymphocytosis Qualified Code(s): D72.820 - Lymphocytosis (symptomatic) Is this a current diagnosis for this admission?: Yes Plan: Trending down overall; appears to have resolved. Secondary to #1-4 Cultures and antibiotics as above. Continue to monitor follow-up CBC. (8) Splenomegaly Is this a current diagnosis for this admission?: Yes Plan: Noted on CT. Monospot negative. ESB pending CMV negative Hematology consulted. GI consultation Liver evaluation as commented under ascites as above. (9) Constipation Qualifiers: Constipation type: unspecified constipation type Qualified Code(s): K59.00 - Constipation, unspecified Is this a current diagnosis for this admission?: Yes Plan: Resolved Multifactorial secondary to chronic opiate use and recent vaginal delivery. Continue Colace twice daily, Dulcolax daily, MiraLAX daily Received IV Reglan x4 doses previously Milk of Mag PRN She has been advanced to full liquid diets. (10) Abdominal pain Qualifiers: Abdominal location: generalized Qualified Code(s): R10.84 - Generalized abdominal pain Is this a current diagnosis for this admission?: Yes Plan: Significantly improved. Likely multifactorial secondary to endometritis, peritonitis, ascites, splenom egaly, constipation, ileus/partial small bowel, and recent vaginal delivery. Analgesics as needed. Avoid NSAIDs secondary to elevated PT/INR. (11) Hypoalbuminemia Is this a current diagnosis for this admission?: Yes Plan: Patient states she eats 3 meals a day plus snacks whenever she wants. She states access to food is not an issue and she has a good appetite. Very likely she is malabsorption or food. Pre-albumin 6.2. Albumin remains low 2.2-> 1.8-> 2.2-> 2.6-> 2.3 B12 > 1000 Celiac work up pending Pancreatic insufficiency work up pending. Consider additional IV albumin should patient develop worsening peripheral edema Registered dietitian is consulted. (12) Malnourished Qualifiers: Malnutrition type: protein-calorie malnutrition Protein-calorie malnutritio n severity: severe Qualified Code(s): E43 - Unspecified severe protein-calorie malnutrition Is this a current diagnosis for this admission?: Yes Plan: As above. She will need supplementation of protein and vitamins to help resolve this problem. May need steroids if we determine this is an inflammatory disease causing malabsorption. GI consult (13) Stress Is this a current diagnosis for this admission?: Yes Plan: Patient with labile emotions; clearly anxious and tearful. Understandably frustrated with her hospital admission. Notably in the immediate period and isolated from her . We will need to observe closely for worsening signs of anxiety or depression ( depression). Consider mental health consultation. (14) Nicotine dependence Qualifiers: Nicotine product type: other Substance use status: uncomplicated Q ualified Code(s): F17.290 - Nicotine dependence, other tobacco product, uncomplicated Is this a current diagnosis for this admission?: Yes Plan: Patient reports that she utilizes low-dose nicotine, preloaded, vaping devices. Cessation encouraged. NicoDerm patches available. (15) Opiate dependence, continuous Is this a current diagnosis for this admission?: Yes Plan: Continue Subutex. Morphine as needed for breakthrough pain only, use sparingly as a last resort (16) Elevated brain natriuretic peptide (BNP) level Is this a current diagnosis for this admission?: Yes Plan: Patient denies history of CHF, CO, CAD, hypertension. proBNP elevated 2330. Echocardiogram shows mildly elevated RA, RV and mild pulmonary HTN. Cardiology is ruled out right heart failure. Ascites and peripheral edema are improved. Continue furosemide and spironolactone. Certainly a component of hypoalbuminemia and malabsorption/deficiency of essential vitamins (17) Healthcare associated bacterial pneumonia Is this a current diagnosis for this admission?: Yes Plan: Unlikely. She was admitted to this facility 09/17/19 for delivery of a full-term infant. She did not receive antibiotics at that time. There is possibility she subsequently developed a healthcare associated pneumonia given her recent admission; although I continue to have low suspicion at this time. Imaging findings are much more likely to be atelectasis. CXR on admission showed a left lower lobe opacity; likely atelectasis, although could not rule out early pneumonia. Chest CTA showed scattered parenchymal densities to the lower lobes; again atelectasis versus pneumonia. Chest x-ray (09/29/2019) shows worsening bilateral opacities consistent with pneumonia. Blood cultures negative Sputum cultures not obtained; did not have sputum production COVID19 negative Influenza negative. Continue supplemental oxygen as needed maintain saturations greater than 89%. Begin weaning oxygen. Continue antibiotics as above. Continue as needed nebulizer treatments. Incentive spirometer and flutter valve to bedside. Ambulate twice daily. - Plan Summary Summary: Appreciate the many providers that have provided assistance with this patient's work-up: numerous members from the Hospitalist team, OBGYN, Surgery, Hematology, Cardiology, Radiology, Infectious Disease, GI, and Pathology services. - Time Time Spent with patient: 35 or more minutes Medications reviewed and adjusted accordingly: Yes
[2019-10-04] MEDS ORDERED: POTASSIUM CHLORIDE 20 MEQ PACKET PO ONE (19:30)
[2019-10-04] MEDS: PHARMACY COMMUNICATION ORDER MC SCH (21:12)
[2019-10-05] MEDS: PIPERACILLIN SODIUM/TAZOBACTAM 3.375 GM in NORMAL SALINE 100 ML IV SCH ×4 (02:26→21:08)
[2019-10-05] MEDS: MORPHINE SULFATE 10 MG/ML INJ IV PRN ×5 (02:38→21:07)
[2019-10-05] MEDS: PANTOPRAZOLE SODIUM 40 MG VIAL IV SCH ×2 (10:28→21:07)
[2019-10-05] MEDS: BUPRENORPHINE HCL 2 MG SUBLINGUAL TABLET SL SCH (10:28)
[2019-10-05] MEDS: MULTIVITAMIN TABLET PO SCH (10:28)
[2019-10-05] MEDS: DOCUSATE SODIUM 100 MG CAPSULE PO SCH ×2 (10:28→17:01)
[2019-10-05] MEDS: POLYETHYLENE GLYCOL 3350 POWDER 17 GM/1 PACKET PO SCH (10:28)
[2019-10-05] MEDS: LIDOCAINE 5% (700 MG) TRANSDERMAL ADH..PATCH TP SCH (10:29)
[2019-10-05] MEDS: SPIRONOLACTONE 25 MG TABLET PO SCH (10:29)
[2019-10-05] MEDS: BISACODYL 10 MG SUPP.RECT PR SCH (10:29)
[2019-10-05] MEDS: HYDROCORTISONE ACETATE 25 MG SUPP.RECT PR SCH ×2 (10:29→17:01)
[2019-10-05] MEDS: PHENYLEPHRINE HCL 1 EACH SUPP.RECT PR SCH (10:29)
[2019-10-05] MEDS: PHYTONADIONE 5 MG TABLET PO SCH (10:29)
[2019-10-05] MEDS: FUROSEMIDE 40 MG TABLET PO SCH (10:29)
[2019-10-05] MEDS: MAGNESIUM HYDROXIDE SUSP 30 ML UDCUP PO SCH (10:30)
[2019-10-05 10:38] LABS: INTERNATIONAL RATION (INR) 1.38; PROTHROMBIN TIME 17.1 SEC (11.4-15.4)
[2019-10-05 12:03] LABS: ANTINUCLEAR ANTIBODIES Negative (Negative)
--- NOTE | 2019-10-05 17:01 | PDOC CONSULTATION ---
Consultation Consult Date: 10/05/19 Provider Consulted: ENIO DORAN Consult reason:: abnormal findings of ascites , work up in progress History of Present Illness Admission Date/PCP: 09/27/19 18:35 ESTER MARRERO PA-C History of Present Illness: MELCHOR PARTIDA is a 39 year old female patient initially admitted under the OB service and then transferred to the Hospitalist service very complicated patient and I have been asked to provide further direction in the care of this patient I am referring to the note most recently penned by Ms Griffin which is extremely well done in both the thought process and summary she has had an extensive work up bottom line is that she appear to have a coagulopathy , her liver work up including hepatitis studies, ITZEL, AMA has been negative IgG 4 has been negative as well, she does have an elevated lipase levels patient is pending an MRCP but since there is no ductal dilation , there does not appear to be evidence for choledocholithiasis may need a liver biopsy but will need to be done with IR, . it is unclear if they are going to do this with her elevated PT , but normal INR there is no evidence of Budd Chiari as well she does have abdominal distension which is likely due to an adynamic ileus due to sepsis. patient is starting to feel better I am not sure a liver biopsy will yield any other information , but obviously with ascites , will need to exclude an underlying cirrhosis patient has no other risk factors however, other considerations would he hemachromatosis , but her iron levels are low Mikhail's disease and possibly even alpha 1 anti-trypsin disorder. Past Medical History Cardiac Medical History: Denies: Congestive Heart Failure, Myocardial Infarction, Hyperlipidema, Hypertension Pulmonary Medical History: Reports: Pneumonia Denies: Asthma EENT Medical History: Reports: None Neurological Medical History: Denies: Ischemic CVA, Seizures Endocrine Medical History: Reports: None Renal/ Medical History: Reports: None Malignancy Medical History: Reports: None GI Medical History: Reports: Gastroesophageal Reflux Disease Denies: Hepatitis, Hiatal Hernia Musculoskeltal Medical History: Reports: Arthritis Psychiatric Medical History: Reports: Depression, Substance Abuse Hematology: Denies: Anemia, Sickle Cell Disease Past Surgical History Past Surgical History: Reports: Other - bilateral ankles, multiple oral Denies: Amputation, Mastectomy, Pacemaker Social History Lives with: Family Smoking Status: Former Smoker Electronic Cigarette use?: Yes Frequency of Alcohol Use: Rare Hx Recreational Drug Use: Yes Drugs: Marijuana Hx Prescription Drug Abuse: Yes - Now on Subtex - Advance Directive Resuscitation Status: Full Code Family History Family History: Reviewed & Not Pertinent, DM, Malignancy - Maternal grandmother w/ Ovarian CA Parental Family History Reviewed: Yes Children Family History Reviewed: Unknown Sibling(s) Family History Reviewed.: Unknown Medication/Allergy Home Medications: Fluticasone Propionate [Flonase Nasal Alexander 50 Mcg/Alexander 16 gm] 1 spray NASL QHS #1 spray.pump 09/19/19 Doxycycline Monohydrate 100 mg PO BID #20 capsule 09/21/19 Acetaminophen [Tylenol] 325 mg PO DAILYP PRN 09/27/19 Buprenorphine HCl 12 mg SL DAILY 09/27/19 Esomeprazole Magnesium 40 mg PO DAILY 09/27/19 Allergies/Adverse Reactions: promethazine HCl [From Phenergan] Adverse Reaction (Unknown, Verified 09/21/19 13:39) Review of Systems Constitutional: ABSENT: fever(s), headache(s), weakness Eyes: ABSENT: visual disturbances Ears: ABSENT: hearing changes Nose, Mouth, and Throat: ABSENT: mouth pain Respiratory: ABSENT: dyspnea, hemoptysis Gastrointestinal: ABSENT: hematemesis, hematochezia, melena Genitourinary: ABSENT: dysuria, hematuria Musculoskeletal: ABSENT: joint swelling Integumentary: ABSENT: pruritus Neurological: ABSENT: syncope, tingling, tremor(s), vertigo Endocrine: ABSENT: polydipsia, polyphagia, polyuria Hematologic/Lymphatic: ABSENT: easy bruising Physical Exam Vital Signs: Temp Pulse Resp BP Pulse Ox 98.8 F 75 16 136/83 H 94 10/05/19 11:49 10/05/19 14:00 10/05/19 11:49 10/05/19 11:49 10/05/19 11:49 Intake & Output 10/04/19 10/05/19 10/06/19 06:59 06:59 06:59 Intake Total 1912 900 422 Output Total 6634 6666 Balance -505 -4110 422 Weight 87.2 kg 84.2 kg 84.2 kg General appearance: PRESENT: mild distress Head exam: PRESENT: atraumatic, normocephalic Eye exam: PRESENT: EOMI, PERRLA. ABSENT: scleral icterus Mouth exam: PRESENT: moist, neck supple Neck exam: ABSENT: meningismus, tenderness, thyromegaly Respiratory exam: PRESENT: symmetrical. ABSENT: tachypnea, unlabored, wheezes Cardiovascular exam: PRESENT: RRR, +S1, +S2 GI/Abdominal exam: PRESENT: diminished bowel sounds, distended. ABSENT: Lugo 's sign, rebound, rigid Neurological exam: PRESENT: alert, awake, CN II-XII grossly intact Skin exam: PRESENT: normal color. ABSENT: mottled, urticaria, vesicles Results Laboratory Results: 10/04/19 06:26 10/04/19 06:26 09/29/19 14:22 NT-Pro-B Natriuret Pep 2330 H Impressions: Chest/Abdomen CTA 09/27/19 16:11 IMPRESSION: 1. NORMAL CTA OF THE CHEST. NO PULMONARY EMBOLI. 2. LOW LUNG VOLUMES. PROBABLE BASILAR ATELECTASIS. CANNOT EXCLUDE EARLY PNEUMONIA. Chest X-Ray 09/29/19 00:00 IMPRESSION: Bilateral lower lobe consolidation compatible with pneumonia. Small left effusion. KUB X-Ray 09/29/19 00:00 IMPRESSION: Nonspecific bowel gas pattern with moderate formed stool throughout the colon. Ill-defined soft tissue density overlies pelvis and right lower quadrant, likely combination of ascites and uterus. Pelvis Ultrasound 09/29/19 00:00 IMPRESSION: 1. Significant complex ascites within the pelvis, similar to prior CT. 2. Generalized thickening of the endometrial stripe measuring 1.9 cm, previously 1.1 cm. Differential includes hemorrhage, endometritis or retained products of conception. No focal thickening or hyperemia. Findings conveyed to Amanda Hilton at 1427 hours on 09/29/2019. Abdomen Ultrasound 09/30/19 00:00 IMPRESSION: Visualized portions of the splenic vein are patent, with no evidence for splenic vein thrombosis. Abdomen/Pelvis CT 10/01/19 00:00 IMPRESSION: Significant increase in the bilateral pleural effusions and bibasilar airspace disease. Slight increase in the ascites. Adynamic ileus with fluid-filled small bowel and right colon. No evidence for obstruction. Mild hydronephrosis and hydroureter on the right. This appears to be secondary to a Bateman catheter tip just at the orifice of the right ureter. Assessment & Plan - Diagnosis (1) Abdominal distension Plan: cause unclear , could be secondary to a prolonged ileus following sepsis avoid use of narcotics replace all electrolytes conservative management patient does have abnormal coagulation profile and hematologic work has been done ? if due to liver dysfunction, her LFT's are actually normal in terms of a normal T bili and alk phos ; this would imply there is no obstruction, MRCP would be limited there are no significant elevation in her transaminases as well her hepatitis profile, ITZEL, AMA are normal patient may need to be ruled out for the remaining liver disorders like Mikhail's disease and alpha1 antitrypsin but I suspect would be low yield patient to have MRCP but there is no ductal dilation a liver biopsy can be done but with elevated PT , that will need to be discussed with interventional Radiology, what other new information will be gleaned is limited to depending on tissue sampling other serology testing has been done to exclude less common entities like CMV etc ascites fluid have been non diagnostic would recommend see [facility] at tertiary center for further work up (2) Coagulopathy Is this a current diagnosis for this admission?: Yes Plan: certainly synthetic function of the liver has been affected this as evidenced by abnormal coagulation and albumin levels could have just been due to sepsis but hopefully that should improve over time patient does show clinical improvement she should have a formal referral to a tertiary center for appt with a [facility] for outpatient follow up - Time Time Spent: Greater than 70 Minutes
[2019-10-05] MEDS ORDERED: DIBUCAINE 1% OINTMENT 28 GM PR PRN (17:35)
[2019-10-05] MEDS ORDERED: HYDROCORTISONE 1% OINTMENT 28.35 GM TP PRN (17:36)
[2019-10-05] MEDS: PHARMACY COMMUNICATION ORDER MC SCH (22:29)
[2019-10-06] MEDS: MORPHINE SULFATE 10 MG/ML INJ IV PRN ×4 (01:24→20:29)
[2019-10-06] MEDS: PIPERACILLIN SODIUM/TAZOBACTAM 3.375 GM in NORMAL SALINE 100 ML IV SCH ×4 (03:15→21:14)
[2019-10-06 07:13] LABS: DEAMIDATED GLIADIN IGA AB 3 units (0-19); DEAMIDATED GLIADIN IGG AB 2 units (0-19); T-TRANSGLUTAMINASE (TTG) IGA <2 U/mL (0-3); T-TRANSGLUTAMINASE (TTG) IGG 4 U/mL (0-5)
[2019-10-06 08:24] LABS: ABSOLUTE BASOPHILS # (AUTO) 0.1 10^3/uL (0.0-0.2); ABSOLUTE EOSINOPHILS # (AUTO) 0.1 10^3/uL (0.0-0.6); ABSOLUTE MONOCYTES (AUTO) 0.8 10^3/uL (0.1-1.4); ABSOLUTE NEUT (AUTO) 7.2 10^3/uL (1.7-8.2); BASOPHILS % (AUTO) 0.8 % (0-2); HEMATOCRIT 29.7 % (36.0-47.0); HEMOGLOBIN 10.2 g/dL (12.0-15.5); LYMPHOCYTES % (AUTO) 10.8 % (13-45); MEAN CORPUSCULAR HEMOGLOBIN 28.9 pg (27.0-33.4); MEAN CORPUSCULAR HGB CONC 34.3 g/dL (32.0-36.0); MEAN CORPUSCULAR VOLUME 84 fl (80-97); MONOCYTES % (AUTO) 8.6 % (3-13); PLATELET COUNT 622 10^3/uL (150-450); RED BLOOD COUNT 3.52 10^6/uL (3.72-5.28); RED CELL DISTRIBUTION WIDTH 15.3 % (11.5-14.0); SEGMENTED NEUTROPHILS % (AUTO) 78.8 % (42-78); TOTAL CELLS COUNTED % (AUTO) 100 %; WHITE BLOOD COUNT 9.1 10^3/uL (4.0-10.5)
[2019-10-06 08:48] LABS: INTERNATIONAL RATION (INR) 1.29; PROTHROMBIN TIME 16.2 SEC (11.4-15.4)
[2019-10-06 08:49] LABS: PARTIAL THROMBOPLASTIN TIME 50.1 SEC (23.5-35.8)
[2019-10-06] MEDS: DOCUSATE SODIUM 100 MG CAPSULE PO SCH ×2 (10:23→21:10)
[2019-10-06] MEDS: BISACODYL 10 MG SUPP.RECT PR SCH (10:23)
[2019-10-06] MEDS: PHYTONADIONE 5 MG TABLET PO SCH (10:23)
[2019-10-06] MEDS: LIDOCAINE 5% (700 MG) TRANSDERMAL ADH..PATCH TP SCH (10:24)
[2019-10-06] MEDS: SPIRONOLACTONE 25 MG TABLET PO SCH (10:29)
[2019-10-06] MEDS: BUPRENORPHINE HCL 2 MG SUBLINGUAL TABLET SL SCH (10:29)
[2019-10-06] MEDS: PANTOPRAZOLE SODIUM 40 MG VIAL IV SCH ×2 (10:29→21:14)
[2019-10-06] MEDS: FUROSEMIDE 40 MG TABLET PO SCH (10:29)
[2019-10-06] MEDS: MAGNESIUM HYDROXIDE SUSP 30 ML UDCUP PO SCH (10:30)
[2019-10-06] MEDS: POLYETHYLENE GLYCOL 3350 POWDER 17 GM/1 PACKET PO SCH (10:30)
[2019-10-06] MEDS: MULTIVITAMIN TABLET PO SCH (10:31)
--- NOTE | 2019-10-06 13:46 | PDOC PROGRESS REPORT ---
Subjective Progress Note for:: 10/06/19 Reason For Visit: SEPSIS 10/06/2019 Mated for peritonitis secondary to endometritis, Physical Exam Vital Signs: Temp Pulse Resp BP Pulse Ox 99.3 F 72 16 127/79 H 91 L 10/05/19 23:39 10/06/19 07:00 10/05/19 23:39 10/05/19 23:39 10/05/19 23:39 Intake & Output 10/05/19 10/06/19 10/07/19 06:59 06:59 06:59 Intake Total 900 862 100 Output Total 3425 3200 Balance -4416 -7792 100 Weight 84.2 kg 85.6 kg General appearance: PRESENT: no acute distress Respiratory exam: PRESENT: clear to auscultation [place]. ABSENT: rales, rhonchi, wheezes Cardiovascular exam: PRESENT: RRR. ABSENT: diastolic murmur, rubs, systolic murmur Neurological exam: PRESENT: alert, awake, oriented to person, oriented to place, oriented to time, oriented to situation, CN II-XII grossly intact. ABSENT: motor sensory deficit Psychiatric exam: PRESENT: depressed Results Laboratory Results: 10/06/19 08:12 10/04/19 06:26 10/06/19 08:12 WBC 9.1 RBC 3.52 L Hgb 10.2 L Hct 29.7 L MCV 84 MCH 28.9 MCHC 34.3 RDW 15.3 H Plt Count 622 H Seg Neutrophils % 78.8 H 09/29/19 14:22 NT-Pro-B Natriuret Pep 2330 H Impressions: Chest/Abdomen CTA 09/27/19 16:11 IMPRESSION: 1. NORMAL CTA OF THE CHEST. NO PULMONARY EMBOLI. 2. LOW LUNG VOLUMES. PROBABLE BASILAR ATELECTASIS. CANNOT EXCLUDE EARLY PNEUMONIA. Chest X-Ray 09/29/19 00:00 IMPRESSION: Bilateral lower lobe consolidation compatible with pneumonia. Small left effusion. KUB X-Ray 09/29/19 00:00 IMPRESSION: Nonspecific bowel gas pattern with moderate formed stool throughout the colon. Ill-defined soft tissue density overlies pelvis and right lower quadrant, likely combination of ascites and uterus. Pelvis Ultrasound 09/29/19 00:00 IMPRESSION: 1. Significant complex ascites within the pelvis, similar to prior CT. 2. Generalized thickening of the endometrial stripe measuring 1.9 cm, previously 1.1 cm. Differential includes hemorrhage, endometritis or retained products of conception. No focal thickening or hyperemia. Findings conveyed to Amanda Griffin at 1427 hours on 09/29/2019. Abdomen Ultrasound 09/30/19 00:00 IMPRESSION: Visualized portions of the splenic vein are patent, with no evidence for splenic vein thrombosis. Abdomen/Pelvis CT 10/01/19 00:00 IMPRESSION: Significant increase in the bilateral pleural effusions and bibasilar airspace disease. Slight increase in the ascites. Adynamic ileus with fluid-filled small bowel and right colon. No evidence for obstruction. Mild hydronephrosis and hydroureter on the right. This appears to be secondary to a Bateman catheter tip just at the orifice of the right ureter. Assessment and Plan - Diagnosis (1) Abdominal pain Qualifiers: Abdominal location: generalized Qualified Code(s): R10.84 - Generalized abdominal pain Is this a current diagnosis for this admission?: Yes (2) Coagulation defect during period Is this a current diagnosis for this admission?: Yes (3) Peritonitis (acute) generalized Is this a current diagnosis for this admission?: Yes (4) Sepsis after obstetrical procedure Is this a current diagnosis for this admission?: Yes (5) Substance abuse/dependence Is this a current diagnosis for this admission?: Yes (6) Possible liver disease Is this a current diagnosis for this admission?: Yes - Plan Summary Summary: Appreciate the many providers that have provided assistance with this patient's work-up: numerous members from the Hospitalist team, OBGYN, Surgery, Hematology, Cardiology, Radiology, Infectious Disease, GI, and Pathology services. 10/05/2019 todays labs show a normal white count hemoglobin 10.5 hematocrit 30.2 platelets 621,000 PT 17.1 INR 1.38 PTT 46.8 Cultures negative MRSA negative urine culture negative fluids negative Continue vitamin K 5 mg daily Diagnosis includes DIC versus liver dysfunction #1, #2 is vitamin K dependent We will continue antibiotics as well, Zosyn Anticipate discharge in 48 hours following morning's dose of Zosyn 10/06/2019 Abdomen soft without tenderness, guarding, rebound Patient is anxious to go home tomorrow after her morning dose of Zosyn. This will complete her 10-day course as recommended by infectious disease. White count is down to 9.1 hemoglobin is stable at 10.2 platelets are stable at 622 Coags the most part today are trending slightly down, PT 16.2, INR down to 1.29, PTT slightly up at 50.1. Conceivably this could be due to heparin flushes. Per GIs recommendation we will get a heptology consult as an outpatient at one of the tertiary centers. Possible liver biopsy at that time. Patient's medications will be reviewed with her prior to discharge tomorrow - Time Time Spent with patient: 25-34 minutes
[2019-10-06] MEDS: PHARMACY COMMUNICATION ORDER MC SCH (21:14)
[2019-10-07] MEDS: MORPHINE SULFATE 10 MG/ML INJ IV PRN ×2 (01:11→08:23)
[2019-10-07] MEDS: PIPERACILLIN SODIUM/TAZOBACTAM 3.375 GM in NORMAL SALINE 100 ML IV SCH ×2 (03:17→08:26)
[2019-10-07 08:43] VITALS: BP 133/81
[2019-10-07] MEDS: BISACODYL 10 MG SUPP.RECT PR SCH (09:31)
[2019-10-07] MEDS: DOCUSATE SODIUM 100 MG CAPSULE PO SCH (09:31)
[2019-10-07] MEDS: FUROSEMIDE 40 MG TABLET PO SCH (09:38)
[2019-10-07] MEDS: MULTIVITAMIN TABLET PO SCH (09:38)
[2019-10-07] MEDS: SPIRONOLACTONE 25 MG TABLET PO SCH (09:38)
[2019-10-07] MEDS: BUPRENORPHINE HCL 2 MG SUBLINGUAL TABLET SL SCH (09:38)
[2019-10-07] MEDS: LIDOCAINE 5% (700 MG) TRANSDERMAL ADH..PATCH TP SCH (09:39)
[2019-10-07] MEDS: PHYTONADIONE 5 MG TABLET PO SCH (09:39)
[2019-10-07] MEDS: POLYETHYLENE GLYCOL 3350 POWDER 17 GM/1 PACKET PO SCH (09:40)
[2019-10-07] MEDS: MAGNESIUM HYDROXIDE SUSP 30 ML UDCUP PO SCH (09:40)
[2019-10-07] MEDS: PANTOPRAZOLE SODIUM 40 MG VIAL IV SCH (09:42)
--- NOTE | 2019-10-08 14:21 | PDOC DISCHARGE SUMMARY ---
Impression - Admit/DC Date/PCP Admission Date/Primary Care Provider: 09/27/19 18:35 ESTER MARRERO PA-C Discharge Date: 10/07/19 - Discharge Diagnosis (1) Abdominal pain Is this a current diagnosis for this admission?: Yes (2) Coagulation defect during period Is this a current diagnosis for this admission?: Yes (3) Peritonitis (acute) generalized Is this a current diagnosis for this admission?: Yes (4) Sepsis after obstetrical procedure Is this a current diagnosis for this admission?: Yes (5) Substance abuse/dependence Is this a current diagnosis for this admission?: Yes (6) Possible liver disease Is this a current diagnosis for this admission?: Yes - Assessment Summary: Appreciate the many providers that have provided assistance with this patient's work-up: numerous members from the Hospitalist team, OBGYN, Surgery, Hematology, Cardiology, Radiology, Infectious Disease, GI, and Pathology services. 10/05/2019 todays labs show a normal white count hemoglobin 10.5 hematocrit 30.2 platelets 621,000 PT 17.1 INR 1.38 PTT 46.8 Cultures negative MRSA negative urine culture negative fluids negative Continue vitamin K 5 mg daily Diagnosis includes DIC versus liver dysfunction #1, #2 is vitamin K dependent We will continue antibiotics as well, Zosyn Anticipate discharge in 48 hours following morning's dose of Zosyn 10/06/2019 Abdomen soft without tenderness, guarding, rebound Patient is anxious to go home tomorrow after her morning dose of Zosyn. This will complete her 10-day course as recommended by infectious disease. White count is down to 9.1 hemoglobin is stable at 10.2 platelets are stable at 622 Coags the most part today are trending slightly down, PT 16.2, INR down to 1.29, PTT slightly up at 50.1. Conceivably this could be due to heparin flushes. Per GIs recommendation we will get a heptology consult as an outpatient at one of the tertiary centers. Possible liver biopsy at that time. Patient's medications will be reviewed with her prior to discharge tomorrow 10/07/2019 She has completed her 10-day course of IV Zosyn and has been asking to be discharged home for the last several days. Patient has had a long and protracted hospitalization beginning on when he when she was admitted by INDEPENDENT SALES REPRESENTATIVE for back pain. At that time she was approximately 1 week out from uncomplicated vaginal delivery and was admitted with an elevated white blood cell count. Last week patient had a culture done that showed positive group A strep and she was given doxycycline orally. In the emergency room she presented with splenomegaly sepsis ileus and elevated INR. Patient was originally admitted for IV fluid and IV antibiotics as well as daily INR is in consultation to hematology. Patient's admission INR was 3.99 later that same day it went up to 4.77 got as high as 5.52 on September 30. Soon as vitamin K was started to drop down to 1.66 and at the time of discharge it was 1.29. Patient had a past history of IV drug use and unfortunately received no care with presentation only at time of delivery. Hematology felt like this may be either DIC versus liver dysfunction. Patient did have on record a normal INR in 2018 so it was doubtful that this was due to an inherited clotting defect. Patient was seen in consultation by general surgery on 09/28/2019. General surgery ruled out that patient did not have any clinical evidence of an acute abdomen as well as no evidence of mesenteric thrombosis portal vein thrombosis hepatic vein thrombosis IVC thrombosis. She did have free fluid in the intra- abdominal area without free air no evidence of ischemia or bowel wall thickening. Surgery recommended fresh frozen plasma transfusion with subsequent diagnostic paracentesis. They also recommended treatment for large amount of constipation. On 09/29/2019 patient underwent a ultrasound-guided paracentesis by general surgery. 900 cc of turbid yellow-colored fluid was returned. A total of 900 cc was drained. Paracentesis fluid revealed white count 2800, RBCs 5644, 69 neutrophils, 18 lymphs ,13 monos. Vanesa fluid had a glucose of 59 total protein at 2.5 albumin 1.1 and LDH 1737. Patient was seen in consultation also by cardiology on 09/30/2019. Echocardiogram was performed which showed normal left and right ventricle function and no evidence of cardiomyopathy. Action fraction of 55 to 60% Patient's chart was reviewed in consultation by infectious disease, who recommended continuing the Zosyn no indication for vancomycin. Total of 10-day course of therapy for sepsis still clinical response. INDEPENDENT SALES REPRESENTATIVE saw the patient on a regular basis and concluded signed off that this was not as a result of a complicated delivery and in fact the delivery was quite routine. 2 days prior to discharge patient was seen in consultation by gastroenterology. Basically his recommendation was to see a grounds caretaker at a tertiary center for further work-up. Patient had multiple lab works drawn and I am not going to regurgitate all of that information however on 10/06/2019 her WBCs were 9.1 hemoglobin 10.2 hematocrit 29.7 platelets 622,000. She had a sed rate done on September 30, 2019 which was 74 her retake count done on October 02 which was 2.91 Coags at the time of discharge showed a PT of 16.2, INR 1.29, PTT of 50.1 and this was done on 10/06/2019 Chemistry panel showed sodium 132 potassium 3.4 BUN of 5 creatinine 0.62 calcium 7.7 C-reactive protein was 169 total protein 5.6 albumin 2.3 Lipase was still high at 808 Vitamin B12 was greater than thousand and folate was greater than 20 Urine drug screen on admission was negative IgG4 was 6 IgA was 137 ITZEL was negative CMV DNA PCR were negative EBV DNA qualitative was negative Flu a and B were negative COVID PCR was negative TB testing was negative Under microbiology blood cultures have all been negative body fluid was no aerobic or anaerobic organisms recovered acid-fast smear was negative acid-fast culture is pending No evidence of MRSA Patient is to follow-up with her primary care on October 20 and follow-up with the collision estimator on October 11 She was discharged home on vitamin K 5 mg daily 7 tablets and hematology will decide whether she should continue this. Tending to this admission she was also sent home on spironolactone 25 mg a day and Lasix 20 mg a day as well as KCl 20 mEq/day Patient will need to see a grounds caretaker as an outpatient. Will need to follow- up with obstetrics at their request. She is medically stable for discharge and I have spoken to her over the phone - Additional Information Resuscitation Status: Full Code Discharge Diet: As Tolerated Discharge Activity: Activity As Tolerated, Balance Activity w/Rest, Energy Conservation, No Lifting Over 10 Pounds, No Lifting/Push/Pulling, Pelvic Rest, Slowly Increase Activity, Walk Frequently Referrals: RAMSEY PADILLA MD [ACTIVE STAFF] - 10/12/19 9:00 am CIERA CASILLAS DO [NO LOCAL MD] - 10/21/19 1:45 pm Prescriptions: Spironolactone [Aldactone 25 mg Tablet] 25 mg PO DAILY 30 Days #30 tablet Furosemide [Lasix 20 mg Tablet] 20 mg PO QAM #30 tablet Phytonadione [Mephyton 5 mg Tablet] 5 mg PO DAILY 7 Days #7 tablet Nicotine [Nicoderm 14 mg/24 Hr Transdermal Patch] 1 each TD DAILYP PRN 30 Days #30 patch.td24 PRN Reason: Potassium Chloride 20 meq PO DAILY 30 Days #30 tab.er.prt Hydrocortisone/Pramoxine [Proctofoam-Hc Foam] 10 gm RC Q12HP PRN 14 Days #2 foam PRN Reason: Home Medications: Fluticasone Propionate [Flonase Nasal [place] 50 Mcg/[place] 16 gm] 1 spray NASL QHS #1 spray.pump 09/19/19 Acetaminophen [Tylenol] 325 mg PO DAILYP PRN 09/27/19 Buprenorphine HCl 12 mg SL DAILY 09/27/19 Esomeprazole Magnesium 40 mg PO DAILY 09/27/19 Acetaminophen [Tylenol 325 mg Tablet] 650 mg PO Q6HP PRN tablet 10/07/19 Bisacodyl [Dulcolax 10 mg Supp.rect] 10 mg IA DAILY supp.rect 10/07/19 Docusate Sodium [Colace 100 mg Capsule] 200 mg PO BID capsule 10/07/19 Furosemide [Lasix 20 mg Tablet] 20 mg PO QAM #30 tablet 10/07/19 Hydrocortisone/Pramoxine [Proctofoam-Hc Foam] 10 gm RC Q12HP PRN 14 Days #2 foam 10/07/19 Mag Hydrox/Al Hydrox/Simeth [Maalox Plus Susp 30 Udcup] 30 ml PO Q6HP PRN udc 10/07/19 Magnesium Hydroxide [Milk of Magnesia 30 ml Udcup] 30 ml PO DAILY udc 10/07/19 Multivitamin [Tab-A-Fuentes (Multiple Vitamin) Tablet] 1 tab PO DAILY tablet 10/07/19 Nicotine [Nicoderm 14 mg/24 Hr Transdermal Patch] 1 each TD DAILYP PRN 30 Days #30 patch.td24 10/07/19 Phytonadione [Mephyton 5 mg Tablet] 5 mg PO DAILY 7 Days #7 tablet 10/07/19 Polyethylene Glycol 3350 [Miralax Powder 17 gm/Packet] 17 gm PO DAILY powd.pack 10/07/19 Potassium Chloride 20 meq PO DAILY 30 Days #30 tab.er.prt 10/07/19 Spironolactone [Aldactone 25 mg Tablet] 25 mg PO DAILY 30 Days #30 tablet 10/07/19 History of Present Illiness History of Present Illness: MELCHOR PARTIDA is a 39 year old female Physical Exam Vital Signs: Temp Pulse Resp BP Pulse Ox 99.8 F 71 16 133/81 H 93 10/07/19 08:41 10/07/19 08:41 10/07/19 08:41 10/07/19 08:41 10/07/19 08:41 Intake & Output 10/07/19 10/08/19 10/09/19 06:59 06:59 06:59 Intake Total 400 100 Output Total 2500 Balance -2100 100 Weight 83.9 kg Results Laboratory Results: WBC 9.1 10^3/uL (4.0-10.5) 10/06/19 08:12 RBC 3.52 10^6/uL (3.72-5.28) L 10/06/19 08:12 Hgb 10.2 g/dL (12.0-15.5) L 10/06/19 08:12 Hct 29.7 % (36.0-47.0) L 10/06/19 08:12 MCV 84 fl (80-97) 10/06/19 08:12 MCH 28.9 pg (27.0-33.4) 10/06/19 08:12 MCHC 34.3 g/dL (32.0-36.0) 10/06/19 08:12 RDW 15.3 % (11.5-14.0) H 10/06/19 08:12 Plt Count 622 10^3/uL (150-450) H 10/06/19 08:12 Lymph % (Auto) 10.8 % (13-45) L 10/06/19 08:12 [place]ander % (Auto) 8.6 % (3-13) 10/06/19 08:12 Eos % (Auto) 1.0 % (0-6) 10/06/19 08:12 Baso % (Auto) 0.8 % (0-2) 10/06/19 08:12 Reticulocyte # 0.102 10^6/uL (0.028-0.122) 10/03/19 05:23 Absolute Neuts (auto) 7.2 10^3/uL (1.7-8.2) 10/06/19 08:12 Absolute Lymphs (auto) 1.0 10^3/uL (0.5-4.7) 10/06/19 08:12 Absolute Monos (auto) 0.8 10^3/uL (0.1-1.4) 10/06/19 08:12 Absolute Eos (auto) 0.1 10^3/uL (0.0-0.6) 10/06/19 08:12 Absolute Basos (auto) 0.1 10^3/uL (0.0-0.2) 10/06/19 08:12 Total Counted 100 09/30/19 05:21 Seg Neutrophils % 78.8 % (42-78) H 10/06/19 08:12 Seg Neuts % (Manual) 77 % (42-78) 09/30/19 05:21 Band Neutrophils % 3 % (3-5) 09/30/19 05:21 Lymphocytes % (Manual) 10 % (13-45) L 09/30/19 05:21 Atypical Lymphs % 1 % (0) 09/27/19 13:40 Monocytes % (Manual) 10 % (3-13) 09/30/19 05:21 Eosinophils % (Manual) 0 % (0-6) 09/30/19 05:21 Basophils % (Manual) 0 % (0-2) 09/30/19 05:21 Abs Neuts (Manual) 7.3 10^3/uL (1.7-8.2) 09/30/19 05:21 Abs Lymphs (Manual) 0.9 10^3/uL (0.5-4.7) 09/30/19 05:21 Abs Monocytes (Manual) 0.9 10^3/uL (0.1-1.4) 09/30/19 05:21 Absolute Eos (Manual) 0.0 10^3/uL (0.0-0.6) 09/30/19 05:21 Abs Basophils (Manual) 0.0 10^3/uL (0.0-0.2) 09/30/19 05:21 Toxic Granulation SLIGHT 09/30/19 05:21 Toxic Vacuolation PRESENT 09/29/19 05:16 Dohle Bodies PRESENT 09/27/19 13:40 Clumped Platelets PRESENT 09/27/19 13:40 Platelet Comment ADEQUATE 09/30/19 05:21 Poikilocytosis SLIGHT 09/29/19 05:16 Anisocytosis SLIGHT 09/30/19 05:21 Ovalocytes SLIGHT 09/29/19 05:16 Schistocytes SLIGHT 09/29/19 05:16 RBC Morph Comment Not Reportable 09/28/19 07:20 ESR 74 mm/hr (0-20) H 09/30/19 16:52 Retic Count (auto) 2.91 % (0.66-2.85) H 10/03/19 05:23 PT 16.2 SEC (11.4-15.4) H 10/06/19 08:12 INR 1.29 10/06/19 08:12 INR (Anticoag Therapy) Cancelled 10/01/19 05:09 APTT 50.1 SEC (23.5-35.8) H 10/06/19 08:12 Thrombin Time 15.5 sec (0.0-23.0) 10/01/19 06:23 Fibrinogen 455 mg/dL (209-497) 10/01/19 11:40 D-Dimer 3.60 ug/mL (0.00-0.50) H 10/01/19 07:22 Factor VII Activity 7 % (51-186) L 10/01/19 11:40 Factor VIII Activity 289 % (56-140) H 10/01/19 11:40 Factor VIII Activity 305 % (56-140) H 10/01/19 11:40 von Willebrand Activity 211 % (50-200) H 10/01/19 11:40 von Willebrand Activity 275 % (50-200) H 10/01/19 11:40 von Willebrand Antigen 314 % (50-200) H 10/01/19 11:40 von Willebrand Antigen 330 % (50-200) H 10/01/19 11:40 Factor IX Activity 7 % (60-177) L 10/01/19 11:40 Factor XI Activity 63 % (60-150) 10/01/19 11:40 Factor XII Activity 32 % (50-150) L 10/01/19 11:40 VBG pH 7.43 (7.30-7.42) H 09/27/19 13:40 VBG pCO2 37.0 mmHg (35-63) 09/27/19 13:40 VBG HCO3 23.7 mmol/L (20-32) 09/27/19 13:40 VBG Base Excess -0.2 mmol/L 09/27/19 13:40 Sodium 132.7 mmol/L (137-145) L 10/04/19 06:26 Potassium 3.4 mmol/L (3.6-5.0) L 10/04/19 06:26 Chloride 99 mmol/L (98-107) 10/04/19 06:26 Carbon Dioxide 28 mmol/L (22-30) 10/04/19 06:26 Anion Gap 6 (5-19) 10/04/19 06:26 BUN 5 mg/dL (7-20) L 10/04/19 06:26 Creatinine 0.62 mg/dL (0.52-1.25) 10/04/19 06:26 Est GFR ( Amer) > 60 (>60) 10/04/19 06:26 Est GFR (MDRD) Non-Af > 60 (>60) 10/04/19 06:26 Glucose 103 mg/dL (75-110) 10/04/19 06:26 Lactic Acid 0.7 mmol/L (0.7-2.1) 10/01/19 11:40 Calcium 7.7 mg/dL (8.4-10.2) L 10/04/19 06:26 Phosphorus 4.1 mg/dL (2.5-4.5) 09/30/19 05:21 Magnesium 1.8 mg/dL (1.6-2.3) 09/30/19 05:21 Iron 14.8 ug/dL (37-170) L 10/03/19 05:23 TIBC 181 ug/dL (250-450) L 10/03/19 05:23 % Saturation 8 % 10/03/19 05:23 Transferrin 101.02 mg/dL (206.00-381.00) L 10/03/19 05:23 Ferritin 541.00 ng/mL (6.2-137.0) H 10/03/19 05:23 Total Bilirubin 0.7 mg/dL (0.2-1.3) 10/04/19 06:26 Direct Bilirubin 0.0 mg/dL (0.0-0.4) 10/04/19 06:26 Neonat Total Bilirubin Not Reportable 10/04/19 06:26 Neonat Direct Bilirubin Not Reportable 10/04/19 06:26 Neonat Indirect Bili Not Reportable 10/04/19 06:26 AST 30 U/L (14-36) 10/04/19 06:26 ALT 21 U/L (<35) 10/04/19 06:26 Alkaline Phosphatase 82 U/L (38-126) 10/04/19 06:26 Lactate Dehydrogenase 218 U/L (120-246) 10/03/19 05:23 C-Reactive Protein 169.4 mg/L (<10.0) H 10/04/19 06:26 NT-Pro-B Natriuret Pep 2330 pg/mL (<125) H 09/29/19 14:22 Total Protein 5.6 g/dL (6.3-8.2) L 10/04/19 06:26 Albumin 2.3 g/dL (3.5-5.0) L 10/04/19 06:26 Prealbumin 6.2 mg/dL (17.6-36.0) L 09/29/19 14:22 Lipase 808.5 U/L (23-300) H 10/03/19 05:23 Vitamin B12 > 1000.0 pg/mL (239-931) H 10/03/19 05:23 Folate > 20.00 ng/mL (>2.76) 10/03/19 05:23 TSH 3.64 uIU/mL (0.47-4.68) 09/30/19 05:21 Beta HCG, Quant < 2.39 mIU/mL (0.0-6.15) 09/29/19 19:52 Total Beta HCG NEGATIVE (NEGATIVE) 09/29/19 19:52 Cortisol AM Sample 16.20 ug/dL (4.46-22.7) 09/30/19 05:21 Urine Color KENNY 09/29/19 15:25 Urine Appearance TURBID 09/29/19 15:25 Urine pH 5.0 (5.0-9.0) 09/29/19 15:25 Ur Specific [place] 1.032 09/29/19 15:25 Urine Protein 30 mg/dL (NEGATIVE) H 09/29/19 15:25 Urine Glucose (UA) NEGATIVE mg/dL (NEGATIVE) 09/29/19 15:25 Urine Ketones NEGATIVE mg/dL (NEGATIVE) 09/29/19 15:25 Urine Blood LARGE (NEGATIVE) H 09/29/19 15:25 Urine Nitrite (Reflex) NEGATIVE (NEGATIVE) 09/29/19 15:25 Urine Bilirubin NEGATIVE (NEGATIVE) 09/29/19 15:25 Urine Urobilinogen NEGATIVE mg/dL (<2.0) 09/29/19 15:25 Leukocyte Esterase Rfl NEGATIVE (NEGATIVE) 09/29/19 15:25 Urine RBC (Auto) >182 /HPF 09/29/19 15:25 U Hyaline Cast (Auto) 69 /LPF 09/27/19 15:52 Urine Bacteria (Auto) TRACE /HPF 09/29/19 15:25 Urine WBC (Reflex) 8 /HPF 09/29/19 15:25 Squamous Epi Cells Auto <1 /HPF 09/29/19 15:25 Urine Mucus (Auto) RARE /LPF 09/29/19 15:25 Urine Creatinine 76.0 mg/dL (16-327) 10/02/19 22:30 Protein/Creatinin Ratio 0.6 mg/mg (0.0-0.2) H 10/02/19 22:30 Urine Total Protein 45.7 mg/dL (<12) H 10/02/19 22:30 Urine Ascorbic Acid NEGATIVE (NEGATIVE) 09/29/19 15:25 Fluid Type PERITONEAL 09/29/19 06:45 Fluid Source ASCITES 09/29/19 06:45 Fluid Color KENNY 09/29/19 06:45 Fluid Appearance HAZY 09/29/19 06:45 Fluid Viscosity LIQUID 09/29/19 06:45 Fluid WBC 2800 /uL 09/29/19 06:45 Fluid RBC 5644 /uL 09/29/19 06:45 Fluid Seg Neutrophils 69 % 09/29/19 06:45 Fluid Lymphocytes 18 % 09/29/19 06:45 Fluid Monocytes 13 % 09/29/19 06:45 Fluid Eosinophils 0 % 09/29/19 06:45 Fluid Basophils 0 % 09/29/19 06:45 Fluid Glucose 59 mg/dL (.) 09/29/19 06:45 Fluid Total Protein 2.5 g/dL (.) 09/29/19 06:45 Fluid Albumin 1.1 g/dL (Not Estab.) 09/29/19 06:45 Fluid LDH 1737 IU/L (.) 09/29/19 06:45 Time Trough Drawn 0536 10/02/19 05:36 Vancomycin Trough 5.6 ug/mL (5.0-20.0) 10/02/19 05:36 Urine Opiates Screen NEGATIVE 09/27/19 15:52 Urine Methadone Screen NEGATIVE 09/27/19 15:52 Ur Barbiturates Screen NEGATIVE 09/27/19 15:52 Ur Phencyclidine Scrn NEGATIVE 09/27/19 15:52 Ur Amphetamines Screen NEGATIVE 09/27/19 15:52 U Benzodiazepines Scrn NEGATIVE 09/27/19 15:52 Urine Cocaine Screen NEGATIVE 09/27/19 15:52 U Marijuana (THC) Screen NEGATIVE 09/27/19 15:52 IgG4 6 mg/dL (2-96) 10/04/19 06:26 IgA 137 mg/dL (87-352) 10/02/19 18:15 Anti-Nuclear Antibody Negative (Negative) 09/30/19 16:52 Mitochondria M2 Ab <20.0 Units (0.0-20.0) 10/02/19 18:15 Endomysial IgA Ab Negative (Negative) 10/02/19 18:15 Tiss Transglutamin IgG 4 U/mL (0-5) 10/02/19 18:15 Tiss Transglutamin IgA <2 U/mL (0-3) 10/02/19 18:15 Anti-Gliadin IgG Deam 2 units (0-19) 10/02/19 18:15 Anti-Gliadin IgA Deam 3 units (0-19) 10/02/19 18:15 COVID-19 Source Cancelled 09/29/19 16:10 COVID-19 (JIMENEZ) Cancelled 09/29/19 16:10 CMV DNA Quant PCR TNP 09/29/19 19:52 CMV DNA PCR copies/ml Negative IU/mL (Negative) 09/29/19 19:52 EBV DNA, Qual Negative (Negative) 09/29/19 19:58 Hepatitis A IgM Ab Negative (Negative) 09/28/19 07:20 Hep Bs Antigen Negative (Negative) 09/28/19 07:20 Hep B Core IgM Ab Negative (Negative) 05/05/20 07:20 Hepatitis C Antibody <0.1 s/co ratio (0.0-0.9) 09/28/19 07:20 Monotest NEGATIVE (NEGATIVE) 09/29/19 05:16 HIV 1&2 Antibody NEGATIVE (NEGATIVE) 09/29/19 05:16 Influenza A (Rapid) NEGATIVE (NEGATIVE) 09/30/19 12:00 Influenza B (Rapid) NEGATIVE (NEGATIVE) 09/30/19 12:00 SARS-CoV-2 (PCR) NEGATIVE (NEGATIVE) 09/29/19 16:10 TB Test (QFT) Gold Plus Negative (Negative) 10/04/19 12:52 TB Test (QFT) Nil 0.02 IU/mL (.) 10/04/19 12:52 TB Test (QFT) Mitogen 0.93 IU/mL (.) 10/04/19 12:52 TB Test (QFT) Ag 1 0.02 IU/mL (.) 10/04/19 12:52 TB Test (QFT) Ag 2 0.02 IU/mL (.) 10/04/19 12:52 TB Test (QFT) Criteria Comment (.) 10/04/19 12:52 Blood Type O POSITIVE 10/01/19 11:40 Antibody Screen NEGATIVE 09/27/19 14:53 09/29/19 14:22 NT-Pro-B Natriuret Pep 2330 H Impressions: Chest X-Ray 09/27/19 13:31 IMPRESSION: Asymmetric opacities in the left lower lobe that blunt the left costophrenic sulcus. Clinical correlation to exclude a left lower lobe pneumonia is recommended. Chest/Abdomen CTA 09/27/19 16:11 IMPRESSION: 1. NORMAL CTA OF THE CHEST. NO PULMONARY EMBOLI. 2. LOW LUNG VOLUMES. PROBABLE BASILAR ATELECTASIS. CANNOT EXCLUDE EARLY PNEUMONIA. Abdomen/Pelvis CT 09/27/19 16:16 IMPRESSION: 1. Splenomegaly. Moderate ascites. 2. Ileus versus partial small bowel obstruction. Chest X-Ray 09/29/19 00:00 IMPRESSION: Bilateral lower lobe consolidation compatible with pneumonia. Small left effusion. KUB X-Ray 09/29/19 00:00 IMPRESSION: Nonspecific bowel gas pattern with moderate formed stool throughout the colon. Ill-defined soft tissue density overlies pelvis and right lower quadrant, likely combination of ascites and uterus. Pelvis Ultrasound 09/29/19 00:00 IMPRESSION: 1. Significant complex ascites within the pelvis, similar to prior CT. 2. Generalized thickening of the endometrial stripe measuring 1.9 cm, previously 1.1 cm. Differential includes hemorrhage, endometritis or retained products of conception. No focal thickening or hyperemia. Findings conveyed to Amanda Griffin at 1427 hours on 09/29/2019. Abdomen Ultrasound 09/30/19 00:00 IMPRESSION: No evidence of Budd-Chiari. Trace ascites. Abdomen Ultrasound 09/30/19 00:00 IMPRESSION: Visualized portions of the splenic vein are patent, with no evidence for splenic vein thrombosis. Abdomen/Pelvis CT 10/01/19 00:00 IMPRESSION: Significant increase in the bilateral pleural effusions and bibasilar airspace disease. Slight increase in the ascites. Adynamic ileus with fluid-filled small bowel and right colon. No evidence for obstruction. Mild hydronephrosis and hydroureter on the right. This appears to be secondary to a Bateman catheter tip just at the orifice of the right ureter. Stroke Is this a Stroke Patient?: No Acute Heart Failure - Is this a Heart Failure Patient?: No
== END 2019-10-07 11:56 | disposition home or self-care (01) | DRG 776 ==
LOC: ER 13:06 → EH 18:35 → 4N 19:30
PROVIDERS: ADMIT Obstetrics & Gynecology; ATTEND Physician Assistant
PROC: 0W9G3ZX Drainage of Peritoneal Cavity, Percutaneous Approach, Diagnostic (ICD-10-PCS; principal; 2019-09-29)
DX: O85 Puerperal sepsis (principal); E43 Unspecified severe protein-calorie malnutrition; K65.0 Generalized (acute) peritonitis; D65 Disseminated intravascular coagulation [defibrination syndrome]; R18.8 Other ascites; O99.325 Drug use complicating the puerperium; F11.20 Opioid dependence, uncomplicated; J98.11 Atelectasis; O99.13 Other diseases of the blood and blood-forming organs and certain disorders involving the immune mechanism complicating the puerperium; K59.00 Constipation, unspecified; K76.89 Other specified diseases of liver; E88.09 Other disorders of plasma-protein metabolism, not elsewhere classified; O99.63 Diseases of the digestive system complicating the puerperium; K21.9 Gastro-esophageal reflux disease without esophagitis; E87.6 Hypokalemia; D72.820 Lymphocytosis (symptomatic); R16.1 Splenomegaly, not elsewhere classified; O99.335 Smoking (tobacco) complicating the puerperium; F17.290 Nicotine dependence, other tobacco product, uncomplicated; O99.89 Other specified diseases and conditions complicating pregnancy, childbirth and the puerperium; O99.345 Other mental disorders complicating the puerperium; F41.9 Anxiety disorder, unspecified; Z03.818 Encounter for observation for suspected exposure to other biological agents ruled out; Z85.41 Personal history of malignant neoplasm of cervix uteri
CPT/HCPCS: 36415; 36430; 71045; 71046; 71275; 74018; 74177; 76705; 76856; 80053; 80074; 80202; 80307; 81001; 82042; 82533; 82565; 82570; 82607; 82728; 82746; 82803; 82945; 83520; 83540; 83550; 83605; 83615; 83690; 83735; 83880; 84100; 84134; 84156; 84157; 84443; 84466; 84702; 85025; 85027; 85045; 85230; 85240; 85245; 85246; 85247; 85250; 85270; 85280; 85379; 85384; 85610; 85652; 85670; 85730; 86038; 86140; 86256; 86308; 86480; 86701; 86850; 86900; 86901; 87015; 87040; 87070; 87075; 87086; 87116; 87205; 87206; 87496; 87635; 87798; 87804; 88305; 89050; 93005; 93010; 93306; 93976; 94640; 94667; 94668; 94799; 96361; 96365; 96375; 99291; C9113; J0571; J0696; J1940; J2270; J2543; J2765; J3370; J3480; J3490; J7030; J7050; J7060; J7120; P9017; P9047

== ENCOUNTER → 2019-11-09 | Outpatient (CLI) | payer MEDICAID ==
--- NOTE | 2019-11-09 13:08 | WOMENS IMAGING REPORT ---
EXAM DESCRIPTION: U/S ABDOMEN TOTAL IMAGES COMPLETED DATE/TIME: 11/09/2019 9:53 am REASON FOR STUDY: R18.8 OTHER ASCITES R18.8 OTHER ASCITES COMPARISON: None. TECHNIQUE: Dynamic and static grayscale images acquired of the abdomen and recorded on PACS. Additio nal selected color Doppler and spectral images recorded. Note: Study does not meet criteria for complete doppler/duplex scan LIMITATIONS: None. FINDINGS: PANCREAS: No masses. Visualized pancreatic duct normal caliber. LIVER: No focal lesions. Enlarged measuring 20.3 cm. No intrahepatic ductal dilation. LIVER VASCULATURE: Normal directional flow of the main portal vein and hepatic veins. GALLBLADDER: No stones. Normal wall thickness. No pericholecystic fluid. ULTRASOUND-DETECTED WHALEN'S SIGN: Negative. INTRAHEPATIC DUCTS AND COMMON DUCT: Mild dilation of the CBD measuring 7.3 mm. No obstructing lesion identified. INFERIOR VENA CAVA: Normal flow as visualized. AORTA: No aneurysm as visualized. RIGHT KIDNEY: Mild asymmetrically small measuring 10.9 cm. Normal echogenicity. No solid or susp icious masses. No hydronephrosis. No calcifications. LEFT KIDNEY: Asymmetrically enlarged measuring 12.5 cm. Normal echogenicity. No solid or suspici ous masses. No hydronephrosis. No calcifications. SPLEEN: Splenomegaly measuring 16.1 cm. No focal lesions. PERITONEAL AND PLEURAL SPACES: No free-flowing ascites. There is complex hypoechoic collections with in the bilateral pelvis without evidence of internal vascularity or well-formed drainable collection. . OTHER: No other significant finding. IMPRESSION: 1. Hepatosplenomegaly. 2. No free-flowing ascites. Complex hypoechoic collections within the bilateral pelvis possibly w[place] lving hemorrhage or complex loculated ascites. No discrete well-formed drainable collection identifi ed. 3. CBD mildly dilated measuring 7.3 mm. No obstructing lesion identified. No intrahepatic ductal d ilation. Recommend correlation with LFTs. TECHNICAL DOCUMENTATION: JOB ID: [id number] 2010 [employer]- All Rights Reserved Reading location - IP/workstation name: [email or web address]
== END ==
LOC: WI 07:00
PROVIDERS: ATTEND Physician Assistant
DX: R18.8 Other ascites (principal)
CPT/HCPCS: 76700

== ENCOUNTER → 2020-01-17 | Outpatient (CLI) | payer MEDICAID ==
--- NOTE | 2020-01-17 18:21 | RADIOLOGY REPORT (SQ) ---
EXAM DESCRIPTION: U/S CHEST IMAGES COMPLETED DATE/TIME: 01/17/2020 5:11 pm REASON FOR STUDY: R22.2 LOCALIZED SWELLING, MASS AND LUMP, TRUNK R22.1 LOCALIZED SWELLING, MASS AND LUMP, NECK R22.2 LOCALIZED SWELLING, MASS AND LUMP, TRUNK COMPARISON: None. TECHNIQUE: Dynamic and static grayscale images acquired of the localized site of clinical concern an d recorded on PACS. Additional selected color Doppler and spectral images recorded. SITE OF CONCERN: Right flank LIMITATIONS: None. FINDINGS: Sonographic imaging shows a hypoechoic area measuring 4.1 x 3.9 x 2.7 cm with moving debri s within it. IMPRESSION: Likely abscess in the right flank as described. TECHNICAL DOCUMENTATION: JOB ID: [id number] 2010 [employer]- All Rights Reserved Reading location - IP/workstation name: [email or web address]
== END ==
LOC: RAD 16:07
PROVIDERS: ATTEND Nurse Practitioner Family
DX: R22.2 Localized swelling, mass and lump, trunk (principal)
CPT/HCPCS: 76604

== ENCOUNTER → 2020-02-03 | Outpatient (CLI) | payer MEDICAID ==
--- NOTE | 2020-02-03 16:33 | RADIOLOGY REPORT (SQ) ---
EXAM DESCRIPTION: CT ABD/PELVIS WITH IV ONLY IMAGES COMPLETED DATE/TIME: 02/03/2020 4:14 pm REASON FOR STUDY: R19.00 INTRA-ABD AND PELVIC SWELLING, MASS AND LUMP, UNSP SITE R19.00 INTRA-ABD A ND PELVIC SWELLING, MASS AND LUMP, UNSP SI COMPARISON: 10/01/2019. TECHNIQUE: CT scan of the abdomen and pelvis performed using helical scanning technique with dynamic intravenous contrast injection. No oral contrast. Images reviewed with lung, soft tissue, and bone windows. Reconstructed coronal and sagittal MPR images reviewed. Delayed images for evaluation of the urinary system also acquired. All images stored on PACS. All CT scanners at this facility use dose modulation, iterative reconstruction, and/or weight based d osing when appropriate to reduce radiation dose to as low as reasonably achievable (ALARA). [facility]: Dose Right [facility]: CareDose [facility]: Dose Right [facility]: Teradose 4D [facility]: [facility] CONTRAST TYPE AND DOSE: contrast/concentration: Isovue 350.00 mmol/ml; Total Contrast Delivered: 62. 0 ml; Total Saline Delivered: 45.0 ml RENAL FUNCTION: None required. The patient is less than 50 years old. RADIATION DOSE: CT Rad equipment meets quality standard of care and radiation dose reduction techniq ues were employed. CTDIvol: NaN - NaN mGy. DLP: 0 mGy-cm.. LIMITATIONS: None. FINDINGS: LOWER CHEST: No significant findings. No nodules or infiltrates. LIVER: Normal size. No masses. No dilated ducts. SPLEEN: Normal size. No focal lesions. PANCREAS: No masses. No significant calcifications. No adjacent inflammation or peripancreatic fluid collections. Pancreatic duct not dilated. GALLBLADDER: No identified stones by CT criteria. No inflammatory changes to suggest cholecystitis. ADRENAL GLANDS: No significant masses or asymmetry. RIGHT KIDNEY AND URETER: No solid masses. No significant calcifications. No hydronephrosis or hyd roureter. LEFT KIDNEY AND URETER: No solid masses. No significant calcifications. No hydronephrosis or hydr oureter. AORTA AND VESSELS: No aneurysm. No dissection. Renal arteries, SMA, celiac without stenosis. RETROPERITONEUM: Right iliopsoas low-attenuation suspicious for abscess measuring approximately 3.2 x 6.0 cm by 10.0 cm craniocaudal diameter. No gas bubbles or organized gas fluid collection. There i s inflammation in the adjacent right paraspinal subcutaneous tissues. BOWEL AND PERITONEAL CAVITY: No masses or inflammatory changes. No free fluid or peritoneal masses. APPENDIX: Not visualized. PELVIS: No mass. No free fluid. Normal bladder. ABDOMINAL WALL: No masses. No hernias. BONES: No significant or acute findings. OTHER: No other significant finding. IMPRESSION: Necrosis/developing abscess right iliopsoas. TECHNICAL DOCUMENTATION: JOB ID: [id number] Quality ID # 436: Final reports with documentation of one or more dose reduction techniques (e.g., Au tomated exposure control, adjustment of the mA and/or kV according to patient size, use of iterative reconstruction technique) 2010 [employer]- All Rights Reserved Reading location - IP/workstation name: [email or web address]
== END ==
LOC: RAD 15:34
PROVIDERS: ATTEND Surgery
DX: R19.00 Intra-abdominal and pelvic swelling, mass and lump, unspecified site (principal)
CPT/HCPCS: 74177

== ENCOUNTER 2020-02-11 11:25 | Day surgery (SDC) | payer MEDICAID ==
[2020-02-11 12:15] LABS: HEMATOCRIT 36.5 % (36.0-47.0); HEMOGLOBIN 11.9 g/dL (12.0-15.5); MEAN CORPUSCULAR HEMOGLOBIN 24.6 pg (27.0-33.4); MEAN CORPUSCULAR HGB CONC 32.7 g/dL (32.0-36.0); MEAN CORPUSCULAR VOLUME 75 fl (80-97); PLATELET COUNT 265 10^3/uL (150-450); RED BLOOD COUNT 4.85 10^6/uL (3.72-5.28); WHITE BLOOD COUNT 8.5 10^3/uL (4.0-10.5)
[2020-02-11 12:25] LABS: INTERNATIONAL RATION (INR) 1.02; PROTHROMBIN TIME 13.6 SEC (11.4-15.4)
[2020-02-11 12:26] LABS: PARTIAL THROMBOPLASTIN TIME 38.2 SEC (23.5-35.8)
[2020-02-11 12:33] LABS: BLOOD UREA NITROGEN 15 mg/dL (7-20)
[2020-02-11] MEDS ORDERED: MIDAZOLAM 2 MG/2 ML INJ ONE (14:05)
[2020-02-11] MEDS ORDERED: FENTANYL CITRATE INJ/PF 100 MCG/2 ML AMPUL ONE (14:05)
[2020-02-11 15:52] VITALS: BP 106/73
--- NOTE | 2020-02-11 16:54 | RADIOLOGY REPORT (SQ) ---
EXAM DESCRIPTION: CT DRAINAGE RETRO/PERITONEAL IMAGES COMPLETED DATE/TIME: 02/11/2020 3:13 pm REASON FOR STUDY: PSOAS FLUID COLLECTION/DRAIN PLACEMENT K68.12 PSOAS MUSCLE ABSCESS COMPARISON: CT of the abdomen pelvis with contrast from 02/03/2020. FLUORO TIME: 17.9 seconds. 308 images submitted to PACS. LIMITATIONS: None. PROCEDURE: The procedure, risks, benefits, and alternatives were discussed with the patient in the p reprocedural area, and all questions were answered. Informed consent was obtained verbally and in wri ting. The patient was then brought to the CT suite, positioned prone on the CT gurney, and a time-out was p erformed. After that, axial images of the abdomen were obtained for targeting of the right iliopsoas abscess. Based on review of the axial images an appropriate access site was selected on the skin. The area around the selected access site was then prepped and draped with 2% chlorhexidine utilizing standard sterile technique. After that, the access site was infiltrated with 1% lidocaine and an inc ision was made perpendicular to the skin surface with a #11 blade. An 18 gauge access needle was then advanced through the skin incision and into the iliopsoas abscess utilizing CT fluoroscopic guidance . Next the needle was exchanged over a 0.038 inch guidewire for a 12 Arabic dilator, which was used t o dilate the percutaneous track. The dilator was then removed and a 12 Arabic all-purpose drainage ca theter was advanced over the guidewire into the iliopsoas abscess. After that, the guidewire and inne r dilator of the catheter were removed and the catheter was formed within the iliopsoas abscess. How ever, despite confirming proper position of the catheter with repeat axial images of the abdomen and flushing the catheter with sterile saline, there was no return from the catheter. The above was disc ussed with Dr. De Jesus and he asked that the drain remain in place until he says the patient in clinic on Friday February 14, 2020. The catheter was subsequently locked in position, secured in place with a StayFix device and attached to a drainage bag. The patient tolerated the procedure well without immediate complication. At the end of the procedure the patient's condition was unchanged from the preprocedural baseline. IV conscious sedation was administered at the direction of the performing physician by a chandra trinh. 1 milligrams of Versed and 0 micrograms of fentanyl were administered. Physiologic monitoring w as provided before, during, and after sedation. The total sedation time was 30 minutes. Documentation of [id number] time the proceduralist spent monitoring the patient: 25 minutes. IMPRESSION: CT-guided placement of a 12 Arabic all-purpose drainage catheter into the right iliopsoa s abscess. COMMENT: Patient medication list reviewed: Yes- Quality ID# 130:Eligible professional attests to doc umenting in the medical record they obtained, updated, or reviewed the patient's current medications. Quality ID #76: The patient was prepped and draped using maximum sterile barrier technique including cap, mask, sterile gown, sterile gloves, a large sterile sheet, hand hygiene, and 2% Chlorhexidine fo r cutaneous antisepsis. When ultrasound is used, sterile ultrasound techniques are followed requiring sterile gel and sterile probes. Quality ID 145: Final reports for procedures using fluoroscopy that document radiation exposure armand gloria, or exposure time and number of fluorographic images (if radiation exposure indices are not avail able) Quality ID# 436: Final reports with documentation of one or more dose reduction techniques (e.g., Aut omated exposure control, adjustment of the mA and/or kV according to patient size, use of iterative r econstruction technique) TECHNICAL DOCUMENTATION: JOB ID: [id number] 2010 [email or web address]- All Rights Reserved rev-09/10 Reading location - IP/workstation name: [email or web address]
== END 2020-02-11 15:35 | disposition home or self-care (01) ==
LOC: RAD 11:25
PROVIDERS: ATTEND Surgery
DX: K68.12 Psoas muscle abscess (principal); K21.9 Gastro-esophageal reflux disease without esophagitis
CPT/HCPCS: 36415; 84520; 82565; 85027; 85610; 85730; 49406; C1729; C1892; J2250; J3010

== ENCOUNTER → 2020-02-29 | Outpatient (CLI) | payer MEDICAID ==
--- NOTE | 2020-02-29 14:27 | RADIOLOGY REPORT (SQ) ---
EXAM DESCRIPTION: CT ABD/PELVIS NO ORAL OR IV IMAGES COMPLETED DATE/TIME: 02/29/2020 9:44 am REASON FOR STUDY: K68.12 PSOAS MUSCLE ABSCESS K68.12 PSOAS MUSCLE ABSCESS COMPARISON: 02/11/2020 TECHNIQUE: CT scan of the abdomen and pelvis performed without intravenous or oral contrast. Images reviewed with lung, soft tissue, and bone windows. Reconstructed coronal and sagittal MPR images revi ewed. All images stored on PACS. All CT scanners at this facility use dose modulation, iterative reconstruction, and/or weight based d osing when appropriate to reduce radiation dose to as low as reasonably achievable (ALARA). [facility]: Dose Right [facility]: CareDose [facility]: Dose Right [facility]: Teradose 4D [facility]: [employer] RADIATION DOSE: CT Rad equipment meets quality standard of care and radiation dose reduction techniq ues were employed. CTDIvol: 2.7 mGy. DLP: 128 mGy-cm.mGy. LIMITATIONS: None. FINDINGS: LOWER CHEST: No significant findings. No nodules or infiltrates. NON-CONTRASTED LIVER, SPLEEN, ADRENALS: Evaluation limited by lack of IV contrast. No identified sign ificant masses. PANCREAS: No masses. No peripancreatic inflammatory changes. GALLBLADDER: No calcified stones. No inflammatory changes to suggest cholecystitis. RIGHT KIDNEY AND URETER: No cysts identified. No solid masses. No calcified stones. No hydronephrosis or hydroureter. LEFT KIDNEY AND URETER: No cysts identified. No solid masses. No calcified stones. No hydronephrosis or hydroureter. AORTA AND RETROPERITONEUM: No aneurysm. No retroperitoneal masses or adenopathy. BOWEL AND PERITONEAL CAVITY: No obvious masses or inflammatory changes. No free fluid. APPENDIX: Not visualized. PELVIS, BLADDER, AND ABDOMINAL WALL:Trace free fluid. Unremarkable bladder. BONES: No acute findings. OTHER: Right retroperitoneal pigtail drainage catheter is present at the L2-3 level. IMPRESSION: No residual abscess identified. TECHNICAL DOCUMENTATION: JOB ID: [id number] [id number] Quality ID # 436: Final reports with documentation of one or more dose reduction techniques (e.g., Au tomated exposure control, adjustment of the mA and/or kV according to patient size, use of iterative reconstruction technique) 2010 [employer]- All Rights Reserved Reading location - IP/workstation name: [email or web address]
== END ==
LOC: RAD 09:21
PROVIDERS: ATTEND Surgery
DX: K68.12 Psoas muscle abscess (principal)
CPT/HCPCS: 74176

== ENCOUNTER → 2020-03-09 | Outpatient (CLI) | payer MEDICAID ==
[2020-03-09 12:53] LABS: ABSOLUTE EOSINOPHILS # (AUTO) 0.1 10^3/uL (0.0-0.6); ABSOLUTE LYMPHOCYTES (AUTO) 1.4 10^3/uL (0.5-4.7); ABSOLUTE MONOCYTES (AUTO) 0.4 10^3/uL (0.1-1.4); ABSOLUTE NEUT (AUTO) 2.1 10^3/uL (1.7-8.2); BASOPHILS % (AUTO) 0.6 % (0-2); EOSINOPHILS % (AUTO) 3.1 % (0-6); HEMATOCRIT 36.2 % (36.0-47.0); HEMOGLOBIN 12.3 g/dL (12.0-15.5); LYMPHOCYTES % (AUTO) 34.8 % (13-45); MEAN CORPUSCULAR HGB CONC 33.8 g/dL (32.0-36.0); MEAN CORPUSCULAR VOLUME 77 fl (80-97); MONOCYTES % (AUTO) 8.7 % (3-13); PLATELET COUNT 165 10^3/uL (150-450); RED BLOOD COUNT 4.71 10^6/uL (3.72-5.28); RED CELL DISTRIBUTION WIDTH 18.8 % (11.5-14.0); SEGMENTED NEUTROPHILS % (AUTO) 52.8 % (42-78); TOTAL CELLS COUNTED % (AUTO) 100 %; WHITE BLOOD COUNT 4.1 10^3/uL (4.0-10.5)
[2020-03-09 13:06] LABS: APPEARANCE,URINE SLIGHTLY-CLOUDY; BILIRUBIN,URINE NEGATIVE (NEGATIVE); COLOR,URINE YELLOW; GLUCOSE, URINE NEGATIVE (NEGATIVE); KETONES,URINE NEGATIVE (NEGATIVE); LEUKOCYTE ESTERASE,URINE NEGATIVE (NEGATIVE); NITRITE,URINE NEGATIVE (NEGATIVE); PROTEIN,URINE NEGATIVE (NEGATIVE); UROBILINOGEN,URINE NEGATIVE mg/dL (<2.0)
== END ==
LOC: OD 11:55
PROVIDERS: ATTEND Surgery
DX: R30.0 Dysuria (principal)
CPT/HCPCS: 36415; 81001; 85025